=== PATIENT | male | born 1945 | race Caucasian/White ===

== ENCOUNTER 2017-07-14 14:07 | Inpatient (IN) | payer OTHER ==
[2017-07-14 15:04] LABS: Absolute Lymphocytes (CBC) 0.4 K/uL (0.7-4.9); Absolute Monocytes 0.6 K/uL (0.1-1.3); Absolute Neutrophil 9.4 K/uL (1.8-8.0); Basophils % 0.4 % (0-1.3); Eosinophils % 0.5 % (0-4.4); Hematocrit 33.2 % (39.6-49.0); Lymphocytes % 3.8 % (15.3-44.8); MCH 29.2 pg (27.0-35.0); MCV 88.5 fL (80-100); MPV 10.4 fL (7.6-11.3); Monocytes % 5.6 % (3.3-12.3); RBC Red Blood Cell Count 3.75 M/uL (4.33-5.43)
[2017-07-14 15:04] LABS: Urine Blood TRACE (NEG); Urine Glucose NEGATIVE (NEG); Urine Protein 3+ (NEG); Urine Specific Gravity 1.015 (1.005-1.030); Urine pH 8.5 (5.0-7.0)
[2017-07-14 15:09] LABS: Protime INR 1.13
[2017-07-14] MEDS ORDERED: NA CHLORIDE 0.9% 1,000 ML ONE ×2 (15:15→16:25)
[2017-07-14 15:25] LABS: Albumin 3.5 g/dL (3.2-5.5); Bilirubin Direct 0.1 mg/dL (0-0.2); Bilirubin Total 0.7 mg/dL (0.3-1.2); Magnesium 1.7 mg/dL (1.8-2.5); Protein, Total 6.8 g/dL (6.0-8.3)
[2017-07-14 15:28] LABS: CKMB Creatine Kinase MB 5.1 ng/ml (0.3-4.0); Potassium 2.9 mEq/L (3.6-5.0)
--- NOTE | 2017-07-14 15:37 | RAD REPORT ---
EXAM DESCRIPTION: RAD - Chest Single View - 07/14/2017 2:44 pm CLINICAL HISTORY: Cough and congestion COMPARISON: None. TECHNIQUE: AP portable chest image was obtained 1441 hours . FINDINGS: No acute infiltrate or suspicious mass. Calcification overlies the lateral left lung base. This is not regarded as significant. Trachea is midline. No failure or volume overload. Heart and va sculature are normal. No measurable pleural effusion and no pneumothorax. No gross bony abnormality s een. No acute aortic findings suspected. IMPRESSION: No acute cardiopulmonary process.
--- NOTE | 2017-07-14 16:01 | ER ---
Nurse's Notes [facility] Name: Travis Cardona Age: 72 yrs Sex: Male : 1945 Arrival Date: 07/14/2017 Time: 14:19 Bed 7 Private MD: Diagnosis: Weakness;Volume depletion;Hypokalemia;Hypomagnesemia;Anemia, unspecified;Chronic obstructive pulmonary disease, unspecified;Type 2 diabetes mellitus Presentation: 07/14 14:20 Presenting complaint: EMS states: Lethargy and malaise x 3 days. Pt verbalized he was hb having a seizure and flailed his arms and legs loosely during transport. Denies SOB/N/V/pain. Transition of care: patient was not received from another setting of care. Onset of symptoms is unknown. Care prior to arrival: IV initiated. 18 GA, in the left antecubital area. 14:20 Method Of Arrival: EMS: [facility] hb 14:20 Acuity: HIMA 3 hb Historical: - Allergies: 14:23 No Known Allergies; hb - PMHx: 14:23 Hypertension; hb - Immunization history:: Adult Immunizations up to date. - Social history:: Smoking status: Patient uses tobacco products, smokes one pack cigarettes per day. Screenin:02 Abuse screen: Denies threats or abuse. Denies injuries from another. Nutritional hb screening: No deficits noted. Tuberculosis screening: No symptoms or risk factors identified. Fall Risk Total Patten Fall Scale indicates Low Risk Score (25-44 pts). Fall prevention measures have been instituted. Side Rails Up X 2 Frequent Obs/Assesments occuring As available Patient and Family Educated on Fall Prevention Program and strategies. Assessment: 14:22 General: Appears in no apparent distress. Behavior is calm, cooperative. Pain: Denies hb pain. Neuro: Level of Consciousness is awake, alert, obeys commands, Oriented to person, place, time, situation. Cardiovascular: Capillary refill < 3 seconds Patient's skin is warm and dry. Respiratory: Airway is patent Trachea midline Respiratory effort is even, unlabored, Respiratory pattern is regular, symmetrical, Breath sounds are clear bilaterally. Breath sounds are diminished bilaterally. GI: No signs and/or symptoms were reported involving the gastrointestinal system. : No signs and/or symptoms were reported regarding the genitourinary system. EENT: No signs and/or symptoms were reported regarding the EENT system. Derm: No signs and/or symptoms reported regarding the dermatologic system. Skin is intact, is healthy with good turgor. Musculoskeletal: No signs and/or symptoms reported regarding the musculoskeletal system. 15:05 Reassessment: Baljinder Cardona [phone]. hb 15:20 Reassessment: Patient appears in no apparent distress at this time. No changes from hb previously documented assessment. Patient and/or family updated on plan of care and expected duration. Pain level reassessed. Patient is alert, oriented x 3, equal unlabored respirations, skin warm/dry/pink. 16:00 Reassessment: Patient appears in no apparent distress at this time. No changes from hb previously documented assessment. Patient and/or family updated on plan of care and expected duration. Pain level reassessed. Patient is alert, oriented x 3, equal unlabored respirations, skin warm/dry/pink. 17:00 Reassessment: Patient appears in no apparent distress at this time. Patient and/or hb family updated on plan of care and expected duration. Pain level reassessed. Patient is alert, oriented x 3, equal unlabored respirations, skin warm/dry/pink. Admission ordered, awaiting room assignment at this time. 17:36 Reassessment: Ready to move upstairs, US at bedside at this time. hb Vital Signs: 14:19 BP 142 / 96; Pulse 88; Resp 16; Temp 98.7; Pulse Ox 96% on R/A; Pain 0/10; hb 15:15 BP 151 / 80; Pulse 58; Resp 16; Pulse Ox 100% on R/A; Pain 0/10; hb 16:00 BP 146 / 78; Pulse 57; Resp 17; Pulse Ox 100% on 2 lpm NC; hb ED Course: 14:19 Patient arrived in ED. hb 14:22 Triage completed. hb 14:23 Arm band placed on right wrist. hb 14:24 Rolan Calvo MD is Attending Physician. [facility] 14:27 Jyotsna Forbes, ISAURA is Primary Nurse. hb 14:43 X-ray completed. Portable x-ray completed in exam room. Patient tolerated procedure jb2 well. 14:44 XRAY Chest (1 view) In Process Unspecified. EDMS 15:02 Patient has correct armband on for positive identification. Placed in gown. Bed in low hb position. Call light in reach. Side rails up X2. 15:02 Maintain EMS IV. Dressing intact. Good blood return noted. Site clean \T\ dry. Gauge \T\ hb site: 18g LEFT AC. 15:59 Nikita Brown MD is Hospitalizing Provider. yury 16:23 Patient moved to [place] via stretcher. nj 16:26 CT completed. Patient tolerated procedure well. Patient moved back from LA. nj 16:30 Admitting physician to see patient. hb 17:46 Ultrasound completed. Patient tolerated well. aa4 18:03 No provider procedures requiring assistance completed. Patient admitted, IV remains in hb place. Administered Medications: 15:01 Drug: NS 0.9% 1000 ml Route: IV; Rate: 125 ml/hr; Site: left antecubital; hb 18:00 Follow up: Response: No adverse reaction; IV Status: Infusion continued upon admission hb 16:14 Drug: Magnesium Sulfate 1 grams Route: IVPB; Infused Over: 1 hrs; Site: right hb antecubital; 17:45 Follow up: Response: No adverse reaction; IV Status: Completed infusion hb 16:14 Drug: NS 0.9% 1000 ml Route: IV; Rate: 1 bolus; Site: right antecubital; hb 17:15 Follow up: Response: No adverse reaction; IV Status: Completed infusion hb 16:15 Drug: Potassium Chloride 40 mEq Route: PO; hb 16:52 Follow up: Response: No adverse reaction hb 16:37 Drug: Rocephin - (cefTRIAXone) 1 grams Route: IVPB; Infused Over: 30 mins; Site: left hb antecubital; 17:40 Follow up: Response: No adverse reaction; IV Status: Completed infusion hb 16:37 Drug: SOLU-Medrol 125 mg Route: IVP; Site: left antecubital; hb 17:15 Follow up: Response: No adverse reaction hb 16:37 Drug: Pepcid 20 mg Route: IVP; Site: left antecubital; hb 18:00 Follow up: Response: No adverse reaction hb 16:40 Drug: Albuterol - atroVENT (3:1) (2.5 mg - 0.5 mg) 3 ml Route: Nebulizer; hb 18:00 Follow up: Response: No adverse reaction hb 17:36 Drug: Aspirin 81 mg Route: PO; hb 18:00 Follow up: Response: No adverse reaction hb 17:36 Drug: Zithromax 500 mg Route: IVPB; Infused Over: 1 hrs; Site: left antecubital; hb 18:02 Follow up: Response: No adverse reaction; IV Status: Infusion continued upon admission hb Outcome: 16:01 Decision to Hospitalize by Provider. yury 18:03 Admitted to Tele accompanied by tech, room 205, with chart, Report called to Lady. RN chanel 18:03 Condition: stable 18:03 Instructed on the need for admit, Demonstrated understanding of instructions. 18:08 Patient left the ED. hb Signatures: Dispatcher [employer] EDMS Rolan Calvo MD MD cha Buechter, Jesse jb2 Mayra Barlow Heather, RN RN hb Jordan, Nathan nj Corrections: (The following items were deleted from the chart) 14:32 14:20 Presenting complaint: EMS states: Lethargic and malaise x 3 days. Pt verbalized hb he was having a seizure and flailed his arms and legs loosely during transport. Denies SOB/N/V/pain hb
--- NOTE | 2017-07-14 16:01 | EDPHYS ---
Physician Documentation [facility] Name: Travis Cardona Age: 72 yrs Sex: Male : 1945 Arrival Date: 07/14/2017 Time: 14:19 Bed 7 Private MD: ED Physician Rolan Calvo HPI: 07/14 15:48 This 72 yrs old Male presents to ER via EMS with complaints of Lethargy. yury 15:48 weak, not eating. Onset: The symptoms/episode began/occurred 3 day(s) ago. Severity of yury symptoms: At their worst the symptoms were mild moderate in the emergency department the symptoms are unchanged. The patient has not experienced similar symptoms in the past. Historical: - Allergies: 14:23 No Known Allergies; hb - PMHx: 14:23 Hypertension; hb - Immunization history:: Adult Immunizations up to date. - Social history:: Smoking status: Patient uses tobacco products, smokes one pack cigarettes per day. ROS: 15:50 Constitutional: Negative for fever, chills, and weight loss, Eyes: Negative for injury, yury pain, redness, and discharge, ENT: Negative for injury, pain, and discharge, Neck: Negative for injury, pain, and swelling, Cardiovascular: Negative for chest pain, palpitations, and edema, Back: Negative for injury and pain, : Negative for injury, bleeding, discharge, and swelling, MS/Extremity: Negative for injury and deformity, Skin: Negative for injury, rash, and discoloration, Psych: Negative for depression, anxiety, suicide ideation, homicidal ideation, and hallucinations, Allergy/Immunology: Negative for hives, rash, and allergies, Endocrine: Negative for neck swelling, polydipsia, polyuria, polyphagia, and marked weight changes, Hematologic/Lymphatic: Negative for swollen nodes, abnormal bleeding, and unusual bruising. 15:50 Respiratory: Positive for cough. 15:50 Abdomen/GI: Positive for anorexia. 15:50 Neuro: Positive for dizziness, seizure activity, weakness. Exam: 15:51 Constitutional: This is a well developed, well nourished patient who is awake, alert, yury and in no acute distress. Head/Face: Normocephalic, atraumatic. Eyes: Pupils equal round and reactive to light, extra-ocular motions intact. Lids and lashes normal. Conjunctiva and sclera are non-icteric and not injected. Cornea within normal limits. Periorbital areas with no swelling, redness, or edema. ENT: Nares patent. No nasal discharge, no septal abnormalities noted. Tympanic membranes are normal and external auditory canals are clear. Oropharynx with no redness, swelling, or masses, exudates, or evidence of obstruction, uvula midline. Mucous membranes moist. Neck: Trachea midline, no thyromegaly or masses palpated, and no cervical lymphadenopathy. Supple, full range of motion without nuchal rigidity, or vertebral point tenderness. No Meningismus. Chest/axilla: Normal chest wall appearance and motion. Nontender with no deformity. No lesions are appreciated. Cardiovascular: Regular rate and rhythm with a normal S1 and S2. No gallops, murmurs, or rubs. Normal PMI, no JVD. No pulse deficits. Respiratory: Lungs have equal breath sounds bilaterally, clear to auscultation and percussion. No rales, rhonchi or wheezes noted. No increased work of breathing, no retractions or nasal flaring. Abdomen/GI: Soft, non-tender, with normal bowel sounds. No distension or tympany. No guarding or rebound. No evidence of tenderness throughout. Back: No spinal tenderness. No costovertebral tenderness. Full range of motion. MS/ Extremity: Pulses equal, no cyanosis. Neurovascular intact. Full, normal range of motion. Neuro: Awake and alert, GCS 15, oriented to person, place, time, and situation. Cranial nerves II-XII grossly intact. Motor strength 5/5 in all extremities. Sensory grossly intact. Cerebellar exam normal. Normal gait. Psych: Awake, alert, with orientation to person, place and time. Behavior, mood, and affect are within normal limits. 15:51 Skin: Turgor: is poor. Vital Signs: 14:19 BP 142 / 96; Pulse 88; Resp 16; Temp 98.7; Pulse Ox 96% on R/A; Pain 0/10; hb 15:15 BP 151 / 80; Pulse 58; Resp 16; Pulse Ox 100% on R/A; Pain 0/10; hb 16:00 BP 146 / 78; Pulse 57; Resp 17; Pulse Ox 100% on 2 lpm NC; hb MDM: 14:[address] [facility] 15:53 Data reviewed: vital signs, nurses notes, lab test result(s), EKG, radiologic studies, [facility] CT scan, plain films. 07/14 14:30 Order name: Basic Metabolic Panel; Complete Time: 15:41 [facility] 07/14 14:30 Order name: BNP; Complete Time: 15:41 [facility] 07/14 14:30 Order name: CBC with Diff; Complete Time: 15:41 [facility] 07/14 14:30 Order name: Ckmb; Complete Time: 15:41 [facility] 07/14 14:30 Order name: CPK; Complete Time: 15:41 [facility] 07/14 14:30 Order name: LFT's; Complete Time: 15:41 [facility] 07/14 14:30 Order name: Magnesium; Complete Time: 15:41 [facility] 07/14 14:30 Order name: PT-INR; Complete Time: 15:41 [facility] 07/14 14:30 Order name: Ptt, Activated; Complete Time: 15:41 [facility] 07/14 14:30 Order name: Troponin (emerg Dept Use Only); Complete Time: 15:41 [facility] 07/14 14:30 Order name: Lipase; Complete Time: 15:41 [facility] 07/14 14:30 Order name: Blood Culture Adult (2) [facility] 07/14 14:30 Order name: Procalcitonin; Complete Time: 15:41 [facility] 07/14 14:30 Order name: Lactate; Complete Time: 15:41 [facility] 07/14 14:30 Order name: XRAY Chest (1 view); Complete Time: 15:41 [facility] 07/14 14:31 Order name: Urine Culture [facility] 07/14 14:56 Order name: Urine Dipstick--Ancillary (enter results); Complete Time: 15:41 07/14 15:46 Order name: Phosphorus; Complete Time: 17:22 [facility] 07/14 15:47 Order name: ABG; Complete Time: 17:22 [facility] 07/14 15:49 Order name: Chest Abdomen Pelvis Wo Con CT 07/14 16:41 Order name: CT; Complete Time: 17:22 EDMS 07/14 17:23 Order name: US Abdomen Limited [facility] 07/14 14:30 Order name: EKG; Complete Time: 14:31 [facility] 07/14 14:30 Order name: Cardiac monitoring; Complete Time: 15:01 [facility] 07/14 14:30 Order name: EKG - Nurse/Tech; Complete Time: 15:01 [facility] 07/14 14:30 Order name: IV Saline Lock; Complete Time: 15: [facility] 07/14 14:30 Order name: Labs collected and sent; Complete Time: 15: [facility] 07/14 14:30 Order name: O2 Per Protocol; Complete Time: 15: [facility] 07/14 14:30 Order name: O2 Sat Monitoring; Complete Time: 15: [facility] 07/14 14:30 Order name: Urine Dipstick-Ancillary (obtain specimen); Complete Time: 15: [facility] 07/14 16:08 Order name: CONS Physician Consult [facility] 07/14 16:16 Order name: Diet Regular; Complete Time: 16:17 hb Administered Medications: 15:01 Drug: NS 0.9% 1000 ml Route: IV; Rate: 125 ml/hr; Site: left antecubital; hb 18:00 Follow up: Response: No adverse reaction; IV Status: Infusion continued upon admission hb 16:14 Drug: Magnesium Sulfate 1 grams Route: IVPB; Infused Over: 1 hrs; Site: right hb antecubital; 17:45 Follow up: Response: No adverse reaction; IV Status: Completed infusion hb 16:14 Drug: NS 0.9% 1000 ml Route: IV; Rate: 1 bolus; Site: right antecubital; hb 17:15 Follow up: Response: No adverse reaction; IV Status: Completed infusion hb 16:15 Drug: Potassium Chloride 40 mEq Route: PO; hb 16:52 Follow up: Response: No adverse reaction hb 16:37 Drug: Rocephin - (cefTRIAXone) 1 grams Route: IVPB; Infused Over: 30 mins; Site: left hb antecubital; 17:40 Follow up: Response: No adverse reaction; IV Status: Completed infusion hb 16:37 Drug: SOLU-Medrol 125 mg Route: IVP; Site: left antecubital; hb 17:15 Follow up: Response: No adverse reaction hb 16:37 Drug: Pepcid 20 mg Route: IVP; Site: left antecubital; hb 18:00 Follow up: Response: No adverse reaction hb 16:40 Drug: Albuterol - atroVENT (3:1) (2.5 mg - 0.5 mg) 3 ml Route: Nebulizer; hb 18:00 Follow up: Response: No adverse reaction hb 17:36 Drug: Aspirin 81 mg Route: PO; hb 18:00 Follow up: Response: No adverse reaction hb 17:36 Drug: Zithromax 500 mg Route: IVPB; Infused Over: 1 hrs; Site: left antecubital; hb 18:02 Follow up: Response: No adverse reaction; IV Status: Infusion continued upon admission hb Disposition: 07/14/17 16:01 Hospitalization ordered by Nikita Brown for Inpatient Admission. Preliminary diagnosis are Weakness, Volume depletion, Hypokalemia, Hypomagnesemia, Anemia, unspecified, Chronic obstructive pulmonary disease, unspecified, Type 2 diabetes mellitus. - Bed requested for Telemetry/MedSurg (Inpatient). - Status is Inpatient Admission. hb - Condition is Fair. - Problem is new. - Symptoms have improved. UTI on Admission? No Signatures: Dispatcher [employer] Nadya Torres, RN RN Rolan Chakraborty MD MD cha Baxter, Heather, ISAURA RN hb
[2017-07-14 16:18] LABS: Blood Gas Oxyhemoglobin 80.1 % (94-97)
[2017-07-14 16:22] LABS: Blood O2 Saturation 90.7 % (92-98.5)
[2017-07-14] MEDS ORDERED: POTASSIUM CL SA 10 MEQ TAB PO ONE (16:25)
[2017-07-14] MEDS ORDERED: MAGNESIUM SULFATE 1 gm IVPB 1 GM/100 ML BAG IV ONE (16:26)
--- NOTE | 2017-07-14 16:40 | RAD REPORT ---
EXAM DESCRIPTION: CT - Chest Abd Pelvis Wo Con - 07/14/2017 4:25 pm CLINICAL HISTORY: Cough and abdominal pain COMPARISON: July 14, 2017 chest x-ray TECHNIQUE: Computed axial tomography of the chest, abdomen and pelvis was obtained. Oral contrast wa s given. IV contrast was not requested. All CT scans are performed using dose optimization technique as appropriate and may include automated exposure control or mA/KV adjustment according to patient size. FINDINGS: The evaluation of mediastinum, mae, vessels and solid organs is limited secondary to the lack of IV contrast administration No mediastinal or hilar lymphadenopathy is seen. A pleural effusion is not present. A pericardial effusion is not seen. A lung consolidation is not present. Mild tree-in-bud opacities are present within the lungs bilatera lly. Calcified granulomas are present within the lungs. The liver, spleen, pancreas, adrenals and kidneys appear grossly normal There is no evidence of diverticulitis. The gallbladder is distended. Atherosclerotic changes involve the arteries. The prostate gland is mildly enlarged. IMPRESSION: Mild tree-in-bud opacities within the lungs bilaterally may indicate an atypical infect ion Gallbladder distention. This could be a normal finding if the patient has fasted. If the patient has clinical symptoms to suggest gallbladder pathology then ultrasound would be recommended
[2017-07-14] MEDS ORDERED: ALBUTEROL 2.5 MG/3 ML NEB SOL NEB PRN (16:45)
[2017-07-14] MEDS ORDERED: ACETAMINOPHEN 500 MG TAB PO PRN (16:45)
[2017-07-14] MEDS ORDERED: ONDANSETRON 4 MG/2 ML VIAL IV PRN (16:45)
[2017-07-14] MEDS ORDERED: IPRATROPIUM BROM 0.5MG/2.5ML NEB PRN (16:45)
[2017-07-14] MEDS ORDERED: ALBUTEROL 2.5 MG/3 ML NEB SOL ONE (16:51)
[2017-07-14] MEDS ORDERED: METHYLPREDNISOLONE 125 MG INJ ONE (16:51)
[2017-07-14] MEDS ORDERED: IPRATROPIUM BROM 0.5MG/2.5ML ONE (16:51)
[2017-07-14] MEDS ORDERED: FAMOTIDINE 20 MG/2 ML VIAL IV ONE (16:52)
[2017-07-14] MEDS ORDERED: CEFTRIAXONE/SWI 1gm 1 GM/10 ML SYR ONE (16:52)
[2017-07-14] MEDS ORDERED: ENOXAPARIN 30 MG/0.3 ML SQ SCH (17:00)
[2017-07-14] MEDS ORDERED: SODIUM CHLORIDE 0.9% 10ML INJ IV PRN (17:01)
[2017-07-14] MEDS ORDERED: D50W 25 GM/50 ML SYRINGE IV PRN (17:11)
[2017-07-14] MEDS ORDERED: GLUCAGON 1 MG/VIAL IM PRN (17:11)
[2017-07-14] MEDS ORDERED: ASPIRIN 81 MG CHEWABLE TABLET ONE (17:49)
[2017-07-14] MEDS ORDERED: AZITHROMYCIN 500 MG/250 ML BAG ONE (17:50)
[2017-07-14] MEDS: AZITHROMYCIN IV 500 MG in NA CHLORIDE 0.9% 250 ML IVPB SCH (18:00)
[2017-07-14] MEDS: NA CHLORIDE 0.9% 1,000 ML IV SCH ×2 (18:34→21:14)
--- NOTE | 2017-07-14 18:40 | RAD REPORT ---
EXAM DESCRIPTION: US - Abdomen Exam Limited - 07/14/2017 5:49 pm CLINICAL HISTORY: Abdominal pain, right upper quadrant pain COMPARISON: None. FINDINGS: No gallstones, sludge or other abnormalities within the gallbladder lumen. There is no wal l thickening or pericholecystic fluid. Gallbladder is distended but not dilated. No common duct stone or biliary tree dilatation identified. IMPRESSION: Distended but nondilated gallbladder. No stones, sludge or other acute finding. No duct stone or biliary tree abnormality.
[2017-07-14] MEDS: CEFTRIAXONE/SWI 1gm 1 GM/10 ML SYR IV SCH (21:15)
[2017-07-14] MEDS: INSULIN -REGULAR HUMAN 50 UNIT/0.5 ML ML SQ SCH (21:15)
[2017-07-14 21:50] LABS: Urine Appearance CLEAR; Urine Bilirubin NEGATIVE (NEG); Urine Blood NEGATIVE (NEG); Urine Color YELLOW; Urine Glucose 2+ (NEG); Urine Protein 2+ (NEG); Urine Specific Gravity 1.015 (1.005-1.030); Urine pH 7.5 (5.0-7.0)
[2017-07-14 21:58] LABS: Urine Microscopic Reflex ORDER UMIC
[2017-07-14 22:08] LABS: Urine Bacteria <20 /HPF (NONE SEEN); Urine Culture Reflex Order NOT NEEDED; Urine Mucus 0 /HPF (NONE SEEN); Urine RBC <5 /HPF (NONE SEEN)
[2017-07-14] MEDS ORDERED: POTASSIUM 25 MEQ EFFERV TAB PO ONE (22:15)
--- NOTE | 2017-07-15 02:56 | HP ---
Date of Admission: 07/14/2017 Code Status: Full. Chief Complaint: Generalized weakness. History Of Present Illness: The patient is a 72-year-old male with past medical history of diabetes mellitus type 2, hypertension, history of OK status post stent, hyperlipidemia, chronic kidney disease, COPD, who was in his usual state of health until the day prior to admission, when the patient had sudden onset of generalized weakness. He also reports some difficulty with his speech. No nausea, vomiting, fever, chills, diarrhea, constipation, chest pain , or shortness of breath. The patient does report baseline shortness of breath due to his undiagnosed COPD. The [place] goes to the [place] and does see a kidney specialist at [facility]. The patient otherwise denies any ill contacts, cough , or sputum production. The patient's symptoms are constant, moderate, progressively worsening. No alleviating factors. The patient came into the ER for further evaluation. Upon arrival, his vital signs were stable, he was afebrile. His lab workup revealed multiple electrolyte abnormalities. Creatinine was 2.51 with unknown baseline. White count was normal. ABG showed pH 7.51, pCO2 49, pO2 55, bicarb 39. His chest x-ray did not reveal any acute abnormalities. CT scan of the abdomen and pelvis was done, which showed mild tree-in-bud opacities within the lungs bilaterally, may indicate atypical infection, and gallbladder distention. The patient was referred for admission. When seen in the ER, the patient was awake, alert, oriented x3, in some mild distress. Past Medical History: 1. Coronary artery disease. 2. History of OK x3, status post stent. 3. Hypertension. 4. Diabetes mellitus type 2, insulin requiring. 5. Hyperlipidemia. 6. Chronic kidney disease. 7. Likely COPD. Past Surgical History: The patient has had stent and appendectomy. Allergies: NO KNOWN DRUG ALLERGIES. Medications: Reviewed. Social History: The patient denies any alcohol use or illicit drugs. He does report some tobacco use since age of 14 years, will not tell me how much he smokes, but it is more than 1 pack per day. Lives with his son, uses a walker for ambulation, and at times uses a wheelchair. Family History: The patient denies any history of premature coronary artery disease since his son has diabetes. Review of Systems: An 11-point system reviewed, negative except as per HPI. Physical Examination: Vital Signs: Temperature 98.7, heart rate 88, blood pressure 142/96, respirations 16, O2 96% on room air. General: Awake, alert, oriented x3. Elderly male, ill appearing. HEENT: Normocephalic, atraumatic. PERRLA. EOMI. Dry mucous membranes. Oropharynx is clear. Poor dentition. Conjunctivae are anicteric. Neck: Supple. No JVD. Trachea midline. CV: S1, S2. Regular rate and rhythm. No murmurs. Peripheral pulses are present bilaterally. RESPIRATORY: Some diminished breath sounds. No wheezing. No stridor. No use of accessory muscles. Gastrointestinal: Abdomen is soft, nontender, and nondistended. Positive bowel sounds. No guarding or rigidity. No calf tenderness. Skin: No rashes. Normal skin turgor. Neuro: Cranial nerves 2 through 12 intact grossly. No focal neurological deficits. Strength is 5/5 in bilateral upper lower extremities. Sensation is intact to light touch. Speech is somewhat dysarthric, however, no word-finding difficulty, facial asymmetry. Laboratory Data: Sodium 139, potassium 2.9, chloride 88, CO2 of 37, BUN 47, creatinine 2.51, glucose 151, lactic acid 12.1, calcium 8.6, phosphorus 3.5, magnesium 1.7. CK 283, troponin 0.05. AST 44, ALT 45, total bilirubin 0.7. BNP 687. Alkaline phosphatase 147. Total protein 6.8, albumin 3.5, lipase 13, procalcitonin 0.05. WBC 10.5, H and H 10.9 and 33.2, platelets 179, neutrophils 89%. INR 1.13. ABG; pH 7.51, pCO2 of 49.4, pO2 of 55.5, bicarb 39.1. UA negative. CT abdomen, pelvis, and chest shows mild tree-in-bud opacities within the lungs bilaterally, may indicate an atypical infection, gallbladder distention. Chest x-ray, personally reviewed, shows no acute cardiopulmonary process. Assessment And Plan: A 72-year-old male with; 1. Generalized weakness, likely secondary to electrolyte abnormalities. We will obtain PT evaluation. 2. Acute versus acute on chronic kidney injury. We will start on IV fluids. Monitor creatinine and obtain Nephrology consultation. 3. Hypomagnesemia. We will replace and monitor. 4. Hypokalemia. Replace and monitor. 5. Diabetes mellitus type 2, insulin requiring. We will start on sliding scale insulin. Check hemoglobin A1c. 6. Metabolic alkalosis. 7. Essential hypertension. Resume home medications as appropriate. 8. History of coronary artery disease, pilot station artery and pilot station heart, without angina, status post stent. 9. Hyperlipidemia. 10. Resume home medications as appropriate. 11. Likely chronic obstructive pulmonary disease. The patient has a significant history of smoking. We will start on nebulizer treatment, prophylactic antibiotic. CT scan does show some tree-in-bud opacities, possible infiltrate. We will obtain blood cultures. 12. Gastrointestinal and deep venous thrombosis prophylaxes with PPI and Lovenox. Plan: Admit the patient to Med-Surg, place as inpatient with remote cardiac telemetry. No living will or medical power of contract attorney /BHAVESH Voice ID: [id number] TAPAN
[2017-07-15 05:33] LABS: Absolute Lymphocytes (CBC) 0.2 K/uL (0.7-4.9); Absolute Monocytes 0.3 K/uL (0.1-1.3); Absolute Neutrophil 6.1 K/uL (1.8-8.0); Hematocrit 26.8 % (39.6-49.0); Lymphocytes % 3.1 % (15.3-44.8); MCH 29.9 pg (27.0-35.0); MCV 88.2 fL (80-100); MPV 10.6 fL (7.6-11.3); Monocytes % 4.1 % (3.3-12.3); RBC Red Blood Cell Count 3.04 M/uL (4.33-5.43)
[2017-07-15 05:46] LABS: Albumin 2.6 g/dL (3.2-5.5); Bilirubin Total 0.6 mg/dL (0.3-1.2); Phosphorus 2.2 mg/dL (2.5-4.3); Potassium 4.1 mEq/L (3.6-5.0); Protein, Total 5.2 g/dL (6.0-8.3)
[2017-07-15] MEDS: INSULIN -REGULAR HUMAN 50 UNIT/0.5 ML ML SQ SCH ×2 (07:30→11:30)
--- NOTE | 2017-07-15 07:37 | EKG ---
Test Date: 2017-07-14 Test Time: 14:43:03 Dairy Nutrition Consultant: BHARGAV MEASUREMENT RESULTS: Intervals: Rate: 55 TX: 156 QRSD: 104 QT: 518 QTc: 495 [place]: P: 55 TX: 156 QRS: 29 T: 15 INTERPRETIVE STATEMENTS: Sinus bradycardia Minimal voltage criteria for LVH, may be normal variant Inferior infarct, age undetermined Abnormal ECG Compared to ECG 05/19/1994 08:11:00 Left ventricular hypertrophy now present Myocardial infarct finding now present Sinus rhythm no longer present Electronically Signed On 07-15-17 07:35:01 CDT by Jaziel Washington
[2017-07-15 07:53] LABS: A1c Component 0.34 mg/dL; Hemoglobin A1c 5.6 % (4-6.0)
[2017-07-15 08:45] LABS: CKMB Creatine Kinase MB 3.1 ng/ml (0.3-4.0); Uric Acid 7.8 mg/dL (4.8-8.7)
[2017-07-15] MEDS ORDERED: PANTOPRAZOLE 40 MG INJ IVP SCH (09:00)
[2017-07-15 09:26] LABS: Platelet Estimate ADEQ; Urine White Blood Cell Casts OK
[2017-07-15 09:27] LABS: Blood Morphology Comment NOT SEEN (NOT SEEN)
[2017-07-15] MEDS: CEFTRIAXONE/SWI 1gm 1 GM/10 ML SYR IV SCH (09:52)
[2017-07-15] MEDS: AZITHROMYCIN IV 500 MG in NA CHLORIDE 0.9% 250 ML IVPB SCH (09:52)
--- NOTE | 2017-07-15 11:49 | RAD REPORT ---
EXAM DESCRIPTION: US - Renal Ultrasound-Complete - 07/15/2017 9:44 am CLINICAL HISTORY: Renal failure. COMPARISON: 07/14/2017 FINDINGS: Both kidneys are normal in size, shape and echotexture. The right kidney measures 12.3 x 5.7 x 5.5 cm. No hydronephrosis, focal mass or perinephric fluid. The left kidney measures 12.9 x 5.6 x 5.4 cm. No hydronephrosis, focal mass or perinephric fluid. IMPRESSION: Unremarkable renal sonogram.
--- NOTE | 2017-07-15 23:46 | DS ---
Date of Discharge: 07/15/2017 Consultants: Dr. Peña. Admitting Diagnoses: 1.Generalized weakness. 2.Acute versus acute on chronic kidney injury. 3.Hypomagnesemia. 4.Hypokalemia. 5.Diabetes mellitus type 2 with hyperglycemia with long-term use of insulin. 6.Metabolic alkalosis. 7.Essential hypertension. 8.History of coronary artery disease, [place] artery and [place] heart without angina, status post gregor nt. 9.Hyperlipidemia. 10.Chronic obstructive pulmonary disease, undiagnosed. 11.Probable pneumonia. Discharge Diagnoses: 1.Generalized weakness. 2.Acute versus acute on chronic kidney injury. 3.Hypomagnesemia, replaced. 4.Hypokalemia, replaced. 5.Diabetes mellitus type 2 with hyperglycemia with long-term use of insulin. 6.Metabolic alkalosis. 7.Essential hypertension. 8.History of coronary artery disease, [place] artery and [place] heart without angina, status post gregor nt. 9.Hyperlipidemia. 10.Chronic obstructive pulmonary disease. 11.Pneumonia. Hospital Course: The patient is a 72-year-old male, who came in with generalized weakness, not feeli ng like himself. The patient was found to have multiple electrolyte abnormalities, including hypokal emia and hypomagnesemia. His kidney function was elevated at 2.51. However, the patient does have h istory of chronic kidney disease and sees specialist in [facility]. The patient was admitted to the hospit al. He was started on IV fluids and his electrolytes were replaced. Potassium and magnesium were co rrected. Nephrology was also consulted. The patient felt significantly better. His white count rem ained stable. His ABG did show some metabolic alkalosis. The patient has a significant history of t obacco use. Has never been diagnosed with COPD. The patient will need PFT as an outpatient. Anna r, his CT chest, abdomen, and pelvis did show some tree-in-bud opacities with possible pneumonia. Th e patient was started on IV antibiotics prophylactically. The patient was feeling better. He was ab le to ambulate. His weakness had improved. Electrolytes have been corrected. The patient was then discharged to home in a fair condition. Activity: Fall precautions. Diet: Diabetic. Medications: As per medication reconciliation list. Followup: Follow up with primary care physician in 2 to 3 days. Follow up with primary human performance consultant at [facility] in 1 week. Return to ER for worsening condition. Total time spent discharging the patient was 33 minutes. Physical Examination: General: Awake, alert, oriented, no acute distress. CV: S1, S2. No murmurs. Respiratory: Moving air well bilaterally. No wheezing. Abdomen: Soft, nontender, nondistended. Positive bowel sounds. Extremities: No clubbing, cyanosis, or edema. Neurologic: Nonfocal. SA/MODL Voice ID: [id number] Report ID: [id number]
--- NOTE | 2017-07-16 02:35 | CON ---
Date of Consultation: 07/15/2017 Additional Consulting Physician: Dr. Nikita Brown. Reason For Consultation: Elevated BUN and creatinine. History Of Present Illness: This is a pleasant 72-year-old gentleman with significant past medical history of hypertension, coronary artery disease, diabetes complicated with neuropathy and nephropathy, chronic kidney disease, unknown stage, follow up with sanitation officer in [facility], COPD. The patient was in his regular state of health, came to the hospital complaining from generalized weakness and slurred speech. For that reason, he came to the hospital, found to have elevated BUN and creatinine. For that reason, we have been consulted. The patient denied IV contrast, no recent antibiotic. The patient apparently taking ibuprofen every other day one tablet. According to the patient, the patient seen his sanitation officer almost 2 months ago and everything being stable, no change in medication. No antibiotic. Again, the patient has been taking ibuprofen. The patient has a followup with his sanitation officer in next week. Past Medical History: Include; 1. Coronary artery disease status post MO, status post cardiac cath. 2. Hypertension. 3. Diabetes. 4. Complicated with neuropathy and nephropathy. 5. Hyperlipidemia. 6. Chronic kidney disease. 7. COPD. Past Surgical History: Include appendectomy. Allergies: NO KNOWN DRUG ALLERGY. Family History: Positive for hypertension. Social History: Active smoker. Occasional alcohol. Denies drug abuse. Review of Systems: Head and Neck: No red eye. No ear pain. Gastrointestinal: Has no nausea or no vomiting. Genitourinary: No polyuria. No dysuria. No hematuria. Gynecology: Not applicable. Respiratory: Has shortness of breath. Cardiovascular: No chest pain. Neurologic: No weakness. Musculoskeletal: No joint pain. Endocrine: No polydipsia. Skin: No rash. Medications: Home medications include: 1. Prednisone. 2. Cefuroxime. 3. Azithromycin. 4. Albuterol. Current medications in the hospital include: 1. IV fluid. 2. Albuterol. 3. Pantoprazole. 4. Insulin. Physical Examination: General: When I saw the patient, the patient was sitting in the bed, anxious. Vital Signs: Blood pressure 149/90, pulse of 93, afebrile. Chest: Clear to auscultation. Heart: S1, S2. Regular. Abdomen: Soft and nontender. Extremities: No edema. Neurologic: Alert and oriented x3. No focal. Laboratory Data: WBC 6.6, H and H 9.1/26.8, and platelet 166. Sodium 140, potassium 4.1, bicarb 35, BUN 48, creatinine 2.3 trending down from 2.5, GFR 27 trending up from 25, calcium 8, phosphorus 2.2. Renal ultrasound showing 12.3 x 12.9. Urinalysis is a +3 protein. Assessment And Plan: 1. 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 Normal size kidney mostly secondary to diabetes with acute kidney injury secondary to prerenal recovery phase. We will continue IV hydration. We reinforce for the patient, the patient need to stay in the hospital for farther care, but the patient insists that he want a discharge. The patient understand risks, benefits, and alternatives. The patient had a close followup with his sanitation officer on the 9th of this month. 2. Hypertension. Controlled optimal. Continue current medication. 3. Arthritis. I advised the patient to avoid any ibuprofen. 4. Hypokalemia, status post supplement. 5. In the presence of acute kidney injury and anemia, light-chain disease needs to be ruled out. Case discussed with Dr. Brown. Discussed with the patient, verbalized understanding. The patient still insist to be discharged. ALINA Voice ID: [id number] Report ID: [id number] TAPAN
== END 2017-07-15 14:20 | disposition home or self-care (01) | DRG 640 ==
LOC: ER 14:07 → ERHOLD 16:03 → 2ND 17:58
PROVIDERS: ADMIT Family Medicine; ATTEND Family Medicine
DX: E87.6 Hypokalemia (principal); J18.9 Pneumonia, unspecified organism; E83.42 Hypomagnesemia; E87.3 Alkalosis; J44.9 Chronic obstructive pulmonary disease, unspecified; E11.22 Type 2 diabetes mellitus with diabetic chronic kidney disease; I12.9 Hypertensive chronic kidney disease with stage 1 through stage 4 chronic kidney disease, or unspecified chronic kidney disease; N18.9 Chronic kidney disease, unspecified; E78.5 Hyperlipidemia, unspecified; I25.10 Atherosclerotic heart disease of native coronary artery without angina pectoris; N18.3 Chronic kidney disease, stage 3 (moderate); M19.90 Unspecified osteoarthritis, unspecified site; I25.2 Old myocardial infarction
CPT/HCPCS: 36415; 71045; 71250; 74176; 76705; 76770; 80048; 80053; 80076; 81003; 81015; 82550; 82553; 82805; 82962; 83036; 83605; 83690; 83735; 83880; 84100; 84132; 84145; 84484; 84550; 85025; 85610; 85730; 87040; 87086; 87088; 93005; 94640; 94760; 97163; 99285; C9113; J0456; J0696; J1650; J2930; J3475; J7030

== ENCOUNTER 2018-03-28 20:15 | Emergency (ER) | payer OTHER ==
[2018-03-28 21:00] LABS: Absolute Lymphocytes (CBC) 0.5 K/uL (0.7-4.9); Absolute Monocytes 0.6 K/uL (0.1-1.3); Absolute Neutrophil 6.2 K/uL (1.8-8.0); Basophils % 0.6 % (0-1.3); Eosinophils % 0.9 % (0-4.4); Lymphocytes % 6.7 % (15.3-44.8); MPV 9.9 fL (7.6-11.3); Monocytes % 7.7 % (3.3-12.3); RBC Red Blood Cell Count 4.26 M/uL (4.33-5.43)
[2018-03-28 21:05] LABS: Protime INR 1.16
[2018-03-28 21:19] LABS: Albumin 3.7 g/dL (3.4-5.0); Bilirubin Direct 0.2 mg/dL (0-0.2); Bilirubin Total 0.5 mg/dL (0.2-1.0); Potassium 4.3 mmol/L (3.5-5.1); Protein, Total 7.2 g/dL (6.4-8.2); Troponin (Emerg Dept Use Only) 0.03 ng/mL (0.0-0.045)
[2018-03-28] MEDS ORDERED: NA CHLORIDE 0.9% 1,000 ML ONE (23:16)
--- NOTE | 2018-03-28 23:49 | ER ---
Nurse's Notes [facility] Name: Travis Cardona Age: 73 yrs Sex: Male : 1945 Arrival Date: 03/28/2018 Time: 20:17 Bed 30 Private MD: Diagnosis: Weakness Presentation: 03/28 20:52 Presenting complaint: Patient states: patient states: I FELL SICK FOR A WEEK NOW. rv EVERYTHING IS WRONG WITH ME. COMPLAINING ALSO OF NAUSEA ANG VOMITING. PATIENT DENIES ANY PAIN. Transition of care: patient was not received from another setting of care. No acute neurological deficit is noted. Pre-hospital glucose is not applicable to this patient. Onset of symptoms was March 21, 2018 at 08:00. Risk Assessment: Do you want to hurt yourself or someone else? Patient reports no desire to harm self or others. Care prior to arrival: None. 20:52 Method Of Arrival: Ambulatory rv 20:52 Acuity: HIMA 3 rv 21:48 Initial Sepsis Screen: Does the patient meet any 2 criteria? No. Patient's initial rv sepsis screen is negative. Does the patient have a suspected source of infection? No. Patient's initial sepsis screen is negative. Historical: - Allergies: 20:55 No Known Allergies; rv - Home Meds: 20:55 Unable to obtain [Active]; rv - PMHx: 20:55 Hypertension; rv - PSHx: 20:55 Unable to obtain; rv - Immunization history:: Adult Immunizations unknown. - Social history:: Smoking status: Patient uses tobacco products, smokes one pack cigarettes per day. - Ebola Screening: : Patient negative for fever greater than or equal to 101.5 degrees Fahrenheit, and additional compatible Ebola Virus Disease symptoms Patient denies exposure to infectious person Patient denies travel to an Ebola-affected area in the 21 days before illness onset. Screenin:58 Abuse screen: Denies threats or abuse. Denies injuries from another. Nutritional rv screening: No deficits noted. Tuberculosis screening: No symptoms or risk factors identified. Fall Risk None identified. Assessment: 20:56 General: Appears in no apparent distress. uncomfortable, Behavior is cooperative, rv agitated. Pain: Denies pain. Neuro: Level of Consciousness is awake, alert, obeys commands, Oriented to person, place, time, situation. Cardiovascular: Capillary refill < 3 seconds. Respiratory: Airway is patent. GI: No signs and/or symptoms were reported involving the gastrointestinal system. : No signs and/or symptoms were reported regarding the genitourinary system. EENT: No signs and/or symptoms were reported regarding the EENT system. Derm: Skin is intact. Musculoskeletal: No signs and/or symptoms reported regarding the musculoskeletal system. 22:25 Reassessment: patient is asleep. rv 23:38 Reassessment: Patient appears in no apparent distress at this time. Patient and/or rv family updated on plan of care and expected duration. Pain level reassessed. Vital Signs: 20:15 BP 171 / 89 LA Sitting (auto/); Pulse 67; Resp 18; Temp 98.1(O); Pulse Ox 100% on R/A; jp3 Pain 10; 21:47 BP 180 / 93; Pulse 76 MON; Resp 16 S; Pulse Ox 97% on R/A; rv 22:25 BP 144 / 87; Pulse 64 MON; Resp 18 S; Pulse Ox 96% on R/A; rv 23:00 BP 181 / 106; Pulse 81 MON; Resp 18 S; Pulse Ox 98% on R/A; rv 23:49 BP 184 / 89; Pulse 72 MON; Pulse Ox 97% on R/A; rv 03/29 00:48 BP 174 / 78; Pulse 87 MON; Resp 16 S; Pulse Ox 98% on R/A; rv ED Course: 03/28 20:17 Patient arrived in ED. al2 20:27 Bed in low position. Call light in reach. Side rails up X 1. Noise minimized. Lights jp3 dimmed. Warm blanket given. Pillow given. Pulse ox on. NIBP on. 20:34 Bhavesh Jesus MD is Attending Physician. tw4 20:40 Inserted saline lock: 18 gauge in right antecubital area, using aseptic technique. rv Blood collected. 20:40 Initial lab(s) drawn, by me, sent to lab. rv 20:54 Triage completed. rv 20:59 Arm band placed on right wrist. rv 21:03 Troponin (emerg Dept Use Only) Sent. rv 21:03 PT-INR Sent. rv 21:03 NT PRO-BNP Sent. rv 21:04 Magnesium Sent. rv 21:04 LFT's Sent. rv 21:04 CBC with Diff Sent. rv 21:04 Basic Metabolic Panel Sent. rv 22:21 XRAY Chest (1 view) In Process Unspecified. EDMS 03/29 01:06 No provider procedures requiring assistance completed. IV discontinued, bleeding rv controlled, No redness/swelling at site. Pressure dressing applied. Administered Medications: 03/28 23:09 Drug: NS 0.9% 1000 ml Route: IV; Rate: 1 bolus; Site: right forearm; rv 03/29 01:05 Follow up: IV Status: Completed infusion rv 00:21 Drug: hydrALAZINE 20 mg Route: IV; Rate: bolus; Site: right antecubital; rv 01:06 Follow up: Response: Blood pressure is lowered rv 01:06 Follow up: IV Status: Completed infusion rv Point of Care Testing: Blood Glucose: 03/28 20:58 Blood Glucose: 145 mg/dL; rv Ranges: Outcome: 23:49 Discharge ordered by . chiara 03/29 01:07 Discharged to home via wheelchair, with friend. rv Condition: good Discharge instructions given to patient, friend, Instructed on discharge instructions, follow up and referral plans. Demonstrated understanding of instructions, follow-up care. 01:07 Patient left the ED. rv Signatures: Dispatcher [employer] EDMS Elmira Valdez2 Bhavesh Jesus MD MD tw4 Stanley Cavanaugh RN RN rv Samm Plunkett jp3
--- NOTE | 2018-03-28 23:49 | EDPHYS ---
Physician Documentation [facility] Name: Travis Cardona Age: 73 yrs Sex: Male : 1945 Arrival Date: 03/28/2018 Time: 20:17 Bed 30 Private MD: ED Physician Bhavesh Jesus HPI: 03/29 21:22 This 73 yrs old Male presents to ER via Ambulatory with complaints of tw4 Weakness. 21:22 The patient presents to the emergency department with weakness of the. The patient tw4 presents to the emergency department with weakness of the entire body, generalized weakness. Onset: The symptoms/episode began/occurred today. Context: occurred at home. Associated signs and symptoms: The patient has no apparent associated signs or symptoms. Severity of symptoms: At their worst the symptoms were moderate in the emergency department the symptoms are unchanged. The patient has not experienced similar symptoms in the past. Historical: - Allergies: 03/28 20:55 No Known Allergies; rv - Home Meds: 20:55 Unable to obtain [Active]; rv - PMHx: 20:55 Hypertension; rv - PSHx: 20:55 Unable to obtain; rv - Immunization history:: Adult Immunizations unknown. - Social history:: Smoking status: Patient uses tobacco products, smokes one pack cigarettes per day. - Ebola Screening: : Patient negative for fever greater than or equal to 101.5 degrees Fahrenheit, and additional compatible Ebola Virus Disease symptoms Patient denies exposure to infectious person Patient denies travel to an Ebola-affected area in the 21 days before illness onset. ROS: 03/29 21:22 Constitutional: Negative for fever, chills, and weight loss, Eyes: Negative for injury, tw4 pain, redness, and discharge, Cardiovascular: Negative for chest pain, palpitations, and edema, Respiratory: Negative for shortness of breath, cough, wheezing, and pleuritic chest pain, Abdomen/GI: Negative for abdominal pain, nausea, vomiting, diarrhea, and constipation, Back: Negative for injury and pain, MS/Extremity: Negative for injury and deformity, Skin: Negative for injury, rash, and discoloration. Neuro: Positive for weakness. Exam: 21:22 Constitutional: This is a well developed, well nourished patient who is awake, alert, tw4 and in no acute distress. Head/Face: Normocephalic, atraumatic. Chest/axilla: Normal chest wall appearance and motion. Nontender with no deformity. No lesions are appreciated. Cardiovascular: Regular rate and rhythm with a normal S1 and S2. No gallops, murmurs, or rubs. Normal PMI, no JVD. No pulse deficits. Respiratory: Lungs have equal breath sounds bilaterally, clear to auscultation and percussion. No rales, rhonchi or wheezes noted. No increased work of breathing, no retractions or nasal flaring. Abdomen/GI: Soft, non-tender, with normal bowel sounds. No distension or tympany. No guarding or rebound. No evidence of tenderness throughout. Back: No spinal tenderness. No costovertebral tenderness. Full range of motion. MS/ Extremity: Pulses equal, no cyanosis. Neurovascular intact. Full, normal range of motion. Neuro: Awake and alert, GCS 15, oriented to person, place, time, and situation. Cranial nerves II-XII grossly intact. Motor strength 5/5 in all extremities. Sensory grossly intact. Cerebellar exam normal. Normal gait. Vital Signs: 03/28 20:15 BP 171 / 89 LA Sitting (auto/); Pulse 67; Resp 18; Temp 98.1(O); Pulse Ox 100% on R/A; jp3 Pain 10/10; 21:47 BP 180 / 93; Pulse 76 MON; Resp 16 S; Pulse Ox 97% on R/A; rv 22:25 BP 144 / 87; Pulse 64 MON; Resp 18 S; Pulse Ox 96% on R/A; rv 23:00 BP 181 / 106; Pulse 81 MON; Resp 18 S; Pulse Ox 98% on R/A; rv 23:49 BP 184 / 89; Pulse 72 MON; Pulse Ox 97% on R/A; rv 03/29 00:48 BP 174 / 78; Pulse 87 MON; Resp 16 S; Pulse Ox 98% on R/A; rv MDM: 03/28 20:34 Patient medically screened. tw4 03/29 21:22 Data reviewed: vital signs, nurses notes. Data interpreted: Pulse oximetry: tw4 Interpretation: normal. Counseling: I had a detailed discussion with the patient and/or guardian regarding: the historical points, exam findings, and any diagnostic results supporting the discharge/admit diagnosis. 03/28 20:35 Order name: Basic Metabolic Panel tw4 03/28 20:35 Order name: CBC with Diff tw4 03/28 20:35 Order name: LFT's tw 03/28 20:35 Order name: Magnesium tw 03/28 20:35 Order name: NT PRO-BNP tw4 03/28 20:35 Order name: PT-INR tw 03/28 20:35 Order name: Troponin (emerg Dept Use Only) tw 03/28 21:02 Order name: CBC with Automated Diff; Complete Time: 22:46 EDMS 03/28 21:19 Order name: Basic Metabolic Panel; Complete Time: 22:46 EDMS 03/28 21:19 Order name: Liver (Hepatic) Function; Complete Time: 22:46 EDMS 03/28 21:19 Order name: Troponin (Emerg Dept Use Only); Complete Time: 22:46 EDMS 03/28 21:19 Order name: NT PRO-BNP; Complete Time: 22:46 EDMS 03/28 21:19 Order name: Magnesium; Complete Time: 22:46 EDMS 03/28 21:27 Order name: Protime (+INR); Complete Time: 22:46 EDMS 03/28 20:35 Order name: XRAY Chest (1 view) 03/28 20:35 Order name: EKG; Complete Time: 20:36 03/28 20:35 Order name: Cardiac monitoring; Complete Time: 21:03 4 03/28 20:35 Order name: EKG - Nurse/Tech; Complete Time: 21:03 03/28 20:35 Order name: IV Saline Lock; Complete Time: 21:03 03/28 20:35 Order name: Labs collected and sent; Complete Time: 21:03 4 03/28 20:35 Order name: O2 Per Protocol; Complete Time: 20:37 4 03/28 20:35 Order name: O2 Sat Monitoring; Complete Time: 20:37 03/28 22:40 Order name: Flu rv Administered Medications: 03/28 23:09 Drug: NS 0.9% 1000 ml Route: IV; Rate: 1 bolus; Site: right forearm; rv 03/29 01:05 Follow up: IV Status: Completed infusion rv 00:21 Drug: hydrALAZINE 20 mg Route: IV; Rate: bolus; Site: right antecubital; rv 01:06 Follow up: Response: Blood pressure is lowered rv 01:06 Follow up: IV Status: Completed infusion rv Point of Care Testing: Blood Glucose: 03/28 20:58 Blood Glucose: 145 mg/dL; rv Ranges: Critical Glucose Levels:Adult <50 mg/dl or >400 mg/dl <40 mg/dl or >180 mg/dl Disposition: 03/28/18 23:49 Discharged to Home. Impression: Weakness. - Condition is Stable. - Medication Reconciliation Form, Thank You Letter, Antibiotic Education, Prescription Opioid Use form. - Follow up: Private Physician; When: Upon discharge from the Emergency Department; Reason: If symptoms return, Recheck today's complaints, Continuance of care. - Problem is new. - Symptoms have improved. Signatures: Dispatcher [employer] Bhavesh Simmons MD MD tw4 Stanley Cavanaugh RN RN rv Corrections: (The following items were deleted from the chart) 03/29 01:07 03/28 23:49 03/28/2018 23:49 Discharged to Home. Impression: Weakness. Condition is rv Stable. Forms are Medication Reconciliation Form, Thank You Letter, Antibiotic Education, Prescription Opioid Use. Follow up: Private Physician; When: Upon discharge from the Emergency Department; Reason: If symptoms return, Recheck today's complaints, Continuance of care. Problem is new. Symptoms have improved. tw4
[2018-03-29] MEDS ORDERED: HYDRALAZINE HCL 20 MG/ML VIAL ONE (00:25)
--- NOTE | 2018-03-29 07:04 | EKG ---
Test Date: 2018-03-28 Test Time: 20:34:00 [employer] Developer: MEASUREMENT RESULTS: Intervals: Rate: 65 ND: 166 QRSD: 96 QT: 442 QTc: 459 [place]: P: 45 ND: 166 QRS: 88 T: 56 INTERPRETIVE STATEMENTS: Sinus rhythm with occasional premature ventricular complexes Left ventricular hypertrophy with repolarization abnormality Abnormal ECG Compared to ECG 07/14/2017 14:43:03 Ventricular premature complex(es) now present Sinus bradycardia no longer present Myocardial infarct finding no longer present Electronically Signed On 03-29-18 07:03:40 DRY BOX OPERATOR by Cristian Li
--- NOTE | 2018-03-29 07:44 | RAD REPORT ---
EXAM DESCRIPTION: Elt Single View03/28/2018 10:16 pm CLINICAL HISTORY: Chest pain COMPARISON: July 2017 FINDINGS: The lungs appear clear of acute infiltrate. The heart is mildly to moderately enlarged Calcified granulomas present within the left lung IMPRESSION: No acute abnormalities displayed
== END 2018-03-29 01:07 | disposition home or self-care (01) ==
LOC: ER 20:15
DX: R53.1 Weakness (principal); I10 Essential (primary) hypertension; F17.210 Nicotine dependence, cigarettes, uncomplicated
CPT/HCPCS: 36415; 71045; 80048; 80076; 82962; 83735; 83880; 84484; 85025; 85610; 87804; 93005; 96361; 96365; 99284; J0360; J7030

== ENCOUNTER 2018-05-20 20:11 | Inpatient (IN) | payer OTHER ==
[2018-05-20 20:40] LABS: Blood Gas Oxyhemoglobin 97.3 % (94-97); Blood O2 Saturation 99.4 % (92-98.5)
[2018-05-20] MEDS ORDERED: DEXAMETHASONE 4 MG/ML VIAL ONE (20:42)
[2018-05-20] MEDS ORDERED: MAGNESIUM SULFATE 1 gm IVPB 0 GM/0 ML BAG IV ONE (20:43)
[2018-05-20] MEDS ORDERED: NA CHLORIDE 0.9% 1,000 ML ONE (20:43)
[2018-05-20 20:47] LABS: Absolute Lymphocytes (CBC) 0.3 K/uL (0.7-4.9); Absolute Monocytes 0.6 K/uL (0.1-1.3); Absolute Neutrophil 13.5 K/uL (1.8-8.0); Basophils % 0.2 % (0-1.3); Hematocrit 36.5 % (39.6-49.0); Lymphocytes % 1.8 % (15.3-44.8); MPV 9.9 fL (7.6-11.3); Monocytes % 4.4 % (3.3-12.3); RBC Red Blood Cell Count 4.21 M/uL (4.33-5.43)
[2018-05-20] MEDS ORDERED: IPRATROPIUM BROM 0.5MG/2.5ML ONE (20:49)
[2018-05-20] MEDS ORDERED: Magnesium Sulfate 2gm IVPB 2 G/50 ML BAG IV ONE (20:50)
[2018-05-20] MEDS ORDERED: LEVALBUTEROL 1.25 MG/3 ML NEB ONE (20:50)
[2018-05-20 21:02] LABS: Protime INR 1.26
--- NOTE | 2018-05-20 21:09 | RAD REPORT ---
EXAM DESCRIPTION: RAD - Chest Single View - 05/20/2018 9:04 pm CLINICAL HISTORY: DYSPNEA Chest pain. COMPARISON: Chest Single View dated 03/28/2018; Chest Single View dated 07/14/2017Chest Single View da alan 03/28/2018; Chest Single View dated 07/14/2017 FINDINGS: Portable technique limits examination quality. Mild interstitial pulmonary edema suspected. The heart is moderately enlarged in size. No displaced f ractures.Atherosclerosis of aorta is seen. IMPRESSION: Mild CHF suspected.
--- NOTE | 2018-05-20 21:38 | ER ---
Nurse's Notes [facility] Name: Travis Cardona Age: 73 yrs Sex: Male : 1945 Arrival Date: 05/20/2018 Time: 20:12 Bed 6 Private MD: Diagnosis: Dyspnea;Essential (primary) hypertension;Unspecified combined systolic (congestive) and diastolic (congestive) heart failure;Chronic obstructive pulmonary disease with (acute) exacerbation;Unspecified kidney failure;Hypomagnesemia;Non-ST elevation (NSTEMI) myocardial infarction;Type 2 diabetes mellitus Presentation: 05/20 20:21 Presenting complaint: EMS states: they were toned out for report of pt having bb difficulty breathing pt tripoding with labored breathing on their arrival, they initiated an IV and gave breathing treatment. Transition of care: patient was not received from another setting of care. Onset of symptoms is unknown. Risk Assessment: Do you want to hurt yourself or someone else? Patient reports no desire to harm self or others. Initial Sepsis Screen: Does the patient meet any 2 criteria? Yes Does the patient have a suspected source of infection? Yes: Productive cough/pneumonia. Care prior to arrival: Medication(s) given: Albuterol Neb x 1, Atrovent Neb x 1, IV initiated. 20 GA, in the right antecubital area, Glucose check: 189. 20:21 Method Of Arrival: EMS: [facility] bb 20:21 Acuity: HIMA 2 bb Triage Assessment: 22:30 Respiratory: the patient has moderate shortness of breath. jd3 22:30 Respiratory: Onset: The symptoms/episode began/occurred today. jd3 Historical: - Allergies: 20:32 No Known Allergies; bb - Home Meds: 20:32 calcium vitamin D 250 mg/125 mg daily [Active]; Furosemide Oral [Active]; isosorbide bb dinitrate 30 mg Oral tab 1 tab 3 times per day [Active]; losartan 50 mg oral tab 1 tab once daily [Active]; cyanocobalamin (vitamin B-12) 1,000 mcg oral tab daily [Active]; metoprolol tartrate 100 mg Oral tab 2 tabs 2 times per day [Active]; tramadol 50 mg Oral tab 1 tab three times a day [Active]; isosorbide mononitrate 30 mg Oral Tb24 1 tab once daily [Active]; tamsulosin 0.4 mg oral cp24 1 cap once daily [Active]; glipizide 5 mg Oral tab 1 tab 2 times per day [Active]; hydralazine 25 mg Oral tab 1 tab three times a day [Active]; atorvastatin 40 mg oral tab 1 tab once daily [Active]; ProAir HFA inhalation inhalation [Active]; - PMHx: 20:32 Hypertension; Diabetes - NIDDM; BPH; bb - Immunization history:: Adult Immunizations unknown. - Social history:: Smoking status: unknown. - Ebola Screening: : No symptoms or risks identified at this time. - Family history:: not pertinent. Screenin:30 Abuse screen: Denies threats or abuse. Denies injuries from another. Nutritional aj1 screening: No deficits noted. Tuberculosis screening: No symptoms or risk factors identified. 22:00 Fall Risk IV access (20 points). Ambulatory Aid- None/Bed Rest/Nurse Assist (0 pts). jd3 Gait- Weak (10 pts.). Mental Status- Oriented to own ability (0 pts). Total Patten Fall Scale indicates Low Risk Score (25-44 pts). Fall prevention measures have been instituted. Side Rails Up X 2 Placed close to Nursing Station Frequent Obs/Assesments occuring. Assessment: 20:30 General: Appears distressed, uncomfortable, Behavior is agitated, anxious, restless. aj1 Pain: Unable to use pain scale. Patient will not answer when asked if he is having any pain. Neuro: Level of Consciousness is awake, alert, obeys commands. Cardiovascular: Heart tones S1 S2 present Rhythm is sinus tachycardia. Respiratory: Reports shortness of breath Airway is patent Respiratory effort is even, labored, with retractions, using tripod position, Respiratory pattern is regular, symmetrical, tachypnea Breath sounds are diminished bilaterally. GI: No signs and/or symptoms were reported involving the gastrointestinal system. : No signs and/or symptoms were reported regarding the genitourinary system. EENT: No signs and/or symptoms were reported regarding the EENT system. Derm: No signs and/or symptoms reported regarding the dermatologic system. Skin is pale. Musculoskeletal: Circulation, motion, and sensation intact. 20:35 Reassessment: Patient is agitated, yelling at staff, pulling off Bi-PAP. Patient states aj1 repeatedly that he cannot breathe while taking off Bi-PAP. Explained to patient that the Bi-PAP is helping him breathe, patient remains agitated states "No its not". 20:45 Reassessment: Patient continues pulling off Bi-PAP. Explained to patient that the aj1 Bi-PAP is to help breathing, that his heart rate and his respiratory rate come down when he leaves the Bi-PAP on. Patient refutes this, continues pulling off Bi-PAP. Explained to patient that if he does not keep the Bi-PAP on his condition could get worse and he may need to be intubated. Patient states that he we are not helping him. 21:30 Reassessment: Upon entering room patient appears calmer. Notified patient that his aj1 heart rate and respiratory rate have begun to improve. Patient states that he just wants to have his son at the bedside. Notified patient that I will attempt to call his son. 21:30 Reassessment: Patient and/or family updated on plan of care and expected duration. Pain aj1 level reassessed. General: Appears uncomfortable, Behavior is cooperative, anxious, restless. Neuro: Level of Consciousness is awake, alert. Cardiovascular: Heart tones S1 S2 present Rhythm is sinus tachycardia. Respiratory: Reports shortness of breath Airway is patent Respiratory effort is even, labored, Respiratory pattern is regular, symmetrical, tachypnea Breath sounds are diminished bilaterally. Derm: Skin is pale. Musculoskeletal: Circulation, motion, and sensation intact. 21:35 Reassessment: Attempted to call patient's son on both the number provided by the aj1 patient and the number in patient's file, no answer on either, the call went straight to voice mail. Notified patient that I was unable to get ahold of his son at this time. Patient became agitated again, yelling that we are not helping him. 22:25 Reassessment: Patient is agitated, screaming "Y' all aren't helping me! I need my son! aj1 I want my son!" Explained to patient that we have tried calling the number that we have for his son and it goes straight to voice mail. Patient remains agitated, screaming at staff. Patient is pulling off his Bi-PAP, patient was advised to wear his Bi-PAP to help with his breathing. Patient responds by screaming "Y 'all are full of it, you aren't helping me". 23:09 Reassessment: Patient and/or family updated on plan of care and expected duration. Pain jd3 level reassessed. son at bedside, pt switched to nasal canula, pt refusing to keep bi-pap mask on. 05/21 00:45 Reassessment: Patient and/or family updated on plan of care and expected duration. Pain ea level reassessed. Pt reports he is breathing better. 01:57 Reassessment: Patient and/or family updated on plan of care and expected duration. Pain ea level reassessed. Pt complaining of pain, provider notified, order for medication obtained, medication administered, pt tolerated well. 02:45 Reassessment: Patient and/or family updated on plan of care and expected duration. Pain jd3 level reassessed. pt with labored respirations, reporting being anxious. provider notified. 03:15 Reassessment: No changes from previously documented assessment. Patient and/or family jd3 updated on plan of care and expected duration. Pain level reassessed. 11:30 Reassessment: attempt to call report, awaiting bed to be cleaned at this time, will try sg report again, pt informed of bed assignment to ICU 6, pt stated understanding, given estimate of wait time, pt stated understanding. Reassessment: pt is an ER HOLD please see [facility] documentation for appropriate documentation in the EHR. Vital Signs: 05/20 20:32 BP 154 / 105; Pulse 130; Resp 24 S; Pulse Ox 97% on R/A; bb 21:00 BP 163 / 102; Pulse 122; Resp 28; Pulse Ox 100% on BiPAP; aj1 21:30 BP 163 / 99; Pulse 118; Resp 15; Pulse Ox 100% on BiPAP; aj1 22:00 BP 148 / 105; Pulse 109; Resp 20; Pulse Ox 100% on BiPAP; aj1 22:25 BP 145 / 98; Pulse 126; Resp 33; Pulse Ox 98% on BiPAP; aj1 22:26 Weight 79.38 kg (R); jd3 23:10 BP 120 / 97; Pulse 116; Resp 24 S; Pulse Ox 97% on 2 lpm NC; jd3 05/21 00:15 BP 126 / 71; Pulse 93; Resp 18; Pulse Ox 97% ; ea 01:00 BP 133 / 93; Pulse 87; Resp 18; Pulse Ox 98% ; ea 02:45 BP 137 / 90; Pulse 92; Resp 20; Pulse Ox 100% ; ea 03:16 BP 131 / 85; Pulse 89; Resp 20 S; Pulse Ox 98% on R/A; jd3 04:03 BP 134 / 95; Pulse 87; Resp 24; Pulse Ox 99% ; ea 05:00 BP 136 / 87; Pulse 100; Resp 24; Pulse Ox 100% on 2 lpm NC; ea 05/20 22:26 pt rufusing to answer any questions jd3 ED Course: 20:12 Patient arrived in ED. ds1 20:24 Triage completed. bb 20:30 Patient has correct armband on for positive identification. Bed in low position. Call aj1 light in reach. Side rails up X 1. psychiatric therapist on. Pulse ox on. NIBP on. 20:30 No provider procedures requiring assistance completed. Inserted saline lock: 20 gauge aj1 in left forearm, using aseptic technique. Blood collected. Maintain EMS IV. Dressing intact. Good blood return noted. Site clean \\T\\ dry. Gauge \\T\\ site: 20g left AC. 20:32 Arm band placed on Patient placed in an exam room, on a stretcher, RT called for Bipap. bb 20:34 Rolan Calvo MD is Attending Physician. yury 20:36 Radiology exam delayed due to Pt was vomiting up phlegm and was unable to do x ray at az the moment. 21:00 Kari Padilla, ISAURA is Primary Nurse. aj1 21:03 XRAY Chest (1 view) In Process Unspecified. EDMS 21:35 Marcus Prince MD is Hospitalizing Provider. yury 22:25 Report given to Adal Gastelum RN. aj1 05/21 03:45 Patient admitted, IV remains in place. ea 07:26 ABG Sent. sv 07:26 BIPAP Sent. sv 07:26 BIPAP Sent. sv Administered Medications: Discontinued: NS 0.9% 1000 ml IV at 125 ml/hr continuous 05/20 20:35 Drug: NS 0.9% 1000 ml Route: IV; Rate: 125 ml/hr; Site: left forearm; aj1 22:54 Follow up: IV Status: Order to discontinue infusion; IV Intake: 100ml ; NS dc'd at 2130 aj1 20:35 Drug: Magnesium Sulfate 1 grams Route: IVPB; Infused Over: 1 hrs; Site: left forearm; aj1 :35 Follow up: IV Status: Completed infusion; IV Intake: 100ml 20:35 Drug: Decadron - Dexamethasone 10 mg Route: IVP; Site: left forearm; aj1 :35 Follow up: Response: No adverse reaction 20:35 Drug: Albuterol - atroVENT (3:1) (2.5 mg - 0.5 mg) 3 ml Route: Nebulizer; aj1 :35 Follow up: Response: No adverse reaction :30 Drug: Magnesium Sulfate 1 grams Route: IVPB; Infused Over: 1 hrs; Site: left forearm; aj1 22:56 Follow up: IV Status: Completed infusion; IV Intake: 100ml 22:50 Drug: Nitro-Bid Ointment 2 % 1 inches Route: Transdermal; Site: anterior chest wall; jd3 23:06 Drug: Lopressor (metoprolol TARTRATE) 50 mg Route: PO; jd3 05/21 00:00 Follow up: Response: No adverse reaction; Blood pressure is lowered 05/20 23:06 Drug: PlaVIX 300 mg Route: PO; jd3 05/21 00:00 Follow up: Response: No adverse reaction 05/20 23:07 Drug: Lasix 60 mg Route: IVP; Site: right antecubital; jd3 05/21 03:05 Follow up: Response: No adverse reaction 05/20 23:07 Drug: Lovenox 1 mg/kg Route: Sub-Q; Site: abdomen; jd3 05/21 00:00 Follow up: Response: No adverse reaction 05/20 23:07 Drug: Aspirin 162 mg Route: PO; jd3 05/21 00:00 Follow up: Response: No adverse reaction 05/20 23:08 Drug: Pepcid 20 mg Route: IVP; Site: right antecubital; jd3 23:09 Drug: levofloxacin 500 mg Volume: 100 ml; Route: IVPB; Infused Over: 60 mins; Site: jd3 left antecubital; 05/21 01:57 Drug: traMADol 50 mg Route: PO; ea 02:30 Follow up: Response: No adverse reaction; Pain is decreased ea Intake: 05/20 21:35 IV: 100ml; Total: 100ml. aj 22:54 IV: 100ml; Total: 200ml. aj1 22:56 IV: 100ml; Total: 300ml. aj1 Outcome: 21:38 Decision to Hospitalize by Provider. yury 22:00 Admitted to ER Hold. Please see [facility] for further documentation. ea 22:00 Condition: stable 22:00 Instructed on the need for admit. 05/21 12:27 Patient left the ED. sg Signatures: Dispatcher [employer] EDKari Andrade RN ISAURA ajSerenity Waterman RN RN sv Gay, Steven, RN RN sg Anderson, Corey, MD MD cha Sanford, Demi ds1 Deepika Chandler RN RN bb Antunez, Elena, RN RN ea Davies, Jonathon, RN RN jd3 Zavala, Araceli az Corrections: (The following items were deleted from the chart) 03:11 03:11 Respiratory: jd3 jd3 03:12 03:11 Respiratory: the patient has moderate shortness of breath jmarcel jmarcel 05:21 04:03 BP 134 / 95; Pulse 87bpm; Resp 18bpm; Pulse Ox 99%; ea angelica 05:21 05:00 BP 136 / 87; Pulse 100bpm; Resp 20bpm; Pulse Ox 100% 2 lpm Nasal Cannula; angelica dominguez
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
[2018-05-20 21:43] LABS: Albumin 3.2 g/dL (3.4-5.0); Bilirubin Direct 0.2 mg/dL (0-0.2); Bilirubin Total 0.5 mg/dL (0.2-1.0); Magnesium 1.5 mg/dL (1.8-2.4); Potassium 4.4 mmol/L (3.5-5.1); Protein, Total 7.1 g/dL (6.4-8.2)
[2018-05-20 21:45] LABS: Troponin (Emerg Dept Use Only) 2.31 ng/mL (0.0-0.045)
[2018-05-20] MEDS ORDERED: FUROSEMIDE 100 MG/10 ML VIAL IV ONE (22:00)
[2018-05-20] MEDS ORDERED: Levofloxacin500mg IV 500 MG/100 ML BAG IV ONE (22:00)
[2018-05-20] MEDS ORDERED: NITROGLYCERIN 1 GM PKT TD ONE (22:00)
[2018-05-20] MEDS ORDERED: FAMOTIDINE 20 MG/2 ML VIAL IV ONE (22:01)
[2018-05-20] MEDS ORDERED: CLOPIDOGREL 75 MG TABLET ONE (22:42)
[2018-05-20] MEDS ORDERED: ENOXAPARIN 80 MG/0.8 ML SQ ONE (22:42)
[2018-05-20] MEDS ORDERED: MORPHINE 2 MG/ML SYR IV ONE (22:42)
[2018-05-20] MEDS ORDERED: METOPROLOL TAR 50 MG TAB ONE (22:42)
[2018-05-20] MEDS ORDERED: ASPIRIN 81 MG CHEWABLE TABLET ONE (22:42)
[2018-05-20] MEDS ORDERED: MORPHINE 2 MG/ML SYR ONE (22:54)
[2018-05-21 00:21] LABS: Blood Morphology Comment NOT SEEN (NOT SEEN); Platelet Estimate ADEQ; Urine White Blood Cell Casts OK
[2018-05-21] MEDS ORDERED: TRAMADOL HCL 50 MG TAB ONE (02:05)
[2018-05-21] MEDS ORDERED: ONDANSETRON 4 MG/2 ML VIAL IV PRN (03:39)
[2018-05-21] MEDS ORDERED: ACETAMINOPHEN 500 MG TAB PO PRN (03:39)
[2018-05-21 04:50] LABS: Arterial Blood Carboxyhemoglob 1.1 % (0-1.5); Blood Gas Oxyhemoglobin 95.4 % (94-97); Blood O2 Saturation 97.4 % (92-98.5)
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
[2018-05-21 05:19] LABS: Absolute Lymphocytes (CBC) 0.2 K/uL (0.7-4.9); Absolute Monocytes 0.1 K/uL (0.1-1.3); Absolute Neutrophil 8.8 K/uL (1.8-8.0); Basophils % 0.1 % (0-1.3); Hematocrit 33.6 % (39.6-49.0); Lymphocytes % 2.2 % (15.3-44.8); MPV 9.9 fL (7.6-11.3); Monocytes % 1.4 % (3.3-12.3)
[2018-05-21] MEDS ORDERED: NITROGLYCERIN 1 GM PKT TD ONE (05:31)
[2018-05-21 05:33] LABS: Potassium 4.6 mmol/L (3.5-5.1)
--- NOTE | 2018-05-21 06:22 | EKG ---
Test Date: 2018-05-20 Test Time: 20:18:09 Spray Dyer: CARLOINA MEASUREMENT RESULTS: Intervals: Rate: 121 NH: 150 QRSD: 90 QT: 370 QTc: 525 [place]: P: 63 NH: 150 QRS: 49 T: 113 INTERPRETIVE STATEMENTS: Sinus tachycardia with frequent premature ventricular complexes Left atrial enlargement Intraventricular conduction delay Non specific T abnormality Abnormal ECG Compared to ECG 03/28/2018 20:34:00 Myocardial infarct finding now present Sinus rhythm no longer present Electronically Signed On 05-21-18 06:16:12 [employer] by Cristian Li
[2018-05-21] MEDS: INSULIN -REGULAR HUMAN 50 UNIT/0.5 ML ML SQ SCH ×4 (08:20→21:00)
[2018-05-21] MEDS ORDERED: METOPROLOL TAR 50 MG TAB ONE ×2 (08:40→10:34)
[2018-05-21] MEDS ORDERED: ENOXAPARIN 80 MG/0.8 ML SQ ONE (08:41)
[2018-05-21] MEDS ORDERED: ATORVASTATIN 20 MG TAB ONE (08:41)
[2018-05-21] MEDS ORDERED: INSULIN -REGULAR HUMAN 50 UNIT/0.5 ML ML ONE (08:41)
[2018-05-21] MEDS ORDERED: ENOXAPARIN 40 MG/0.4 ML SQ SCH (09:00)
[2018-05-21] MEDS: FUROSEMIDE 40 MG/4 ML VIAL IV SCH ×2 (09:00→17:26)
[2018-05-21] MEDS: ASPIRIN 81 MG CHEWABLE TABLET PO SCH (09:00)
[2018-05-21] MEDS: METOPROLOL TAR 50 MG TAB PO SCH ×2 (09:00→21:12)
[2018-05-21] MEDS ORDERED: FUROSEMIDE 40 MG/4 ML VIAL ONE (10:34)
[2018-05-21] MEDS ORDERED: ASPIRIN 81 MG CHEWABLE TABLET ONE (10:34)
--- NOTE | 2018-05-21 11:32 | CON ---
CARDIOLOGY CONSULT History Of Present Illness: Mr. Cardona is 73, came to the hospital because of shortness of breath . He has severe obstructive lung disease. He has a remote history of coronary heart disease with st ents about 15 years ago. He also has congestive heart failure, chronic renal insufficiency, creatini patricia are above 3 this admission, that seems to be similar to what he describes. He has elevated tropo nins, they are 2.65 at 5 o'clock this morning, 2.31 at 8:30 last night, so not much interval change. Medications: Mr. Cardona's medications have been vitamin D, Lasix, isosorbide dinitrate, vitamin B 12, metoprolol 100 b.i.d., tramadol, isosorbide mononitrate, Flomax, hydralazine, atorvastatin and gl ipizide 5 mg. Past Medical History: He has also a history of diabetes, benign prostatic hypertrophy, hypertension, and CAD. Social History: He is vague about a smoking history. I believe, he is still an active smoker. Allergies: NO ALLERGIES ARE REPORTED. Review of Systems: Mr. Cardona feels better since he has had breathing treatments. He denies having chest pain. Physical Examination: General: He is alert and oriented. He is on a BiPAP machine and seems to be excessively emotional. He started crying when he said he wanted to tell me something and then he just could not tell it. I am not sure why he could not, but I promised I would return and he can try again. Plan: He is receiving Lasix, Lovenox, atorvastatin, and aspirin. He should continue on his beta blo cker, we would not want to stop that. A sudden interruption of the beta blockers would not be a good thing for him at all. We will continue medical therapy for his apparent CAD and this really does no t seem to be an acute coronary syndrome. I think, we should do an echo and try to treat him medicall y. His creatinine is so high means if we were to do a cardiac cath, it would be very, very likely th at he would end up on dialysis afterward, so I want to make sure there is a strong indication before doing a cardiac cath. At this point, the elevated troponins may be one of the features of his blood all the time, it may not be showing a rise and fall consistent with an acute coronary syndrome. SH/MODL Voice ID: [id number] Report ID: [id number]
[2018-05-21] MEDS ORDERED: D50W 25 GM/50 ML SYRINGE IV PRN (14:21)
[2018-05-21] MEDS ORDERED: GLUCAGON 1 MG/VIAL IM PRN (14:21)
--- NOTE | 2018-05-21 15:53 | ECHO ---
HEIGHT: 5 ft 8 in WEIGHT: 175 lb 0.047 oz DATE OF STUDY: 05/21/[address]: Marcus Chavez MD 2-DIMENSIONAL: YES M.MODE: YES DOPPLER: YES COLOR FLOW: YES TDS: YES PORTABLE: NO DEFINITY: NO BUBBLE STUDY: NO DIAGNOSIS: NSTEMI CARDIAC HISTORY: CATHERIZATION: YES SURGERY: NO PROSTHETIC VALVE: NO PACEMAKER: NO MEASUREMENTS (cm) DIASTOLIC (NORMALS) SYSTOLIC (NORMALS) IVSd 1.6 (0.6-1.2) LA Diam 4.4 (1.9-4.0) LVEF 24% LVIDd 5.2 (3.5-5.7) LVIDs 4.6 (2.0-3.5) %FS 11% LVPWd 1.6 (0.6-1.2) Ao Diam 2.9 (2.0-3.7) 2 DIMENSIONAL ASSESSMENT: RIGHT ATRIUM: NORMAL LEFT ATRIUM: DILATED RIGHT VENTRICLE: NORMAL LEFT VENTRICLE: LEFT VENTRICULAR HYPERTROPHY TRICUSPID VALVE: NORMAL MITRAL VALVE: NORMAL PULMONIC VALVE: NORMAL AORTIC VALVE: SCLEROSIS PERICARDIAL EFFUSION: NONE AORTIC ROOT: NORMAL LEFT VENTRICULAR WALL MOTION: SEVERE GLOBAL HYPOKINESIS. DOPPLER/COLOR FLOW: MILD MITRAL, TRICUSPID AND AORTIC REGURGITATION. NO AORTIC STENOSIS. NORMAL RIGHT VENTRICULAR SYSTOLIC PRESSURE. COMMENTS: SEVERELY DEPRESSED LEFT VENTRICULAR EJECTION FRACTION. LEFT VENTRICULAR HYPERTROPHY. DILATED LEFT ATRIUM. AORTIC SCLEROSIS WITH NO AORTIC STENOSIS. MILD AORTIC, MITRAL AND TRICUSPID REGURGITATION. TECHNOLOGIST: MARCELLA GOLD
[2018-05-21] MEDS ORDERED: TRAMADOL HCL 50 MG TAB PO PRN (15:55)
[2018-05-21] MEDS: glipiZIDE 5 MG TAB PO SCH (16:30)
[2018-05-21] MEDS: IPRATROPIUM BROM 0.5MG/2.5ML NEB PRN (17:07)
[2018-05-21] MEDS: ALBUTEROL 2.5 MG/3 ML NEB SOL NEB PRN (17:07)
[2018-05-21] MEDS: HYDRALAZINE HCL 25 MG TABLET PO SCH ×2 (17:27→21:11)
--- NOTE | 2018-05-21 18:08 | PN ---
Date of Progress Note: 05/21/2018 Subjective: The patient is seen and examined. Chart reviewed and case discussed with RN. The patient still having some difficulty breathing, otherwise not complaining of any active chest pain. Medications: List reviewed. Code Status: Full. Physical Examination: Vital Signs: Temperature 97.7, heart rate 98, blood pressure 157/94, respirations 28, and O2 of 100% on room air. General: Awake, alert, oriented x3, elderly male, in some mild distress. CV: S1, S2. Regular rate and rhythm. Peripheral pulses present. No murmurs. Respiratory: Moving air well bilaterally. No wheezing or stridor. No use of accessory muscles. Gastrointestinal: Abdomen is soft, nontender, nondistended. Positive bowel sounds. Extremities: No clubbing, cyanosis. The patient does have 2+ edema in bilateral lower extremities. Neuro: Cranial nerves 2 through 12 intact grossly. No focal neurological deficit. Speech is normal. Laboratory Data: Sodium 139, potassium 4.6, chloride 106, CO2 20, BUN 50, creatinine 3, glucose 248. Lactate down to 2.1 from 2.7, calcium 8.4, troponin 2.65. BNP >140,000. WBC 9.1, H and H 10.9 and 33.6, platelets 233, neutrophils 96%. Blood cultures pending. Influenza screen negative. Chest x- ray shows CHF. Assessment And Plan: A 73-year-old male with: 1. Non-ST segment elevation myocardial infarction. We will continue a chest pain guidelines and Lovenox 1 mg/kg q.24 hours, renally dosed. Appreciate Dr. Li' input. We will follow up on echocardiogram report. 2. Acute respiratory distress with hypoxia due to congestive heart failure. The patient was requiring BiPAP, now on room air, improving. 3. Congestive heart failure, unknown ejection fraction. We will follow up on echocardiogram report. We will continue with fluid restriction, diuretics, and congestive heart failure guidelines. BNP severely elevated. Chest x-ray shows edema. We will repeat chest x-ray if not improving clinically. 4. Essential hypertension. We will resume home medications as appropriate. 5. Coronary artery disease, [place] heart and [place] artery with angina. 6. Mixed hyperlipidemia. We will continue statin. 7. Chronic obstructive pulmonary disease, chronic bronchitis. 8. Diabetes mellitus type 2, non insulin requiring. we will continue with sliding scale insulin. Plan: Monitor closely in ICU setting. /BHAVESH Voice ID: [id number] Report ID: [id number] MTDD
[2018-05-21] MEDS ORDERED: HOME MED 1 EA UNK (Glipizide [Glucotrol] 10 MG) PO SCH (21:00)
[2018-05-21] MEDS: ENOXAPARIN 80 MG/0.8 ML SQ SCH (21:10)
[2018-05-21] MEDS: TAMSULOSIN 0.4 MG SR CAP PO SCH (21:11)
[2018-05-21] MEDS: ATORVASTATIN 40 MG TAB PO SCH (21:12)
[2018-05-21] MEDS: predniSONE 10 MG TAB PO SCH (21:12)
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
[2018-05-22] MEDS: ALBUTEROL 2.5 MG/3 ML NEB SOL NEB PRN ×2 (03:38→14:28)
[2018-05-22] MEDS: IPRATROPIUM BROM 0.5MG/2.5ML NEB PRN ×2 (03:38→14:28)
[2018-05-22 06:55] LABS: Magnesium 2.3 mg/dL (1.8-2.4)
[2018-05-22 06:56] LABS: Potassium 5.5 mmol/L (3.5-5.1)
[2018-05-22] MEDS: INSULIN -REGULAR HUMAN 50 UNIT/0.5 ML ML SQ SCH ×4 (07:30→21:00)
[2018-05-22 08:25] LABS: Ferritin 1460.1 ng/mL (26-388); Transferrin 157 mg/dL (200-360)
[2018-05-22 08:58] LABS: Urine Appearance CLEAR; Urine Bilirubin NEGATIVE (NEG); Urine Blood TRACE (NEG); Urine Color YELLOW; Urine Glucose TRACE (NEG); Urine Protein 3+ (NEG); Urine Specific Gravity 1.015 (1.005-1.030); Urine Urobilinogen 0.2 mg/dL (0.2-1.0); Urine pH 5.5 (5.0-7.0)
[2018-05-22] MEDS ORDERED: LOSARTAN POTASSIUM 50 MG TABLET PO SCH (09:00)
[2018-05-22 09:05] LABS: Urine Microscopic Reflex ORDER UMIC
[2018-05-22 09:12] LABS: Urine Bacteria <20 /HPF (NONE SEEN); Urine Coarse Granular Casts 0-5 /LPF (NONE SEEN); Urine Culture Reflex Order NOT NEEDED; Urine Mucus 2+ /HPF (NONE SEEN)
[2018-05-22] MEDS: FUROSEMIDE 40 MG/4 ML VIAL IV SCH ×2 (09:14→17:00)
[2018-05-22] MEDS: HYDRALAZINE HCL 25 MG TABLET PO SCH ×3 (09:14→21:15)
[2018-05-22] MEDS: glipiZIDE 5 MG TAB PO SCH (09:14)
[2018-05-22] MEDS: METOPROLOL TAR 50 MG TAB PO SCH ×2 (09:14→21:15)
[2018-05-22] MEDS: predniSONE 10 MG TAB PO SCH ×2 (09:14→21:16)
[2018-05-22] MEDS: ASPIRIN 81 MG CHEWABLE TABLET PO SCH (09:14)
[2018-05-22] MEDS: ISOSORBIDE MONO SR 30 MG TAB PO SCH (09:14)
[2018-05-22 09:53] LABS: Urine Protein/Creatinine Ratio 3.85 ratio (<0.15)
[2018-05-22] MEDS ORDERED: SOD POLYSTYREN SUL 15 GM/60 ML UCUP PO ONE ×2 (09:59→11:12)
--- NOTE | 2018-05-22 13:21 | PN ---
Mr. Cardona feels much better, no longer dyspneic. His troponins are all elevated. Creatinine oscar y elevated. He does not seem to be in acute coronary syndrome. I will recommend we do a pharmacolog ic nuclear stress test. If that shows a large amount of ischemia, we will discuss doing a cardiac ca th, even though it would almost certainly result in him needing hemodialysis. At the present time, I think it is a nonspecific troponin elevation, not really indicative of an acute coronary syndrome. SYLVESTER/BHAVESH Voice ID: [id number] Report ID: [id number]
--- NOTE | 2018-05-22 15:47 | PN ---
Date of Progress Note: 05/22/2018 Subjective: The patient seen and examined. Chart reviewed and case discussed with RN. The patient denies any chest pain. States he feels better. Medications: List reviewed. Physical Examination: Vital Signs: Temperature 97.9, heart rate 72, blood pressure 129/82, respirations 18, O2 100% on 2 L via nasal cannula. General: Awake, alert, oriented x3. Elderly male, somewhat ill appearing. CV: S1 and S2. Regular rate and rhythm. Peripheral pulses present. Respiratory: Moving air well bilaterally. No wheezing or stridor. Gastrointestinal: Abdomen is soft, nontender, nondistended. Positive bowel sounds. Extremities: No clubbing or cyanosis. The patient does have some lower extremity edema. Neuro: Cranial nerves II through XII intact grossly. No focal neurological deficits. Speech is nor mal. Laboratory Data: Sodium 139, potassium 5.5, chloride 106, CO2 24, BUN 76, creatinine 3.69, glucose 1 52, calcium 8.1. Iron 35, TIBC 220, transferrin 157, ferritin 1460, ferritin saturation 15.9. Vitam in B12 greater than 2000, PTH 722. Blood cultures no growth to date. Echocardiogram shows EF of 24% . Severe global hypokinesis. Severely depressed left ventricular ejection fraction. Left ventricul ar hypertrophy. Dilated left atrium. Aortic sclerosis with mitral and tricuspid regurgitation. Assessment And Plan: A 73-year-old male with: 1.Non-ST elevation myocardial infarction. We will continue with chest pain guidelines. The patient is on Lovenox renally dosed 1 mg/kg. Cardiology on board. Echocardiogram shows severe global hypok inesis and low ejection fraction. No active chest pain. 2.Acute respiratory distress with hypoxia due to congestive heart failure. The patient now on room air, improved significantly. 3.Acute systolic heart failure, ejection fraction 24%. Continue diuretics. We will need to adjust dose due to elevated creatinine, worsening creatinine. Edema has improved. The patient's respirator y status also improved. 4.Essential hypertension, stable. 5.Coronary artery disease, [place] artery, [place] heart with angina status post stent. 6.Mixed hyperlipidemia. Continue statin. 7.Chronic obstructive pulmonary disease, chronic bronchitis, supplemental oxygen as needed, albutero l p.r.n. 8.Diabetes mellitus type 2, non-insulin requiring. Continue sliding scale with insulin. 9.Normocytic normochromic anemia, likely anemia of chronic disease. 10.Acute versus gdhxw-ok-oujttqi kidney injury. Creatinine has worsened. Nephrology on board. Con tinue with IV fluid hydration. We will follow up with immune workup. 11.Nicotine dependence with cigarette smoking, counseled. 12.Likely discharge in next 48-72 hours depending on clinical response. SA/MODL Voice ID: [id number] Report ID: [id number]
--- NOTE | 2018-05-22 16:06 | PN ---
Date of Progress Note: 05/22/2018 Chief Complaint: Acute kidney injury on chronic kidney disease with CHF excerebration, cardiorenal syndrome with underlying chronic kidney disease stage 4, history of diabetes mellitus complicated by nephropathy. History Of Present Illness: The patient has underlying chronic kidney disease stage 4 due to diabetes mellitus. He presented to the hospital because of progressively worse shortness of breath. He was evaluated by real time operator at [facility] and was scheduled to have stress test. He denies chest pain, hematuria and denies palpitation. He denies history of kidney stone, although prior to this admission he was taking nonsteroidal anti-inflammatory medication. He was found to have acute coronary syndrome. Troponin level was 2.3, BNP 140. The patient had renal function 10 done in the emergency room and creatinine was 2.8. Previous baseline from 2018 was 2.4. Renal function has declined since yesterday and creatinine was 3.0 on May 21 and May 22 it was 3.69. The patient has acute on chronic cardiorenal syndrome with acute kidney injury associated with hyperkalemia. He has moderately severe acute on chronic kidney injury. There is history of chronic kidney disease stage 4 with baseline creatinine of 2.4. Today creatinine is up to 3.69, BUN 76 , sodium 139, potassium 5.5, chloride 106, CO2 24, calcium 8.1, magnesium is 2.3. Review of Systems: The patient denies PND or orthopnea. Physical Examination: Lungs: Diminished breath sounds at bases. Heart: S1-S2. Abdomen: Soft and benign. Extremities: Minimal edema. Diagnostic Workup: Echocardiogram showed severely depressed left ventricular ejection fraction, left ventricular hypertrophy, dilated left atrium, aortic sclerosis with no aortic stenosis, mild aortic, mitral and tricuspid regurgitation. Ejection fraction is 24%. Blood Work: Urinalysis, specific gravity 1.015, blood trace RBCs from 5-10 and WBCs less than 5. Urine protein creatinine ratio 3.85. Urine protein total 366. Urine protein immunoelectrophoresis is pending. Impression And Plan: 1. Acute on chronic kidney injury with cardiorenal syndrome associated with hyperkalemia. The patient will have Kayexalate for treatment of hyperkalemia. The patient presented with acute myocardial infarction. He has severe congestive heart failure with systolic dysfunction. The patient will continue Lasix. Renal ultrasound is pending to rule out obstructive uropathy. Urinalysis showed hematuria and severe proteinuria. The patient will need to have serology test to rule out vasculitis. 2. Shortness of breath. The patient is on inhalers for COPD exacerbation and he will continue Lasix for congestive heart failure. 3. Hypertension, controlled. Angiotensin receptor jacob was on hold because of acute kidney injury and hyperkalemia. The patient will take Kayexalate and evaluate the potassium level and adjust treatment with angiotensin receptor jacob. I spent total 36 min including 25 min to coordinate care plan. ARTEM/BHAVESH Voice ID: [id number] Report ID: [id number] MTDD
[2018-05-22] MEDS: ENOXAPARIN 80 MG/0.8 ML SQ SCH (21:14)
[2018-05-22] MEDS: TAMSULOSIN 0.4 MG SR CAP PO SCH (21:16)
[2018-05-22] MEDS: ATORVASTATIN 40 MG TAB PO SCH (21:16)
[2018-05-23 06:15] LABS: Absolute Lymphocytes (CBC) 0.5 K/uL (0.7-4.9); Absolute Monocytes 0.7 K/uL (0.1-1.3); Absolute Neutrophil 7.9 K/uL (1.8-8.0); Basophils % 0.1 % (0-1.3); Lymphocytes % 5.6 % (15.3-44.8); MPV 10.4 fL (7.6-11.3); Monocytes % 7.4 % (3.3-12.3); RBC Red Blood Cell Count 3.74 M/uL (4.33-5.43)
[2018-05-23 07:25] LABS: Blood Morphology Comment NOT SEEN (NOT SEEN); Platelet Estimate ADEQ; Urine White Blood Cell Casts OK
[2018-05-23] MEDS: INSULIN -REGULAR HUMAN 50 UNIT/0.5 ML ML SQ SCH ×4 (07:30→20:48)
[2018-05-23] MEDS: IPRATROPIUM BROM 0.5MG/2.5ML NEB PRN ×3 (07:32→15:50)
[2018-05-23] MEDS: ALBUTEROL 2.5 MG/3 ML NEB SOL NEB PRN ×3 (07:32→15:50)
--- NOTE | 2018-05-23 07:55 | RAD REPORT ---
EXAM DESCRIPTION: US - Renal Ultrasound-Complete - 05/22/2018 10:51 pm CLINICAL HISTORY: Acute kidney injury COMPARISON: July 15, 2017 FINDINGS: The right kidney measures 12.1 x 6.1 x 5.1 cm. The left kidney measures 11.8 x 5.4 x 5.0 cm. Allowing for basin operator and technical differences, kidneys have not changed size since July 2017. Renal cortical thickness is normal range and stable from comparison. Echogenicity is not significantl y different. Patchy mild underlying medical renal disease is possible. No hydronephrosis or suspiciou s renal mass. Bladder was contracted limiting assessment. No gross abnormality. IMPRESSION: No hydronephrosis or suspicious renal mass. Renal size, cortical thickness and parenchymal echogenicity are stable from July 2017. Echogenicity may indicate a mild underlying medical renal disease.
[2018-05-23] MEDS: ASPIRIN 81 MG CHEWABLE TABLET PO SCH (08:34)
[2018-05-23] MEDS: FUROSEMIDE 40 MG/4 ML VIAL IV SCH ×2 (08:34→14:52)
[2018-05-23] MEDS: HYDRALAZINE HCL 25 MG TABLET PO SCH ×3 (08:34→20:51)
[2018-05-23] MEDS: METOPROLOL TAR 50 MG TAB PO SCH ×2 (08:34→20:50)
[2018-05-23] MEDS: predniSONE 10 MG TAB PO SCH ×2 (08:34→20:53)
[2018-05-23] MEDS: ISOSORBIDE MONO SR 30 MG TAB PO SCH (08:34)
[2018-05-23 09:26] LABS: Albumin 2.9 g/dL (3.4-5.0); Potassium 4.4 mmol/L (3.5-5.1); Protein, Total 5.6 g/dL (6.4-8.2)
[2018-05-23 09:27] LABS: Bilirubin Total 0.6 mg/dL (0.2-1.0)
[2018-05-23 16:25] LABS: Arterial Blood Carboxyhemoglob 0.9 % (0-1.5); Blood Gas Oxyhemoglobin 93.9 % (94-97); Blood O2 Saturation 95.7 % (92-98.5)
--- NOTE | 2018-05-23 16:25 | PN ---
Date of Progress Note: 05/23/2018 Subjective: Patient is seen and examined. Chart reviewed and case discussed with RN and Dr. Monten[place]. Patient is not having any significant chest pain. Shortness of breath has improved. Patient is sche duled for a stress test in a.m. Medications: Reviewed. Physical Examination: Vital Signs: Temperature 97.3, heart rate 69, blood pressure 151/89, respirations 20, O2 of 100% on 2 L via nasal cannula. General: Awake, alert, oriented x3, elderly male, somewhat ill-appearing. CV: S1, S2. Peripheral pulses present. Regular rate and rhythm. Respiratory: Moving air well bilaterally. No crackles. No stridor. Gastrointestinal: Abdomen is soft, nontender, nondistended. Positive bowel sounds. Extremities: No clubbing, cyanosis. Pedal edema is present. Neurologic: Nonfocal. Laboratory Data: Sodium 140, potassium 4.4, chloride 104, CO2 of 22, BUN 97, creatinine 4.08, glucos e 143, calcium 8. AST 776, ALT 1203, alkaline phosphatase 204. Serum protein 5.6, albumin 2.9. WBC 9.1, H and H 10.4 and 32, platelets 158; neutrophils 86%. Hepatitis panel is pending. Immunoelectr ophoresis also pending. Blood cultures, no growth to date. Assessment And Plan: A 73-year-old male with: 1.Non-ST elevation myocardial infarction. We will continue with chest pain guidelines and Lovenox r enally dosed. Appreciate Dr. Li' input. Scheduled for cardiac stress test in a.m. The patient does have severe global hypokinesis and EF around 24%. 2.Acute respiratory distress with hypoxia due to congestive heart failure, resolved, now on room air . 3.Acute systolic heart failure, ejection fraction 24%. On diuretics. Creatinine, however, is worse evelin. We will adjust Lasix. 4.Elevated LFTs were normal on admission, may be secondary to hepatorenal syndrome. Patient may end up requiring dialysis to improve renal function. May also be related to hepatic congestion. We kin l check hepatitis panel and abdominal ultrasounds. 5.Essential hypertension, stable. 6.Coronary artery disease, [place] artery, and [place] heart with angina, status post stent. 7.Mixed hyperlipidemia. We will continue statin. 8.Chronic obstructive pulmonary disease, chronic bronchitis. We will use bronchodilators as needed. Supplemental oxygen. 9.Diabetes mellitus type 2, rfb-ynnmwfd-hmsafhpdz with hyperglycemia. Continue sliding scale insuli n. 10.Normocytic normochromic anemia due to anemia of chronic disease. We will monitor H and H, transf use as needed. 11.Acute on chronic kidney disease, stage 4. Creatinine is worsening. We will discuss further with Nephrology. The patient may need dialysis. 12.Nicotine dependence with cigarette smoking, counseled. Plan: Stress test in a.m. We will continue to monitor renal and hepatic status. SA/MODL Voice ID: [id number] Report ID: [id number]
--- NOTE | 2018-05-23 17:47 | RAD REPORT ---
EXAM DESCRIPTION: RAD - Chest Single View - 05/23/2018 5:36 pm CLINICAL HISTORY: Dyspnea COMPARISON: May 20 TECHNIQUE: AP portable chest image was obtained 1734 hours . FINDINGS: Normal lung volumes noted. Interstitial markings are prominent and now increased at the ri ght lung base. Heart size is normal. Vasculature within normal limits. No measurable pleural effusion and no pneumothorax. No acute bony abnormality seen. No acute aortic findings suspected. IMPRESSION: New interstitial edema or infiltrate right lung base.
--- NOTE | 2018-05-23 19:44 | RAD REPORT ---
EXAM DESCRIPTION: US - Liver Only - 05/23/2018 7:06 pm CLINICAL HISTORY: Abnormal LFTs COMPARISON: Renal ultrasound May 22 TECHNIQUE: Sonographic evaluation of the right upper quadrant was performed as a dedicated liver ult rasound study. FINDINGS: Liver is 19 cm in maximum dimension. No focal liver parenchymal lesion and no capsular nod ularity. Doppler evaluation shows normal flow direction and velocity of the portal vein. No portal ve in thrombus. No ascites in the right upper quadrant. Gallbladder size is normal. Wall does appear slightly thickened or edematous. Correlation is needed w ith any gallbladder symptoms. Biliary tree is normal in size. IMPRESSION: Liver is prominent in size at 19 cm but no focal parenchymal lesion or liver capsule nod ularity. Gallbladder wall thickening without other findings of acute gallbladder disease. Correlation is neede d with clinical presentation.
[2018-05-23] MEDS: ENOXAPARIN 80 MG/0.8 ML SQ SCH (20:53)
[2018-05-23] MEDS: TAMSULOSIN 0.4 MG SR CAP PO SCH (20:54)
[2018-05-23] MEDS: ATORVASTATIN 40 MG TAB PO SCH (20:55)
[2018-05-24] MEDS: FUROSEMIDE 40 MG/4 ML VIAL IV SCH ×3 (00:20→16:33)
--- NOTE | 2018-05-24 01:17 | PN ---
Date of Progress Note: 05/23/2018 Chief Complaint: Acute kidney injury. History Of Present Illness: Acute kidney injury, severe, nonoliguric, associated with cardiorenal syndrome and acute tubular necrosis. The patient has underlying chronic kidney disease stage 4, due to diabetes mellitus. The patient presented to the hospital because of progressively worse shortness of breath. He was evaluated by plastics bench mechanic and was scheduled to have stress test. He denies hematuria, kidney stones, and lower urinary tract symptoms. He was found to have elevated troponin, up to 2.3. Renal function has declined over the last 48 hours. Today, he is complaining of shortness of breath with mild activities and denies chest pain. Review of Systems: Denies fever or chills. Denies syncope. Physical Examination: Lungs: Coarse breath sounds at bases. Heart: S1, S2. Abdomen: Soft, benign. Extremities: Edema present. Diagnostic Workup: Electrocardiogram showed severely depressed left ventricular ejection fraction, left ventricular hypertrophy, dilated left atrium , aortic sclerosis, and aortic stenosis, ejection fraction of 24%. Sodium 140, potassium 4.4, chloride 104, CO2 of 22, BUN 97, creatinine is 4.08. Impression And Plan: 1. Acute on chronic kidney injury, severe, azotemia. The patient will need to start dialysis. I discussed with the patient need for dialysis. The patient has congestive heart failure with systolic dysfunction and severe cardiomyopathy. The patient will continue low-sodium diet. Plan is to increase diuretic and to order a dialysis catheter to start dialysis. 2. Hypertension, controlled. Angiotensin receptor jacob was on hold because of acute kidney injury and hyperkalemia. The patient received Kayexalate to treat hyperkalemia. Potassium level improved. Continue to address angiotensin receptor jacob when renal function is at baseline. I spent total 36 min including 25 min to coordinate care plan. ARTEM/BHAVESH Voice ID: [id number] Report ID: [id number] TAPAN
[2018-05-24 06:08] LABS: Absolute Lymphocytes (CBC) 0.5 K/uL (0.7-4.9); Absolute Monocytes 0.8 K/uL (0.1-1.3); Absolute Neutrophil 10.1 K/uL (1.8-8.0); Basophils % 0.1 % (0-1.3); Eosinophils % 0.1 % (0-4.4); Hematocrit 33.9 % (39.6-49.0); Lymphocytes % 3.9 % (15.3-44.8); MPV 10.9 fL (7.6-11.3); Monocytes % 7.3 % (3.3-12.3); RBC Red Blood Cell Count 3.99 M/uL (4.33-5.43)
[2018-05-24 06:32] LABS: Albumin 3.2 g/dL (3.4-5.0); Bilirubin Total 0.6 mg/dL (0.2-1.0); Magnesium 2.4 mg/dL (1.8-2.4); Potassium 4.6 mmol/L (3.5-5.1); Protein, Total 6.1 g/dL (6.4-8.2)
[2018-05-24 06:39] LABS: Blood Morphology Comment NOT SEEN (NOT SEEN); Platelet Estimate ADEQ; Urine White Blood Cell Casts OK
[2018-05-24] MEDS: INSULIN -REGULAR HUMAN 50 UNIT/0.5 ML ML SQ SCH ×4 (07:30→21:00)
[2018-05-24] MEDS: HYDRALAZINE HCL 25 MG TABLET PO SCH ×3 (09:00→22:45)
[2018-05-24] MEDS: ISOSORBIDE MONO SR 30 MG TAB PO SCH (09:00)
[2018-05-24] MEDS: ASPIRIN 81 MG CHEWABLE TABLET PO SCH (09:00)
[2018-05-24] MEDS ORDERED: FUROSEMIDE 40 MG/4 ML VIAL IV SCH (09:00)
[2018-05-24] MEDS: METOPROLOL TAR 50 MG TAB PO SCH ×2 (09:00→22:45)
[2018-05-24] MEDS: predniSONE 10 MG TAB PO SCH ×2 (09:00→22:45)
[2018-05-24] MEDS ORDERED: REGADENOSON 0.4 MG/5 ML SYR IV ONE (09:05)
--- NOTE | 2018-05-24 15:09 | RAD REPORT ---
EXAM DESCRIPTION: NM - Rest Stress Cardiac Imaging - 05/24/2018 3:02 pm CLINICAL HISTORY: Chest pain COMPARISON: None. TECHNIQUE: The patient was administered approximately 10 mCi of Tc 99m Sestamibi prior to resting SP ECT imaging of the heart. The patient was then administered approximately 30 mCi of Tc 99m Sestamibi following exercise or pharmacologic stress. Multiplanar SPECT images were reviewed. FINDINGS: The end diastolic volume is 203 ml, the end systolic volume is 155 ml, and the ejection fr action is 24 %. No stress-induced ischemic changes are present. There is a large area of diminished activity along th e inferior wall base to apex. Anteroseptal fixed defect is also present. IMPRESSION: No stress-induced ischemia. Large inferior wall fixed defect from attenuation artifact, scarring or a combination. Small anterose ptal fixed defect midportion of the left ventricle. Significant end-diastolic volume dilatation to 203 milliliters with poor 24% ejection fraction.
--- NOTE | 2018-05-24 16:29 | PN ---
Date of Progress Note: 05/24/2018 Subjective: The patient is seen and examined. Chart reviewed and case discussed with RN and Dr. Sis rivera. The patient was counseled extensively yesterday regarding possibility of starting dialysis. The patient is vehemently against dialysis. He states he is not willing to start dialysis unless it is a bsolutely necessary. The patient's urine output has been decreasing. Electrolytes are still stable. The patient is going for a stress test today. Medications: List reviewed. Physical Examination: Vital Signs: Temperature 97.4, heart rate 64, blood pressure 153/91, respirations 20, and O2 of 97% on 2 L via nasal cannula. General: Awake, alert, and oriented x3. Some mild distress, elderly male, ill appearing. CV: S1 and S2. Regular rate and rhythm. Peripheral pulses present. Respiratory: Moving air well bilaterally. No wheezing or stridor. Gastrointestinal: Abdomen is soft, nontender, and nondistended. Positive bowel sounds. No guarding or rigidity. Extremities: No clubbing or cyanosis. Trace pedal edema. Neurologic: Nonfocal. Laboratory Data: Sodium 139, potassium 4.6, chloride 106, CO2 of 21, BUN 106, creatinine 4.16, gluco se 154, calcium is 7.6, and magnesium 2.4. AST 624, ALT 1464, and alkaline phosphatase 253. WBC 11. 4, H and H of 11 and 32.9, platelets 178, neutrophils 88%. Blood cultures, no growth to date. Assessment And Plan: A 73-year-old male with, 1.Non-ST elevation myocardial infarction. The patient is going for a cardiac stress test today. Ca rdiology on board. Does have severe global hypokinesis. Ejection fraction of 24%. 2.Acute respiratory distress with hypoxia due to congestive heart failure, resolved. The patient no w stable on room air. 3.Acute systolic heart failure, ejection fraction is 24%. We will continue diuretics. Monitor I's and O's. Strict fluid restriction. 4.Elevated liver function tests, unclear etiology, likely secondary to hepatorenal syndrome or hepat ic congestion from congestive heart failure. Hepatitis panel is pending. We will obtain a liver ult rasound. 5.Essential hypertension, stable. 6.Coronary artery disease, [place] artery and [place] heart with angina, status post stent. 7.Mixed hyperlipidemia. Continue statin. 8.Chronic obstructive pulmonary disease, chronic bronchitis. Continue albuterol as needed. 9.Diabetes mellitus type 2, nkc-obtshix-oxjvamtkj with hyperglycemia. Continue sliding scale insuli n. 10.Normocytic normochromic anemia due to anemia of chronic disease. Monitor H and H and transfuse a s needed. 11.Kdqxx-et-ypxoryp kidney disease, stage 4. The patient is heading towards dialysis, however, at t his point is not interested, we will discuss with Nephrology. If he stops making urine and depending on his electrolyte abnormalities, he may need to be started. 12.Nicotine dependence with cigarette smoking, counseled. PLAN: Follow up with stress test results. Discuss with Nephrology regarding initiation of dialysis. /BHAVESH Voice ID: [id number] Report ID: [id number]
[2018-05-24] MEDS: ENOXAPARIN 80 MG/0.8 ML SQ SCH (22:44)
[2018-05-24] MEDS: ATORVASTATIN 40 MG TAB PO SCH (22:44)
[2018-05-24] MEDS: TAMSULOSIN 0.4 MG SR CAP PO SCH (22:45)
[2018-05-25] MEDS: FUROSEMIDE 40 MG/4 ML VIAL IV SCH ×3 (01:00→17:07)
--- NOTE | 2018-05-25 03:45 | PN ---
Date of Progress Note: 05/24/2018 Chief Complaint: Acute kidney injury. History Of Present Illness: Acute kidney injury, severe, nonoliguric, associated with cardiorenal syndrome and acute tubular necrosis. The patient has underlying chronic kidney disease stage 4 due to diabetes mellitus. The patient presented to the hospital because of progressively worse shortness of breath. He was evaluated by control integration engineer and was scheduled to have stress test. He denies hematuria, kidney stones, and lower urinary tract symptoms. The patient was found to have elevated troponin level. He has severe systolic dysfunction with congestive heart failure. He became symptomatic and had dyspnea on exertion and PND. Review of Systems: Today, the patient is feeling better. Physical Examination: Lungs: Coarse breath sounds bilaterally at bases. Heart: S1 and S2. Abdomen: Soft, benign. Extremities: Edema present. Diagnostic Studies: Echocardiogram showed severely depressed left ventricular ejection fraction, left ventricular hypertrophy, dilated left atrium, aortic sclerosis and aortic stenosis, ejection fraction 24%. Laboratory Data: Lab work showed sodium 139, potassium 4.6, chloride 106, CO2 of 21, BUN 106, creatinine 4.16, and calcium 7.6. Impression And Plan: 1. Acute kidney injury, cardiorenal syndrome, complicated by nonoliguric acute tubular necrosis. The patient refused dialysis. Continue IV diuretics to control congestive heart failure. The patient has systolic dysfunction, severe. Congestive heart failure. Continue low-sodium diet. Monitor fluid balance. 2. Hypertension. Controlled. Angiotensin receptor jacob was on hold because of acute kidney injury with hyperkalemia. The patient received Kayexalate to treat hyperkalemia. Potassium level improved. I spent total 36 min including 26 min to coordinate care plan. ARTEM/BHAVESH Voice ID: [id number] Report ID: [id number] TAPAN
[2018-05-25 06:20] LABS: Absolute Lymphocytes (CBC) 0.4 K/uL (0.7-4.9); Absolute Monocytes 0.4 K/uL (0.1-1.3); Absolute Neutrophil 9.2 K/uL (1.8-8.0); Basophils % 0.1 % (0-1.3); Eosinophils % 0.1 % (0-4.4); Hematocrit 34.8 % (39.6-49.0); MPV 10.8 fL (7.6-11.3); Monocytes % 4.4 % (3.3-12.3); RBC Red Blood Cell Count 4.09 M/uL (4.33-5.43)
[2018-05-25 06:46] LABS: Albumin 3.2 g/dL (3.4-5.0); Bilirubin Total 0.7 mg/dL (0.2-1.0); Potassium 4.2 mmol/L (3.5-5.1); Protein, Total 6.1 g/dL (6.4-8.2)
--- NOTE | 2018-05-25 07:17 | EKG ---
Test Date: 2018-05-24 Test Time: 22:57:21 Electronics Lead: RT [place] MEASUREMENT RESULTS: Intervals: Rate: 113 IN: QRSD: 108 QT: 324 QTc: 444 [place]: P: IN: QRS: 75 T: -74 INTERPRETIVE STATEMENTS: Sinus tachycardia with frequent premature atrial and ventricular complexes cannot rule out Inferior infarct, age undetermined Intraventricular conduction delay Abnormal ECG Compared to ECG 05/20/2018 20:18:09 no significant change from previous ECG Electronically Signed On 05-25-18 07:16:41 FARMWORKER by Cristian Li
--- NOTE | 2018-05-25 07:18 | EKG ---
Test Date: 2018-05-24 Test Time: 22:58:02 Insurance Account Executive: RT [place] MEASUREMENT RESULTS: Intervals: Rate: 98 IA: 154 QRSD: 112 QT: 368 QTc: 469 [place]: P: IA: 154 QRS: 75 T: -72 INTERPRETIVE STATEMENTS: Sinus rhythm with premature ventricular and atrial complexes Cannot rule out Inferior infarct, age undetermined Abnormal ECG Compared to ECG 05/24/2018 22:57:21 Myocardial infarct finding still present Electronically Signed On 05-25-18 07:17:35 SANDWICH COUNTER ATTENDANT by Cristian Li
[2018-05-25] MEDS: INSULIN -REGULAR HUMAN 50 UNIT/0.5 ML ML SQ SCH ×4 (07:30→21:00)
--- NOTE | 2018-05-25 08:18 | TREADPHA ---
DX: CHEST PAIN Date of Study: 05/24/18 Ht: 5 8 Wt: 180 lb 8 oz Consulting Physician: MATHEW MEDICATIONS: TYLENOL, PROVENTIL, ASPIRIN, LIPITOR, DEXTROSE, LOVENOX, LASIX, GLUCAGEN, APRESOLINE, NOVOLIN, ATROVENT NEB, IMDUR, LOPRESSOR, ZOFRAN, DELTASONE, PLOWMAX, ULTRAM. HISTORY: 73 YEAR OLD MALE HERE FOR CHEST PAIN. HISTORY OF HYPERTENSION, DIABETES, BPH PHYSICIAL EXAMINATION: RESTING B.P.: 159/99 RESTING H.R.: 70 RESTING EKG: SINUS, OCCASIONAL PREMATURE VENTRICULAR COMPLEXES ANTERIOR INFERIOR PROTOCOL: LEXISCAN EXERCISE TIME: 3:30 B.P. AT PEAK STRESS: 149/88 IMPRESSION: LEXISCAN STRESS TEST PERFORMED. CARDIOLITE INJECTED PER PROTOCOL. PREMATURE ATRIAL COMPLEXES NOTED THROUGHOUT TEST. DENIES ANY PAIN. NUCLEAR MEDICINE REPORT. NON DIAGNOSTIC EKG WITH LEXISCAN STRESS.
[2018-05-25] MEDS: HYDRALAZINE HCL 25 MG TABLET PO SCH ×4 (09:14→22:21)
[2018-05-25] MEDS: ASPIRIN 81 MG CHEWABLE TABLET PO SCH (09:14)
[2018-05-25] MEDS: ISOSORBIDE MONO SR 30 MG TAB PO SCH (09:14)
[2018-05-25] MEDS: predniSONE 10 MG TAB PO SCH ×2 (09:14→22:21)
[2018-05-25] MEDS: METOPROLOL TAR 50 MG TAB PO SCH ×2 (09:15→22:20)
--- NOTE | 2018-05-25 11:21 | RAD REPORT ---
EXAM DESCRIPTION: RAD - Chest Single View - 05/25/2018 10:56 am CLINICAL HISTORY: COPD COMPARISON: May 23 TECHNIQUE: AP portable chest image was obtained 1059 hours . FINDINGS: Chronic interstitial lung disease is present. Calcified granuloma left base unchanged. Inc reased interstitial opacification right base seen on the prior study has resolved back to baseline. N o new or progressive finding. Heart and vasculature are normal. No measurable pleural effusion and no pneumothorax. No acute bony abnormality seen. No acute aortic findings suspected. IMPRESSION: Right base interstitial opacification seen May 23 has resolved. Patient has chronic interstitial opacification similar to prior imaging.
[2018-05-25] MEDS ORDERED: CALCITROL 0.25 MCG CAP PO SCH (15:00)
--- NOTE | 2018-05-25 16:42 | P.DS ---
Admission Date: 05/20/18 Discharge Date: 05/25/18 Reason for Admission: NSTEMI, CHF exacerbation Consultations: Cardiology Procedures: None - Problems (1) Congestive heart failure Current Visit: Yes Status: Acute Qualifiers: Heart failure type: combined systolic and diastolic Heart failure chronicity: acute on chronic Qualified Code(s): I50.43 - Acute on chronic combined systolic (congestive) and diastolic (congestive) heart failure (2) NSTEMI (non-ST elevated myocardial infarction) Onset Date: 05/21/18 Current Visit: Yes Status: Acute (3) Acute kidney injury Onset Date: 07/16/17 Current Visit: No Status: Acute (4) CAD (coronary artery disease) Onset Date: 05/21/18 Current Visit: No Status: Chronic Qualifiers: Coronary Disease-Associated Artery/Lesion type: [place] artery [place] vs. transplanted heart: robinson heart Associated angina: angina presence unspecified Qualified Code(s): I25.10 - Atherosclerotic heart disease of robinson coronary artery without angina pectoris (5) Essential (primary) hypertension Onset Date: 05/21/18 Current Visit: No Status: Chronic (6) Hyperlipidemia Onset Date: 07/16/17 Current Visit: No Status: Chronic Qualifiers: Hyperlipidemia type: mixed hyperlipidemia Qualified Code(s): E78.2 - Mixed hyperlipidemia (7) Diabetes Current Visit: Yes Status: Chronic Qualifiers: Diabetes mellitus type: type 2 Diabetes mellitus terminal manager insulin use: with terminal manager use Diabetes mellitus complication status: with kidney complications Chronic kidney disease stage: stage 5, not on chronic dialysis Brief History of Present Illness: Mr Cardona is a 73 years old male with history of CKD, Diabetes Mellitus II, COPD, smoker, who is a very poor historian. He called EMS due to SOB. When EMS arrived home, found the patient in tripod position, on respiratory distress. They gave him respiratory treatment on the way to ED. At arrival, the patient was very anxious, agitated, unable to provide much of the history, he only wanted to communicate with his son. No apparent history of fever or cough. O2 sat was 97% on RA, BP 154/105, tachypneic 24, HR 130. CXR enlarged cardiac silhouette, mild CHF. Lab work shows leukocytosis 14.5K, elevated creatinine 2.85 (possible about baseline), elevated lactate, elevated trop I 2.31, extremely elevated proBNP [id number], EKG shows SR at 120's with frequent PVC's without ST abnormalities, and non-specific T wave abnormalities. Later, when the patient calmed down, was able to say that when he initially came to ED was having chest pain, which already resolved. Hospital Course: Discharge diagnosis Non ST elevation [place] Acute respiratory distress with hypoxia due to congestive heart failure Acute systolic heart failure with ejection fraction 24% Transaminitis Coronary artery disease Hypertension essential Hyperlipidemia COPD with chronic bronchitis Diabetes type 2 noninsulin dependent with hyperglycemia Anemia of chronic disease secondary to kidney disease Nicotine dependent Hospital Course Overall during the hospital course patient remained stable Patient was initially admitted to the hospital for non ST elevated [place] along with acute respiratory failure most likely secondary to CHF exacerbation. Cardiology was consulted on the case. Patient was started on IV Lasix here in the hospital. Cardiology recommended the patient get a cardiac stress test done which was negative for any acute abnormality. Patient's echocardiogram however was consistent with global hypokinesis with ejection fraction 24%. Patient did well overall on IV Lasix while here in the hospital. Cardiology at that time recommended that patient most likely needs to get a defibrillator placed due to end-stage cardiac disease. Patient was accepted at the [facility] by EP liner machine operator helper for defibrillator placement and was transferred there for further care. 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 Liver enzymes did improve after patient was started on the IV Lasix here in the hospital. Patient was also found to have acute kidney injury on chronic kidney disease stage 5. Patient was requiring dialysis however patient refused to get dialysis at this point and states that he wanted to start dialysis only if he stops making urine are has electrolyte abnormality. Patient was counseled extensively on the need to start dialysis if the kidney function does not improve given the nephrology recommendations. 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 Patient and was transferred to the [facility] for the fibrillator placement for his end- stage cardiac disease. Vital Signs/Physical Exam: Temp Pulse Resp BP Pulse Ox 97.7 F 55 18 120/64 95 05/25/18 12:00 05/25/18 12:00 05/25/18 12:00 05/25/18 12:00 05/25/18 12:00 General: Alert, In no apparent distress HEENT: Atraumatic, PERRLA, EOMI Neck: Supple, JVD not distended Respiratory: Clear to auscultation bilaterally, Normal air movement Cardiovascular: Regular rate/rhythm, Normal S1 S2 Gastrointestinal: Normal bowel sounds, No tenderness Musculoskeletal: No tenderness Integumentary: No rashes Neurological: Normal speech, Normal tone, Normal affect Lymphatics: No axilla or inguinal lymphadenopathy Laboratory Data at Discharge: WBC 10.0 K/uL (4.3-10.9) 05/25/18 05:46 Hgb 11.4 g/dL (13.6-17.9) L 05/25/18 05:46 Hct 34.8 % (39.6-49.0) L 05/25/18 05:46 Plt Count 199 K/uL (152-406) 05/25/18 05:46 PT 15.0 SECONDS (9.2-12.8) H 05/20/18 20:25 INR 1.26 05/20/18 20:25 Sodium 139 mmol/L (136-145) 05/25/18 05:46 Potassium 4.2 mmol/L (3.5-5.1) 05/25/18 05:46 BUN 108 mg/dL (7-18) H 05/25/18 05:46 Creatinine 3.88 mg/dL (0.55-1.3) H 05/25/18 05:46 Glucose 193 mg/dL (74-106) H 05/25/18 05:46 Magnesium 2.4 mg/dL (1.8-2.4) 05/24/18 05:33 Total Bilirubin 0.7 mg/dL (0.2-1.0) 05/25/18 05:46 AST 320 U/L (15-37) H* D 05/25/18 05:46 ALT 1228 U/L (12-78) H* D 05/25/18 05:46 Alkaline Phosphatase 231 U/L (45-117) H 05/25/18 05:46 Troponin I 2.37 ng/mL (0.0-0.045) H* 05/21/18 19:40 Home Medications: Albuterol Sulfate [Proair Hfa] 8.5 gm IH Q4HR #1 hfa.aer.ad 07/15/17 predniSONE [Deltasone*] 10 mg PO BID #20 tab 07/15/17 Atorvastatin Calcium [Lipitor] 20 mg PO BEDTIME 05/21/18 Calcium Carbonate/Vitamin D3 [Calcium 250-D Tablet] 1 tab PO DAILY 05/21/18 Cyanocobalamin [Vitamin B-12*] 1 tab PO DAILY 05/21/18 Furosemide [Lasix*] 3 tab PO BID 05/21/18 Glipizide [Glucotrol] 10 mg PO BID 05/21/18 Hydralazine HCl 25 mg PO TID 05/21/18 Isosorbide Mononitrate [Isosorbide Mononitrate ER] 30 mg PO DAILY 05/21/18 Losartan Potassium [Cozaar*] 1 tab PO DAILY 05/21/18 Metoprolol Tartrate 2 tab PO Q12H 05/21/18 Tamsulosin HCl [Flomax] 0.4 mg PO BEDTIME 05/21/18 traMADol HCL [Ultram*] 1 tab PO TID PRN 05/21/18
--- NOTE | 2018-05-25 20:27 | PN ---
NEPHROLOGY FOLLOWUP Subjective: The patient was admitted with congestive heart failure, had acute kidney injury on advan karly chronic kidney disease. The patient has congestive heart failure exacerbation. Kidney function continues to decline. The patient is currently off oxygen. Physical Examination: General: When I saw the patient, the patient was lying in bed. Vital Signs: Blood pressure 120/64, pulse of 55, afebrile. The patient had good urine output of 125 0. Since admission, weight has been stable. Chest: Clear to auscultation. Heart: S1 and S2, regular. Abdomen: Soft, nontender. Extremities: Trace edema. Laboratory Data: WBC 10, H and H of 11.4 and 34.8, platelets 199. Sodium 139, potassium 4.2, bicarb 20, BUN 108, creatinine 3.8, GFR 15, and calcium 7.9. LFTs elevated. SPEP still pending. PTH 722, calcium 7.8, corrected calcium is 8.6. Chest x-ray showing cardiomegaly with mild congestion, mike red to the chest x-ray upon admission looks slightly better. Current Medications: Aspirin, albuterol, Flomax, atorvastatin, hydralazine 75 t.i.d., isosorbide, me toprolol 100 b.i.d., Tylenol, Lasix every 8 hours, and tramadol. Assessment And Plan: 1.Acute kidney injury secondary to cardiorenal, looked to me started being euvolemic, still nephroti c-range proteinuria. I am going to decrease Lasix to b.i.d. and decrease the hydralazine to 50 mg an d we will follow up the patient. I had long discussion with the patient that if kidney function cont inues to decline, the patient may need renal replacement therapy. The patient refused to have any di alysis currently and explained risks, benefits, and alternatives, included possible the risk of a court den cardiac arrest or or encephalopathy and coma. The patient is still refusing dialysis, the witness, the charge nurse, Mr. Charles, we will respect the patient's wishes. 2.Hypertension, currently controlled, on the lower side. As I mentioned, decrease Lasix to twice a day, decrease hydralazine to 50 three times a day and we will follow up. 3.Nephrotic-range proteinuria. We will send for the workup, follow up SPEP. 4.Anemia of chronic kidney disease with iron-deficiency anemia. Continue IV iron. We will follow u p with primary. 5.Coronary artery disease and congestive heart failure. Plan for ICD. We will follow up with Ariella andersen. JAG/BHAVESH Voice ID: [id number] Report ID: [id number]
[2018-05-25] MEDS: TAMSULOSIN 0.4 MG SR CAP PO SCH (21:00)
[2018-05-25] MEDS: ATORVASTATIN 40 MG TAB PO SCH (22:21)
[2018-05-26 06:40] LABS: RBC Red Blood Cell Count 4.23 M/uL (4.33-5.43)
[2018-05-26 08:05] LABS: Albumin 3.3 g/dL (3.4-5.0); BUN Blood Urea Nitrogen 105 mg/dL (7-18); Bicarbonate 25 mmol/L (21-32); Ferritin 338.1 ng/mL (26-388); Folic Acid, (Folate) > 20.0 ng/mL (3.1-17.5); Glucose Level 290 mg/dL (74-106); Potassium 4.2 mmol/L (3.5-5.1); Sodium Level 138 mmol/L (136-145); Transferrin 197 mg/dL (200-360)
[2018-05-26 08:22] LABS: Rheumatoid Factor NEG (NEG)
[2018-05-26] MEDS: INSULIN -REGULAR HUMAN 50 UNIT/0.5 ML ML SQ SCH (08:38)
[2018-05-26] MEDS: HYDRALAZINE HCL 25 MG TABLET PO SCH (08:39)
[2018-05-26] MEDS: METOPROLOL TAR 50 MG TAB PO SCH (08:39)
[2018-05-26] MEDS: ASPIRIN 81 MG CHEWABLE TABLET PO SCH (08:39)
[2018-05-26] MEDS: ISOSORBIDE MONO SR 30 MG TAB PO SCH (08:39)
[2018-05-26] MEDS: predniSONE 10 MG TAB PO SCH (08:40)
[2018-05-26] MEDS: FUROSEMIDE 40 MG/4 ML VIAL IV SCH (08:40)
[2018-05-26] MEDS ORDERED: SOD FERRIC GLUC COMPLX/SUCROSE 250 MG in NA CHLORIDE 0.9% 250 ML IV SCH (11:00)
[2018-05-26] MEDS ORDERED: EPOETIN ALFA 10,000 UNIT/ML SQ SCH (11:00)
--- NOTE | 2018-05-26 16:13 | PN ---
Date of Progress Note: 05/26/2018 NEPHROLOGY FOLLOWUP Subjective: The patient is doing well. No shortness of breath. The patient yesterday we decreased the Lasix to b.i.d. Physical Examination: Vital Signs: When I saw the patient, blood pressure /74, pulse of 51. Chest: Clear to auscultation. The patient is off oxygen. Heart: S1 and S2 systolic murmur. Abdomen: Soft, nontender. Extremities: No edema. Laboratory Data: WBC 10, H and H of 11.4 and 34.8, platelets 199. Sodium 138, potassium 4.2, bicarb 25, BUN 105, creatinine 3.7, stable, GFR of 16, calcium 7.7, phosphorus of 5. TSAT of 14, ferritin of 338, B12 more than 2000, folate within normal limit, PTH 877. Serology is still pending. Current Medications: The patient on it includes, 1.Breathing treatment. 2.Flomax. 3.Atorvastatin. 4.Hydralazine 50 t.i.d. 5.Isosorbide. 6.Metoprolol 100 b.i.d. 7.Tylenol. 8.Lasix 40 mg IV b.i.d. 9.Zofran. 10.Tramadol. 11.Calcitriol every 48 hours. Assessment And Plan: 1.Acute kidney injury on advanced chronic kidney disease. Normal volume. I am going to go ahead an d change Lasix to p.o. 40 mg twice a day. We will continue to monitor the patient. Again, the patie nt is still insisting no dialysis for the time being. We will respect the patient's wishes. We will follow up the patient closely. The patient is cleared from the renal standpoint for discharge plann ing to follow up in the office in 2 to 3 weeks. 2.Hypertension, controlled, optimal. Continue current medication. We will keep avoiding FRANKLIN inhibi tor and ARB. 3.Anemia of iron deficiency plus chronic kidney disease. We will continue the patient on Epogen. W e will continue the patient also on IV iron. 4.Secondary hyperparathyroidism, started on calcitriol. We will follow up. 5.Nephrotic-range proteinuria secondary to diabetes. Waiting for serology. We will keep avoiding A CE inhibitor and ARB given the advanced kidney disease. 6.Coronary artery disease and congestive heart failure as by Cardiology. Case discussed with the patient, verbalized understanding, discussed with the staff, agreed on the pl an. FULLER Voice ID: [id number] Report ID: [id number]
[2018-05-26] MEDS ORDERED: FUROSEMIDE 40 MG TABLET PO SCH (17:00)
--- NOTE | 2018-05-26 18:18 | P.PN ---
Subjective Date of Service: 05/26/18 Chief Complaint: NSTEMI, CHF exacerbation Subjective: Tolerating diet, Ambulating, Improving, Working w/ PT, Doing well Review of Systems 10-point ROS is otherwise unremarkable Physical Examination - Vital Signs Temperature: 97.3 F Blood Pressure: 147/74 Pulse: 51 Respirations: 20 Pulse Ox (%): 96 - Physical Exam General: Alert, In no apparent distress HEENT: Atraumatic, PERRLA, EOMI Neck: Supple, JVD not distended Respiratory: Clear to auscultation bilaterally, Normal air movement Cardiovascular: Regular rate/rhythm, Normal S1 S2 Gastrointestinal: Normal bowel sounds, No tenderness Musculoskeletal: No tenderness Integumentary: No rashes Neurological: Normal speech, Normal tone, Normal affect Lymphatics: No axilla or inguinal lymphadenopathy - Studies Microbiology Data (last 24 hrs): 05/20/18 20:50 Blood - Blood Aerobic Blood Culture - Final No growth in 5 days. 05/20/18 20:50 Blood - Blood Anaerobic Blood Culture - Final No growth in 5 days. 05/20/18 20:25 Blood - Blood Aerobic Blood Culture - Final No growth in 5 days. 05/20/18 20:25 Blood - Blood Anaerobic Blood Culture - Final No growth in 5 days. Medications List Reviewed: Yes Assessment And Plan - Current Problems (Diagnosis) (1) Congestive heart failure Status: Acute Qualifiers: Heart failure type: combined systolic and diastolic Heart failure chronicity: acute on chronic Qualified Code(s): I50.43 - Acute on chronic combined systolic (congestive) and diastolic (congestive) heart failure (2) NSTEMI (non-ST elevated myocardial infarction) Onset Date: 05/21/18 Status: Acute (3) Acute kidney injury Onset Date: 07/16/17 Status: Acute (4) CAD (coronary artery disease) Onset Date: 05/21/18 Status: Chronic Qualifiers: Coronary Disease-Associated Artery/Lesion type: [place] artery [place] vs. transplanted heart: [place] heart Associated angina: angina presence unspecified Qualified Code(s): I25.10 - Atherosclerotic heart disease of [place] coronary artery without angina pectoris (5) Essential (primary) hypertension Onset Date: 05/21/18 Status: Chronic (6) Hyperlipidemia Onset Date: 07/16/17 Status: Chronic Qualifiers: Hyperlipidemia type: mixed hyperlipidemia Qualified Code(s): E78.2 - Mixed hyperlipidemia (7) Diabetes Status: Chronic Qualifiers: Diabetes mellitus type: type 2 Diabetes mellitus residential insulin use: with residential use Diabetes mellitus complication status: with kidney complications Chronic kidney disease stage: stage 5, not on chronic dialysis - Plan Patient was awaiting bed at [facility] for defibrillator placement. However patient refused to go to [facility] and left the hospital against medical advice. Risk was explained to the patient of having possibility of cardiac arrest along with respiratory arrest and eventually get. Patient stated that he understands the risk and still would like to leave the hospital against medical advice. Patient thus was given papers and signed AMA papers to leave the hospital. Discharge Plan: Other
[2018-05-26 19:58] LABS: Albumin, (SPE) 3.1 g/dL (3.8-4.8); Alpha-1-Globulins 0.4 g/dL (0.2-0.3); Alpha-2-Globulins 0.8 g/dL (0.5-0.9); Gamma Globulins 0.5 g/dL (0.8-1.7); INTERPRETATION REPORT
[2018-05-27 04:03] LABS: HBsAG Nonreactive (Nonreactive); Hepatitis A IgM Antibody Nonreactive
[2018-05-29 10:39] LABS: Vitamin D 1,25-Dihydroxy Total 19 pg/mL (18-72); Vitamin D,1,25-OH2, D2 <8 pg/mL
[2018-05-31 18:41] LABS: P-ANCA Anti-Myeloperoxidase Ab <1.0 AI (<1.0)
[2018-06-01 11:35] LABS: HIV AG/AB 4TH GEN Non-reactive (Non-reactive)
== END 2018-05-26 11:55 | disposition left against medical advice (07) | DRG 280 ==
LOC: ER 20:11 → ERHOLD 23:07 → 3RD-ICU 05-21 11:49 → 2ND 05-21 18:20
PROVIDERS: ADMIT Internal Medicine; ATTEND Family Medicine
DX: I21.4 Non-ST elevation (NSTEMI) myocardial infarction (principal); I50.43 Acute on chronic combined systolic (congestive) and diastolic (congestive) heart failure; N17.0 Acute kidney failure with tubular necrosis; N17.9 Acute kidney failure, unspecified; I13.2 Hypertensive heart and chronic kidney disease with heart failure and with stage 5 chronic kidney disease, or end stage renal disease; N18.5 Chronic kidney disease, stage 5; N25.81 Secondary hyperparathyroidism of renal origin; I25.10 Atherosclerotic heart disease of native coronary artery without angina pectoris; E11.22 Type 2 diabetes mellitus with diabetic chronic kidney disease; J44.9 Chronic obstructive pulmonary disease, unspecified; F17.210 Nicotine dependence, cigarettes, uncomplicated; R06.03 Acute respiratory distress; R74.0 Nonspecific elevation of levels of transaminase and lactic acid dehydrogenase [LDH]; E11.65 Type 2 diabetes mellitus with hyperglycemia; D63.1 Anemia in chronic kidney disease; Z95.5 Presence of coronary angioplasty implant and graft; N40.0 Benign prostatic hyperplasia without lower urinary tract symptoms; E78.2 Mixed hyperlipidemia; E11.40 Type 2 diabetes mellitus with diabetic neuropathy, unspecified; E11.21 Type 2 diabetes mellitus with diabetic nephropathy; Z79.84 Long term (current) use of oral hypoglycemic drugs; E87.5 Hyperkalemia; R80.9 Proteinuria, unspecified; D50.9 Iron deficiency anemia, unspecified
CPT/HCPCS: 36415; 71045; 76705; 76770; 78452; 80048; 80053; 80069; 80074; 80076; 81003; 81015; 82570; 82607; 82652; 82728; 82746; 82805; 82962; 83520; 83540; 83605; 83735; 83880; 83970; 84132; 84145; 84156; 84165; 84466; 84484; 85025; 85044; 85610; 86021; 86038; 86160; 86225; 86334; 86430; 87040; 87389; 87804; 93005; 93017; 93306; 94640; 94660; 94760; 96365; 96368; 96372; 96375; 99285; A9500; J0885; J1650; J1940; J2270; J2785; J2916; J3475; J7030; J7512

== ENCOUNTER 2018-05-29 23:59 | Observation (INO) | payer OTHER ==
[2018-05-30 00:42] LABS: Protime INR 1.15
[2018-05-30 00:47] LABS: Absolute Lymphocytes (CBC) 0.4 K/uL (0.7-4.9); Absolute Neutrophil 11.4 K/uL (1.8-8.0); Basophils % 0.2 % (0-1.3); Eosinophils % 1.5 % (0-4.4); Hematocrit 36.3 % (39.6-49.0); Lymphocytes % 3.2 % (15.3-44.8); MPV 9.8 fL (7.6-11.3); Monocytes % 7.5 % (3.3-12.3); RBC Red Blood Cell Count 4.21 M/uL (4.33-5.43)
[2018-05-30 00:54] LABS: Potassium 3.9 mmol/L (3.5-5.1)
[2018-05-30 00:56] LABS: Albumin 2.9 g/dL (3.4-5.0)
[2018-05-30 00:59] LABS: Bilirubin Direct 0.2 mg/dL (0-0.2)
[2018-05-30 01:01] LABS: Bilirubin Total 0.6 mg/dL (0.2-1.0); Protein, Total 5.7 g/dL (6.4-8.2)
[2018-05-30 01:24] LABS: Troponin (Emerg Dept Use Only) 0.2 ng/mL (0.0-0.045)
[2018-05-30 01:38] LABS: Blood Morphology Comment NOT SEEN (NOT SEEN); Platelet Estimate ADEQ
--- NOTE | 2018-05-30 01:56 | ER ---
Nurse's Notes [facility] Name: Travis Cardona Age: 73 yrs Sex: Male : 1945 Arrival Date: 05/30/2018 Time: 00:00 Bed 7 Private MD: Diagnosis: Chest pain, unspecified;Acute coronary syndrome Presentation: 05/30 00:01 Presenting complaint: EMS states: Pt c/o mid sternal chest pain, does not radiate. Pt tl2 was discharged from here yesterday after having an CT. EMS gave 324 aspirin. Pt denies pain at this time. Transition of care: patient was not received from another setting of care. Onset of symptoms was May 29, 2018 at 23:00. Risk Assessment: Do you want to hurt yourself or someone else? Patient reports no desire to harm self or others. Initial Sepsis Screen: Does the patient meet any 2 criteria? No. Patient's initial sepsis screen is negative. Does the patient have a suspected source of infection? No. Patient's initial sepsis screen is negative. Care prior to arrival: Medication(s) given: ASA, 81 mg, x 4, IV initiated. 20 GA, in the right antecubital area, Glucose check: 224. 00:01 Method Of Arrival: EMS: [facility] tl2 00:01 Acuity: HIMA 3 tl2 Triage Assessment: 00:10 General: Appears in no apparent distress. uncomfortable, Behavior is calm, cooperative, tl2 appropriate for age. Pain: Denies pain. Neuro: Level of Consciousness is awake, alert, obeys commands, Oriented to person, place, time, situation. Cardiovascular: Chest pain is described as vague, is located in anterior chest wall began 2 hours prior to arrival. Respiratory: Airway is patent Respiratory effort is even, unlabored, Respiratory pattern is regular, symmetrical. GI: No signs and/or symptoms were reported involving the gastrointestinal system. : No signs and/or symptoms were reported regarding the genitourinary system. Derm: Skin is pink, warm \T\ dry. Historical: - Allergies: 00:15 No Known Allergies; tl2 - Home Meds: 00:10 atorvastatin 40 mg Oral tab 1 tab once daily [Active]; calcium vitamin D 250 mg/125 mg tl2 daily [Active]; cyanocobalamin (vitamin B-12) 1,000 mcg Oral tab daily [Active]; Furosemide Oral [Active]; glipizide 5 mg Oral tab 1 tab 2 times per day [Active]; hydralazine 25 mg Oral tab 1 tab three times a day [Active]; isosorbide dinitrate 30 mg Oral tab 1 tab 3 times per day [Active]; isosorbide mononitrate 30 mg Oral Tb24 1 tab once daily [Active]; losartan 50 mg Oral tab 1 tab once daily [Active]; metoprolol tartrate 100 mg Oral tab 2 tabs 2 times per day [Active]; ProAir HFA inhalation [Active]; tamsulosin 0.4 mg Oral cp24 1 cap once daily [Active]; tramadol 50 mg Oral tab 1 tab three times a day [Active]; - PMHx: 00:10 BPH; Diabetes - NIDDM; Hypertension; Myocardial infarction; tl2 - Immunization history:: Adult Immunizations up to date. - Social history:: Smoking status: Patient/guardian denies using tobacco. - Ebola Screening: : No symptoms or risks identified at this time. Screenin:13 Abuse screen: Denies threats or abuse. Nutritional screening: No deficits noted. tl2 Tuberculosis screening: No symptoms or risk factors identified. Fall Risk IV access (20 points). Assessment: 00:10 General: see triage assessment. tl2 07:00 Reassessment: Patient appears in no apparent distress at this time. Patient and/or ph family updated on plan of care and expected duration. Pain level reassessed. Patient is alert, oriented x 3, equal unlabored respirations, skin warm/dry/pink. Pt resting quietly, awaiting 0730 to call report to floor Patient denies pain at this time. Patient states feeling better. 08:08 Reassessment: Patient appears in no apparent distress at this time. Patient and/or ph family updated on plan of care and expected duration. Pain level reassessed. Patient is alert, oriented x 3, equal unlabored respirations, skin warm/dry/pink. Report called to second floor. Vital Signs: 00:10 BP 135 / 81; Pulse 67; Resp 18; Temp 98.6(O); Pulse Ox 100% on R/A; Weight 86.18 kg; tl2 Height 5 ft. 11 in. (180.34 cm); Pain 1/10; 00:47 BP 117 / 80; Pulse 63; Resp 23; Pulse Ox 100% on R/A; tl2 02:00 BP 129 / 71; Pulse 62; Resp 18; Pulse Ox 100% ; tl2 08:00 BP 118 / 78; Pulse 61; Resp 18; Temp 97.8; Pulse Ox 99% on R/A; ph 00:10 Body Mass Index 26.50 (86.18 kg, 180.34 cm) tl2 ED Course: 00:00 Patient arrived in ED. ds1 00:01 Dhruv Dowell MD is Attending Physician. kdr 00:06 Triage completed. tl2 00:10 Arm band placed on right wrist. tl2 00:13 Patient has correct armband on for positive identification. Bed in low position. Call tl2 light in reach. Side rails up X2. 00:13 Maintain EMS IV. Dressing intact. Good blood return noted. Site clean \T\ dry. Gauge \T\ tl 2 site: 20 g R AC. 00:22 X-ray completed. Portable x-ray completed in exam room. Patient tolerated procedure tm4 well. 00:23 XRAY Chest (1 view) In Process Unspecified. EDMS 00:29 Initial lab(s) drawn, by me, sent to lab. lt1 00:47 Sally Mireles, ISAURA is Primary Nurse. tl2 01:54 Shiv Rowe MD is Hospitalizing Provider. kdr 04:37 No provider procedures requiring assistance completed. Patient admitted, IV remains in tl2 place. Administered Medications: No medications were administered Outcome: 01:55 Decision to Hospitalize by Provider. kdr 03:00 Admitted to ER Hold. Please see [facility] for further documentation. tl2 03:00 Condition: stable 03:00 Discharge instructions given to patient, Instructed on the need for admit. 08:27 Patient left the ED. hj Signatures: Dispatcher [employer] EDMS Dhruv Dowell MD MD kdr Marroquin, Tracy tm4 Delmy Jerome ds1 Manisha Blackman, ISAURA RN Kj Willard RN RN Sally Mireles RN RN tl2 Janey Pastor lt1
--- NOTE | 2018-05-30 01:56 | EDPHYS ---
Physician Documentation [facility] Name: Travis Cardona Age: 73 yrs Sex: Male : 1945 Arrival Date: 05/30/2018 Time: 00:00 Bed 7 Private MD: ED Physician Dhruv Dowell HPI: 05/30 01:55 This 73 yrs old Male presents to ER via EMS with complaints of Chest Pain. kdr 01:55 The patient or guardian reports chest pain that is located primarily in the anterior kdr chest wall, bilaterally, chest diffusely. Onset: gradually, Since he was discharged on 2/13 AMA. The pain does not radiate. Associated signs and symptoms: Pertinent positives: lightheadedness, Confusion. The chest pain is described as aching, dull, a pressure. Duration: The patient or guardian reports multiple episodes, that are intermittent, that wax and wane, with no pattern. Modifying factors: The symptoms are alleviated by nothing. the symptoms are aggravated by nothing. Severity of pain: At its worst the pain was mild moderate just prior to arrival, in the emergency department the pain is unchanged. The patient has experienced similar episodes in the past, multiple times. The patient has been recently seen by a physician: The patient has been recently been admitted at [facility], was discharged earlier this week. Historical: - Allergies: 00:15 No Known Allergies; tl2 - Home Meds: 00:10 atorvastatin 40 mg Oral tab 1 tab once daily [Active]; calcium vitamin D 250 mg/125 mg tl2 daily [Active]; cyanocobalamin (vitamin B-12) 1,000 mcg Oral tab daily [Active]; Furosemide Oral [Active]; glipizide 5 mg Oral tab 1 tab 2 times per day [Active]; hydralazine 25 mg Oral tab 1 tab three times a day [Active]; isosorbide dinitrate 30 mg Oral tab 1 tab 3 times per day [Active]; isosorbide mononitrate 30 mg Oral Tb24 1 tab once daily [Active]; losartan 50 mg Oral tab 1 tab once daily [Active]; metoprolol tartrate 100 mg Oral tab 2 tabs 2 times per day [Active]; ProAir HFA inhalation [Active]; tamsulosin 0.4 mg Oral cp24 1 cap once daily [Active]; tramadol 50 mg Oral tab 1 tab three times a day [Active]; - PMHx: 00:10 BPH; Diabetes - NIDDM; Hypertension; Myocardial infarction; tl2 - Immunization history:: Adult Immunizations up to date. - Social history:: Smoking status: Patient/guardian denies using tobacco. - Ebola Screening: : No symptoms or risks identified at this time. ROS: 01:55 Constitutional: Negative for fever, chills, and weight loss, Eyes: Negative for injury, kdr pain, redness, and discharge, ENT: Negative for injury, pain, and discharge, Neck: Negative for injury, pain, and swelling, Respiratory: Negative for shortness of breath, cough, wheezing, and pleuritic chest pain, Abdomen/GI: Negative for abdominal pain, nausea, vomiting, diarrhea, and constipation, Back: Negative for injury and pain, : Negative for injury, bleeding, discharge, and swelling, MS/Extremity: Negative for injury and deformity, Skin: Negative for injury, rash, and discoloration, Neuro: Negative for headache, weakness, numbness, tingling, and seizure activity. Psych: Negative for depression, anxiety, suicide ideation, homicidal ideation, and hallucinations, Allergy/Immunology: Negative for hives, rash, and allergies, Endocrine: Negative for neck swelling, polydipsia, polyuria, polyphagia, and marked weight changes, Hematologic/Lymphatic: Negative for swollen nodes, abnormal bleeding, and unusual bruising. 01:55 Cardiovascular: Positive for chest pain, with cough, Negative for edema, orthopnea, palpitations, paroxysmal nocturnal dyspnea. Exam: 01:55 Constitutional: This is a well developed, well nourished patient who is awake, alert, kdr and in no acute distress. Head/Face: Normocephalic, atraumatic. Eyes: Pupils equal round and reactive to light, extra-ocular motions intact. Lids and lashes normal. Conjunctiva and sclera are non-icteric and not injected. Cornea within normal limits. Periorbital areas with no swelling, redness, or edema. Neck: Trachea midline, no thyromegaly or masses palpated, and no cervical lymphadenopathy. Supple, full range of motion without nuchal rigidity, or vertebral point tenderness. No Meningismus. Chest/axilla: Normal chest wall appearance and motion. Nontender with no deformity. No lesions are appreciated. Cardiovascular: Regular rate and rhythm with a normal S1 and S2. No gallops, murmurs, or rubs. Normal PMI, no JVD. No pulse deficits. Respiratory: Lungs have equal breath sounds bilaterally, clear to auscultation and percussion. No rales, rhonchi or wheezes noted. No increased work of breathing, no retractions or nasal flaring. Abdomen/GI: Soft, non-tender, with normal bowel sounds. No distension or tympany. No guarding or rebound. No evidence of tenderness throughout. Back: No spinal tenderness. No costovertebral tenderness. Full range of motion. Skin: Warm, dry with normal turgor. Normal color with no rashes, no lesions, and no evidence of cellulitis. MS/ Extremity: Pulses equal, no cyanosis. Neurovascular intact. Full, normal range of motion. Neuro: Awake and alert, GCS 15, oriented to person, place, time, and situation. Cranial nerves II-XII grossly intact. Motor strength 5/5 in all extremities. Sensory grossly intact. Cerebellar exam normal. Normal gait. Psych: Awake, alert, with orientation to person, place and time. Behavior, mood, and affect are within normal limits. Vital Signs: 00:10 BP 135 / 81; Pulse 67; Resp 18; Temp 98.6(O); Pulse Ox 100% on R/A; Weight 86.18 kg; tl2 Height 5 ft. 11 in. (180.34 cm); Pain /10; 00:47 BP 117 / 80; Pulse 63; Resp 23; Pulse Ox 100% on R/A; tl2 02:00 BP 129 / 71; Pulse 62; Resp 18; Pulse Ox 100% ; tl2 08:00 BP 118 / 78; Pulse 61; Resp 18; Temp 97.8; Pulse Ox 99% on R/A; ph 00:10 Body Mass Index 26.50 (86.18 kg, 180.34 cm) tl2 MDM: 01:55 Patient medically screened. kdr 01:55 Data reviewed: vital signs, nurses notes, lab test result(s), radiologic studies. kdr Counseling: I had a detailed discussion with the patient and/or guardian regarding: the historical points, exam findings, and any diagnostic results supporting the discharge/admit diagnosis, lab results, radiology results, the need for further work-up and treatment in the hospital. 05/30 00:10 Order name: Basic Metabolic Panel; Complete Time: :47 [facility] 05/30 00:10 Order name: CBC with Diff; Complete Time: [facility] 05/30 00:10 Order name: LFT's; Complete Time: 47 [facility] 05/30 00:10 Order name: Magnesium; Complete Time: :47 [facility] 05/30 00:10 Order name: NT PRO-BNP; Complete Time: [facility] 05/30 00:10 Order name: PT-INR; Complete Time: [facility] 05/30 00:10 Order name: Troponin (emerg Dept Use Only); Complete Time: : [facility] 05/30 00:49 Order name: Manual Differential; Complete Time: :47 [facility] 05/30 02:14 Order name: Basic Metabolic Panel [facility] 05/30 02:14 Order name: Basic Metabolic Panel [facility] 05/30 02:14 Order name: CBC with Automated Diff [facility] 05/30 02:14 Order name: CBC with Automated Diff [facility] 05/30 02:14 Order name: Troponin I [facility] 05/30 02:14 Order name: Troponin I [facility] 05/30 00:10 Order name: XRAY Chest (1 view) [facility] 05/30 00:10 Order name: EKG; Complete Time: 00:12 [facility] 05/30 00:10 Order name: Cardiac monitoring; Complete Time: 00:16 [facility] 05/30 00:10 Order name: EKG - Nurse/Tech; Complete Time: 00:16 [facility] 05/30 00:10 Order name: IV Saline Lock; Complete Time: 00:16 [facility] 05/30 00:10 Order name: Labs collected and sent; Complete Time: 00:16 [facility] 05/30 00:10 Order name: O2 Per Protocol; Complete Time: 00:16 [facility] 05/30 00:10 Order name: O2 Sat Monitoring; Complete Time: 00:16 [facility] 05/30 02:14 Order name: CONS Physician Consult [facility] 05/30 02:14 Order name: Heart Healthy [facility] 05/30 02:14 Order name: Troponin I [facility] Administered Medications: No medications were administered Disposition: 05/30/18 01:55 Hospitalization ordered by Shiv Rowe for Observation. Preliminary diagnosis are Chest pain, unspecified, Acute coronary syndrome. - Bed requested for Telemetry/MedSurg (observation). - Status is Observation. hj - Condition is Fair. - Problem is an acute exacerbation. - Symptoms have improved. UTI on Admission? No Signatures: Dispatcher [employer] EDMS Sharita Sanchez RN RN Radha East RN RN aa1 Dhruv Dowell MD MD kdr Joaquin, Henry, RN RN hj Sally Mireles RN RN tl2 Corrections: (The following items were deleted from the chart) 02:18 01:55 Hospitalization Ordered by Shiv Rowe MD for Observation. Preliminary aa1 diagnosis is Chest pain, unspecified; Acute coronary syndrome. Bed requested for Telemetry/MedSurg (observation). Status is Observation. Condition is Fair. Problem is an acute exacerbation. Symptoms have improved. UTI on Admission? No. kdr 05:22 02:18 05/30/2018 01:55 Hospitalization Ordered by Shiv Rowe MD for Observation. mw Preliminary diagnosis is Chest pain, unspecified; Acute coronary syndrome. Bed requested for [facility] ER HOLD. Status is Observation. Condition is Fair. Problem is an acute exacerbation. Symptoms have improved. UTI on Admission? No. aa1 08:27 05:22 05/30/2018 01:55 Hospitalization Ordered by Shiv Rowe MD for Observation. hj Preliminary diagnosis is Chest pain, unspecified; Acute coronary syndrome. Bed requested for Telemetry/MedSurg (observation). Status is Observation. Condition is Fair. Problem is an acute exacerbation. Symptoms have improved. UTI on Admission? No. enoch
[2018-05-30] MEDS ORDERED: ACETAMINOPHEN 500 MG TAB PO PRN (02:10)
[2018-05-30] MEDS ORDERED: MORPHINE 4 MG/ML SYR IV PRN (02:10)
[2018-05-30] MEDS ORDERED: ALPRAZOLAM 0.25 MG TABLET PO PRN (02:10)
[2018-05-30] MEDS ORDERED: METOPROLOL TARTRATE PO SCH (02:15)
--- NOTE | 2018-05-30 07:40 | EKG ---
Test Date: 2018-05-30 Test Time: 00:09:10 Mica Spreader: NILESH MEASUREMENT RESULTS: Intervals: Rate: 62 WI: 152 QRSD: 92 QT: 512 QTc: 519 Holland: P: 31 WI: 152 QRS: 77 T: 146 INTERPRETIVE STATEMENTS: Sinus rhythm with occasional premature ventricular complexes Voltage criteria for left ventricular hypertrophy Marked T wave abnormality, consider anterolateral ischemia Prolonged QT Abnormal ECG Compared to ECG 05/24/2018 22:58:02 Left ventricular hypertrophy now present T-wave abnormality now present Possible ischemia now present Prolonged QT interval now present Myocardial infarct finding no longer present Electronically Signed On 05-30-18 07:39:06 WEB ART DIRECTOR by Jaziel Washington
[2018-05-30] MEDS ORDERED: PNEUMOCOCCAL VACCINE 0.5 ML IMVAC ONE (08:00)
[2018-05-30] MEDS ORDERED: INFLUENZA VACCINE (for 3y+) 0.5 ML DOSE IMVAC ONE (08:00)
[2018-05-30] MEDS ORDERED: ENOXAPARIN 30 MG/0.3 ML SQ SCH (09:00)
[2018-05-30] MEDS ORDERED: ENOXAPARIN 40 MG/0.4 ML SQ SCH (09:00)
[2018-05-30] MEDS ORDERED: CALCIUM 250 MG/VITAMIN D 125 IU TAB PO SCH (09:00)
[2018-05-30] MEDS ORDERED: ASPIRIN EC 81 MG TAB PO SCH (09:00)
[2018-05-30] MEDS ORDERED: METOPROLOL TAR 50 MG TAB PO SCH (09:00)
[2018-05-30] MEDS ORDERED: HOME MED 1 EA UNK (Glipizide [Glucotrol] 10 MG) PO SCH (09:00)
[2018-05-30] MEDS ORDERED: LOSARTAN POTASSIUM 50 MG TABLET PO SCH (09:00)
[2018-05-30] MEDS ORDERED: FUROSEMIDE 20 MG TABLET PO SCH ×2 (09:00→14:00)
[2018-05-30] MEDS ORDERED: glipiZIDE 5 MG TAB PO SCH (09:00)
[2018-05-30] MEDS ORDERED: ISOSORBIDE MONO SR 30 MG TAB PO SCH (09:00)
--- NOTE | 2018-05-30 09:44 | RAD REPORT ---
EXAM DESCRIPTION: Rosie Single View05/30/2018 12:25 am CLINICAL HISTORY: Chest pain COMPARISON: May 25, 2018 FINDINGS: The lungs appear clear of acute infiltrate. The heart is normal size Calcified left lung granulomas IMPRESSION: No acute abnormalities displayed
[2018-05-30] MEDS: predniSONE 10 MG TAB PO SCH ×2 (10:02→21:02)
[2018-05-30] MEDS: HYDRALAZINE HCL 10 MG TABLET PO SCH ×3 (10:03→21:03)
[2018-05-30] MEDS: METOPROLOL TAR 50 MG TAB PO SCH ×2 (10:03→21:02)
--- NOTE | 2018-05-30 12:05 | CON ---
Date of Consultation: 05/30/2018 Reason For Consultation: Chest pain. History Of Present Illness: Mr. Cardona is a 73-year-old white male, who normally gets his care at the [facility]. He has an extensive past medical history. For the last 2-3 days, he has been havi ng some substernal chest pain, that did not radiate. Denied any nausea, vomiting, diaphoresis. Husam ed any PND, orthopnea, pedal edema. He denied any palpitation or syncope. His symptoms are nonexert ional. They are not related to food, time of the day, or body position. He has had a history of cor onary artery disease, status post multiple stents by Dr. Ferrera in the past. Past Medical History: Includes tobacco use that is persistent, benign prostatic hypertrophy, neuropa thy, coronary artery disease status post stents, hypertension, dyslipidemia, diabetes, chronic renal insufficiency, COPD, and congestive heart failure. Allergies: NONE. Review of Systems: Negative. Social History: Positive for tobacco. Family History: Positive for diabetes and heart disease. Medications: At home include albuterol, Lasix, Glucotrol, Lipitor, hydralazine, Imdur, losartan, met oprolol, and Flomax. Physical Examination: Vital Signs: Stable. He was afebrile. He was in a sinus rhythm. HEENT: Negative. Neck: Supple without any bruit, lymphadenopathy, JVD, or thyromegaly. Chest: Clear to auscultation and percussion. Cardiac: Regular rhythm and rate with an S3, gallops. No murmurs or rubs. Abdomen: Benign. Extremities: No clubbing, cyanosis, or edema. Skin: Dry and intact. Neurologic: He was nonfocal. Pulses were present distally in the dorsalis pedis and posterior tibia l. Diagnostic Data: His creatinine was 3.04. White count was 13,000. Glucose was 248. ALT was 274, A LP was 131. Troponin was 0.20. BNP was 111,481. Impression And Plan: 1.Non-ST elevation myocardial infarction. 2.Chronic systolic congestive heart failure with ejection fraction of 24% in May of 2018 with a negative Lexiscan in 2019 in May. 3.Chronic renal insufficiency stage IV. 4.Elevated white count. 5.Diabetes, poorly controlled. 6.Elevated liver function enzymes with negative ultrasound of the gallbladder, kidney, and liver in May of 2018. 7.His other problems include benign prostatic hypertrophy, coronary artery disease status post multi ple stents, hypertension, and dyslipidemia as well as neuropathy and continuing tobacco abuse. I wou ld definitely add Ranexa to Mr. Cardona's regimen. We will treat him medically for now. It may be reasonable to hold his losartan because of his kidney function. I think he is a candidate for an [facility] internal cardiac defibrillator. We can certainly deal with that as an outpatient. I will pr efer not to do a catheterization at this point. We will see what his creatinine does off losartan. I will continue Lovenox. If he stays pain-free, we can certainly discharge him in the morning. I wi ll see him in the office in the next 2 weeks. I will keep an eye on his kidneys and decide further t herapy regarding catheterization and defibrillator in the in the near future. TYREE/BHAVESH Voice ID: [id number] Report ID: [id number]
[2018-05-30 12:29] LABS: Absolute Lymphocytes (CBC) 0.4 K/uL (0.7-4.9); Absolute Monocytes 0.7 K/uL (0.1-1.3); Basophils % 0.2 % (0-1.3); Eosinophils % 2.1 % (0-4.4); Hematocrit 34.7 % (39.6-49.0); Lymphocytes % 3.5 % (15.3-44.8); MPV 9.6 fL (7.6-11.3); Monocytes % 5.3 % (3.3-12.3); RBC Red Blood Cell Count 4.04 M/uL (4.33-5.43)
--- NOTE | 2018-05-30 14:25 | P.PN ---
Subjective Date of Service: 05/30/18 Patient seen and Patient denied any chest pain or shortness of breath or palpitation at the time of my examination Patient had black tarry bowel movement stat repeat CBC was 11.4 no significant change from previous one, hold Lovenox, We will continue to monitor if patient continues to have bloody bowel movements we will hold aspirin Patient was seen by Cardiology today who recommended medical management for chest pain Review of Systems 10-point ROS is otherwise unremarkable Physical Examination - Vital Signs Temperature: 97.5 F Blood Pressure: 131/78 Pulse: 71 Respirations: 16 Pulse Ox (%): 99 - Physical Exam General: Alert, Oriented x3 HEENT: Atraumatic, Normocephalic Respiratory: Clear to auscultation bilaterally, Normal air movement Cardiovascular: No edema, Regular rate/rhythm, Normal S1 S2 Gastrointestinal: Normal bowel sounds, Soft and benign, Non-distended Integumentary: No rashes, No tenderness/swelling Neurological: Normal speech, Normal strength at 5/5 x4 extr, Normal tone - Studies Laboratory Data (last 24 hrs) 05/30/18 00:20: PT 13.5 H, INR 1.15 05/30/18 00:20: WBC 13.0 H D, Hgb 11.8 L, Hct 36.3 L, Plt Count 275 D 05/30/18 00:20: Sodium 139, Potassium 3.9, BUN 75 H D, Creatinine 3.04 H, Glucose 248 H, Magnesium 2.0, Total Bilirubin 0.6, AST 22 D, ALT 274 H D, Alkaline Phosphatase 131 H Assessment And Plan - Current Problems (Diagnosis) (1) Congestive heart failure Current Visit: No Status: Chronic Qualifiers: (2) Controlled diabetes mellitus with long-term current use of insulin Onset Date: 07/16/17 Current Visit: No Status: Chronic (3) NSTEMI (non-ST elevated myocardial infarction) Onset Date: 05/21/18 Current Visit: Yes Status: Acute (4) CAD (coronary artery disease) Onset Date: 05/21/18 Current Visit: No Status: Chronic Qualifiers: (5) Diabetes Current Visit: No Status: Chronic (6) Essential (primary) hypertension Onset Date: 05/21/18 Current Visit: No Status: Chronic (7) Hyperlipidemia Onset Date: 07/16/17 Current Visit: No Status: Chronic Qualifiers: - Plan Chest pain rule out ACS systolic CHF with ejection fraction 25% Coronary artery disease Diabetes Hypertension CKD stage 4 bloody BM plan: Patient was seen by Cardiology who recommended medical management ranexa ASA hold losartan hold lovenox continue other home meds DVT ppx scd
[2018-05-30 15:29] LABS: Urine Appearance CLEAR; Urine Bilirubin NEGATIVE (NEG); Urine Blood NEGATIVE (NEG); Urine Color YELLOW; Urine Glucose TRACE (NEG); Urine Protein 3+ (NEG); Urine Urobilinogen 0.2 mg/dL (0.2-1.0); Urine pH 5.5 (5.0-7.0)
[2018-05-30 15:50] LABS: Urine Bacteria <20 /HPF (NONE SEEN); Urine Coarse Granular Casts 0-5 /LPF (NONE SEEN); Urine Culture Reflex Order NOT NEEDED; Urine RBC <5 /HPF (NONE SEEN)
[2018-05-30] MEDS ORDERED: FUROSEMIDE 20 MG/ 2ML VIAL IV ONE (16:18)
--- NOTE | 2018-05-30 16:35 | P.PN ---
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
[2018-05-30] MEDS ORDERED: PANTOPRAZOLE INJ 80 MG in NA CHLORIDE 0.9% 250 ML IV SCH (17:00)
[2018-05-30] MEDS ORDERED: NA CHLORIDE 0.9% 250 ML IV SCH (17:00)
[2018-05-30 17:31] LABS: Absolute Lymphocytes (CBC) 0.4 K/uL (0.7-4.9); Absolute Monocytes 0.3 K/uL (0.1-1.3); Absolute Neutrophil 10.5 K/uL (1.8-8.0); Basophils % 0.1 % (0-1.3); Eosinophils % 0.3 % (0-4.4); Hematocrit 34.7 % (39.6-49.0); Lymphocytes % 3.6 % (15.3-44.8); MPV 9.4 fL (7.6-11.3); Monocytes % 2.8 % (3.3-12.3); RBC Red Blood Cell Count 4.01 M/uL (4.33-5.43)
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
--- NOTE | 2018-05-30 17:58 | RAD REPORT ---
EXAM DESCRIPTION: CT - Abdomen Pelvis Wo Contrast - 05/30/2018 5:14 pm CLINICAL HISTORY: Abdominal pain hematochezia COMPARISON: None TECHNIQUE: Computed axial tomography of the abdomen and pelvis was obtained. IV and oral contrast we re not requested. All CT scans are performed using dose optimization technique as appropriate and may include automated exposure control or mA/KV adjustment according to patient size. FINDINGS: The evaluation of solid organs, vessels and bowel is limited secondary to the lack of con trast administration. The liver, spleen, pancreas, adrenals and kidneys appear grossly normal. There is no evidence of diverticulitis/ colitis Prostate gland is mildly to moderately enlarged. Stranding is present within the fat adjacent to the proximal aspect of the third portion of the duode num. Mild dilatation of proximal duodenum seen IMPRESSION: Stranding within the fat adjacent to the duodenum with mild dilatation of the duodenum m ay indicate inflammation.
--- NOTE | 2018-05-30 18:38 | P.DS ---
Admission Date: 05/30/18 Discharge Date: 05/30/18 Disposition: TRANSFER TO [facility] Condition: CRITICAL Reason for Admission: Chest pain rule out acute coronary syndrome - Problems (1) Congestive heart failure Current Visit: No Status: Chronic Qualifiers: (2) Controlled diabetes mellitus with long-term current use of insulin Onset Date: 07/16/17 Current Visit: No Status: Chronic (3) NSTEMI (non-ST elevated myocardial infarction) Onset Date: 05/21/18 Current Visit: Yes Status: Acute (4) CAD (coronary artery disease) Onset Date: 05/21/18 Current Visit: No Status: Chronic Qualifiers: (5) Diabetes Current Visit: No Status: Chronic (6) Essential (primary) hypertension Onset Date: 05/21/18 Current Visit: No Status: Chronic (7) Hyperlipidemia Onset Date: 07/16/17 Current Visit: No Status: Chronic Qualifiers: (8) GI (gastrointestinal bleed) Current Visit: Yes Status: Acute Brief History of Present Illness: see Hc Hospital Course: 73 years old man with past medical history of systolic CHF, hypertension, diabetes, coronary artery disease who presented to the hospital with chest pain last night patient was recently admitted and was supposed to a transfer to another hospital to get defibrillator placed patient mentioned that his son was sick and he did not go to the other the hospital, patient was seen by cardiology today and who recommended that the patient can follow up as outpatient to get the defibrillator, later pt noted to have frequest bloody BM , ASA and lovenox stopped ,stat CBC showed HGb was stable 11.4 and started on protonix drip started initiated transfer to [facility] since we dont have GI service computational biologist at this time pt was managed for : GI bleed Chest pain rule out ACS systolic CHF with ejection fraction 25% Coronary artery disease Diabetes Hypertension CKD stage 4 bloody BM plan: Patient was seen by Cardiology who recommended medical management keep NPO stat CBC showed HGb was stable 11.4 f/up reepat CBC q4hr stat protonix drip started stat CT abd ordered stat blood ordered,transfue if Hgb drpes <8 initiated transfer to [facility] since we dont have GI service computational biologist at this time Vital Signs/Physical Exam: Temp Pulse Resp BP Pulse Ox 97.6 F 79 16 131/67 97 05/30/18 17:59 02/17/19 17:59 05/30/18 17:59 05/30/18 17:59 05/30/18 17:59 General: Alert, Oriented x3 HEENT: Atraumatic, Normocephalic, PERRLA Neck: Supple, JVD not distended Respiratory: Clear to auscultation bilaterally, Normal air movement Cardiovascular: No edema, Normal pulses, Regular rate/rhythm, Normal S1 S2 Gastrointestinal: Normal bowel sounds, Soft and benign, Non-distended, Tenderness Integumentary: No rashes Neurological: Normal speech, Normal strength at 5/5 x4 extr, Normal tone Laboratory Data at Discharge: WBC 11.3 K/uL (4.3-10.9) H 05/30/18 17:20 Hgb 11.2 g/dL (13.6-17.9) L 05/30/18 17:20 Hct 34.7 % (39.6-49.0) L 05/30/18 17:20 Plt Count 235 K/uL (152-406) 05/30/18 17:20 PT 13.5 SECONDS (9.5-12.5) H 05/30/18 00:20 INR 1.15 05/30/18 00:20 Sodium 139 mmol/L (136-145) 05/30/18 00:20 Potassium 3.9 mmol/L (3.5-5.1) 05/30/18 00:20 BUN 75 mg/dL (7-18) H D 05/30/18 00:20 Creatinine 3.04 mg/dL (0.55-1.3) H 05/30/18 00:20 Glucose 248 mg/dL (74-106) H 05/30/18 00:20 Magnesium 2.0 mg/dL (1.8-2.4) 05/30/18 00:20 Total Bilirubin 0.6 mg/dL (0.2-1.0) 05/30/18 00:20 AST 22 U/L (15-37) D 05/30/18 00:20 ALT 274 U/L (12-78) H D 05/30/18 00:20 Alkaline Phosphatase 131 U/L (45-117) H 05/30/18 00:20 Troponin I 0.17 ng/mL (0.0-0.045) H 05/30/18 13:55 Home Medications: Albuterol Sulfate [Proair Hfa] 8.5 gm IH Q4HR #1 hfa.aer.ad 07/15/17 RX: predniSONE [Deltasone*] 10 mg PO BID #20 tab 07/15/17 Atorvastatin Calcium [Lipitor] 20 mg PO BEDTIME 05/21/18 Calcium Carbonate/Vitamin D3 [Calcium 250-D Tablet] 1 tab PO DAILY 05/21/18 Glipizide [Glucotrol] 10 mg PO BID 05/21/18 Isosorbide Mononitrate [Isosorbide Mononitrate ER] 30 mg PO DAILY 05/21/18 RX: Cyanocobalamin [Vitamin B-12*] 1 tab PO DAILY 05/21/18 RX: Furosemide [Lasix*] 3 tab PO BID 05/21/18 RX: Hydralazine HCl 25 mg PO TID 05/21/18 RX: Losartan Potassium [Cozaar*] 1 tab PO DAILY 05/21/18 RX: Metoprolol Tartrate 2 tab PO Q12H 05/21/18 RX: traMADol HCL [Ultram*] 1 tab PO TID PRN 05/21/18 Tamsulosin HCl [Flomax] 0.4 mg PO BEDTIME 05/21/18 Diet: npo Activity: Ad katherin
[2018-05-30 20:23] LABS: Absolute Lymphocytes (CBC) 0.4 K/uL (0.7-4.9); Absolute Monocytes 0.6 K/uL (0.1-1.3); Absolute Neutrophil 10.6 K/uL (1.8-8.0); Basophils % 0.3 % (0-1.3); Eosinophils % 0.2 % (0-4.4); Hematocrit 32.1 % (39.6-49.0); Lymphocytes % 3.7 % (15.3-44.8); MPV 9.6 fL (7.6-11.3); Monocytes % 4.8 % (3.3-12.3); RBC Red Blood Cell Count 3.68 M/uL (4.33-5.43)
[2018-05-30] MEDS ORDERED: ATORVASTATIN 20 MG TAB PO SCH (21:00)
[2018-05-30] MEDS ORDERED: TAMSULOSIN 0.4 MG SR CAP PO SCH (21:00)
[2018-05-31 00:28] LABS: Absolute Lymphocytes (CBC) 0.3 K/uL (0.7-4.9); Absolute Monocytes 0.4 K/uL (0.1-1.3); Absolute Neutrophil 11.2 K/uL (1.8-8.0); Basophils % 0.2 % (0-1.3); Eosinophils % 0.2 % (0-4.4); Hematocrit 29.9 % (39.6-49.0); Lymphocytes % 2.1 % (15.3-44.8); MPV 9.5 fL (7.6-11.3); Monocytes % 3.1 % (3.3-12.3); RBC Red Blood Cell Count 3.48 M/uL (4.33-5.43)
== END 2018-05-31 01:10 | disposition short-term general hospital (02) ==
LOC: ER 23:59 → ERHOLD 05-30 02:26 → 2ND 05-30 08:08
PROVIDERS: ADMIT Hospitalist; ATTEND Hospitalist
DX: K92.1 Melena (principal); R07.9 Chest pain, unspecified; I13.0 Hypertensive heart and chronic kidney disease with heart failure and stage 1 through stage 4 chronic kidney disease, or unspecified chronic kidney disease; E11.22 Type 2 diabetes mellitus with diabetic chronic kidney disease; N18.4 Chronic kidney disease, stage 4 (severe); I50.22 Chronic systolic (congestive) heart failure; I25.10 Atherosclerotic heart disease of native coronary artery without angina pectoris; Z79.4 Long term (current) use of insulin; E78.5 Hyperlipidemia, unspecified; I25.2 Old myocardial infarction
CPT/HCPCS: 36415 ×2; 71045; 74176; 80048; 80076; 81001; 82274; 83735; 83880; 84484 ×3; 85025 ×5; 85610; 86850; 86900; 86901; 93005; 99285; C9113; G0378 ×2; J1650; J1940; 90670; J7512; Q2035

== ENCOUNTER 2018-06-12 10:13 | Emergency (ER) | payer OTHER ==
--- OUTSIDE RECORDS SUMMARY | 2018-06-12 10:17 | XMS REPORT | Clinical Summary ---
:1945 Author Organization [facility] Address [address] [place] [address] Care Team Providers Name Role Phone Unavailable Primary Care Provider Unavailable Allergies No Known Allergies Medications Medication Sig Dispensed Refills Start Date End Date Status isosorbide Take 30 mg by mouth 0 Active mononitrate (IMDUR) daily. 30 MG 24 hr tablet hydrALAZINE Take 25 mg by mouth 0 Active (APRESOLINE) 25 MG 3 (three) times tablet daily. glipiZIDE (GLUCOTROL Take 10 mg by mouth 0 Active XL) 10 MG 24 hr 2 (two) times daily. tablet calcium Take 1 tablet by 0 Active carbonate-vitamin D3 mouth daily. (OSCAL) 250-125 mg-unit Tab per tablet atorvastatin Take 20 mg by mouth 0 Active (LIPITOR) 20 MG nightly. tablet predniSONE Take 10 mg by mouth 0 Active (DELTASONE) 10 MG 2 (two) times daily. tablet tamsulosin (FLOMAX) Take 0.4 mg by mouth 0 Active 0.4 mg Cap 24 hr nightly. capsule aspirin 81 MG EC Take 81 mg by mouth 0 Active tablet daily. metoprolol Take 50 mg by mouth 0 Active (LOPRESSOR) 50 MG 2 (two) times daily. tablet furosemide (LASIX) Take 60 mg by mouth 0 Active 20 MG tablet 2 (two) times daily. losartan (COZAAR) 50 Take 50 mg by mouth 0 Active MG tablet daily. ferrous gluconate Take 324 mg by mouth 0 Active (FERGON) 324 MG 3 (three) times tablet daily with meals. ascorbic acid, Take 500 mg by mouth 0 Active vitamin C, (ASCORBIC daily. ACID WITH NAMAN HIPS) 500 MG tablet loratadine Take 10 mg by mouth. 0 Active (CLARITIN) 10 mg tablet b complex vitamins Take 1 capsule by 0 Active capsule mouth daily. vitamin A 8000 UNIT Take 24,000 Units by 0 Active capsule mouth daily. vitamin E 400 UNIT Take 400 Units by 0 Active capsule mouth daily. insulin aspart U-100 Inject 0 Active (NOVOLOG) 100 subcutaneously. unit/mL injectionIndications : No set amount insulin detemir Inject 10 Units 0 Active U-100 (LEVEMIR) 100 subcutaneously unit/mL (3 mL) InPn nightly. injection calcium-vitamin D Take 1 tablet by 0 Active (OSCAL) tablet 250 mouth daily. mg-125 units cyanocobalamin 1000 Take 1,000 mcg by 0 Active MCG tablet mouth daily. Active Problems Problem Noted Date Duodenal ulcer hemorrhagic 06/03/2018 Chest pain 05/31/2018 Acute lower GI bleeding 05/31/2018 Acute systolic congestive heart failure 05/31/2018 Diabetes mellitus due to underlying condition with neurologic 05/31/2018 complication, with long-term current use of insulin Encounters Date Type Specialty Care Team Description 06/02/2018 Anesthesia Event Gastroenterology Marlyn Dias MD 06/02/2018 Surgery Gastroenterology Valdo Andres UPPER Jeremy ENDOSCOPY,SCLEROTHERAPY 05/31/2018 - Hospital Encounter Intensive Care Lula Dillon, Acute lower GI bleeding; 06/04/2018 Chest pain, unspecified type; Marialuisa Crouch, Abnormal CT of the abdomen; Thickening of wall of gallbladder; Acute blood loss anemia; Acute systolic congestive heart failure (HCC); Diabetes mellitus due to underlying condition with diabetic polyneuropathy, with long-term current use of insulin (HCC); Gastrointestinal hemorrhage, unspecified gastrointestinal hemorrhage type; Elevated liver enzymes; Duodenal ulcer with hemorrhage; Adjustment disorder, unspecified type; CKD (chronic kidney disease), stage IV (HCC); LV dysfunction 05/31/2018 Travel after 06/11/2017 Social History Tobacco Use Types Packs/Day Years Used Date Never Assessed Sex Assigned at Date Recorded Not on file Job Start Date Occupation Industry Not on file Not on file Not on file Travel History Travel Start Travel End No recent travel history available. Last Filed Vital Signs Vital Sign Reading Time Taken Blood Pressure 125/75 06/04/2018 2:35 PM OUTPATIENT CODING SPECIALIST Pulse 79 06/04/2018 2:50 PM OUTPATIENT CODING SPECIALIST Temperature 36.4 C (97.6 F) 06/04/2018 2:00 PM OUTPATIENT CODING SPECIALIST Respiratory Rate 16 06/04/2018 2:50 PM OUTPATIENT CODING SPECIALIST Oxygen Saturation 100% 06/04/2018 2:50 PM OUTPATIENT CODING SPECIALIST Inhaled Oxygen Concentration - - Weight 74.8 kg (164 lb 14.5 oz) 06/04/2018 7:00 AM OUTPATIENT CODING SPECIALIST Height 185.4 cm (6' 1") 06/02/2018 1:15 AM OUTPATIENT CODING SPECIALIST Body Mass Index 21.76 06/04/2018 7:00 AM OUTPATIENT CODING SPECIALIST Plan of Treatment Not on file Procedures Procedure Name Priority Date/Time Associated Comments Diagnosis RHYTHM STRIP - SCAN 06/09/2018 10:50 AM OUTPATIENT CODING SPECIALIST TRANSFUSION SERVICE 06/06/2018 6:01 REPORT - SCAN PM OUTPATIENT CODING SPECIALIST TRANSFUSION SERVICE 06/05/2018 6:02 REPORT - SCAN PM OUTPATIENT CODING SPECIALIST PREPARE LEUKO-REDUCED STAT 06/04/2018 11:54 Results for this RBC PM OUTPATIENT CODING SPECIALIST procedure are in the results section. TRANSFUSION SERVICE 06/04/2018 6:02 REPORT - SCAN PM OUTPATIENT CODING SPECIALIST PREPARE LEUKO-REDUCED STAT 06/04/2018 4:02 Results for this RBC PM OUTPATIENT CODING SPECIALIST procedure are in the results section. CBC (HEMOGRAM ONLY) Routine 06/04/2018 2:36 Results for this PM OUTPATIENT CODING SPECIALIST procedure are in the results section. POCT-GLUCOSE METER Routine 06/04/2018 2:27 Results for this PM OUTPATIENT CODING SPECIALIST procedure are in the results section. POCT-GLUCOSE METER Routine 06/04/2018 12:02 Results for this PM OUTPATIENT CODING SPECIALIST procedure are in the results section. GASTRIN Routine 06/04/2018 8:22 Results for this AM OUTPATIENT CODING SPECIALIST procedure are in the results section. HEMOGLOBIN AND Routine 06/04/2018 8:22 Results for this HEMATOCRIT AM OUTPATIENT CODING SPECIALIST procedure are in the results section. HEPATIC FUNCTION PANEL Routine 06/04/2018 8:20 Results for this AM OUTPATIENT CODING SPECIALIST procedure are in the results section. BASIC METABOLIC PANEL Routine 06/04/2018 8:20 Results for this (7) AM OUTPATIENT CODING SPECIALIST procedure are in the results section. POCT-GLUCOSE METER Routine 06/04/2018 6:31 Results for this AM OUTPATIENT CODING SPECIALIST procedure are in the results section. TRANSFUSE STAT 06/04/2018 1:05 LEUKO-REDUCED RED AM OUTPATIENT CODING SPECIALIST BLOOD CELLS PREPARE LEUKO-REDUCED Routine 06/03/2018 11:54 Results for this RBC PM OUTPATIENT CODING SPECIALIST procedure are in the results section. PREPARE LEUKO-REDUCED Routine 06/03/2018 11:54 Results for this RBC PM OUTPATIENT CODING SPECIALIST procedure are in the results section. POCT-GLUCOSE METER Routine 06/03/2018 11:43 Results for this PM OUTPATIENT CODING SPECIALIST procedure are in the results section. TYPE AND SCREEN, STAT 06/03/2018 10:38 Results for this AUTOMATED PM OUTPATIENT CODING SPECIALIST procedure are in the results section. PT/APTT Routine 06/03/2018 10:38 Results for this PM OUTPATIENT CODING SPECIALIST procedure are in the results section. PROTHROMBIN TIME/INR Routine 06/03/2018 10:38 Results for this PM OUTPATIENT CODING SPECIALIST procedure are in the results section. HEMOGLOBIN AND STAT 06/03/2018 10:38 Results for this HEMATOCRIT PM OUTPATIENT CODING SPECIALIST procedure are in the results section. POCT-GLUCOSE METER Routine 06/03/2018 8:35 Results for this PM OUTPATIENT CODING SPECIALIST procedure are in the results section. HEMOGLOBIN AND Routine 06/03/2018 8:30 Results for this HEMATOCRIT PM OUTPATIENT CODING SPECIALIST procedure are in the results section. POCT-GLUCOSE METER Routine 06/03/2018 6:29 Results for this PM OUTPATIENT CODING SPECIALIST procedure are in the results section. TRANSFUSION SERVICE 06/03/2018 6:02 REPORT - SCAN PM OUTPATIENT CODING SPECIALIST NM MYOCARDIAL Routine 06/03/2018 2:14 Results for this VIABILITY EVALUATION PM OUTPATIENT CODING SPECIALIST procedure are in PET the results section. HEMOGLOBIN AND Routine 06/03/2018 2:03 Results for this HEMATOCRIT PM OUTPATIENT CODING SPECIALIST procedure are in the results section. POCT-GLUCOSE METER Routine 06/03/2018 1:46 Results for this PM OUTPATIENT CODING SPECIALIST procedure are in the results section. POCT-GLUCOSE METER Routine 06/03/2018 12:03 Results for this PM OUTPATIENT CODING SPECIALIST procedure are in the results section. POCT-GLUCOSE METER Routine 06/03/2018 10:35 Results for this AM OUTPATIENT CODING SPECIALIST procedure are in the results section. US RENAL COMPLETE Routine 06/03/2018 8:10 Results for this AM OUTPATIENT CODING SPECIALIST procedure are in the results section. POCT-GLUCOSE METER Routine 06/03/2018 6:22 Results for this AM OUTPATIENT CODING SPECIALIST procedure are in the results section. CALCIUM, IONIZED Routine 06/03/2018 4:12 Results for this AM OUTPATIENT CODING SPECIALIST procedure are in the results section. CBC W/PLT COUNT & AUTO Routine 06/03/2018 4:00 Results for this DIFFERENTIAL AM OUTPATIENT CODING SPECIALIST procedure are in the results section. MAGNESIUM STAT 06/03/2018 4:00 Results for this AM OUTPATIENT CODING SPECIALIST procedure are in the results section. BASIC METABOLIC PANEL Routine 06/03/2018 4:00 Results for this (7) AM OUTPATIENT CODING SPECIALIST procedure are in the results section. CBC W/PLT COUNT & AUTO Routine 06/03/2018 4:00 Results for this DIFFERENTIAL AM OUTPATIENT CODING SPECIALIST procedure are in the results section. POCT-GLUCOSE METER Routine 06/02/2018 11:53 Results for this PM OUTPATIENT CODING SPECIALIST procedure are in the results section. HEMOGLOBIN AND Routine 06/02/2018 11:51 Results for this HEMATOCRIT PM OUTPATIENT CODING SPECIALIST procedure are in the results section. TRANSFUSE Routine 06/02/2018 11:11 LEUKO-REDUCED RED PM OUTPATIENT CODING SPECIALIST BLOOD CELLS POCT-GLUCOSE METER Routine 06/02/2018 6:18 Results for this PM OUTPATIENT CODING SPECIALIST procedure are in the results section. TRANSFUSION SERVICE 06/02/2018 6:02 REPORT - SCAN PM OUTPATIENT CODING SPECIALIST URINALYSIS W/ REFLEX Routine 06/02/2018 4:01 Results for this URINE CULTURE PM OUTPATIENT CODING SPECIALIST procedure are in the results section. UREA NITROGEN, RANDOM Routine 06/02/2018 4:01 Results for this URINE PM OUTPATIENT CODING SPECIALIST procedure are in the results section. CREATININE, RANDOM Routine 06/02/2018 4:01 Results for this URINE PM OUTPATIENT CODING SPECIALIST procedure are in the results section. SODIUM, RANDOM URINE Routine 06/02/2018 4:01 Results for this PM OUTPATIENT CODING SPECIALIST procedure are in the results section. HEMOGLOBIN AND Routine 06/02/2018 4:01 Results for this HEMATOCRIT PM OUTPATIENT CODING SPECIALIST procedure are in the results section. REPORT OF PROCEDURE - 06/02/2018 2:05 ENDOSCOPY URL PM OUTPATIENT CODING SPECIALIST POCT-GLUCOSE METER Routine 06/02/2018 12:30 Results for this PM OUTPATIENT CODING SPECIALIST procedure are in the results section. MAGNESIUM STAT 06/02/2018 10:58 Results for this AM OUTPATIENT CODING SPECIALIST procedure are in the results section. COMPREHENSIVE STAT 06/02/2018 10:58 Results for this METABOLIC PANEL AM OUTPATIENT CODING SPECIALIST procedure are in the results section. HEMOGLOBIN AND Routine 06/02/2018 9:51 Results for this HEMATOCRIT AM OUTPATIENT CODING SPECIALIST procedure are in the results section. REPORT OF PROCEDURE - 06/02/2018 9:22 ENDOSCOPY URL AM OUTPATIENT CODING SPECIALIST TRANSFUSE Routine 06/02/2018 8:32 LEUKO-REDUCED RED AM OUTPATIENT CODING SPECIALIST BLOOD CELLS POCT-GLUCOSE METER Routine 06/02/2018 7:15 Results for this AM OUTPATIENT CODING SPECIALIST procedure are in the results section. UPPER 06/02/2018 7:00 Lower GI bleeding ENDOSCOPY,SCLEROTHERAP AM OUTPATIENT CODING SPECIALIST Y COLONOSCOPY 06/02/2018 7:00 Lower GI bleeding AM OUTPATIENT CODING SPECIALIST TRANSFUSE Routine 06/02/2018 6:27 LEUKO-REDUCED RED AM OUTPATIENT CODING SPECIALIST BLOOD CELLS US ABDOMEN LIMITED Routine 06/02/2018 5:30 Results for this AM OUTPATIENT CODING SPECIALIST procedure are in the results section. HEMOGLOBIN AND Routine 06/02/2018 12:10 Results for this HEMATOCRIT AM OUTPATIENT CODING SPECIALIST procedure are in the results section. PREPARE LEUKO-REDUCED Routine 06/01/2018 11:54 Results for this RBC PM OUTPATIENT CODING SPECIALIST procedure are in the results section. POCT-GLUCOSE METER Routine 06/01/2018 11:45 Results for this PM OUTPATIENT CODING SPECIALIST procedure are in the results section. CT BRAIN WITHOUT IV Routine 06/01/2018 9:06 Results for this CONTRAST PM OUTPATIENT CODING SPECIALIST procedure are in the results section. HEMOGLOBIN AND STAT 06/01/2018 8:05 Results for this HEMATOCRIT PM OUTPATIENT CODING SPECIALIST procedure are in the results section. TRANSFUSION SERVICE 06/01/2018 6:13 REPORT - SCAN PM OUTPATIENT CODING SPECIALIST POCT-GLUCOSE METER Routine 06/01/2018 6:11 Results for this PM OUTPATIENT CODING SPECIALIST procedure are in the results section. HEMOGLOBIN AND STAT 06/01/2018 3:03 Results for this HEMATOCRIT PM OUTPATIENT CODING SPECIALIST procedure are in the results section. POCT-GLUCOSE METER Routine 06/01/2018 1:27 Results for this PM OUTPATIENT CODING SPECIALIST procedure are in the results section. LIPID PANEL Routine 06/01/2018 1:23 Results for this PM OUTPATIENT CODING SPECIALIST procedure are in the results section. HEMOGLOBIN A1C Routine 06/01/2018 1:23 Results for this PM OUTPATIENT CODING SPECIALIST procedure are in the results section. HEMOGLOBIN AND Routine 06/01/2018 1:23 Results for this HEMATOCRIT PM OUTPATIENT CODING SPECIALIST procedure are in the results section. XR ABDOMEN 1 VIEW Routine 06/01/2018 11:00 Results for this AM OUTPATIENT CODING SPECIALIST procedure are in the results section. POCT-GLUCOSE METER Routine 06/01/2018 10:05 Results for this AM OUTPATIENT CODING SPECIALIST procedure are in the results section. CBC W/PLT COUNT & AUTO Routine 06/01/2018 4:29 Results for this DIFFERENTIAL AM OUTPATIENT CODING SPECIALIST procedure are in the results section. MAGNESIUM Routine 06/01/2018 4:29 Results for this AM OUTPATIENT CODING SPECIALIST procedure are in the results section. RETICULOCYTE COUNT Routine 06/01/2018 4:29 Results for this AM OUTPATIENT CODING SPECIALIST procedure are in the results section. LACTATE DEHYDROGENASE Routine 06/01/2018 4:29 Results for this (LDH) AM OUTPATIENT CODING SPECIALIST procedure are in the results section. HAPTOGLOBIN Routine 06/01/2018 4:29 Results for this AM OUTPATIENT CODING SPECIALIST procedure are in the results section. FERRITIN Routine 06/01/2018 4:29 Results for this AM OUTPATIENT CODING SPECIALIST procedure are in the results section. IRON, TIBC, % SAT. Routine 06/01/2018 4:29 Results for this (WITHOUT FERRITIN) AM OUTPATIENT CODING SPECIALIST procedure are in the results section. CBC W/PLT COUNT & AUTO Routine 06/01/2018 4:29 Results for this DIFFERENTIAL AM OUTPATIENT CODING SPECIALIST procedure are in the results section. HEPATIC FUNCTION PANEL Routine 06/01/2018 4:29 Results for this AM OUTPATIENT CODING SPECIALIST procedure are in the results section. BASIC METABOLIC PANEL Routine 06/01/2018 4:29 Results for this (7) AM OUTPATIENT CODING SPECIALIST procedure are in the results section. HEMOGLOBIN AND Routine 06/01/2018 4:29 Results for this HEMATOCRIT AM OUTPATIENT CODING SPECIALIST procedure are in the results section. TRANSFUSE Routine 06/01/2018 1:41 LEUKO-REDUCED RED AM OUTPATIENT CODING SPECIALIST BLOOD CELLS 2D ECHO W/ DOPPLER STAT 06/01/2018 1:15 Results for this (CW/PW/COLOR) AM OUTPATIENT CODING SPECIALIST procedure are in the results section. POCT-GLUCOSE METER Routine 05/31/2018 11:07 Results for this PM OUTPATIENT CODING SPECIALIST procedure are in the results section. POCT-GLUCOSE METER Routine 05/31/2018 5:32 Results for this PM OUTPATIENT CODING SPECIALIST procedure are in the results section. HEMOGLOBIN AND Routine 05/31/2018 4:49 Results for this HEMATOCRIT PM OUTPATIENT CODING SPECIALIST procedure are in the results section. TROPONIN I Routine 05/31/2018 1:21 Results for this PM OUTPATIENT CODING SPECIALIST procedure are in the results section. POCT-GLUCOSE METER Routine 05/31/2018 12:22 Results for this PM OUTPATIENT CODING SPECIALIST procedure are in the results section. ECG 12-LEAD Routine 05/31/2018 7:23 Results for this AM OUTPATIENT CODING SPECIALIST procedure are in the results section. POCT-GLUCOSE METER Routine 05/31/2018 6:16 Results for this AM OUTPATIENT CODING SPECIALIST procedure are in the results section. CBC W/PLT COUNT & AUTO Routine 05/31/2018 4:53 Results for this DIFFERENTIAL AM OUTPATIENT CODING SPECIALIST procedure are in the results section. TYPE AND SCREEN, Routine 05/31/2018 4:53 Results for this AUTOMATED AM OUTPATIENT CODING SPECIALIST procedure are in the results section. B-TYPE NATRIURETIC Routine 05/31/2018 4:53 Results for this FACTOR (BNP) AM OUTPATIENT CODING SPECIALIST procedure are in the results section. HEPATIC FUNCTION PANEL Routine 05/31/2018 4:53 Results for this AM OUTPATIENT CODING SPECIALIST procedure are in the results section. TROPONIN I Routine 05/31/2018 4:53 Results for this AM OUTPATIENT CODING SPECIALIST procedure are in the results section. PROTHROMBIN TIME/INR Routine 05/31/2018 4:53 Results for this AM OUTPATIENT CODING SPECIALIST procedure are in the results section. CBC W/PLT COUNT & AUTO Routine 05/31/2018 4:53 Results for this DIFFERENTIAL AM OUTPATIENT CODING SPECIALIST procedure are in the results section. BASIC METABOLIC PANEL Routine 05/31/2018 4:53 Results for this (7) AM OUTPATIENT CODING SPECIALIST procedure are in the results section. after 06/11/2017 Results RHYTHM STRIP - SCAN (06/09/2018 10:50 AM OUTPATIENT CODING SPECIALIST) Narrative Performed At TRANSFUSION SERVICE REPORT - SCAN (06/06/2018 6:01 PM OUTPATIENT CODING SPECIALIST)Only the most recent of6 resultswithin the time period is included. Narrative Performed At Prepare Leuko-Red RBC (06/04/2018 11:54 PM OUTPATIENT CODING SPECIALIST)Only the most recent of5 resultswithin the time period is included. CROSSMATCH COMPATIBLE SAFETRACE TX Unit ABO A Neg SAFETRACE TX UNIT NUMBER [id number] [facility]AFET[facility]ACE TX Status WORK IN PROGRESS SAFETRACE TX Blood Bank Product RED BLOOD CELLS SAFETRACE TX PRODUCT CODE [id number] SAFETRACE TX CROSSMATCH COMPATIBLE SAFETRACE TX Unit ABO A Neg SAFETRACE TX UNIT NUMBER [id number] SAFETRACE TX Status TX_TIMEINCHART SAFETRACE TX Blood Bank Product RED BLOOD CELLS SAFETRACE TX PRODUCT CODE [id number] SAFETRACE TX Specimen Other Performing Organization Address City/State/Zipcode Phone Number SAFETRACE [place] CBC (Hemogram only) (06/04/2018 2:36 PM OUTPATIENT CODING SPECIALIST) WBC 11.5 (H) 3.5 - 10.5 K/L [facility] RBC 2.81 (L) 4.63 - 6.08 M/L [facility] Hemoglobin 8.1 (L) 13.7 - 17.5 GM/DL [facility] Hematocrit 25.3 (L) 40.1 - 51.0 % [facility] MCV 90.0 79.0 - 92.2 fL [facility] MCH 28.8 25.7 - 32.2 pg [facility] MCHC 32.0 (L) 32.3 - 36.5 GM/DL [facility] RDW 16.2 (H) 11.6 - 14.4 % [facility] Platelets 202 150 - 450 K/CU MM [facility] MPV 11.1 9.4 - 12.4 fL [facility] nRBC 0 0 - 0 /100 WBC [facility] Specimen Blood - Arm, Right Performing Organization Address [facility] Phone Number [address] [address] CENTER POC-Glucose meter (06/04/2018 2:27 PM OUTPATIENT CODING SPECIALIST)Only the most recent of22 resultswithin the time period is included. POC-Glucose Meter 236 (H)Comment: TESTED AT 70 - 110 mg/dL [place] [id number] Specimen Blood Performing Organization Address [facility] Phone Number [address] [address] C[place] Hemoglobin and hematocrit (06/04/2018 8:22 AM OUTPATIENT CODING SPECIALIST)Only the most recent of13 resultswithin the time period is included. Hemoglobin 9.2 (L) 13.7 - 17.5 GM/DL [facility] Hematocrit 28.6 (L) 40.1 - 51.0 % [facility] Specimen Blood Performing Organization Address [facility] Phone Number [address] [address] C[place] Gastrin (06/04/2018 8:22 AM OUTPATIENT CODING SPECIALIST) Gastrin, Serum 175 (H) < YG=274 pg/mL [facility] Comment: NOTE: Reference range applies to fasting specimen only. Specimen Blood Narrative Performed At Performing Lab [facility] [address] [place] [address] Blair Hunter MD, PhD, IRA Performing Organization Address City/State/[facility] Phone Number [facility] [place] [address] [facility] [id number] [facility] Hepatic function panel (06/04/2018 8:20 AM OUTPATIENT CODING SPECIALIST)Only the most recent of3 resultswithin the time period is included. Protein, Total 4.7 (L) 6.0 - 8.3 gm/dL [facility] Albumin 3.0 (L) 3.5 - 5.0 g/dL [facility] Total Bilirubin 1.0 0.2 - 1.2 mg/dL [facility] Bilirubin, Direct 0.5 0.1 - 0.5 mg/dL [facility] Alkaline Phosphatase 87 40 - 150 U/L [facility] AST 26 5 - 34 U/L [facility] ALT 61 (H) 6 - 55 U/L [facility] Specimen Blood - Arm, Right Performing Organization Address City/State/Zipcode Phone Number [facility] [address] [place] [address] CENTER Basic Metabolic Panel (06/04/2018 8:20 AM OUTPATIENT CODING SPECIALIST)Only the most recent of4 resultswithin the time period is included. Sodium 141 136 - 145 meq/L [facility] Potassium 3.9 3.5 - 5.1 meq/L [facility] Chloride 114 (H) 98 - 107 meq/L [facility] CO2 20 (L) 22 - 29 meq/L [facility] BUN 69 (H) 7 - 21 mg/dL [facility] Creatinine 2.73 (H) 0.57 - 1.25 mg/dL [facility] Glucose 137 (H) 70 - 105 mg/dL [facility] Calcium 8.4 8.4 - 10.2 mg/dL [facility] EGFR 23Comment: ESTIMATED GFR IS mL/min/1.73 sq m [facility] NOT ACCURATE CREATININE [facility] CENTER CLEARANCE IN PREDICTING GLOMERULAR FILTRATION RATE. ESTIMATED GFR IS NOT APPLICABLE FOR DIALYSIS PATIENTS. Specimen Blood - Arm, Right Performing Organization Address [facility] Facility[facility] Phone Number [address] [address] CENTER Transfuse Leuko-Red RBC (06/04/2018 1:05 AM OUTPATIENT CODING SPECIALIST)Only the most recent of9 resultswithin the time period is included.Type and screen, automated (2018 10:38 PM OUTPATIENT CODING SPECIALIST)Only the most recent of2 resultswithin the time period is included. ABO/RH AUTOMATED (BEAKER) A NEGATIVE [facility] Ab Scrn NEGATIVE [facility] Specimen Blood Performing Organization Address [facility] Facility[facility] Phone Number [address] [address] [phone] PT/aPTT (06/03/2018 10:38 PM OUTPATIENT CODING SPECIALIST) Protime 15.2 (H) 11.7 - 14.7 seconds [facility] INR 1.2 <=5.9 [facility] PTT 28.6 22.5 - 36.0 seconds [facility] Specimen Blood Narrative Performed At RECOMMENDED COUMADIN/WARFARIN INR THERAPY [facility] RANGES STANDARD DOSE: 2.0 - 3.0 Includes: PROPHYLAXIS for venous thrombosis, systemic embolization; TREATMENT for venous thrombosis and/or pulmonary embolus. HIGH RISK: Target INR is 2.5-3.5 for patients with mechanical heart valves. Performing Organization Address [facility] Facility[facility] Phone Number [address] [address] CENTER Prothrombin time/INR (06/03/2018 10:38 PM OUTPATIENT CODING SPECIALIST)Only the most recent of2 resultswithin the time period is included. Protime 15.2 (H) 11.7 - 14.7 seconds [facility] INR 1.2 <=5.9 [facility] Specimen Blood Narrative Performed At RECOMMENDED COUMADIN/WARFARIN INR THERAPY [facility] RANGES STANDARD DOSE: 2.0 - 3.0 Includes: PROPHYLAXIS for venous thrombosis, systemic embolization; TREATMENT for venous thrombosis and/or pulmonary embolus. HIGH RISK: Target INR is 2.5-3.5 for patients with mechanical heart valves. Performing Organization Address City/State/Zipcode Phone Number [facility] [address], [place] [phone] CENTER NM PET Cardiac Viability (06/03/2018 2:14 PM OUTPATIENT CODING SPECIALIST) Narrative Performed At FINAL REPORT [email or web address] PROCEDURE: MYOCARDIAL METABOLISM PET IMAGING with Rest MYOCARDIAL PERFUSION PET IMAGING\\XA9\\ CPT CODE:51084, 54877 INDICATION: Heart failure. Assess myocardial viability. HISTORY:Cardiac risk factors: Diabetes, hypertension, hyperlipidemia. Other cardiovascular history: Known coronary artery disease with history of PCI, heart failure. Recent cardiac symptoms: Chest pain. PROTOCOL:Limited low-dose CT imaging was performed for attenuation correction. 40.1 mCi of Rb-82 chloride was injected iv at rest, and gated PET (positron emission tomography) images were obtained. After appropriate dextrose/insulin administration, 10.4 mCi of F-18 FDG was injected iv at rest; limited low-dose CT imaging was repeated; and PET images were obtained. PERFUSION IMAGING FINDINGS:Study quality is good. Images obtained after Rb-82 injection show mildly decreased radiotracer uptake in the lateral apical LV and moderate to marked decrease in the basal to mid inferior and inferior septal segments. LV volume appears normal. RV volume appears normal. Gated images obtained at rest show marked inferior and inferoseptal hypokinesis and otherwise diffuse mild LV hypokinesis. LVEF at rest is 39%. METABOLIC IMAGING FINDINGS:Study quality is poor due to markedly decreased tracer uptake in the LV myocardium. There is persistent blood pool activity of the tracer. IMPRESSION: 1. Abnormal study.2. Resting imaging was performed for cardiac perfusion and metabolism.3. Abnormal myocardial perfusion. There is a mild, small, perfusion defect in the lateral apical LV and moderate severity, medium size, perfusion defect in the basal to mid inferior and inferoseptal segments of the LV.4. Moderately decreased resting LV function with regional and global dysfunction. 5. Abnormal cardiac metabolism. FDG uptake is inadequate to accurately assess myocardial viability. 7. No previous [facility] study for comparison. Signed: Zulema Duarte MD Report Verified Date/Time:06/03/2018 15:47:05 Reading Location: [place] [id number] Reading Room Procedure Note Interface, External Ris In - 06/03/2018 3:49 PM OUTPATIENT CODING SPECIALIST FINAL REPORT PROCEDURE: MYOCARDIAL METABOLISM PET IMAGING with Rest MYOCARDIAL PERFUSION PET IMAGING\\XA9\\ CPT CODE: 09248, 47007 INDICATION: Heart failure. Assess myocardial viability. HISTORY: Cardiac risk factors: Diabetes, hypertension, hyperlipidemia. Other cardiovascular history: Known coronary artery disease with history of PCI, heart failure. Recent cardiac symptoms: Chest pain. PROTOCOL: Limited low-dose CT imaging was performed for attenuation correction. 40.1 mCi of Rb-82 chloride was injected iv at rest, and gated PET (positron emission tomography) images were obtained. After appropriate dextrose/insulin administration, 10.4 mCi of F-18 FDG was injected iv at rest; limited low-dose CT imaging was repeated; and PET images were obtained. PERFUSION IMAGING FINDINGS: Study quality is good. Images obtained after Rb-82 injection show mildly decreased radiotracer uptake in the lateral apical LV and moderate to marked decrease in the basal to mid inferior and inferior septal segments. LV volume appears normal. RV volume appears normal. Gated images obtained at rest show marked inferior and inferoseptal hypokinesis and otherwise diffuse mild LV hypokinesis. LVEF at rest is 39%. METABOLIC IMAGING FINDINGS: Study quality is poor due to markedly decreased tracer uptake in the LV myocardium. There is persistent blood pool activity of the tracer. IMPRESSION: 1. Abnormal study. 2. Resting imaging was performed for cardiac perfusion and metabolism. 3. Abnormal myocardial perfusion. There is a mild, small, perfusion defect in the lateral apical LV and moderate severity, medium size, perfusion defect in the basal to mid inferior and inferoseptal segments of the LV. 4. Moderately decreased resting LV function with regional and global dysfunction. 5. Abnormal cardiac metabolism. FDG uptake is inadequate to accurately assess myocardial viability. 7. No previous [facility] study for comparison. Signed: Zulema Duarte MD Report Verified Date/Time: 06/03/2018 15:47:05 Reading Location: [facility] 3rd Flr [id number] [facility] [place] Room Performing Organization Address City/State/Zipcode Phone Number [email or web address] US renal complete (06/03/2018 8:10 AM OUTPATIENT CODING SPECIALIST) Narrative Performed At FINAL REPORT [email or web address] Renal ultrasound Comparison: No comparison Clinical History:Acute kidney injury Technique: Sonographic evaluation of the kidneys was performed.70 images were submitted for interpretation, using a five MHz transducer. Right kidney: The kidney measures 10.4 cm in length.The cortical echogenicity is increased.The cortex measures 1.4 cm.There is no evidence of a focal mass.There is no evidence of hydronephrosis.There is no evidence of a shadowing stone.There is no evidence of a cyst. There is no evidence of a perinephric fluid collection.Flow was visualized to the right kidney. Left kidney: The left kidney was not adequately visualized. Overlying shadowing bowel gas or calcification in the left upper quadrant limited evaluation. There is no evidence of an atrophic kidney. The maximum length did exceed 10 cm. There is no evidence of gross hydronephrosis. The prostate measured 4.1 x 4.3 x 4.7 cm. Survey images of the bladder demonstrate no abnormality. Post void volume measured 30 cc. Impression: Both kidneys are normal in length without evidence of hydronephrosis. The right kidney echogenicity is increased and similar to the liver echogenicity. Evaluation of the renal parenchyma on the left is limited by shadowing bowel gas or calcifications in the left upper quadrant. The left kidney was not well demonstrated. Signed: Carolyn Fay MD Report Verified Date/Time:06/03/2018 14:50:49 Reading Location: [facility] B1 [id number] Ultrasound Reading Room Procedure Note Interface, External Ris In - 06/03/2018 2:53 PM OUTPATIENT CODING SPECIALIST FINAL REPORT Renal ultrasound Comparison: No comparison Clinical History: Acute kidney injury Technique: Sonographic evaluation of the kidneys was performed. 70 images were submitted for interpretation, using a five MHz transducer. Right kidney: The kidney measures 10.4 cm in length. The cortical echogenicity is increased. The cortex measures 1.4 cm. There is no evidence of a focal mass. There is no evidence of hydronephrosis. There is no evidence of a shadowing stone. There is no evidence of a cyst. There is no evidence of a perinephric fluid collection. Flow was visualized to the right kidney. Left kidney: The left kidney was not adequately visualized. Overlying shadowing bowel gas or calcification in the left upper quadrant limited evaluation. There is no evidence of an atrophic kidney. The maximum length did exceed 10 cm. There is no evidence of gross hydronephrosis. The prostate measured 4.1 x 4.3 x 4.7 cm. Survey images of the bladder demonstrate no abnormality. Post void volume measured 30 cc. Impression: Both kidneys are normal in length without evidence of hydronephrosis. The right kidney echogenicity is increased and similar to the liver echogenicity. Evaluation of the renal parenchyma on the left is limited by shadowing bowel gas or calcifications in the left upper quadrant. The left kidney was not well demonstrated. Signed: Carolyn Fay MD Report Verified Date/Time: 06/03/2018 14:50:49 Reading Location: [facility] [id number] Ultrasound Reading Room Performing Organization Address City/[facility]/Zipcode Phone Number GE RIS Calcium, Ionized (06/03/2018 4:12 AM OUTPATIENT CODING SPECIALIST) Calcium, Ion 1.13 1.12 - 1.27 mmol/L [facility] pH, Blood 7.35 [facility] Specimen Blood Performing Organization Address City/[facility]/Zipcode Phone Number [address] [address] CENTER CBC with platelet count + automated diff (06/03/2018 4:00 AM OUTPATIENT CODING SPECIALIST)Only the most recent of3 resultswithin the time period is included. WBC 11.8 (H) 3.5 - 10.5 K/L [facility] RBC 2.91 (L) 4.63 - 6.08 M/L [facility] Hemoglobin 8.3 (L) 13.7 - 17.5 GM/DL [facility] Hematocrit 25.1 (L) 40.1 - 51.0 % [facility] MCV 86.3 79.0 - 92.2 fL [facility] MCH 28.5 25.7 - 32.2 pg [facility] MCHC 33.1 32.3 - 36.5 GM/DL [facility] RDW 16.2 (H) 11.6 - 14.4 % [facility] Platelets 180 150 - 450 K/CU MM [facility] MPV 11.4 9.4 - 12.4 fL [facility] nRBC 0 0 - 0 /100 WBC [facility] % Neutros 82 % [facility] % Lymphs 9 % [facility] % Monos 6 % [facility] % Eos 2 % [facility] % Baso 0 % [facility] # Neutros 9.64 (H) 1.78 - 5.38 K/L [facility] # Lymphs 1.01 (L) 1.32 - 3.57 K/L [facility] # Monos 0.75 0.30 - 0.82 K/L [facility] # Eos 0.26 0.04 - 0.54 K/L [facility] # Baso 0.03 0.01 - 0.08 K/L [facility] Immature Granulocytes-Relative 1 0 - 1 % [facility] Specimen Blood - Arm, Right Performing Organization Address City/State/Zipcode Phone Number [facility] [address] [place] [address] CENTER Magnesium (06/03/2018 4:00 AM OUTPATIENT CODING SPECIALIST)Only the most recent of3 resultswithin the time period is included. Magnesium 2.1 1.6 - 2.6 mg/dL [facility] Specimen Blood - Arm, Right Performing Organization Address [facility] Phone Number [address] [address] [facility] Urinalysis w/Microscopic + Reflex to Culture (06/02/2018 4:01 PM OUTPATIENT CODING SPECIALIST) Color, UA Light Yellow [facility] Clarity, UA Clear [facility] Specific Fletcher, UA 1.008 1.001 - 1.035 [facility] pH, UA 5.5 5.0 - 8.0 [facility] Protein, UA 70 mg/dL (A) Negative [facility] Glucose, UA 30 mg/dL (A) Negative [facility] Ketones, UA Negative Negative [facility] Bilirubin, UA Negative Negative [facility] Blood, UA Negative Negative [facility] Nitrite, UA Negative Negative [facility] Leukocytes, UA Negative Negative [facility] Urobilinogen, UA 0.2 0.2 - 1.0 mg/dL [facility] RBC, UA <1 /HPF [facility] WBC, UA 3 /HPF [facility] Mucus Rare [facility] Specimen Source [facility] Specimen Urine Performing Organization Address City/[facility]/Zipcode Phone Number [facility] [address] [place] [address] [facility] Urea Nitrogen, random urine (06/02/2018 4:01 PM OUTPATIENT CODING SPECIALIST) Urea Nitrogen, Ur 584 mg/dL [facility] Specimen Urine Narrative Performed At Reference Range: No Normals [facility] Performing Organization Address City/[facility]/Zipcode Phone Number [address] [address] [facility] Sodium, random urine (06/02/2018 4:01 PM OUTPATIENT CODING SPECIALIST) Sodium Urine 54 meq/L [facility] Specimen Urine Narrative Performed At Reference Range: No Normals [facility] Performing Organization Address City/[facility]/Zipcode Phone Number [address] [address] [facility] Creatinine, random urine (06/02/2018 4:01 PM OUTPATIENT CODING SPECIALIST) Creatinine, Ur 38.9 mg/dL [facility] Specimen Urine Narrative Performed At Reference Range: No Normals [facility] Performing Organization Address City/[facility] Phone Number [address] [address] [phone] [facility] REPORT OF PROCEDURE - ENDOSCOPY URL (06/02/2018 2:05 PM OUTPATIENT CODING SPECIALIST) Narrative Performed At Comprehensive metabolic panel (06/02/2018 10:58 AM OUTPATIENT CODING SPECIALIST) Protein, Total 3.9 (L) 6.0 - 8.3 gm/dL [facility] Albumin 2.5 (L) 3.5 - 5.0 g/dL [facility] Alkaline Phosphatase 69 40 - 150 U/L [facility] Total Bilirubin 0.8 0.2 - 1.2 mg/dL [facility] Sodium 136 136 - 145 meq/L [facility] Potassium 4.1 3.5 - 5.1 meq/L [facility] Chloride 110 (H) 98 - 107 meq/L [facility] CO2 17 (L) 22 - 29 meq/L [facility] BUN 99 (H) 7 - 21 mg/dL [facility] Creatinine 2.84 (H) 0.57 - 1.25 mg/dL [facility] Glucose 248 (H) 70 - 105 mg/dL [facility] Calcium 7.4 (L) 8.4 - 10.2 mg/dL [facility] AST 19 5 - 34 U/L [facility] ALT 65 (H) 6 - 55 U/L [facility] EGFR 22Comment: ESTIMATED GFR mL/min/1.73 sq m [facility] IS NOT ACCURATE [facility] CLEARANCE IN PREDICTING GLOMERULAR FILTRATION RATE. ESTIMATED GFR IS NOT APPLICABLE FOR DIALYSIS PATIENTS. Specimen Blood Performing Organization Address City/State/Zipcode Phone Number [facility] [address] [place] [address] CENTER REPORT OF PROCEDURE - ENDOSCOPY URL (06/02/2018 9:22 AM OUTPATIENT CODING SPECIALIST) Narrative Performed At US abdomen limited (06/02/2018 5:30 AM OUTPATIENT CODING SPECIALIST) Narrative Performed At FINAL REPORT [email or web address] Right Upper Quadrant Ultrasound Clinical Diagnosis: Elevated liver function test Comparison: No comparison Technique: Multiple transaxial and longitudinal images were obtained through the right upper quadrant with real time ultrasonography. Five mHz transducer was utilized.63 images were submitted for interpretation. Report: Liver: The liver measures 15.9 cm in the right midaxillary line. There are no focal masses.The echogenicity is within normal limits. The left lobe was inadequately visualized secondary to overlying bowel gas Gallbladder: The transverse diameter is 1.7 cm.The wall measures three mm.There are no shadowing stones visualized.This study was limited since the gallbladder is not distended. Biliary tree: There is no evidence of intra or extra hepatic biliary ductal dilatation.The common bile duct measures three mm. Portal vein: The portal vein measures eight mm. Ascites: Negative Pleural Effusion: Negative Right kidney: The right kidney measures 9.3 cm in length without evidence of hydronephrosis. Aorta and IVC: Midline abdominal structures and not well visualized. Maximum transverse dimension of aorta is 2.4 cm proximally Impression: Inadequate visualization of the left lobe the liver secondary to overlying bowel gas. Small right kidney. Signed: Carolyn Fay MD Report Verified Date/Time:06/02/2018 08:57:16 Reading Location: [address] Ultrasound Reading Room Procedure Note Interface, External Ris In - 06/02/2018 8:59 AM OUTPATIENT CODING SPECIALIST FINAL REPORT Right Upper Quadrant Ultrasound Clinical Diagnosis: Elevated liver function test Comparison: No comparison Technique: Multiple transaxial and longitudinal images were obtained through the right upper quadrant with real time ultrasonography. Five mHz transducer was utilized. 63 images were submitted for interpretation. Report: Liver: The liver measures 15.9 cm in the right midaxillary line. There are no focal masses. The echogenicity is within normal limits. The left lobe was inadequately visualized secondary to overlying bowel gas Gallbladder: The transverse diameter is 1.7 cm. The wall measures three mm. There are no shadowing stones visualized. This study was limited since the gallbladder is not distended. Biliary tree: There is no evidence of intra or extra hepatic biliary ductal dilatation. The common bile duct measures three mm. Portal vein: The portal vein measures eight mm. Ascites: Negative Pleural Effusion: Negative Right kidney: The right kidney measures 9.3 cm in length without evidence of hydronephrosis. Aorta and IVC: Midline abdominal structures and not well visualized. Maximum transverse dimension of aorta is 2.4 cm proximally Impression: Inadequate visualization of the left lobe the liver secondary to overlying bowel gas. Small right kidney. Signed: Carolyn Fay MD Report Verified Date/Time: 06/02/2018 08:57:16 Reading Location: [address] Ultrasound Reading Room Performing Organization Address City/State/Zipcode Phone Number goBramble CT brain without IV contrast (06/01/2018 9:06 PM OUTPATIENT CODING SPECIALIST) Narrative Performed At FINAL REPORT goBramble CT, BRAIN, WITHOUT CONTRAST CLINICAL INDICATION:Headache, post trauma COMPARISON: None TECHNIQUE:Noncontrast axial CT imaging of the brain and skull. DOSE REDUCTION: Dose modulation, iterative reconstruction, and/or weight-based adjustment of the mA/kV was utilized to reduce the radiation dose to as low as reasonably achievable. FINDINGS: Encephalomalacia within the right frontal lobe may represent remote ischemic insult versus remote ventricular catheter tract. No intracranial hemorrhage, midline shift or mass effect. Midline structures are normally developed. Mild chronic microvascular ischemic changes of the periventricular and subcortical white matter are present. No hydrocephalus. Orbits are within normal limits. No obstructive paranasal sinus disease. 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 Trace mucosal thickening within the right sphenoid sinus. Right nasogastric tube is present. IMPRESSION: No acute intracranial findings If there is persistent clinical concern for intracranial pathology, MR examination is recommended for further characterization. Signed: Gabe Hutchins MD Report Verified Date/Time:06/01/2018 21:10:30 Reading Location: [address] Neuro Reading Room Procedure Note Interface, External Ris In - 06/01/2018 9:12 PM OUTPATIENT CODING SPECIALIST FINAL REPORT CT, BRAIN, WITHOUT CONTRAST CLINICAL INDICATION: Headache, post trauma COMPARISON: None TECHNIQUE: Noncontrast axial CT imaging of the brain and skull. DOSE REDUCTION: Dose modulation, iterative reconstruction, and/or weight-based adjustment of the mA/kV was utilized to reduce the radiation dose to as low as reasonably achievable. FINDINGS: Encephalomalacia within the right frontal lobe may represent remote ischemic insult versus remote ventricular catheter tract. No intracranial hemorrhage, midline shift or mass effect. Midline structures are normally developed. Mild chronic microvascular ischemic changes of the periventricular and subcortical white matter are present. No hydrocephalus. Orbits are within normal limits. No obstructive paranasal sinus disease. 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 Trace mucosal thickening within the right sphenoid sinus. Right nasogastric tube is present. IMPRESSION: No acute intracranial findings If there is persistent clinical concern for intracranial pathology, MR examination is recommended for further characterization. Signed: Gabe Hutchins MD Report Verified Date/Time: 06/01/2018 21:10:30 Reading Location: [address] Neuro Reading Room Performing Organization Address City/State/Zipcode Phone Number [facility] Hemoglobin A1c (06/01/2018 1:23 PM OUTPATIENT CODING SPECIALIST) Hemoglobin A1C 8.1 (H) 4.3 - 6.1 % [facility] Specimen Blood Performing Organization Address [facility]/Zipcode Phone Number [facility] [address] [place] [phone] [facility] Lipid panel (06/01/2018 1:23 PM OUTPATIENT CODING SPECIALIST) Triglycerides 188 mg/dL [facility] Cholesterol 87 mg/dL [facility] HDL 21 mg/dL [facility] LDL Calculated 28 mg/dL [facility] Specimen Blood Narrative Performed At Triglyceride Reference Range: [facility] Low Risk <150 [id number] High Risk 200-499 Very High Risk>=500 Cholesterol Reference Range: Low Risk <200 [id number] High Risk>240 HDL Cholesterol Reference Range: Low Risk >=60 High Risk <40 LDL Cholesterol Reference Range: Optimal<100 Near [id number] Very High >=190 Performing Organization Address City/State/Zipcode Phone Number [address] [address] [facility] XR abdomen / KUB 1 view (06/01/2018 11:00 AM OUTPATIENT CODING SPECIALIST) Narrative Performed At FINAL REPORT [facility] Nasogastric tube x-ray localization Clinical Diagnosis: Evaluate nasogastric tube Comparison: No comparison Views: Two Report: Abdomen: There is a nonspecific bowel gas pattern.There is no evidence of GI tract obstruction.Anasogastric tube is seen with it' s distal tip in the stomach. Calcified granulomas are present. Signed: Carolyn Fay MD Report Verified Date/Time:06/01/2018 12:42:13 Reading Location: [facility] B1 [id number] Consult Reading Room Procedure Note Interface, External Ris In - 06/01/2018 12:44 PM OUTPATIENT CODING SPECIALIST FINAL REPORT Nasogastric tube x-ray localization Clinical Diagnosis: Evaluate nasogastric tube Comparison: No comparison Views: Two Report: Abdomen: There is a nonspecific bowel gas pattern. There is no evidence of GI tract obstruction. A nasogastric tube is seen with it' s distal tip in the stomach. Calcified granulomas are present. Signed: Carolyn Fay MD Report Verified Date/Time: 06/01/2018 12:42:13 Reading Location: [address] Consult Reading Room Performing Organization Address [facility] Phone Number [facility] Iron, TIBC, % sat. (without ferritin) (06/01/2018 4:29 AM OUTPATIENT CODING SPECIALIST) Iron 182.0 (H) 40.0 - 160.0 ug/dL [facility] TIBC 180 (L) 250 - 450 ug/dL [facility] Iron % Saturation 101 (H) 20 - 55 % [facility] Specimen Blood - Arm, Right Performing Organization Address [facility] Phone Number [address] [address] CENTER Reticulocyte count (06/01/2018 4:29 AM OUTPATIENT CODING SPECIALIST) % Retic 2.1 (H) 0.5 - 1.8 % [facility] Specimen Blood - Arm, Right Performing Organization Address [facility] [place] Phone [place] [address] [address] [phone] CENTER Lactate dehydrogenase (LDH) (06/01/2018 4:29 AM OUTPATIENT CODING SPECIALIST) LDH 125 125 - 220 U/L [facility] Specimen Blood - Arm, Right Performing Organization Address [facility] [place] Phone [place] [address] [address] CENTER Haptoglobin (06/01/2018 4:29 AM OUTPATIENT CODING SPECIALIST) Haptoglobin 170 14 - 258 mg/dL [facility] Specimen Blood - Arm, Right Performing Organization Address City/State/Zipcode Phone Number [facility] [address] [place], [place] [phone] [facility] Ferritin (06/01/2018 4:29 AM OUTPATIENT CODING SPECIALIST) Ferritin 381 (H) 5 - 275 ng/mL [facility] Specimen Blood - Arm, Right Performing Organization Address [facility]/Zipcode Phone Number [place] [phone] [place], [place] [phone] [facility] 2D Echo W/Doppler(CW/PW/Color) (06/01/2018 1:15 AM OUTPATIENT CODING SPECIALIST) Ejection Fraction [facility] ECHO [facility] Narrative Performed At Transthoracic Echocardiography Report (TTE) [facility] Demographics Patient NameSINGLETON,Date of Study06/01/2018 MICHOACANO [place] Male Visit [id number] Unknown Room [id number] Number Date of 1945Referring Teena Cifuentes, CHIDI 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 Clinical History CP, CHF, DM, NSTEMI HGB 7.5 HCT 23.8 % Height: 73 inches Weight: 77.56 kg (171 lbs) BSA: 2.01 m^2 BMI: 22.56 kg/m^2 HR: 81 bpm BP: 132/66 mmHg Summary 1. The left ventricle is chamber size (by vol index) is at the upper limit of normal. Borderline concentric LVH noted. Akinetic basal and mid inferior, basal and mid inferolateral, basal and mid inferoseptal segments noted. Severe hypokinesis of the distal inferior, distal inferoseptal, distal inferolateral segments noted. Mild hypokinesis of the anterior and anterolateral sloan noted. Global LV systolic function moderately reduced . LVEF by Esqueda's method of disk assessment is moderately reduced (35-39%) . LV diastolic function is indeterminate. 2. RV is mildly enlarged. RV systolic function is low normal. S' 12 cm/sec. 3. LA size is severely enlarged . RA is mildly dilated. 4. A trace of tricuspid regurgitation. Peak systolic pressure may be underestimated; partial TR signal. Estimated peak systolic pressure is at least 25-30 mmHg assuming RAP of 0-5 mm Hg. 5. Aortic root size (SInus of Valsalva diameter) is at the upper limit of normal, indexed to BSA. Ascending aorta is mildly dilated at 3.7 cm. Previous Study No prior studies available for comparison. Signature Findings Rhythm/BPRegular sinus rhythm during the exam. Left Ventricle The left ventricle is chamber size (by vol index) is at the upper limit of normal. Borderline co ncentric LVH noted. Akinetic basal and mid in ferior, basal and mid inferolateral, basal and mi d inferoseptal segments noted. Severe hypokinesis of the distal inferior, distal inferoseptal, distal in ferolateral segments noted. Mild hypokinesis of th e anterior and anterolateral sloan noted. Gl obal LV systolic function moderately reduced . LV EF by Esqueda's method of disk assessment is mo derately reduced (35-39%) . LV diastolic function is indeterminate. Left AtriumLA size is severely enlarged . Right VentricleRV is mildly enlarged. RV systolic function is low no rmal. S' 12 cm/sec. Right Atrium RA is mildly dilated. Aortic Valve Normal tri-leaflet Aortic Valve. Mi ld AoV cusp thickening. Mi ld AoV cusp calcification. No evidence of aortic stenosis. A trace of aortic regurgitation. Mitral Valve Mild mitral annular calcification. Trace MR. Tricuspid ValveTV structure is normal. A trace of tricuspid re gurgitation. Pe ak systolic pressure may be underestimated; pa rtial TR signal. Estimated peak systolic pressure is at least 25-30 mmHg assuming RAP of 0-5 mm Hg. Pulmonic Valve Normal PV structure and function by limited views an d Doppler. AortaAortic root size (SInus of Valsalva diameter) is at th e upper limit of normal, indexed to BSA. As cending aorta is mildly dilated at 3.7 cm. PericardiumNo significant pericardial effusion is visualized. IVC/SVC/PA/PV/PleuralThe estimated RA pressure by IVC dynamics 0-5 mm Hg . Chambers/Structures Left Atrium LA Dimension: 4.2 cm LA Area: 22.85 cm^2 LA Volume: 106 ml LA Vol. Index: 53 ml/m^2 Left Ventricle LVIDd: 5.79 cm LVEDV:159.17 ml LV Septum Diastolic: 1.15 cm LV PW Diastolic: 1.12 cm LVEDV Esqueda's:139.7 ml LV Length: 9.7 cm LVESV Esqueda's:94.7 ml LVEF Esqueda's: 37.2 % LVEDVI: 70 ml/m^2 LVESVI: 47 ml/m^2 LVOT Diameter: 2.26 cm Right Atrium RA Area: 21 cm^2 RA Vol. (Sngl Plane): 58 ml Right Ventricle RV Diast Dim.: 4.4 cm RV Systolic Pressure: 30 mmHg RVOT Diameter: 2.65 cm TAPSE: 1.6 cm Aorta Ao Root S of Heather.: 4 cm Ascending Aorta: 3.7 cm Doppler/Quantitative Measurements Mitral Valve MV Peak E-Wave: 0.76 m/sMV Peak A-Wave: 0.95 m/s E/A Ratio: 0.8 Peak Gradient: 2.32 mmHg Deceleration Time: 237.7 msec MV Iglesia. Peak: Tissue Doppler E' Septal Velocity: 0.05 m/sE/E': 10 E' Lateral Velocity: 0.08 m/s Aortic Valve Peak Velocity: 1.74 m/sMean Velocity: 1.16 m/s Peak Gradient: 12.12 mmHgMean Gradient: 6.19 mmHg AV Area (continuity): 2.36 cm^2 AV VTI: 34.25 cm AV DVI: 0.59 LVOT Peak Velocity: 0.99 m/s Peak Gradient: 3.95 mmHg Mean Velocity: 0.71 m/s Mean Gradient: 2.29 mmHg LVOT Diameter: 2.26 cmLVOT VTI: 20.13 cm LVOT Area: 4.01 cm^2LVOT SV:80.71 ml LVOT CO: 6.54 l/min LVOT CI: 3.25 l/min/m^2 Tricuspid Valve Estimated RAP: 5 mmHg TR Velocity: 2.5 m/s TR Gradient: 25 mmHg Pulmonic Valve Estimated PASP: 30 mmHg Procedure Note Interface, External Ris In - 06/01/2018 7:31 AM OUTPATIENT CODING SPECIALIST Transthoracic Echocardiography Report (TTE) Demographics Patient Name HOANG, Date of Study 06/01/2018 MICHOACANO [place] Gender Male Visit Number [id number] Race Unknown Room Number 755 Number Date of 1945 Referring Teena Harrington NP Age 73 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 Clinical History CP, CHF, DM, NSTEMI HGB 7.5 HCT 23.8 % Height: 73 inches Weight: 77.56 kg (171 lbs) BSA: 2.01 m^2 BMI: 22.56 kg/m^2 HR: 81 bpm BP: 132/66 mmHg Summary 1. The left ventricle is chamber size (by vol index) is at the upper limit of normal. Borderline concentric LVH noted. Akinetic basal and mid inferior, basal and mid inferolateral, basal and mid inferoseptal segments noted. Severe hypokinesis of the distal inferior, distal inferoseptal, distal inferolateral segments noted. Mild hypokinesis of the anterior and anterolateral sloan noted. Global LV systolic function moderately reduced . LVEF by Esqueda's method of disk assessment is moderately reduced (35-39%) . LV diastolic function is indeterminate. 2. RV is mildly enlarged. RV systolic function is low normal. S' 12 cm/sec. 3. LA size is severely enlarged . RA is mildly dilated. 4. A trace of tricuspid regurgitation. Peak systolic pressure may be underestimated; partial TR signal. Estimated peak systolic pressure is at least 25-30 mmHg assuming RAP of 0-5 mm Hg. 5. Aortic root size (SInus of Valsalva diameter) is at the upper limit of normal, indexed to BSA. Ascending aorta is mildly dilated at 3.7 cm. Previous Study No prior studies available for comparison. Signature Findings Rhythm/BP Regular sinus rhythm during the exam. Left Ventricle The left ventricle is chamber size (by vol index) is at the upper limit of normal. Borderline concentric LVH noted. Akinetic basal and mid inferior, basal and mid inferolateral, basal and mid inferoseptal segments noted. Severe hypokinesis of the distal inferior, distal inferoseptal, distal inferolateral segments noted. Mild hypokinesis of the anterior and anterolateral sloan noted. Global LV systolic function moderately reduced . LVEF by Esqueda's method of disk assessment is moderately reduced (35-39%) . LV diastolic function is indeterminate. Left Atrium LA size is severely enlarged . Right Ventricle RV is mildly enlarged. RV systolic function is low normal. S' 12 cm/sec. Right Atrium RA is mildly dilated. Aortic Valve Normal tri-leaflet Aortic Valve. Mild AoV cusp thickening. Mild AoV cusp calcification. No evidence of aortic stenosis. A trace of aortic regurgitation. Mitral Valve Mild mitral annular calcification. Trace MR. Tricuspid Valve TV structure is normal. A trace of tricuspid regurgitation. Peak systolic pressure may be underestimated; partial TR signal. Estimated peak systolic pressure is at least 25-30 mmHg assuming RAP of 0-5 mm Hg. Pulmonic Valve Normal PV structure and function by limited views and Doppler. Aorta Aortic root size (SInus of Valsalva diameter) is at the upper limit of normal, indexed to BSA. Ascending aorta is mildly dilated at 3.7 cm. Pericardium No significant pericardial effusion is visualized. IVC/SVC/PA/PV/Pleural The estimated RA pressure by IVC dynamics 0-5 mm Hg. Chambers/Structures Left Atrium LA Dimension: 4.2 cm LA Area: 22.85 cm^2 LA Volume: 106 ml LA Vol. Index: 53 ml/m^2 Left Ventricle LVIDd: 5.79 cm LVEDV:159.17 ml LV Septum Diastolic: 1.15 cm LV PW Diastolic: 1.12 cm LVEDV Esqueda's:139.7 ml LV Length: 9.7 cm LVESV Esqueda's:94.7 ml LVEF Esqueda's: 37.2 % LVEDVI: 70 ml/m^2 LVESVI: 47 ml/m^2 LVOT Diameter: 2.26 cm Right Atrium RA Area: 21 cm^2 RA Vol. (Sngl Plane): 58 ml Right Ventricle RV Diast Dim.: 4.4 cm RV Systolic Pressure: 30 mmHg RVOT Diameter: 2.65 cm TAPSE: 1.6 cm Aorta Ao Root S of Heather.: 4 cm Ascending Aorta: 3.7 cm Doppler/Quantitative Measurements Mitral Valve MV Peak E-Wave: 0.76 m/s MV Peak A-Wave: 0.95 m/s E/A Ratio: 0.8 Peak Gradient: 2.32 mmHg Deceleration Time: 237.7 msec MV Iglesia. Peak: Tissue Doppler E' Septal Velocity: 0.05 m/s E/E': 10 E' Lateral Velocity: 0.08 m/s Aortic Valve Peak Velocity: 1.74 m/s Mean Velocity: 1.16 m/s Peak Gradient: 12.12 mmHg Mean Gradient: 6.19 mmHg AV Area (continuity): 2.36 cm^2 AV VTI: 34.25 cm AV DVI: 0.59 LVOT Peak Velocity: 0.99 m/s Peak Gradient: 3.95 mmHg Mean Velocity: 0.71 m/s Mean Gradient: 2.29 mmHg LVOT Diameter: 2.26 cm LVOT VTI: 20.13 cm LVOT Area: 4.01 cm^2 LVOT SV:80.71 ml LVOT CO: 6.54 l/min LVOT CI: 3.25 l/min/m^2 Tricuspid Valve Estimated RAP: 5 mmHg TR Velocity: 2.5 m/s TR Gradient: 25 mmHg Pulmonic Valve Estimated PASP: 30 mmHg Performing Organization Address City/State/Zipcode Phone Number [facility] ECHO HEART[facility] MKCKESSRAMANA CPACS Troponin I (05/31/2018 1:21 PM OUTPATIENT CODING SPECIALIST)Only the most recent of2 resultswithin the time period is included. Troponin I 0.22 (HH) 0.00 - 0.03 ng/mL [facility] Specimen Blood Narrative Performed At Troponin I (TnI) levels must be interpreted [facility] in the context of the presenting symptoms and the clinical findings. Elevated TnI levels indicate myocardial damage, but are not specific for ischemic heart disease. Elevated TnI levels are seen in patients with other cardiac conditions (including myocarditis and congestive heart failure), and slight TnI elevations occur in patients with other conditions, including sepsis, renal failure, acidosis, acute neurological disease, and persistent tachyarrhythmia. Performing Organization Address City/[facility] Phone Number [facility] [address] [place] [address] CENTER ECG 12 lead (05/31/2018 7:23 AM OUTPATIENT CODING SPECIALIST) Narrative Performed At Ventricular Rate 78 BPM GE MUSE Atrial Rate 78 BPM P-R Interval 138 ms QRS Duration 94 ms Q-T Interval 504 ms QTC Calculation(Bazett) 574 ms P Bradford 26 degrees R Bradford 62 degrees T Bradford 169 degrees Sinus rhythm with occasional Premature ventricular complexes and Premature atrial complexes Left ventricular hypertrophy with repolarization abnormality Inferior infarct , age undetermined Prolonged QT Abnormal ECG When compared with ECG of 23-DEC-1994 10:51, Significant changes have occurred Confirmed by MD Ray, Gosia ([id number]) on 05/31/2018 5:12:12 PM Procedure Note Interface, External Ris In - 05/31/2018 5:12 PM OUTPATIENT CODING SPECIALIST Ventricular Rate 78 BPM Atrial Rate 78 BPM P-R Interval 138 ms QRS Duration 94 ms Q-T Interval 504 ms QTC Calculation(Bazett) 574 ms P Bradford 26 degrees R Bradford 62 degrees T Bradford 169 degrees Sinus rhythm with occasional Premature ventricular complexes and Premature atrial complexes Left ventricular hypertrophy with repolarization abnormality Inferior infarct , age undetermined Prolonged QT Abnormal ECG When compared with ECG of 23-DEC-1994 10:51, Significant changes have occurred Confirmed by MD Ray, Gosia ([id number]) on 05/31/2018 5:12:12 PM Performing Organization Address City/State/Zipcode Phone Number OMAIRA ARREGUIN B-type Natriuretic Factor (BNP) (05/31/2018 4:53 AM OUTPATIENT CODING SPECIALIST) BNP 3,179 (H) 0 - 100 pg/mL [facility] Specimen Blood Performing Organization Address City/State/Zipcode Phone Number [facility] [address] [place], [place] [phone] CENTER after 06/11/2017 Insurance Payer Benefit Plan / Group Subscriber ID Type Phone Address MEDICARE MEDICARE PART A xxxxxxxxxx Medicare Advance Directives For more information, please contact:[facility] [place] [address] [phone] Code Status Date Activated Date Inactivated Comments Full Code 05/31/2018 3:59 AM 06/04/2018 6:02 PM This code status was determined by: Patient
--- OUTSIDE RECORDS SUMMARY | 2018-06-12 10:18 | XMS REPORT ---
:1945 Author Organization [facility] Address [address] [place] [address] Care Team Providers Name Role Phone SAVAGE MOREIRA Unavailable Unavailable Problems This patient has no known problems. Allergies, Adverse Reactions, Alerts This patient has no known allergies or adverse reactions. Medications This patient has no known medications. Results Test Description Test Time Test Comments Text Results Atomic Results Result Comments CBC (HEMOGRAM ONLY) 2018-06-04 14:44:00 Test Item Value Reference Range Comments WHITE BLOOD CELL COUNT (BEAKER) (test htlx=415) 11.5 K/ L 3.5-10.5 RED BLOOD CELL COUNT (BEAKER) (test etdv=703) 2.81 M/ L 4.63-6.08 HEMOGLOBIN (BEAKER) (test crql=941) 8.1 GM/DL 13.7-17.5 HEMATOCRIT (BEAKER) (test twwp=263) 25.3 % 40.1-51.0 MEAN CORPUSCULAR VOLUME (BEAKER) (test aqhr=953) 90.0 fL 79.0-92.2 MEAN CORPUSCULAR HEMOGLOBIN (BEAKER) (test umow=700) 28.8 pg 25.7-32.2 MEAN CORPUSCULAR HEMOGLOBIN CONC (BEAKER) (test llma=799) 32.0 GM/DL 32.3- 36.5 RED CELL DISTRIBUTION WIDTH (BEAKER) (test tsmc=016) 16.2 % 11.6-14.4 PLATELET COUNT (BEAKER) (test sduo=775) 202 K/CU MM 150-450 MEAN PLATELET VOLUME (BEAKER) (test orfm=701) 11.1 fL 9.4-12.4 NUCLEATED RED BLOOD CELLS (BEAKER) (test esxl=224) 0 /100 WBC 0-0 POCT-GLUCOSE [id number] 14:28:00 Test Item Value Reference Range Comments POC-GLUCOSE METER (BEAKER) 236 mg/dL 70-110 TESTED AT [facility] [address] (test solk=5661) [facility] [address] POCT-GLUCOSE [id number] 13:19:00 Test Item Value Reference Range Comments POC-GLUCOSE METER (BEAKER) 379 mg/dL 70-110 Notified ISAURA JONES/TESTED AT [facility] (test iydt=0122) [address] [facility] [address] BASIC METABOLIC [id number] 09:05:00 Test Item Value Reference Range Comments SODIUM (BEAKER) (test 141 meq/L 136-145 hzdo=015) POTASSIUM (BEAKER) (test 3.9 meq/L 3.5-5.1 rqnn=701) CHLORIDE (BEAKER) (test 114 meq/L 98-107 mywi=355) CO2 (BEAKER) (test 20 meq/L 22-29 strq=030) BLOOD UREA NITROGEN 69 mg/dL 7-21 (BEAKER) (test amhj=270) CREATININE (BEAKER) (test 2.73 mg/dL 0.57-1.25 lgyf=000) GLUCOSE RANDOM (BEAKER) 137 mg/dL 70-105 (test caxi=241) CALCIUM (BEAKER) (test 8.4 mg/dL 8.4-10.2 hihh=241) EGFR (BEAKER) (test 23 mL/min/1.73 sq m ESTIMATED GFR IS NOT oqtp=8185) ACCURATE CREATININE CLEARANCE IN PREDICTING GLOMERULAR FILTRATION RATE. ESTIMATED GFR IS NOT APPLICABLE FOR DIALYSIS PATIENTS. HEPATIC FUNCTION [id number] 09:01:00 Test Item Value Reference Range Comments TOTAL PROTEIN (BEAKER) (test onrd=595) 4.7 gm/dL 6.0-8.3 ALBUMIN (BEAKER) (test gopv=8929) 3.0 g/dL 3.5-5.0 BILIRUBIN TOTAL (BEAKER) (test fyoa=859) 1.0 mg/dL 0.2-1.2 BILIRUBIN DIRECT (BEAKER) (test cyod=029) 0.5 mg/dL 0.1-0.5 ALKALINE PHOSPHATASE (BEAKER) (test khro=108) 87 U/L 40-150 AST (SGOT) (BEAKER) (test uztp=928) 26 U/L 5-34 ALT (SGPT) (BEAKER) (test irzr=424) 61 U/L 6-55 HEMOGLOBIN AND [id number] 08:41:00 Test Item Value Reference Range Comments HEMOGLOBIN (BEAKER) (test xsfp=697) 9.2 GM/DL 13.7-17.5 HEMATOCRIT (BEAKER) (test xoqy=637) 28.6 % 40.1-51.0 POCT-GLUCOSE [id number] 06:37:00 Test Item Value Reference Range Comments POC-GLUCOSE METER (BEAKER) 177 mg/dL 70-110 TESTED AT [address] (test aaux=9499) [facility] [address] POCT-GLUCOSE [id number] 23:57:00 Test Item Value Reference Range Comments POC-GLUCOSE METER (BEAKER) 200 mg/dL 70-110 TESTED AT [address] (test hcwi=5369) [facility] [address] PROTHROMBIN [id number] 23:11:00 Test Item Value Reference Range Comments PROTIME (BEAKER) (test hjnl=369) 15.2 seconds 11.7-14.7 INR (BEAKER) (test riub=569) 1.2 <=5.9 RECOMMENDED COUMADIN/WARFARIN INR THERAPY RANGESSTANDARD DOSE: 2.0 - 3.0 Includes: PROPHYLAXIS forvenous thrombosis, systemic embolization; TREATMENT for venous thrombosis and/or pulmonary embolus.HIGH RISK: Target INR is 2.5-3.5 for patients with mechanical heart valves.[id number] 23:11:00 Test Item Value Reference Range Comments PROTIME (BEAKER) (test pkem=399) 15.2 seconds 11.7-14.7 INR (BEAKER) (test dspf=494) 1.2 <=5.9 PARTIAL THROMBOPLASTIN TIME (BEAKER) (test 28.6 seconds 22.5-36.0 xqoq=410) RECOMMENDED COUMADIN/WARFARIN INR THERAPY RANGESSTANDARD DOSE: 2.0 - 3.0 Includes: PROPHYLAXIS forvenous thrombosis, systemic embolization; TREATMENT for venous thrombosis and/or pulmonary embolus.HIGH RISK: Target INR is 2.5-3.5 for patients with mechanical heart valves.HEMOGLOBIN AND [id number] 22 :54:00 Test Item Value Reference Range Comments HEMOGLOBIN (BEAKER) (test aitm=273) 7.6 GM/DL 13.7-17.5 HEMATOCRIT (BEAKER) (test xbfu=581) 23.3 % 40.1-51.0 One hour after transfusion.HEMOGLOBIN AND [id number] 21:05:00 Test Item Value Reference Range Comments HEMOGLOBIN (BEAKER) (test yzru=360) 7.1 GM/DL 13.7-17.5 HEMATOCRIT (BEAKER) (test zemd=346) 22.2 % 40.1-51.0 POCT-GLUCOSE [id number] 20:50:00 Test Item Value Reference Range Comments POC-GLUCOSE METER (BEAKER) 314 mg/dL 70-110 TESTED AT [facility] [address] [facility] (test kqmg=3223) [facility] [address] POCT-GLUCOSE [id number] 19:05:00 Test Item Value Reference Range Comments POC-GLUCOSE METER (BEAKER) 395 mg/dL 70-110 Notified ISAURA JONES/TESTED AT [facility] (test heln=2689) [address] [facility] [place] [address] PET, CARDIAC PET, [id number] 15:47:00Reason for exam:->HFDr. AlamFINAL REPORT PROCEDURE: MYOCARDIAL METABOLISM PET IMAGING with Rest MYOCARDIAL PERFUSION PET IMAGING\XA9\ CPT CODE: 78722, 22292 INDICATION: Heart failure. Assess myocardial viability. HISTORY: Cardiac risk factors: Diabetes, hypertension, hyperlipidemia. Other cardiovascular history: Known coronary artery disease with history of PCI , heart failure.Recent cardiac symptoms: Chest pain. PROTOCOL: Limited low -dose CT imaging was performed for attenuation correction. [...] lateral apical LV and moderate to marked decreasein the basal to mid inferior and inferior [...] accurately assess myocardial viability. 7. No previous [facility] study for comparison. Signed: Zulema Duarte MDReport Verified Date/Time: 06/03/2018 15: 47:05 Reading Location: [address] Reading Room U/S, RENAL, [id number] 14:50:00Reason for exam:->akiFINAL REPORT Renal ultrasound Comparison: No comparison Clinical History: Acute kidney injury Technique:Sonographic evaluation of the kidneys was performed. 70 images were submitted for interpretation, using a five MHz transducer. Right kidney:The kidney measures 10.4 cm in length. The cortical echogenicity is increased. The cortex measures 1.4 cm. There is no evidence ofa focal mass. There is no evidence of hydronephrosis. There is no evidence of a shadowing stone. There is no evidence of a cyst. There is no evidence of a perinephric fluid collection. Flow was visualized to the right kidney. Left kidney:The left kidney was not adequately visualized. Overlying shadowing bowel gas or calcification in the left upper quadrant limited evaluation. There is no evidence of an atrophic kidney. The maximum length did exceed 10 cm. There is no evidence of gross hydronephrosis. The prostate measured 4.1 x 4.3 x 4.7 cm.Survey images of the bladder demonstrate no abnormality. Post void volume measured 30 cc. Impression:Both kidneys are normal in length without evidence ofhydronephrosis. The right kidney echogenicity is increased and similar to the liver echogenicity. Evaluation of the renal parenchyma on the left is limited by shadowing bowel gas or calcifications in the left upper quadrant. The left kidney was not well demonstrated. Signed: Kristin Fayeport Verified Date/ Time: 06/03/2018 14:50:49 Reading Location: [facility] [id number] Ultrasound Reading Room HEMOGLOBIN AND [id number] 14:22:00 Test Item Value Reference Range Comments HEMOGLOBIN (BEAKER) (test miqy=312) 8.5 GM/DL 13.7-17.5 HEMATOCRIT (BEAKER) (test pbfx=788) 26.1 % 40.1-51.0 POCT-GLUCOSE [id number] 13:48:00 Test Item Value Reference Range Comments POC-GLUCOSE METER (BEAKER) 161 mg/dL 70-110 TESTED AT [address] (test mlyt=5988) [facility] [address] POCT-GLUCOSE [id number] 12:06:00 Test Item Value Reference Range Comments POC-GLUCOSE METER (BEAKER) 242 mg/dL 70-110 TESTED AT [address] (test nzgf=9971) [facility] [address] POCT-GLUCOSE [id number] 11:48:00 Test Item Value Reference Range Comments POC-GLUCOSE METER (BEAKER) 134 mg/dL 70-110 TESTED AT [address] (test csyf=5646) [facility] [address] [id number] 10:44:00 Test Item Value Reference Range Comments MAGNESIUM (BEAKER) (test mdga=224) 2.1 mg/dL 1.6-2.6 POCT-GLUCOSE [id number] 06:24:00 Test Item Value Reference Range Comments POC-GLUCOSE METER (BEAKER) 139 mg/dL 70-110 TESTED AT [address] (test blvs=4630) [facility] [address] CALCIUM, [id number] 04:57:00 Test Item Value Reference Range Comments CALCIUM IONIZED (BEAKER) (test aigi=468) 1.13 mmol/L 1.12-1.27 PH, BLOOD (BEAKER) (test bbjt=8714) 7.35 BASIC METABOLIC [id number] 04:46:00 Test Item Value Reference Range Comments SODIUM (BEAKER) (test 140 meq/L 136-145 yfcb=184) POTASSIUM (BEAKER) (test 4.3 meq/L 3.5-5.1 vrza=191) CHLORIDE (BEAKER) (test 112 meq/L 98-107 xolj=627) CO2 (BEAKER) (test 18 meq/L 22-29 cecs=984) BLOOD UREA NITROGEN 91 mg/dL 7-21 (BEAKER) (test edpf=280) CREATININE (BEAKER) (test 2.84 mg/dL 0.57-1.25 jzdd=357) GLUCOSE RANDOM (BEAKER) 117 mg/dL 70-105 (test zpux=095) CALCIUM (BEAKER) (test 8.0 mg/dL 8.4-10.2 hbxq=404) EGFR (BEAKER) (test 22 mL/min/1.73 sq m ESTIMATED GFR IS NOT ftnz=2849) ACCURATE CREATININE CLEARANCE IN PREDICTING GLOMERULAR FILTRATION RATE. ESTIMATED GFR IS NOT APPLICABLE FOR DIALYSIS PATIENTS. CBC W/PLT COUNT & AUTO [id number] 04:14:00 Test Item Value Reference Range Comments WHITE BLOOD CELL COUNT (BEAKER) (test vwfv=386) 11.8 K/ L 3.5-10.5 RED BLOOD CELL COUNT (BEAKER) (test uhvx=990) 2.91 M/ L 4.63-6.08 HEMOGLOBIN (BEAKER) (test aakh=378) 8.3 GM/DL 13.7-17.5 HEMATOCRIT (BEAKER) (test zppj=565) 25.1 % 40.1-51.0 MEAN CORPUSCULAR VOLUME (BEAKER) (test bfjj=267) 86.3 fL 79.0-92.2 MEAN CORPUSCULAR HEMOGLOBIN (BEAKER) (test 28.5 pg 25.7-32.2 gyeu=969) MEAN CORPUSCULAR HEMOGLOBIN CONC (BEAKER) (test 33.1 GM/DL 32.3-36.5 jvtk=021) RED CELL DISTRIBUTION WIDTH (BEAKER) (test 16.2 % 11.6-14.4 ynqj=280) PLATELET COUNT (BEAKER) (test ofvo=926) 180 K/CU MM 150-450 MEAN PLATELET VOLUME (BEAKER) (test imyu=995) 11.4 fL 9.4-12.4 NUCLEATED RED BLOOD CELLS (BEAKER) (test 0 /100 WBC 0-0 rcyo=091) NEUTROPHILS RELATIVE PERCENT (BEAKER) (test 82 % ndnc=646) LYMPHOCYTES RELATIVE PERCENT (BEAKER) (test 9 % afqz=767) MONOCYTES RELATIVE PERCENT (BEAKER) (test 6 % qbjl=358) EOSINOPHILS RELATIVE PERCENT (BEAKER) (test 2 % qybh=141) BASOPHILS RELATIVE PERCENT (BEAKER) (test 0 % hdsn=959) NEUTROPHILS ABSOLUTE COUNT (BEAKER) (test 9.64 K/ L 1.78-5.38 erud=607) LYMPHOCYTES ABSOLUTE COUNT (BEAKER) (test 1.01 K/ L 1.32-3.57 llmp=825) MONOCYTES ABSOLUTE COUNT (BEAKER) (test 0.75 K/ L 0.30-0.82 phcz=144) EOSINOPHILS ABSOLUTE COUNT (BEAKER) (test 0.26 K/ L 0.04-0.54 hfri=016) BASOPHILS ABSOLUTE COUNT (BEAKER) (test 0.03 K/ L 0.01-0.08 dqyq=275) IMMATURE GRANULOCYTES-RELATIVE PERCENT (BEAKER) 1 % 0-1 (test vuwl=2566) HEMOGLOBIN AND [id number] 00:01:00 Test Item Value Reference Range Comments HEMOGLOBIN (BEAKER) (test ltbt=924) 7.6 GM/DL 13.7-17.5 HEMATOCRIT (BEAKER) (test uxma=155) 22.5 % 40.1-51.0 POCT-GLUCOSE [id number] 23:57:00 Test Item Value Reference Range Comments POC-GLUCOSE METER (BEAKER) 137 mg/dL 70-110 TESTED AT [address] (test uzwo=0984) [facility] [address] POCT-GLUCOSE [id number] 18:19:00 Test Item Value Reference Range Comments POC-GLUCOSE METER (BEAKER) 200 mg/dL 70-110 TESTED AT [address] (test pyrq=9992) [facility] [address] CREATININE, RANDOM [id number] 16:41:00 Test Item Value Reference Range Comments CREATININE URINE (BEAKER) (test udtk=192) 38.9 mg/dL Reference Range: No NormalsSODIUM, RANDOM [id number] 16:41:00 Test Item Value Reference Range Comments SODIUM URINE (BEAKER) (test vkax=431) 54 meq/L Reference Range: No NormalsUREA NITROGEN, RANDOM [id number] 16:41:00 Test Item Value Reference Range Comments UREA NITROGEN URINE (BEAKER) (test xvnv=935) 584 mg/dL Reference Range: No NormalsHEMOGLOBIN AND [id number] 16:32:00 Test Item Value Reference Range Comments HEMOGLOBIN (BEAKER) (test ksaa=764) 6.6 GM/DL 13.7-17.5 HEMATOCRIT (BEAKER) (test hmtv=942) 19.5 % 40.1-51.0 URINALYSIS W/ REFLEX URINE [id number] 16:21:00 Test Item Value Reference Range Comments COLOR (BEAKER) (test qseu=460) Light Yellow CLARITY (BEAKER) (test izca=863) Clear SPECIFIC GRAVITY UA (BEAKER) (test dhqj=418) 1.008 1.001-1.035 PH UA (BEAKER) (test infj=856) 5.5 5.0-8.0 PROTEIN UA (BEAKER) (test todm=916) 70 mg/dL Negative GLUCOSE UA (BEAKER) (test dgts=225) 30 mg/dL Negative KETONES UA (BEAKER) (test lbdo=069) Negative Negative BILIRUBIN UA (BEAKER) (test kcnc=511) Negative Negative BLOOD UA (BEAKER) (test xtfg=299) Negative Negative NITRITE UA (BEAKER) (test jlpk=798) Negative Negative LEUKOCYTE ESTERASE UA (BEAKER) (test cokx=592) Negative Negative UROBILINOGEN UA (BEAKER) (test bxjm=079) 0.2 mg/dL 0.2-1.0 RBC UA (BEAKER) (test suoh=404) < /HPF WBC UA (BEAKER) (test ktez=647) 3 /HPF MUCUS (BEAKER) (test rpbj=3803) Rare SOURCE(BEAKER) (test lipd=6010) POCT-GLUCOSE [id number] 12:35:00 Test Item Value Reference Range Comments POC-GLUCOSE METER (BEAKER) 283 mg/dL 70-110 TESTED AT [facility] [address] [facility] (test zusb=1117) [facility] [address] COMPREHENSIVE METABOLIC [id number] 11:30:00 Test Item Value Reference Range Comments TOTAL PROTEIN (BEAKER) 3.9 gm/dL 6.0-8.3 (test msou=686) ALBUMIN (BEAKER) (test 2.5 g/dL 3.5-5.0 fxog=1144) ALKALINE PHOSPHATASE 69 U/L 40-150 (BEAKER) (test regl=643) BILIRUBIN TOTAL (BEAKER) 0.8 mg/dL 0.2-1.2 (test zmwa=598) SODIUM (BEAKER) (test 136 meq/L 136-145 znfs=218) POTASSIUM (BEAKER) (test 4.1 meq/L 3.5-5.1 wyra=340) CHLORIDE (BEAKER) (test 110 meq/L 98-107 zthu=933) CO2 (BEAKER) (test 17 meq/L 22-29 dfni=299) BLOOD UREA NITROGEN 99 mg/dL 7-21 (BEAKER) (test gexd=964) CREATININE (BEAKER) (test 2.84 mg/dL 0.57-1.25 abek=563) GLUCOSE RANDOM (BEAKER) 248 mg/dL 70-105 (test raih=438) CALCIUM (BEAKER) (test 7.4 mg/dL 8.4-10.2 nluv=325) AST (SGOT) (BEAKER) (test 19 U/L 5-34 cqjg=466) ALT (SGPT) (BEAKER) (test 65 U/L 6-55 vsul=084) EGFR (BEAKER) (test 22 mL/min/1.73 sq m ESTIMATED GFR IS NOT oxpy=8880) ACCURATE CREATININE CLEARANCE IN PREDICTING GLOMERULAR FILTRATION RATE. ESTIMATED GFR IS NOT APPLICABLE FOR DIALYSIS PATIENTS. [id number] 11:28:00 Test Item Value Reference Range Comments MAGNESIUM (BEAKER) (test bvbp=941) 1.6 mg/dL 1.6-2.6 HEMOGLOBIN AND [id number] 10:13:00 Test Item Value Reference Range Comments HEMOGLOBIN (BEAKER) (test twav=128) 7.9 GM/DL 13.7-17.5 HEMATOCRIT (BEAKER) (test gqqu=067) 24.1 % 40.1-51.0 U/S, ABDOMINAL, [id number] 08:57:00Abdomen limited area? Add comment if clarification is needed.->Gall BladderReason for exam:->elevated LFTsFINAL REPORT Right Upper Quadrant Ultrasound Clinical Diagnosis: Elevated liver function test Comparison: No comparison Technique: Multiple transaxial and longitudinal images were obtained through the right upper quadrant with real time ultrasonography. Five mHz transducer wasutilized. 63 images were submitted for interpretation. Report:Liver: The liver measures 15.9 cm in the right midaxillary line. There are no focal masses. The echogenicity is within normal limits. The left lobe was inadequately visualized secondary to overlying bowel gasGallbladder: The transverse diameter is 1.7 cm. The wall measures three mm. There are no shadowing stones visualized. This study was limited since the gallbladder is not distended. Biliary tree: There is no evidence of intra orextra hepatic biliary ductal dilatation. The common bile duct measures three mm.Portal vein: The portal vein measures eight mm. Ascites: NegativePleural Effusion: NegativeRight kidney: The right kidney measures 9.3 cm in length without evidence of hydronephrosis.Aorta and IVC: Midline abdominal structures and not well visualized. Maximum transverse dimension of aorta is 2.4 cm proximally Impression:Inadequate visualization of the left lobe the liver secondary to overlying bowel gas.Small rightkidney. Signed: Kristin Fay Verified Date/Time: 06/02/2018 08:57:16 Reading Location: [address] Ultrasound Reading Room 08: 57 AMPOCT-GLUCOSE [id number] 07:17:00 Test Item Value Reference Range Comments POC-GLUCOSE METER (BEAKER) 295 mg/dL 70-110 TESTED AT [place] [address] [address] (test wwsa=4589) [place] [address] HEMOGLOBIN AND [id number] 00:41:00 Test Item Value Reference Range Comments HEMOGLOBIN (BEAKER) (test eegn=546) 5.8 GM/DL 13.7-17.5 HEMATOCRIT (BEAKER) (test mviy=255) 18.5 % 40.1-51.0 POCT-GLUCOSE [id number] 23:52:00 Test Item Value Reference Range Comments POC-GLUCOSE METER (BEAKER) 396 mg/dL 70-110 Notified ISAURA JONES/TESTED AT [facility] (test bier=7066) [address] [facility] [address] CT, BRAIN, WITHOUT [id number] 21:10:00FINAL REPORT CT, BRAIN, WITHOUT CONTRAST CLINICAL INDICATION: Headache, posttrauma COMPARISON: None TECHNIQUE: Noncontrast axial CT imaging of the brain and skull. DOSE REDUCTION: Dose modulation, iterative reconstruction, and/or weight -based adjustment of the mA/kV was utilized to [...] examination is recommended for further characterization. Signed: Lyndsey Ramirez MDReport Verified Date/Time: 06/01/2018 21:10:30 Reading Location: [address] Neuro Reading Room Electronically signed by: LYNDSEY RAMIREZ MD on 2018 09:10 PMHEMOGLOBIN AND [id number] 20:28:00 Test Item Value Reference Range Comments HEMOGLOBIN (BEAKER) (test yate=335) 7.2 GM/DL 13.7-17.5 HEMATOCRIT (BEAKER) (test mtms=435) 22.2 % 40.1-51.0 Call HOSPICE BEREAVEMENT COORDINATOR if less than 8 . Might need to transfer to ICU for close monitoring if H/H drop .POCT-GLUCOSE [id number] 18:14:00 Test Item Value Reference Range Comments POC-GLUCOSE METER (BEAKER) 255 mg/dL 70-110 TESTED AT [facility] [address] [facility] (test pzxy=1610) [facility] [address] HEMOGLOBIN [id number] 16:24:00 Test Item Value Reference Range Comments HEMOGLOBIN A1C (BEAKER) (test takz=515) 8.1 % 4.3-6.1 HEMOGLOBIN AND [id number] 15:17:00 Test Item Value Reference Range Comments HEMOGLOBIN (BEAKER) (test nvhv=920) 8.3 GM/DL 13.7-17.5 HEMATOCRIT (BEAKER) (test iprx=614) 25.9 % 40.1-51.0 LIPID [id number] 14:03:00 Test Item Value Reference Range Comments TRIGLYCERIDES (BEAKER) (test nyip=212) 188 mg/dL CHOLESTEROL (BEAKER) (test xbnp=040) 87 mg/dL HDL CHOLESTEROL (BEAKER) (test gjaj=265) 21 mg/dL LDL CHOLESTEROL CALCULATED (BEAKER) (test 28 mg/dL zxwx=702) Triglyceride Reference Range: Low Risk <150 Borderline 150- 199 High Risk 200-499 Very High Risk >=500Cholesterol Reference Range: Low Risk <200 Borderline 200-239 High Risk > 240HDL Cholesterol Reference Range: Low Risk >=60 High Risk <40LDL Cholesterol Reference Range: Optimal <100 Near Optimal 100-129 Borderline 130-159 High 160-189 Very High >=190HEMOGLOBIN AND [id number] 13:42:00 Test Item Value Reference Range Comments HEMOGLOBIN (BEAKER) (test vrdf=213) 8.3 GM/DL 13.7-17.5 HEMATOCRIT (BEAKER) (test gcpl=389) 25.5 % 40.1-51.0 POCT-GLUCOSE [id number] 13:39:00 Test Item Value Reference Range Comments POC-GLUCOSE METER (BEAKER) 199 mg/dL 70-110 TESTED AT [address] (test pxcw=4563) [facility] [address] RAD, ABDOMEN/KUB, 1 VIEW [id number] 12:42:00Reason for exam:->evaluate placement NGTFINAL REPORT Nasogastric tube x-ray localization Clinical Diagnosis: Evaluatenasogastric tubeComparison: No comparisonViews: Two Report:Abdomen:There is a nonspecific bowel gas pattern. There is no evidence of GI tract obstruction. A nasogastric tube is seen with it' s distal tip in the stomach. Calcified granulomas are present. Signed : Kristin Fay Verified Date/Time: 06/01/2018 12:42:13 Reading Location : [address] Consult Reading Room POCT-GLUCOSE [id number] 10:13:00 Test Item Value Reference Range Comments POC-GLUCOSE METER (BEAKER) 210 mg/dL 70-110 TESTED AT [facility] [address] (test ttqs=3159) [place] [address] [id number] 05:39:00 Test Item Value Reference Range Comments HAPTOGLOBIN (BEAKER) (test zrjn=544) 170 mg/dL 14-258 [id number] 05:21:00 Test Item Value Reference Range Comments FERRITIN (BEAKER) (test rbnz=270) 381 ng/mL 5-275 BASIC METABOLIC [id number] 05:04:00 Test Item Value Reference Range Comments SODIUM (BEAKER) (test 135 meq/L 136-145 qajj=298) POTASSIUM (BEAKER) (test 4.2 meq/L 3.5-5.1 hsxs=772) CHLORIDE (BEAKER) (test 107 meq/L 98-107 zjfc=223) CO2 (BEAKER) (test 19 meq/L 22-29 iihd=812) BLOOD UREA NITROGEN 96 mg/dL 7-21 (BEAKER) (test twsb=396) CREATININE (BEAKER) (test 2.82 mg/dL 0.57-1.25 euns=469) GLUCOSE RANDOM (BEAKER) 207 mg/dL 70-105 (test juwq=383) CALCIUM (BEAKER) (test 7.7 mg/dL 8.4-10.2 meax=707) EGFR (BEAKER) (test 22 mL/min/1.73 sq m ESTIMATED GFR IS NOT bugj=4317) ACCURATE CREATININE CLEARANCE IN PREDICTING GLOMERULAR FILTRATION RATE. ESTIMATED GFR IS NOT APPLICABLE FOR DIALYSIS PATIENTS. [id number] 05:03:00 Test Item Value Reference Range Comments MAGNESIUM (BEAKER) (test yzud=937) 1.6 mg/dL 1.6-2.6 HEPATIC FUNCTION [id number] 05:03:00 Test Item Value Reference Range Comments TOTAL PROTEIN (BEAKER) (test nndc=288) 4.5 gm/dL 6.0-8.3 ALBUMIN (BEAKER) (test cjph=8271) 2.8 g/dL 3.5-5.0 BILIRUBIN TOTAL (BEAKER) (test zzhm=458) 1.8 mg/dL 0.2-1.2 BILIRUBIN DIRECT (BEAKER) (test ewnd=162) 0.7 mg/dL 0.1-0.5 ALKALINE PHOSPHATASE (BEAKER) (test ofyk=520) 83 U/L 40-150 AST (SGOT) (BEAKER) (test nllb=349) 15 U/L 5-34 ALT (SGPT) (BEAKER) (test gftz=992) 97 U/L 6-55 LACTATE DEHYDROGENASE (LDH)2018-06-01 05:03:00 Test Item Value Reference Range Comments LACTATE DEHYDROGENASE (BEAKER) (test rjon=774) 125 U/L 125-220 IRON, TIBC, % SAT. (WITHOUT FERRITIN)2018-06-01 05:01:00 Test Item Value Reference Range Comments IRON (BEAKER) (test lhzo=847) 182.0 ug/dL 40.0-160.0 TOTAL IRON BINDING CAPACITY (BEAKER) (test 180 ug/dL 250-450 hpkn=663) IRON % SATURATION (2) (BEAKER) (test rvzl=6869) 101 % 20-55 CBC W/PLT COUNT & AUTO [id number] 04:46:00 Test Item Value Reference Range Comments WHITE BLOOD CELL COUNT (BEAKER) (test enfm=450) 11.9 K/ L 3.5-10.5 RED BLOOD CELL COUNT (BEAKER) (test wxcm=200) 2.86 M/ L 4.63-6.08 HEMOGLOBIN (BEAKER) (test qrmi=717) 8.4 GM/DL 13.7-17.5 HEMATOCRIT (BEAKER) (test gagh=848) 25.4 % 40.1-51.0 MEAN CORPUSCULAR VOLUME (BEAKER) (test jslx=763) 88.8 fL 79.0-92.2 MEAN CORPUSCULAR HEMOGLOBIN (BEAKER) (test 29.4 pg 25.7-32.2 zrdd=304) MEAN CORPUSCULAR HEMOGLOBIN CONC (BEAKER) (test 33.1 GM/DL 32.3-36.5 tetz=482) RED CELL DISTRIBUTION WIDTH (BEAKER) (test 15.0 % 11.6-14.4 fzrk=494) PLATELET COUNT (BEAKER) (test pquu=823) 216 K/CU MM 150-450 MEAN PLATELET VOLUME (BEAKER) (test ekxr=187) 11.5 fL 9.4-12.4 NUCLEATED RED BLOOD CELLS (BEAKER) (test 0 /100 WBC 0-0 nagp=368) NEUTROPHILS RELATIVE PERCENT (BEAKER) (test 83 % twta=862) LYMPHOCYTES RELATIVE PERCENT (BEAKER) (test 8 % cdpa=982) MONOCYTES RELATIVE PERCENT (BEAKER) (test 6 % zrzg=818) EOSINOPHILS RELATIVE PERCENT (BEAKER) (test 3 % lsve=023) BASOPHILS RELATIVE PERCENT (BEAKER) (test 0 % zqcg=120) NEUTROPHILS ABSOLUTE COUNT (BEAKER) (test 9.84 K/ L 1.78-5.38 aezg=295) LYMPHOCYTES ABSOLUTE COUNT (BEAKER) (test 0.89 K/ L 1.32-3.57 hale=797) MONOCYTES ABSOLUTE COUNT (BEAKER) (test 0.75 K/ L 0.30-0.82 fdrl=929) EOSINOPHILS ABSOLUTE COUNT (BEAKER) (test 0.35 K/ L 0.04-0.54 kvts=885) BASOPHILS ABSOLUTE COUNT (BEAKER) (test 0.02 K/ L 0.01-0.08 itct=890) IMMATURE GRANULOCYTES-RELATIVE PERCENT (BEAKER) 0 % 0-1 (test bdob=1897) RETICULOCYTE [id number] 04:43:00 Test Item Value Reference Range Comments RETICULOCYTE COUNT PCT (BEAKER) (test bxps=226) 2.1 % 0.5-1.8 HEMOGLOBIN AND [id number] 04:43:00 Test Item Value Reference Range Comments HEMOGLOBIN (BEAKER) (test vsdl=254) 8.4 GM/DL 13.7-17.5 HEMATOCRIT (BEAKER) (test boie=151) 25.4 % 40.1-51.0 POCT-GLUCOSE [id number] 23:12:00 Test Item Value Reference Range Comments POC-GLUCOSE METER (BEAKER) 226 mg/dL 70-110 TESTED AT [address] (test wwkt=3635) [facility] [id number] POCT-GLUCOSE [id number] 17:36:00 Test Item Value Reference Range Comments POC-GLUCOSE METER (BEAKER) 314 mg/dL 70-110 Patient on insulin Drip/TESTED (test lpic=8067) AT [facility] [address] [facility] [address] HEMOGLOBIN AND [id number] 17:04:00 Test Item Value Reference Range Comments HEMOGLOBIN (BEAKER) (test ciox=211) 7.5 GM/DL 13.7-17.5 HEMATOCRIT (BEAKER) (test mtpn=881) 23.8 % 40.1-51.0 TROPONIN [id number] 14:24:00 Test Item Value Reference Range Comments TROPONIN I (BEAKER) (test dazt=891) 0.22 ng/mL 0.00-0.03 Troponin I (TnI) levels must be interpreted in the context of the presenting symptoms and the clinical findings. Elevated TnI levels indicate myocardial damage, but are not specific for ischemic heart disease. Elevated TnI levels are seen in patients with other cardiac conditions (including myocarditis and congestive heart failure), and slight TnI elevations occur in patients with other conditions, including sepsis, renal failure, acidosis, acute neurological disease, and persistent tachyarrhythmia.POCT-GLUCOSE [id number] 12:25:00 Test Item Value Reference Range Comments POC-GLUCOSE METER (BEAKER) 262 mg/dL 70-110 TESTED AT [address] (test xfao=6101) [facility] [address] POCT-GLUCOSE [id number] 06:18:00 Test Item Value Reference Range Comments POC-GLUCOSE METER (BEAKER) 310 mg/dL 70-110 Notified ISAURA JONES/TESTED AT [facility] (test ugze=7139) [address] [place] [id number] TROPONIN [id number] 05:42:00 Test Item Value Reference Range Comments TROPONIN I (BEAKER) (test zvuf=468) 0.19 ng/mL 0.00-0.03 Troponin I (TnI) levels must be interpreted in the context of the presenting symptoms and the clinical findings. Elevated TnI levels indicate myocardial damage, but are not specific for ischemic heart disease. Elevated TnI levels are seen in patients with other cardiac conditions (including myocarditis and congestive heart failure), and slight TnI elevations occur in patients with other conditions, including sepsis, renal failure, acidosis, acute neurological disease, and persistent tachyarrhythmia.BASIC METABOLIC [id number] 05:41:00 Test Item Value Reference Range Comments SODIUM (BEAKER) (test 136 meq/L 136-145 dxmv=021) POTASSIUM (BEAKER) (test 4.4 meq/L 3.5-5.1 bhmy=289) CHLORIDE (BEAKER) (test 107 meq/L 98-107 eyie=103) CO2 (BEAKER) (test 20 meq/L 22-29 ngvk=679) BLOOD UREA NITROGEN 91 mg/dL 7-21 (BEAKER) (test txdm=224) CREATININE (BEAKER) (test 2.84 mg/dL 0.57-1.25 kcjv=725) GLUCOSE RANDOM (BEAKER) 274 mg/dL 70-105 (test yrqc=604) CALCIUM (BEAKER) (test 7.8 mg/dL 8.4-10.2 xvkb=553) EGFR (BEAKER) (test 22 mL/min/1.73 sq m ESTIMATED GFR IS NOT utzg=2773) ACCURATE CREATININE CLEARANCE IN PREDICTING GLOMERULAR FILTRATION RATE. ESTIMATED GFR IS NOT APPLICABLE FOR DIALYSIS PATIENTS. B-TYPE NATRIURETIC FACTOR (BNP)2018-05-31 05:38:00 Test Item Value Reference Range Comments B-TYPE NATRIURETIC PEPTIDE (BEAKER) (test 3179 pg/mL 0-100 laqd=449) HEPATIC FUNCTION [id number] 05:36:00 Test Item Value Reference Range Comments TOTAL PROTEIN (BEAKER) (test hzvi=864) 4.8 gm/dL 6.0-8.3 ALBUMIN (BEAKER) (test supx=4405) 3.0 g/dL 3.5-5.0 BILIRUBIN TOTAL (BEAKER) (test dywf=970) 0.6 mg/dL 0.2-1.2 BILIRUBIN DIRECT (BEAKER) (test nybe=978) 0.3 mg/dL 0.1-0.5 ALKALINE PHOSPHATASE (BEAKER) (test rgwg=247) 93 U/L 40-150 AST (SGOT) (BEAKER) (test ohtp=417) 15 U/L 5-34 ALT (SGPT) (BEAKER) (test jkwg=950) 139 U/L 6-55 CBC W/PLT COUNT & AUTO [id number] 05:34:00 Test Item Value Reference Range Comments WHITE BLOOD CELL COUNT (BEAKER) (test nwan=534) 10.3 K/ L 3.5-10.5 RED BLOOD CELL COUNT (BEAKER) (test mzit=161) 3.30 M/ L 4.63-6.08 HEMOGLOBIN (BEAKER) (test chom=808) 9.1 GM/DL 13.7-17.5 HEMATOCRIT (BEAKER) (test vknj=015) 29.8 % 40.1-51.0 MEAN CORPUSCULAR VOLUME (BEAKER) (test ugdv=550) 90.3 fL 79.0-92.2 MEAN CORPUSCULAR HEMOGLOBIN (BEAKER) (test 27.6 pg 25.7-32.2 oinu=260) MEAN CORPUSCULAR HEMOGLOBIN CONC (BEAKER) (test 30.5 GM/DL 32.3-36.5 gubf=122) RED CELL DISTRIBUTION WIDTH (BEAKER) (test 15.5 % 11.6-14.4 wfii=256) PLATELET COUNT (BEAKER) (test uiry=853) 212 K/CU MM 150-450 MEAN PLATELET VOLUME (BEAKER) (test czxz=005) 11.6 fL 9.4-12.4 NUCLEATED RED BLOOD CELLS (BEAKER) (test 0 /100 WBC 0-0 efxl=199) NEUTROPHILS RELATIVE PERCENT (BEAKER) (test 93 % gkun=113) LYMPHOCYTES RELATIVE PERCENT (BEAKER) (test 4 % bilj=971) MONOCYTES RELATIVE PERCENT (BEAKER) (test 3 % cjqi=314) EOSINOPHILS RELATIVE PERCENT (BEAKER) (test 0 % vzfc=518) BASOPHILS RELATIVE PERCENT (BEAKER) (test 0 % nwna=072) NEUTROPHILS ABSOLUTE COUNT (BEAKER) (test 9.50 K/ L 1.78-5.38 hcmb=339) LYMPHOCYTES ABSOLUTE COUNT (BEAKER) (test 0.38 K/ L 1.32-3.57 xfxr=574) MONOCYTES ABSOLUTE COUNT (BEAKER) (test 0.31 K/ L 0.30-0.82 gmon=623) EOSINOPHILS ABSOLUTE COUNT (BEAKER) (test 0.01 K/ L 0.04-0.54 neyr=489) BASOPHILS ABSOLUTE COUNT (BEAKER) (test 0.01 K/ L 0.01-0.08 fshx=879) IMMATURE GRANULOCYTES-RELATIVE PERCENT (BEAKER) 0 % 0-1 (test xrxk=8034) PROTHROMBIN TIME/[id number] 05:25:00 Test Item Value Reference Range Comments PROTIME (BEAKER) (test qmsu=543) 15.1 seconds 11.7-14.7 INR (BEAKER) (test fnlb=742) 1.2 <=5.9 RECOMMENDED COUMADIN/WARFARIN INR THERAPY RANGESSTANDARD DOSE: 2.0 - 3.0 Includes: PROPHYLAXIS forvenous thrombosis, systemic embolization; TREATMENT for venous thrombosis and/or pulmonary embolus.HIGH RISK: Target INR is 2.5-3.5 for patients with mechanical heart valves.
--- NOTE | 2018-06-12 10:53 | RAD REPORT ---
EXAM DESCRIPTION: Rosie Single View06/12/2018 10:43 am CLINICAL HISTORY: Chest pain COMPARISON: May 2018 FINDINGS: The lungs appear clear of acute infiltrate. The heart is mildly enlarged. Calcified left lung granulomas present IMPRESSION: No acute abnormalities displayed
[2018-06-12 11:11] LABS: Absolute Lymphocytes (CBC) 0.5 K/uL (0.7-4.9); Absolute Monocytes 0.4 K/uL (0.1-1.3); Absolute Neutrophil 4.7 K/uL (1.8-8.0); Basophils % 0.9 % (0-1.3); Eosinophils % 3.4 % (0-4.4); Hematocrit 28.6 % (39.6-49.0); Lymphocytes % 9.1 % (15.3-44.8); MPV 8.6 fL (7.6-11.3); Monocytes % 7.1 % (3.3-12.3); RBC Red Blood Cell Count 3.32 M/uL (4.33-5.43)
[2018-06-12 11:16] LABS: Protime INR 1.11
[2018-06-12 11:42] LABS: Albumin 2.5 g/dL (3.4-5.0); Bilirubin Direct 0.2 mg/dL (0-0.2); Bilirubin Total 0.5 mg/dL (0.2-1.0); Potassium 3.8 mmol/L (3.5-5.1); Protein, Total 5.6 g/dL (6.4-8.2); Thyroid Stimulating Hormone 1.12 uIU/mL (0.360-3.740); Troponin (Emerg Dept Use Only) 0.1 ng/mL (0.0-0.045)
[2018-06-12 11:44] LABS: Magnesium 1.4 mg/dL (1.8-2.4)
[2018-06-12] MEDS ORDERED: MAGNESIUM SULFATE 1 gm IVPB 1 GM/100 ML BAG IV ONE (12:37)
--- NOTE | 2018-06-12 14:54 | RAD REPORT ---
EXAM DESCRIPTION: CT - Abdomen Pelvis Wo Contrast - 06/12/2018 2:27 pm CLINICAL HISTORY: Abdominal pain COMPARISON: May 30, 2018 TECHNIQUE: Computed axial tomography of the abdomen and pelvis was obtained. IV was not requested. O ral contrast was given. Coronal reconstructions performed. All CT scans are performed using dose optimization technique as appropriate and may include automated exposure control or mA/KV adjustment according to patient size. FINDINGS: The evaluation of solid organs and vessels is limited secondary to the lack of contrast a dministration. The liver, spleen, pancreas, adrenals and kidneys appear grossly normal. Two metallic structures are present within the junction of the second and third portions of the duode num. There is no evidence of diverticulitis. The prostate gland mildly enlarged Atherosclerotic calcifications present IMPRESSION: Two metallic structures within the duodenum presumably are vascular clips. If the patien t has not had instrumentation since the prior exam then these would represent ingested foreign bodies . This should be correlated clinically.
[2018-06-12 16:46] LABS: Hematocrit 26.7 % (39.6-49.0)
--- NOTE | 2018-06-12 17:28 | EDPHYS ---
Physician Documentation [facility] Name: Travis Cardona Age: 73 yrs Sex: Male : 1945 Arrival Date: 06/12/2018 Time: 10:13 Bed 16 Private MD: ED Physician Shiv Wesley HPI: 06/12 10:51 This 73 yrs old Male presents to ER via EMS with complaints of Pain All Over. snw 10:51 Onset: The symptoms/episode began/occurred at an unknown time. Associated signs and snw symptoms: Pertinent positives: abdominal pain, weakness. The patient has experienced similar episodes in the past, 3 times. It is unknown whether or not the patient has recently seen a physician. Historical: - Allergies: 13:49 No Known Allergies; ch - Home Meds: 10:15 hydralazine 25 mg Oral tab 1 tab three times a day [Active]; atorvastatin 40 mg Oral ch tab 1 tab once daily [Active]; 13:49 calcium vitamin D 250 mg/125 mg daily [Active]; cyanocobalamin (vitamin B-12) 1,000 mcg ch Oral tab daily [Active]; Furosemide Oral [Active]; glipizide 5 mg Oral tab 1 tab 2 times per day [Active]; isosorbide dinitrate 30 mg Oral tab 1 tab 3 times per day [Active]; isosorbide mononitrate 30 mg Oral Tb24 1 tab once daily [Active]; losartan 50 mg Oral tab 1 tab once daily [Active]; metoprolol tartrate 100 mg Oral tab 2 tabs 2 times per day [Active]; ProAir HFA inhalation [Active]; tamsulosin 0.4 mg Oral cp24 1 cap once daily [Active]; tramadol 50 mg Oral tab 1 tab three times a day [Active]; med list might not be accurate 06/12/18, pt refuses to give medications, states he doesnt know [Active]; - PMHx: 10:15 BPH; Hypertension; Myocardial infarction; Diabetes - NIDDM; CAD; COPD; Hyperlipidemia; ch - PSHx: 10:15 Appendectomy; ch - Immunization history:: Adult Immunizations up to date. - Social history:: Smoking status: Patient/guardian denies using tobacco. - Ebola Screening: : Patient negative for fever greater than or equal to 101.5 degrees Fahrenheit, and additional compatible Ebola Virus Disease symptoms Patient denies exposure to infectious person Patient denies travel to an Ebola-affected area in the 21 days before illness onset No symptoms or risks identified at this time. ROS: 10:49 Constitutional: Negative for fever, chills, and weight loss, Eyes: Negative for injury, snw pain, redness, and discharge, ENT: Negative for injury, pain, and discharge, Neck: Negative for injury, pain, and swelling, Cardiovascular: Negative for chest pain, palpitations, and edema, Respiratory: Negative for shortness of breath, cough, wheezing, and pleuritic chest pain, Abdomen/GI: Negative for abdominal pain, nausea, vomiting, diarrhea, and constipation, Back: Negative for injury and pain, : Negative for injury, bleeding, discharge, and swelling, MS/Extremity: Negative for injury and deformity, Skin: Negative for injury, rash, and discoloration, Neuro: Negative for headache, weakness, numbness, tingling, and seizure. 10:49 Neuro: Positive for weakness, pt declines answering questions until he got angry and then answers appropriately and requests I stop evaluation. Only reaction noted is tenderness to left upper quad of abdomen. Exam: 10:43 Head/Face: Normocephalic, atraumatic. Eyes: Pupils equal round and reactive to light, snw extra-ocular motions intact. Lids and lashes normal. Conjunctiva and sclera are pale and not injected. Cornea within normal limits. Periorbital areas with no swelling, redness, or edema. ENT: Nares patent. No nasal discharge, no septal abnormalities noted. Tympanic membranes are normal and external auditory canals are clear. Oropharynx with no redness, swelling, or masses, exudates, or evidence of obstruction, uvula midline. Mucous membranes moist. Neck: Trachea midline, no thyromegaly or masses palpated, and no cervical lymphadenopathy. Supple, full range of motion without nuchal rigidity, or vertebral point tenderness. No Meningismus. Chest/axilla: Normal chest wall appearance and motion. Nontender with no deformity. No lesions are appreciated. Cardiovascular: Regular rate and rhythm with a normal S1 and S2. No gallops, murmurs, or rubs. Normal PMI, no JVD. No pulse deficits. Respiratory: Lungs have equal breath sounds bilaterally, clear to auscultation and percussion. No rales, rhonchi or wheezes noted. No increased work of breathing, no retractions or nasal flaring. Back: No spinal tenderness. No costovertebral tenderness. Full range of motion. 10:43 Constitutional: The patient appears frail, listless, pale, unkempt. 10:43 Abdomen/GI: Inspection: abdomen appears normal, Bowel sounds: normal, in all quadrants, Palpation: moderate abdominal tenderness, in the left upper quadrant, Guaiac + at 1300. 10:43 Skin: Appearance: Color: dusky, pale. Vital Signs: 11:10 BP 132 / 86; Pulse 74; Resp 16; Temp 98.8; Pulse Ox 97% on R/A; Pain 7/10; ch 12:11 BP 121 / 64; Pulse 68; Resp 16; Pulse Ox 99% on R/A; Pain 7/10; ch 13:45 BP 123 / 73; Pulse 56; Resp 14; Pulse Ox 96% on R/A; Pain 0/10; ch 14:50 BP 110 / 51; Pulse 58; Resp 14; Temp 98.1; Pulse Ox 99% on R/A; Pain 0/10; ch 15:40 BP 121 / 61; Pulse 57; Resp 18; Temp 98.8; Pulse Ox 99% on R/A; Pain 4/10; ch 16:42 BP 141 / 82; Pulse 64; Resp 14; Pulse Ox 99% on R/A; Pain 0/10; ch 17:56 BP 131 / 87; Pulse 64; Resp 14; Temp 97.6; Pulse Ox 99% on R/A; Pain 0/10; ch 19:10 BP 156 / 87; Pulse 68; Resp 21; Temp 98.4; Pulse Ox 99% on R/A; Pain 0/10; ch 14:50 pt sleeping ch MDM: 10:29 Patient medically screened. snw 16:50 ED course: Discussed with pt need to transfer for abdominal pain, GIB, and CHF snw exacerbation. Pt states 'whatever, I have to get better'.. 17:00 Data reviewed: vital signs, nurses notes. Data interpreted: Pulse oximetry: on room air snw is 99 %. Interpretation: normal. Counseling: I had a detailed discussion with the patient and/or guardian regarding: the historical points, exam findings, and any diagnostic results supporting the discharge/admit diagnosis, the presence of at least one elevated blood pressure reading (>120/80) during this emergency department visit, lab results, radiology results, the need to transfer to another facility, [facility] does not immediately have the required specialist, No GI available. Will attempt transfer to [facility]. 17:28 Physician consultation: /Dr Orlando/Aries was called at 17:15, was contacted at 17:15, snw regarding regarding transfer, to [facility]. as we have no GI coverage. Dr. Orlando kindly accepts pt in transfer. Dr. Chris kindly available for consult. 06/12 10:27 Order name: Basic Metabolic Panel; Complete Time: 11:45 snw 06/12 10:27 Order name: CBC with Diff; Complete Time: 11:17 snw 06/12 10:27 Order name: LFT's; Complete Time: 11:45 snw 06/12 10:27 Order name: Magnesium; Complete Time: 11:45 snw 06/12 10:27 Order name: NT PRO-BNP; Complete Time: 11:45 snw 06/12 10:27 Order name: PT-INR; Complete Time: 11:29 snw 06/12 10:27 Order name: Troponin (emerg Dept Use Only); Complete Time: 11:45 snw 06/12 10:27 Order name: TS snw 06/12 10:27 Order name: TSH; Complete Time: 11:45 snw 06/12 10:53 Order name: Lactate; Complete Time: 12:31 snw 06/12 14:55 Order name: Hemoglobin; Complete Time: 16:49 snw 06/12 14:55 Order name: Hematocrit; Complete Time: 16:49 snw 06/12 17:16 Order name: Bb Add On w 06/12 17:36 Order name: Packed RBC Leukored -1 EDMS 06/12 10:27 Order name: XRAY Chest (1 view); Complete Time: 10:54 snw 06/12 10:27 Order name: EKG; Complete Time: 10:28 snw 06/12 10:27 Order name: Cardiac monitoring; Complete Time: 10:56 snw 06/12 10:27 Order name: EKG - Nurse/Tech; Complete Time: 10:56 snw 06/12 10:27 Order name: IV Saline Lock; Complete Time: 10:56 snw 06/12 10:27 Order name: Labs collected and sent; Complete Time: 10:56 snw 06/12 10:27 Order name: O2 Per Protocol; Complete Time: 10:56 snw 06/12 10:27 Order name: O2 Sat Monitoring; Complete Time: 10:57 snw 06/12 14:22 Order name: Abdomen ; Complete Time: 14:59 EDMS 06/12 17:30 Order name: Transfuse; Complete Time: 19:17 snw Administered Medications: 12:33 Drug: Magnesium Sulfate 1 grams Route: IVPB; Infused Over: 1 hrs; Site: left forearm; 13:46 Follow up: IV Status: Completed infusion; IV Intake: 100ml ch 17:50 Drug: Lasix 40 mg Route: IVP; Site: left forearm; 19:18 Follow up: Response: No adverse reaction; Marked relief of symptoms ch Disposition: 06/12/18 17:[address] [facility]. Diagnosis are Unspecified combined systolic (congestive) and diastolic (congestive) heart failure, Upper abdominal pain, unspecified, Gastrointestinal hemorrhage, unspecified. - Reason for transfer: Higher level of care. - Accepting physician is Dr. Orlando . - Condition is Stable. - Problem is an acute exacerbation. - Symptoms have worsened. Addendum: 06/14/2018 07:33 Co-signature as Attending Physician, Shiv eWsley MD. m a2 Signatures: Dispatcher [employer] [facility] Anai Wynne RN RN Rebecca Ramsey, SUPERVISOR [employer]C SUPERVISOR [employer]-Csnw Shiv Wesley MD MD ma2 Corrections: (The following items were deleted from the chart) 06/12 14:22 11:54 Abdomen W/ Con+CT.RAD.BRZ ordered. [facility] EDNV 17:02 10:43 Head/Face: Normocephalic, atraumatic. Eyes: Pupils equal round and reactive to snw light, extra-ocular motions intact. Lids and lashes normal. Conjunctiva and sclera are pale and not injected. Cornea within normal limits. Periorbital areas with no swelling, redness, or edema. ENT: Nares patent. No nasal discharge, no septal abnormalities noted. Tympanic membranes are normal and external auditory canals are clear. Oropharynx with no redness, swelling, or masses, exudates, or evidence of obstruction, uvula midline. Mucous membranes moist. Neck: Trachea midline, no thyromegaly or masses palpated, and no cervical lymphadenopathy. Supple, full range of motion without nuchal rigidity, or vertebral point tenderness. No Meningismus. Chest/axilla: Normal chest wall appearance and motion. Nontender with no deformity. No lesions are appreciated. Cardiovascular: Regular rate and rhythm with a normal S1 and S2. No gallops, murmurs, or rubs. Normal PMI, no JVD. No pulse deficits. Respiratory: Lungs have equal breath sounds bilaterally, clear to auscultation and percussion. No rales, rhonchi or wheezes noted. No increased work of breathing, no retractions or nasal flaring. Back: No spinal tenderness. No costovertebral tenderness. Full range of motion. snw 17:02 10:43 Abdomen/GI: Inspection: abdomen appears normal, Bowel sounds: normal, in all snw quadrants, Palpation: moderate abdominal tenderness, in the left upper quadrant, snw 19:21 17:27 06/12/2018 17:[address] [facility]. Diagnosis is ch Unspecified combined systolic (congestive) and diastolic (congestive) heart failure; Upper abdominal pain, unspecified; Gastrointestinal hemorrhage, unspecified. Reason for transfer: Higher level of care. Accepting physician is Dr. Orlando . Condition is Stable. Problem is an acute exacerbation. Symptoms have worsened. snw
--- NOTE | 2018-06-12 17:28 | ER ---
Nurse's Notes [facility] Name: Travis Cardona Age: 73 yrs Sex: Male : 1945 Arrival Date: 06/12/2018 Time: 10:13 Bed 16 Private MD: Diagnosis: Unspecified combined systolic (congestive) and diastolic (congestive) heart failure;Upper abdominal pain, unspecified;Gastrointestinal hemorrhage, unspecified Presentation: 06/12 10:16 Presenting complaint: EMS states: toned out by pt because pt states "I am dying". c/o ch pain all over. Transition of care: patient was not received from another setting of care. Onset of symptoms was June 12, 2018 at 09:00. Risk Assessment: Do you want to hurt yourself or someone else? Patient reports no desire to harm self or others. Initial Sepsis Screen: Does the patient meet any 2 criteria? No. Patient's initial sepsis screen is negative. Does the patient have a suspected source of infection? No. Patient's initial sepsis screen is negative. Care prior to arrival: None. 10:16 Method Of Arrival: EMS: [facility] 10:16 Acuity: HIMA 3 Triage Assessment: 11:10 General: Appears in no apparent distress. comfortable, Behavior is uncooperative. Pain: Complains of pain in left upper quadrant Pain currently is 7 out of 10 on a pain scale. Neuro: No deficits noted. Level of Consciousness is awake, alert, obeys commands, Oriented to person, place, time, situation, Fruit Dryer are equal bilaterally Moves all extremities. Speech is normal, Facial symmetry appears normal, Facial symmetry: tongue is midline, Pupils are PERRLA. Respiratory: Airway is patent Respiratory effort is even, unlabored, Breath sounds with wheezes bilaterally. GI: Reports upper abdominal pain. Derm: Skin is pale. 11:10 Musculoskeletal: No signs and/or symptoms reported regarding the musculoskeletal system. Historical: - Allergies: 13:49 No Known Allergies; - Home Meds: 10:15 hydralazine 25 mg Oral tab 1 tab three times a day [Active]; atorvastatin 40 mg Oral ch tab 1 tab once daily [Active]; 13:49 calcium vitamin D 250 mg/125 mg daily [Active]; cyanocobalamin (vitamin B-12) 1,000 mcg ch Oral tab daily [Active]; Furosemide Oral [Active]; glipizide 5 mg Oral tab 1 tab 2 times per day [Active]; isosorbide dinitrate 30 mg Oral tab 1 tab 3 times per day [Active]; isosorbide mononitrate 30 mg Oral Tb24 1 tab once daily [Active]; losartan 50 mg Oral tab 1 tab once daily [Active]; metoprolol tartrate 100 mg Oral tab 2 tabs 2 times per day [Active]; ProAir HFA inhalation [Active]; tamsulosin 0.4 mg Oral cp24 1 cap once daily [Active]; tramadol 50 mg Oral tab 1 tab three times a day [Active]; med list might not be accurate 06/12/18, pt refuses to give medications, states he doesnt know [Active]; - PMHx: 10:15 BPH; Hypertension; Myocardial infarction; Diabetes - NIDDM; CAD; COPD; Hyperlipidemia; ch - PSHx: 10:15 Appendectomy; ch - Immunization history:: Adult Immunizations up to date. - Social history:: Smoking status: Patient/guardian denies using tobacco. - Ebola Screening: : Patient negative for fever greater than or equal to 101.5 degrees Fahrenheit, and additional compatible Ebola Virus Disease symptoms Patient denies exposure to infectious person Patient denies travel to an Ebola-affected area in the 21 days before illness onset No symptoms or risks identified at this time. Screenin:34 Abuse screen: Denies threats or abuse. Denies injuries from another. Nutritional ch screening: No deficits noted. Tuberculosis screening: No symptoms or risk factors identified. Fall Risk None identified. Assessment: 11:30 Reassessment: Patient appears in no apparent distress at this time. pt removes cardiac ch monitoring, states "I dont need that shit." pt refuses tele monitoring. 12:12 Reassessment: Patient appears in no apparent distress at this time. No changes from ch previously documented assessment. Patient and/or family updated on plan of care and expected duration. Pain level reassessed. pt is very grumpy in room, will yell at staff members and is very un cooperative. pt is aaox4, when given the option of refusing care, and leaving, pt will acquiesce to our requests. pt states he does want help, but is verbally abusive to the staff, cursing and refusing care until told he can sign out ama. then pt states he does not want to sign out ama, and will comply with his care plan and allow us tog et samples and give medications. 12:31 Reassessment: Patient appears in no apparent distress at this time. Patient and/or ch family updated on plan of care and expected duration. Pain level reassessed. Patient is alert, oriented x 3, equal unlabored respirations, skin warm/dry/pink. pt is quiet and more complacent in room.pt finished contrast now, CT notified. pt toerlated well, given more blankets, door to room left open due to cold temp in room. Patient states feeling better. Patient states symptoms have improved. 13:45 Reassessment: Patient appears in no apparent distress at this time. Patient and/or ch family updated on plan of care and expected duration. Pain level reassessed. Patient is alert, oriented x 3, equal unlabored respirations, skin warm/dry/pink. pt uses urinal. 16:42 Reassessment: Patient appears in no apparent distress at this time. pt oob to restroom, ch ambulatory, aaox4, resps even and unlabored. pt returned to bed, and refuses cardiac monitoring states "Im not here for my damn heart". pt will allow bp and pulse ox monitoring. pt states he feels better. repeat [place] nd H drawn, pt is compliant and allows blood draw. pt given another blanket, lights dimmed, door closed. pt says thank you to me when I leave. pt denies pain at this time. 17:56 Reassessment: Patient appears in no apparent distress at this time. Patient and/or ch family updated on plan of care and expected duration. Pain level reassessed. Patient is alert, oriented x 3, equal unlabored respirations, skin warm/dry/pink. report called to [facility], awaiting blood transfusion to start prior to pt leaving. pt son contacted and given update with pt permission. pt sleepingin room. 19:18 Reassessment: Patient appears in no apparent distress at this time. Patient and/or ch family updated on plan of care and expected duration. Pain level reassessed. Patient is alert, oriented x 3, equal unlabored respirations, skin warm/dry/pink. blood transfusion started, report given to EMS, pt transferred out with unit of blood hanging. pt resps even and unlabored, see transfusion flow sheet for vitals. Patient denies pain at this time. Neuro: No deficits noted. Respiratory: Airway is patent Respiratory effort is even, unlabored, Breath sounds are clear bilaterally. Vital Signs: 11:10 BP 132 / 86; Pulse 74; Resp 16; Temp 98.8; Pulse Ox 97% on R/A; Pain 7/10; ch 12:11 BP 121 / 64; Pulse 68; Resp 16; Pulse Ox 99% on R/A; Pain 7/10; ch 13:45 BP 123 / 73; Pulse 56; Resp 14; Pulse Ox 96% on R/A; Pain 0/10; ch 14:50 BP 110 / 51; Pulse 58; Resp 14; Temp 98.1; Pulse Ox 99% on R/A; Pain 0/10; ch 15:40 BP 121 / 61; Pulse 57; Resp 18; Temp 98.8; Pulse Ox 99% on R/A; Pain 4/10; ch 16:42 BP 141 / 82; Pulse 64; Resp 14; Pulse Ox 99% on R/A; Pain 0/10; ch 17:56 BP 131 / 87; Pulse 64; Resp 14; Temp 97.6; Pulse Ox 99% on R/A; Pain 0/10; ch 19:10 BP 156 / 87; Pulse 68; Resp 21; Temp 98.4; Pulse Ox 99% on R/A; Pain 0/10; ch 14:50 pt sleeping ch ED Course: 10:13 Patient arrived in ED. ch 10:15 Arm band placed on left wrist. Patient placed in an exam room, on a stretcher, on pulse ch oximetry. 10:17 Triage completed. ch 10:25 Patient has correct armband on for positive identification. Placed in gown. Bed in low ch position. Call light in reach. Side rails up X2. Pulse ox on. NIBP on. 10:29 Rebecca Ramsey FNP-C is PHCP. snw 10:29 Shiv Wesley MD is Attending Physician. snw 10:35 Anai Wynne RN is Primary Nurse. ch 10:43 X-ray completed. Portable x-ray completed in exam room. Patient tolerated procedure kp1 well. 10:43 XRAY Chest (1 view) In Process Unspecified. EDMS 10:56 EKG done, by ED staff, reviewed by Rebecca MELENDEZ. jb1 11:00 Inserted saline lock: 18 gauge in left forearm, using aseptic technique. ch 12:11 No apparent distress. Resting quietly. ch 12:11 Inserted saline lock: 18 gauge in left antecubital area, using aseptic technique. ch 12:11 No provider procedures requiring assistance completed. ch 14:27 Abdomen In Process Unspecified. EDMS 16:46 initiated transfer with Yamileth at the [facility] transfer center. eb 17:[address] Chris and the Hospitalist Dr. Orlando clinical application manager for [facility] eb with Rebecca MURILLO for patient transfer consulation. 17:18 administrative approval given by Yamileth Herrera RN recruiter coordinator/ Dr. Orlando has eb accepted the patient in transfer/ patient going to bed 2451/ report to be called to [phone]. 19:10 Patient transferred, IV remains in place. Administered Medications: 12:33 Drug: Magnesium Sulfate 1 grams Route: IVPB; Infused Over: 1 hrs; Site: left forearm; ch 13:46 Follow up: IV Status: Completed infusion; IV Intake: 100ml ch 17:50 Drug: Lasix 40 mg Route: IVP; Site: left forearm; ch 19:18 Follow up: Response: No adverse reaction; Marked relief of symptoms ch Intake: 13:46 IV: 100ml; Total: 100ml. Outcome: 17:27 ER care complete, transfer ordered by MD. fraire 19:10 Transferred by ground EMS to [facility], Transfer form completed. X-rays sent w/ patient. 19:10 Condition: stable 19:10 Instructed on the need for transfer. 19:21 Patient left the ED. Signatures: Dispatcher [employer] Garland Nolan [email or web address] Anai Wynne, ISAURA RN Rebecca Blum FNP-C FNP-Felicity Quan kp1 Carol Yang eb
[2018-06-12] MEDS ORDERED: FUROSEMIDE 40 MG/4 ML VIAL ONE (17:43)
[2018-06-12] MEDS ORDERED: NA CHLORIDE 0.9% 250 ML ONE (17:44)
--- NOTE | 2018-06-14 09:17 | EKG ---
Test Date: 2018-06-12 Test Time: 10:49:33 Oil Dipper: [place] MEASUREMENT RESULTS: Intervals: Rate: 62 AK: 162 QRSD: 96 QT: 458 QTc: 464 Taylor: P: 28 AK: 162 QRS: 71 T: 167 INTERPRETIVE STATEMENTS: Normal sinus rhythm Left ventricular hypertrophy with repolarization abnormality Inferior infarct, age undetermined Abnormal ECG Compared to ECG 05/30/2018 00:09:10 Myocardial infarct finding now present Ventricular premature complex(es) no longer present Electronically Signed On 06-14-18 09:16:58 ROLL HAND by Cristian Li
== END 2018-06-12 19:21 | disposition short-term general hospital (02) ==
LOC: ER 10:13
PROC: 30233N1 Transfusion of Nonautologous Red Blood Cells into Peripheral Vein, Percutaneous Approach (ICD-10-PCS; principal; 2018-06-12)
DX: K92.2 Gastrointestinal hemorrhage, unspecified (principal); I50.40 Unspecified combined systolic (congestive) and diastolic (congestive) heart failure; I10 Essential (primary) hypertension; E11.9 Type 2 diabetes mellitus without complications; J44.9 Chronic obstructive pulmonary disease, unspecified; E78.5 Hyperlipidemia, unspecified; I25.2 Old myocardial infarction
CPT/HCPCS: 96365; 93005; 85025; 80048; 36415; 86900; 83735; 86850; 85610; 86901; 80076; 83605; 84443; 85018; 85014; 84484; 83880; 74176; 71045; 96375; 99285; 36430; J1940; J3475; P9016

== ENCOUNTER 2018-07-02 06:22 | Emergency (ER) | payer OTHER ==
--- OUTSIDE RECORDS SUMMARY | 2018-07-02 06:25 | XMS REPORT | Clinical Summary ---
:1945 Author Organization [facility] [employer] Address [address] [place] [address] Care Team Providers Name Role Phone Pcp, No Primary Care Provider Unavailable Allergies No Known Allergies Medications Medication Sig Dispensed Refills Start End Date Status Date hydrALAZINE Take 25 mg by 0 Active (APRESOLINE) 25 MG mouth 3 (three) tablet times daily. glipiZIDE Take 10 mg by 0 Active (GLUCOTROL XL) 10 mouth 2 (two) MG 24 hr tablet times daily. calcium Take 1 tablet by 0 Active carbonate-vitamin mouth daily. D3 (OSCAL) 250-125 mg-unit Tab per tablet atorvastatin Take 20 mg by 0 Active (LIPITOR) 20 MG mouth nightly. tablet tamsulosin (FLOMAX) Take 0.4 mg by 0 Active 0.4 mg Cap 24 hr mouth nightly. capsule furosemide (LASIX) Take 60 mg by 0 Active 20 MG tablet mouth 2 (two) times daily. losartan (COZAAR) Take 50 mg by 0 Active 50 MG tablet mouth daily. ferrous gluconate Take 324 mg by 0 Active (FERGON) 324 MG mouth 3 (three) tablet times daily with meals. ascorbic acid, Take 500 mg by 0 Active vitamin C, mouth daily. (ASCORBIC ACID WITH NAMAN HIPS) 500 MG tablet loratadine Take 10 mg by 0 Active (CLARITIN) 10 mg mouth. tablet b complex vitamins Take 1 capsule by 0 Active capsule mouth daily. vitamin A 8000 UNIT Take 24,000 Units 0 Active capsule by mouth daily. vitamin E 400 UNIT Take 400 Units by 0 Active capsule mouth daily. insulin aspart Inject 0 Active U-100 (NOVOLOG) 100 subcutaneously. unit/mL injectionIndication s: No set amount insulin detemir Inject 10 Units 0 Active U-100 (LEVEMIR) 100 subcutaneously unit/mL (3 mL) InPn nightly. injection calcium-vitamin D Take 1 tablet by 0 Active (OSCAL) tablet 250 mouth daily. mg-125 units cyanocobalamin 1000 Take 1,000 mcg by 0 Active MCG tablet mouth daily. isosorbide Take 1 tablet (60 30 tablet 2 Active mononitrate (IMDUR) mg total) by mouth 9 60 MG 24 hr tablet daily. metoprolol Take 1 tablet (50 30 tablet 2 06/15/19 Active (TOPROL-XL) 50 MG mg total) by mouth 9 20 24 hr tablet daily. isosorbide Take 30 mg by 0 06/16/19 Discontinued mononitrate (IMDUR) mouth daily. 19 30 MG 24 hr tablet predniSONE Take 10 mg by 0 06/16/19 Discontinued (DELTASONE) 10 MG mouth 2 (two) 19 tablet times daily. aspirin 81 MG EC Take 81 mg by 0 06/16/19 Discontinued tablet mouth daily. 19 metoprolol Take 50 mg by 0 06/16/19 Discontinued (LOPRESSOR) 50 MG mouth 2 (two) 19 tablet times daily. 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 05/31/2018 complication, with long-term current use of insulin Resolved Problems Problem Noted Date Resolved Date Chest pain 05/31/2018 06/15/2018 Encounters Date Type Specialty Care Team Description 06/13/2018 Orders Only General Internal Medicine 06/13/2018 Travel 06/12/2018 Hospital Cardiology Bebe [place], Chest pain, unspecified type ( Primary Dx); - Encounter MD Caba of duodenal ulcer; 06/15/2018 [place], Coronary artery disease of [place] heart with stable angina pectoris, unspecified vessel or lesion type ([facility]); MD Elliot Essential hypertension; Orlando Mcginnis Acute on chronic anemia; MD Jessica Chronic systolic heart failure (HCC); CKD (chronic kidney disease), stage IV (HCC) 06/02/2018 Anesthesia Event Gastroenterology Marlyn Dias MD 06/02/2018 Surgery Gastroenterology Valdo Andres UPPER Jeremy ENDOSCOPY,SCLEROTHERAP Y 05/31/2018 Hospital Intensive Care [place], Acute lower GI bleeding; - Encounter MD Lula Chest pain, unspecified type; 06/04/[address] of the abdomen; MD Stanley Thickening of wall of gallbladder; Acute blood loss anemia; Acute systolic congestive heart failure (HCC); Diabetes mellitus due to underlying condition with diabetic polyneuropathy, with long-term current use of insulin (HCC); Gastrointestinal hemorrhage, unspecified gastrointestinal hemorrhage type; Elevated liver enzymes; Duodenal ulcer with hemorrhage; Adjustment disorder, unspecified type; CKD (chronic kidney disease), stage IV (HCC); LV dysfunction 05/31/2018 Travel after 07/01/2017 Family History Medical History Relation Name Comments Heart disease Father Relation Name Status Comments Father Social History Tobacco Use Types Packs/Day Years Used Date Former Smoker Smokeless Tobacco: Never Used Sex Assigned at Date Recorded Not on file Job Start Date Occupation Industry Not on file Not on file Not on file Travel History Travel Start Travel End No recent travel history available. Last Filed Vital Signs Vital Sign Reading Time Taken Blood Pressure 122/63 06/15/2018 7:00 AM CHIEF DISPATCHER Pulse 98 06/15/2018 8:30 AM CHIEF DISPATCHER Temperature 36.5 C (97.7 F) 06/15/2018 7:00 AM CHIEF DISPATCHER Respiratory Rate 18 06/15/2018 8:30 AM CHIEF DISPATCHER Oxygen Saturation 98% 06/15/2018 8:30 AM CHIEF DISPATCHER Inhaled Oxygen Concentration - - Weight 69.8 kg (153 lb 14.4 oz) 06/15/2018 7:00 AM CHIEF DISPATCHER Height 185.4 cm (6' 1") 06/12/2018 11:41 PM CHIEF DISPATCHER Body Mass Index 20.3 06/15/2018 7:00 AM CHIEF DISPATCHER Plan of Treatment Not on file Procedures Procedure Name Priority Date/Time Associated Comments Diagnosis RHYTHM STRIP - SCAN 06/18/2018 9:01 AM CHIEF DISPATCHER REPORT OF PROCEDURE - 06/18/2018 9:01 ENDOSCOPY SCAN AM CHIEF DISPATCHER POCT-GLUCOSE METER Routine 06/15/2018 7:33 Results for this AM CHIEF DISPATCHER procedure are in the results section. CBC W/PLT COUNT & Routine 06/15/2018 5:07 Results for this AUTO DIFFERENTIAL AM CHIEF DISPATCHER procedure are in the results section. CBC W/PLT COUNT & Routine 06/15/2018 5:07 Results for this AUTO DIFFERENTIAL AM CHIEF DISPATCHER procedure are in the results section. BASIC METABOLIC PANEL Routine 06/15/2018 5:07 Results for this (7) AM CHIEF DISPATCHER procedure are in the results section. POCT-GLUCOSE METER Routine 06/14/2018 9:49 Results for this PM CHIEF DISPATCHER procedure are in the results section. POCT-GLUCOSE METER Routine 06/14/2018 4:53 Results for this PM CHIEF DISPATCHER procedure are in the results section. POCT-GLUCOSE METER Routine 06/14/2018 2:29 Results for this PM CHIEF DISPATCHER procedure are in the results section. POCT-GLUCOSE METER Routine 06/14/2018 8:56 Results for this AM CHIEF DISPATCHER procedure are in the results section. CBC W/PLT COUNT & Routine 06/14/2018 4:18 Results for this AUTO DIFFERENTIAL AM CHIEF DISPATCHER procedure are in the results section. FERRITIN Routine 06/14/2018 4:18 Results for this AM CHIEF DISPATCHER procedure are in the results section. IRON, TIBC, % SAT. Routine 06/14/2018 4:18 Results for this (WITHOUT FERRITIN) AM CHIEF DISPATCHER procedure are in the results section. TSH/FREE T4 IF Routine 06/14/2018 4:18 Results for this INDICATED AM CHIEF DISPATCHER procedure are in the results section. CBC W/PLT COUNT & Routine 06/14/2018 4:18 Results for this AUTO DIFFERENTIAL AM CHIEF DISPATCHER procedure are in the results section. BASIC METABOLIC PANEL Routine 06/14/2018 4:18 Results for this (7) AM CHIEF DISPATCHER procedure are in the results section. B-TYPE NATRIURETIC Routine 06/14/2018 4:18 Results for this FACTOR (BNP) AM CHIEF DISPATCHER procedure are in the results section. POCT-GLUCOSE METER Routine 06/13/2018 9:09 Results for this PM CHIEF DISPATCHER procedure are in the results section. POCT-GLUCOSE METER Routine 06/13/2018 5:30 Results for this PM CHIEF DISPATCHER procedure are in the results section. H. PYLORI ANTIGEN, Routine 06/13/2018 3:12 Results for this STOOL PM CHIEF DISPATCHER procedure are in the results section. POCT-GLUCOSE METER Routine 06/13/2018 12:09 Results for this PM CHIEF DISPATCHER procedure are in the results section. XR CHEST 1 VIEW Routine 06/13/2018 7:54 Results for this PORTABLE/BEDSIDE AM CHIEF DISPATCHER procedure are in the results section. POCT-GLUCOSE METER Routine 06/13/2018 7:28 Results for this AM CHIEF DISPATCHER procedure are in the results section. CBC W/PLT COUNT & Routine 06/13/2018 6:12 Results for this AUTO DIFFERENTIAL AM CHIEF DISPATCHER procedure are in the results section. TROPONIN I Routine 06/13/2018 6:12 Results for this AM CHIEF DISPATCHER procedure are in the results section. MAGNESIUM Routine 06/13/2018 6:12 Results for this AM CHIEF DISPATCHER procedure are in the results section. CBC W/PLT COUNT & Routine 06/13/2018 6:12 Results for this AUTO DIFFERENTIAL AM CHIEF DISPATCHER procedure are in the results section. BASIC METABOLIC PANEL Routine 06/13/2018 6:12 Results for this (7) AM CHIEF DISPATCHER procedure are in the results section. B-TYPE NATRIURETIC Routine 06/13/2018 6:12 Results for this FACTOR (BNP) AM CHIEF DISPATCHER procedure are in the results section. POCT-GLUCOSE METER Routine 06/13/2018 1:11 Results for this AM CHIEF DISPATCHER procedure are in the results section. TROPONIN I Routine 06/13/2018 12:10 Results for this AM CHIEF DISPATCHER procedure are in the results section. HEMOGLOBIN AND Routine 06/13/2018 12:10 Results for this HEMATOCRIT AM CHIEF DISPATCHER procedure are in the results section. ECG 12-LEAD Routine 06/13/2018 12:03 AM CHIEF DISPATCHER Procedure Note - Interface, External Ris In - 06/13/2018 1:55 AM CHIEF DISPATCHER Ventricular Rate 71 BPM Atrial Rate 71 BPM P-R Interval 150 ms QRS Duration 94 ms Q-T Interval 468 ms QTC Calculation(Bazett) 508 ms P [place] 9 degrees R [place] 65 degrees T [place] 209 degrees Sinus rhythm with occasional Premature ventricular complexes Moderate voltage criteria for LVH, may be normal variant Cannot rule out Inferior infarct (cited on or before 31-MAY-2018) Marked T wave abnormality, consider anterolateral ischemia Prolonged QT Abnormal ECG When compared with ECG of 31-MAY-2018 07:23, Premature atrial complexes are no longer Present T wave inversion more evident in Inferior leads T wave inversion less evident in Lateral leads QT has shortened ECG 12-LEAD Routine 06/13/2018 12:03 AM CHIEF DISPATCHER ECG 12-LEAD Routine 06/13/2018 12:02 AM CHIEF DISPATCHER Procedure Note - Interface, External Ris In - 06/13/2018 1:55 AM CHIEF DISPATCHER Ventricular Rate 73 BPM Atrial Rate 73 BPM P-R Interval 146 ms QRS Duration 94 ms Q-T Interval 466 ms QTC Calculation(Bazett) 513 ms P [place] 3 degrees R [place] 66 degrees T [place] 210 degrees Sinus rhythm with frequent Premature ventricular complexes Minimal voltage criteria for LVH, may be normal variant Cannot rule out Inferior infarct (cited on or before 31-MAY-2018) Marked T wave abnormality, consider anterolateral ischemia Prolonged QT Abnormal ECG When compared with ECG of 31-MAY-2018 07:23, Premature atrial complexes are no longer Present T wave inversion more evident in Inferior leads T wave inversion less evident in Lateral leads QT has shortened RHYTHM STRIP - SCAN 06/09/2018 10:50 AM CHIEF DISPATCHER TRANSFUSION SERVICE 06/06/2018 6:01 PM REPORT - SCAN CHIEF DISPATCHER TRANSFUSION SERVICE 06/05/2018 6:02 PM REPORT - SCAN CHIEF DISPATCHER PREPARE LEUKO-REDUCED STAT 06/04/2018 11:54 PM Results for this RBC CHIEF DISPATCHER procedure are in the results section. TRANSFUSION SERVICE 06/04/2018 6:02 PM REPORT - SCAN CHIEF DISPATCHER PREPARE LEUKO-REDUCED STAT 06/04/2018 4:02 PM Results for this RBC CHIEF DISPATCHER procedure are in the results section. CBC (HEMOGRAM ONLY) Routine 06/04/2018 2:36 PM Results for this CHIEF DISPATCHER procedure are in the results section. POCT-GLUCOSE METER Routine 06/04/2018 2:27 PM Results for this CHIEF DISPATCHER procedure are in the results section. POCT-GLUCOSE METER Routine 06/04/2018 12:02 PM Results for this CHIEF DISPATCHER procedure are in the results section. GASTRIN Routine 06/04/2018 8:22 AM Results for this CHIEF DISPATCHER procedure are in the results section. HEMOGLOBIN AND Routine 06/04/2018 8:22 AM Results for this HEMATOCRIT CHIEF DISPATCHER procedure are in the results section. HEPATIC FUNCTION PANEL Routine 06/04/2018 8:20 AM Results for this CHIEF DISPATCHER procedure are in the results section. BASIC METABOLIC PANEL Routine 06/04/2018 8:20 AM Results for this (7) CHIEF DISPATCHER procedure are in the results section. POCT-GLUCOSE METER Routine 06/04/2018 6:31 AM Results for this CHIEF DISPATCHER procedure are in the results section. TRANSFUSE LEUKO-REDUCED STAT 06/04/2018 1:05 AM RED BLOOD CELLS CHIEF DISPATCHER PREPARE LEUKO-REDUCED Routine 06/03/2018 11:54 PM Results for this RBC CHIEF DISPATCHER procedure are in the results section. PREPARE LEUKO-REDUCED Routine 06/03/2018 11:54 PM Results for this RBC CHIEF DISPATCHER procedure are in the results section. POCT-GLUCOSE METER Routine 06/03/2018 11:43 PM Results for this CHIEF DISPATCHER procedure are in the results section. TYPE AND SCREEN, STAT 06/03/2018 10:38 PM Results for this AUTOMATED CHIEF DISPATCHER procedure are in the results section. PT/APTT Routine 06/03/2018 10:38 PM Results for this CHIEF DISPATCHER procedure are in the results section. PROTHROMBIN TIME/INR Routine 06/03/2018 10:38 PM Results for this CHIEF DISPATCHER procedure are in the results section. HEMOGLOBIN AND STAT 06/03/2018 10:38 PM Results for this HEMATOCRIT CHIEF DISPATCHER procedure are in the results section. POCT-GLUCOSE METER Routine 06/03/2018 8:35 PM Results for this CHIEF DISPATCHER procedure are in the results section. HEMOGLOBIN AND Routine 06/03/2018 8:30 PM Results for this HEMATOCRIT CHIEF DISPATCHER procedure are in the results section. POCT-GLUCOSE METER Routine 06/03/2018 6:29 PM Results for this CHIEF DISPATCHER procedure are in the results section. TRANSFUSION SERVICE 06/03/2018 6:02 PM REPORT - SCAN CHIEF DISPATCHER NM MYOCARDIAL VIABILITY Routine 06/03/2018 2:14 PM Results for this EVALUATION PET CHIEF DISPATCHER procedure are in the results section. HEMOGLOBIN AND Routine 06/03/2018 2:03 PM Results for this HEMATOCRIT CHIEF DISPATCHER procedure are in the results section. POCT-GLUCOSE METER Routine 06/03/2018 1:46 PM Results for this CHIEF DISPATCHER procedure are in the results section. POCT-GLUCOSE METER Routine 06/03/2018 12:03 PM Results for this CHIEF DISPATCHER procedure are in the results section. POCT-GLUCOSE METER Routine 06/03/2018 10:35 AM Results for this CHIEF DISPATCHER procedure are in the results section. US RENAL COMPLETE Routine 06/03/2018 8:10 AM Results for this CHIEF DISPATCHER procedure are in the results section. POCT-GLUCOSE METER Routine 06/03/2018 6:22 AM Results for this CHIEF DISPATCHER procedure are in the results section. CALCIUM, IONIZED Routine 06/03/2018 4:12 AM Results for this CHIEF DISPATCHER procedure are in the results section. CBC W/PLT COUNT & AUTO Routine 06/03/2018 4:00 AM Results for this DIFFERENTIAL CHIEF DISPATCHER procedure are in the results section. MAGNESIUM STAT 06/03/2018 4:00 AM Results for this CHIEF DISPATCHER procedure are in the results section. BASIC METABOLIC PANEL Routine 06/03/2018 4:00 AM Results for this (7) CHIEF DISPATCHER procedure are in the results section. CBC W/PLT COUNT & AUTO Routine 06/03/2018 4:00 AM Results for this DIFFERENTIAL CHIEF DISPATCHER procedure are in the results section. POCT-GLUCOSE METER Routine 06/02/2018 11:53 PM Results for this CHIEF DISPATCHER procedure are in the results section. HEMOGLOBIN AND Routine 06/02/2018 11:51 PM Results for this HEMATOCRIT CHIEF DISPATCHER procedure are in the results section. TRANSFUSE LEUKO-REDUCED Routine 06/02/2018 11:11 PM RED BLOOD CELLS CHIEF DISPATCHER POCT-GLUCOSE METER Routine 06/02/2018 6:18 PM Results for this CHIEF DISPATCHER procedure are in the results section. TRANSFUSION SERVICE 06/02/2018 6:02 PM REPORT - SCAN CHIEF DISPATCHER URINALYSIS W/ REFLEX Routine 06/02/2018 4:01 PM Results for this URINE CULTURE CHIEF DISPATCHER procedure are in the results section. UREA NITROGEN, RANDOM Routine 06/02/2018 4:01 PM Results for this URINE CHIEF DISPATCHER procedure are in the results section. CREATININE, RANDOM Routine 06/02/2018 4:01 PM Results for this URINE CHIEF DISPATCHER procedure are in the results section. SODIUM, RANDOM URINE Routine 06/02/2018 4:01 PM Results for this CHIEF DISPATCHER procedure are in the results section. HEMOGLOBIN AND Routine 06/02/2018 4:01 PM Results for this HEMATOCRIT CHIEF DISPATCHER procedure are in the results section. REPORT OF PROCEDURE - 06/02/2018 2:05 PM ENDOSCOPY URL CHIEF DISPATCHER POCT-GLUCOSE METER Routine 06/02/2018 12:30 PM Results for this CHIEF DISPATCHER procedure are in the results section. MAGNESIUM STAT 06/02/2018 10:58 AM Results for this CHIEF DISPATCHER procedure are in the results section. COMPREHENSIVE METABOLIC STAT 06/02/2018 10:58 AM Results for this PANEL CHIEF DISPATCHER procedure are in the results section. HEMOGLOBIN AND Routine 06/02/2018 9:51 AM Results for this HEMATOCRIT CHIEF DISPATCHER procedure are in the results section. REPORT OF PROCEDURE - 06/02/2018 9:22 AM ENDOSCOPY URL CHIEF DISPATCHER TRANSFUSE LEUKO-REDUCED Routine 06/02/2018 8:32 AM RED BLOOD CELLS CHIEF DISPATCHER POCT-GLUCOSE METER Routine 06/02/2018 7:15 AM Results for this CHIEF DISPATCHER procedure are in the results section. UPPER 06/02/2018 7:00 AM Lower GI bleeding ENDOSCOPY,SCLEROTHERAPY CHIEF DISPATCHER COLONOSCOPY 06/02/2018 7:00 AM Lower GI bleeding CHIEF DISPATCHER TRANSFUSE LEUKO-REDUCED Routine 06/02/2018 6:27 AM RED BLOOD CELLS CHIEF DISPATCHER US ABDOMEN LIMITED Routine 06/02/2018 5:30 AM Results for this CHIEF DISPATCHER procedure are in the results section. HEMOGLOBIN AND Routine 06/02/2018 12:10 AM Results for this HEMATOCRIT CHIEF DISPATCHER procedure are in the results section. PREPARE LEUKO-REDUCED Routine 06/01/2018 11:54 PM Results for this RBC CHIEF DISPATCHER procedure are in the results section. POCT-GLUCOSE METER Routine 06/01/2018 11:45 PM Results for this CHIEF DISPATCHER procedure are in the results section. CT BRAIN WITHOUT IV Routine 06/01/2018 9:06 PM Results for this CONTRAST CHIEF DISPATCHER procedure are in the results section. HEMOGLOBIN AND STAT 06/01/2018 8:05 PM Results for this HEMATOCRIT CHIEF DISPATCHER procedure are in the results section. TRANSFUSION SERVICE 06/01/2018 6:13 PM REPORT - SCAN CHIEF DISPATCHER POCT-GLUCOSE METER Routine 06/01/2018 6:11 PM Results for this CHIEF DISPATCHER procedure are in the results section. HEMOGLOBIN AND STAT 06/01/2018 3:03 PM Results for this HEMATOCRIT CHIEF DISPATCHER procedure are in the results section. POCT-GLUCOSE METER Routine 06/01/2018 1:27 PM Results for this CHIEF DISPATCHER procedure are in the results section. LIPID PANEL Routine 06/01/2018 1:23 PM Results for this CHIEF DISPATCHER procedure are in the results section. HEMOGLOBIN A1C Routine 06/01/2018 1:23 PM Results for this CHIEF DISPATCHER procedure are in the results section. HEMOGLOBIN AND Routine 06/01/2018 1:23 PM Results for this HEMATOCRIT CHIEF DISPATCHER procedure are in the results section. XR ABDOMEN 1 VIEW Routine 06/01/2018 11:00 AM Results for this CHIEF DISPATCHER procedure are in the results section. POCT-GLUCOSE METER Routine 06/01/2018 10:05 AM Results for this CHIEF DISPATCHER procedure are in the results section. CBC W/PLT COUNT & AUTO Routine 06/01/2018 4:29 AM Results for this DIFFERENTIAL CHIEF DISPATCHER procedure are in the results section. MAGNESIUM Routine 06/01/2018 4:29 AM Results for this CHIEF DISPATCHER procedure are in the results section. RETICULOCYTE COUNT Routine 06/01/2018 4:29 AM Results for this CHIEF DISPATCHER procedure are in the results section. LACTATE DEHYDROGENASE Routine 06/01/2018 4:29 AM Results for this (LDH) CHIEF DISPATCHER procedure are in the results section. HAPTOGLOBIN Routine 06/01/2018 4:29 AM Results for this CHIEF DISPATCHER procedure are in the results section. FERRITIN Routine 06/01/2018 4:29 AM Results for this CHIEF DISPATCHER procedure are in the results section. IRON, TIBC, % SAT. Routine 06/01/2018 4:29 AM Results for this (WITHOUT FERRITIN) CHIEF DISPATCHER procedure are in the results section. CBC W/PLT COUNT & AUTO Routine 06/01/2018 4:29 AM Results for this DIFFERENTIAL CHIEF DISPATCHER procedure are in the results section. HEPATIC FUNCTION PANEL Routine 06/01/2018 4:29 AM Results for this CHIEF DISPATCHER procedure are in the results section. BASIC METABOLIC PANEL Routine 06/01/2018 4:29 AM Results for this (7) CHIEF DISPATCHER procedure are in the results section. HEMOGLOBIN AND Routine 06/01/2018 4:29 AM Results for this HEMATOCRIT CHIEF DISPATCHER procedure are in the results section. TRANSFUSE LEUKO-REDUCED Routine 06/01/2018 1:41 AM RED BLOOD CELLS CHIEF DISPATCHER 2D ECHO W/ DOPPLER STAT 06/01/2018 1:15 AM Results for this (CW/PW/COLOR) CHIEF DISPATCHER procedure are in the results section. POCT-GLUCOSE METER Routine 05/31/2018 11:07 PM Results for this CHIEF DISPATCHER procedure are in the results section. POCT-GLUCOSE METER Routine 05/31/2018 5:32 PM Results for this CHIEF DISPATCHER procedure are in the results section. HEMOGLOBIN AND Routine 05/31/2018 4:49 PM Results for this HEMATOCRIT CHIEF DISPATCHER procedure are in the results section. TROPONIN I Routine 05/31/2018 1:21 PM Results for this CHIEF DISPATCHER procedure are in the results section. POCT-GLUCOSE METER Routine 05/31/2018 12:22 PM Results for this CHIEF DISPATCHER procedure are in the results section. ECG 12-LEAD Routine 05/31/2018 7:23 AM Results for this CHIEF DISPATCHER procedure are in the results section. POCT-GLUCOSE METER Routine 05/31/2018 6:16 AM Results for this CHIEF DISPATCHER procedure are in the results section. CBC W/PLT COUNT & AUTO Routine 05/31/2018 4:53 AM Results for this DIFFERENTIAL CHIEF DISPATCHER procedure are in the results section. TYPE AND SCREEN, Routine 05/31/2018 4:53 AM Results for this AUTOMATED CHIEF DISPATCHER procedure are in the results section. B-TYPE NATRIURETIC Routine 05/31/2018 4:53 AM Results for this FACTOR (BNP) CHIEF DISPATCHER procedure are in the results section. HEPATIC FUNCTION PANEL Routine 05/31/2018 4:53 AM Results for this CHIEF DISPATCHER procedure are in the results section. TROPONIN I Routine 05/31/2018 4:53 AM Results for this CHIEF DISPATCHER procedure are in the results section. PROTHROMBIN TIME/INR Routine 05/31/2018 4:53 AM Results for this CHIEF DISPATCHER procedure are in the results section. CBC W/PLT COUNT & AUTO Routine 05/31/2018 4:53 AM Results for this DIFFERENTIAL CHIEF DISPATCHER procedure are in the results section. BASIC METABOLIC PANEL Routine 05/31/2018 4:53 AM Results for this (7) CHIEF DISPATCHER procedure are in the results section. after 07/01/2017 Results RHYTHM STRIP - SCAN (06/18/2018 9:01 AM CHIEF DISPATCHER)Only the most recent of2 resultswithin the time period is included. Narrative Performed At EKG-SCANNED (06/18/2018 9:01 AM CHIEF DISPATCHER) Narrative Performed At POC-Glucose meter (06/15/2018 7:33 AM CHIEF DISPATCHER)Only the most recent of32 resultswithin the time period is included. POC-Glucose Meter 158 (H)Comment: TESTED AT 70 - 110 mg/dL [address] [address] Specimen Blood Performing Organization Address City/State/Zipcode Phone Number [address] [address] CENTER CBC with platelet count + automated diff (06/15/2018 5:07 AM CHIEF DISPATCHER)Only the most recent of6 resultswithin the time period is included. WBC 4.9 3.5 - 10.5 K/L [facility] RBC 3.30 (L) 4.63 - 6.08 M/L [facility] Hemoglobin 9.6 (L) 13.7 - 17.5 GM/DL [facility] Hematocrit 29.6 (L) 40.1 - 51.0 % [facility] MCV 89.7 79.0 - 92.2 fL [facility] MCH 29.1 25.7 - 32.2 pg [facility] MCHC 32.4 32.3 - 36.5 GM/DL [facility] RDW 14.5 (H) 11.6 - 14.4 % [facility] Platelets 172 150 - 450 K/CU MM [facility] MPV 10.6 9.4 - 12.4 fL [facility] nRBC 0 0 - 0 /100 WBC [facility] % Neutros 72 % [facility] % Lymphs 13 % [facility] % Monos 9 % [facility] % Eos 5 % [facility] % Baso 1 % [facility] # Neutros 3.52 1.78 - 5.38 K/L [facility] # Lymphs 0.63 (L) 1.32 - 3.57 K/L [facility] # Monos 0.45 0.30 - 0.82 K/L [facility] # Eos 0.23 0.04 - 0.54 K/L [facility] # Baso 0.04 0.01 - 0.08 K/L [facility] Immature Granulocytes-Relative 0 0 - 1 % [facility] Specimen Blood - Arm, Right Performing Organization Address City/State/Zipcode Phone Number [place] [phone] [place] [address] CENTER Basic Metabolic Panel (06/15/2018 5:07 AM CHIEF DISPATCHER)Only the most recent of7 resultswithin the time period is included. Sodium 140 136 - 145 meq/L [facility] Potassium 4.0 3.5 - 5.1 meq/L [facility] Chloride 108 (H) 98 - 107 meq/L [facility] CO2 23 22 - 29 meq/L [facility] BUN 33 (H) 7 - 21 mg/dL [facility] Creatinine 2.22 (H) 0.57 - 1.25 mg/dL [facility] Glucose 136 (H) 70 - 105 mg/dL [facility] Calcium 8.2 (L) 8.4 - 10.2 mg/dL [facility] EGFR 29Comment: ESTIMATED GFR IS mL/min/1.73 sq m [facility] NOT ACCURATE [facility] CLEARANCE IN PREDICTING GLOMERULAR FILTRATION RATE. ESTIMATED GFR IS NOT APPLICABLE FOR DIALYSIS PATIENTS. Specimen Blood - Arm, Right Performing Organization Address City/[facility] Phone Number [address] [address] CENTER TSH/Free T4 If Indicated (06/14/2018 4:18 AM CHIEF DISPATCHER) TSH 0.78 0.35 - 4.94 uIU/mL [facility] Specimen Blood - Arm, Right Performing Organization Address [facility] Phone Number [address] [address] CENTER Iron, TIBC, % sat. (without ferritin) (06/14/2018 4:18 AM CHIEF DISPATCHER)Only the most recent of2 resultswithin the time period is included. Iron 27.0 (L) 40.0 - 160.0 ug/dL [facility] TIBC 199 (L) 250 - 450 ug/dL [facility] Iron % Saturation 14 (L) 20 - 55 % [facility] Specimen Blood - Arm, Right Performing Organization Address [facility] Phone Number [address] [address] CENTER B-type Natriuretic Factor (BNP) (06/14/2018 4:18 AM CHIEF DISPATCHER)Only the most recent of3 resultswithin the time period is included. BNP 844 (H) 0 - 100 pg/mL [facility] Specimen Blood - Arm, Right Performing Organization Address [facility] Phone Number [address] [place] [address] [phone] CENTER Ferritin (06/14/2018 4:18 AM CHIEF DISPATCHER)Only the most recent of2 resultswithin the time period is included. Ferritin 299 (H) 5 - 275 ng/mL [facility] Specimen Blood - Arm, Right Performing Organization Address [facility]/Zipcode Phone Number [address] [address] [place] H. pylori antigen, stool (06/13/2018 3:12 PM CHIEF DISPATCHER) H. pylori Antigen Not detected Not detected [facility] Comment: INCORPORATED Antimicrobials, proton pump inhibitors, and bismuth preparations inhibit H. pylori and ingestion up to two weeks prior to testing may cause false negative results. If clinically indicated the test should be repeated on a new specimen obtained two weeks after discontinuing treatment. Specimen Stool - Per Rectum Narrative Performed At Performing Lab [facility] *SPL [facility], [address] [place] [phone] Adal Garland MD, PhD Performing Organization Address City/[facility]/Zipcode Phone Number [facility], [place] [address] INCORPORATED [id number] [facility] XR chest 1 view portable / bedside (06/13/2018 7:54 AM CHIEF DISPATCHER) Narrative Performed At FINAL REPORT [facility] Clinical History: pulmonary edema? Comparison Study: None Findings:Several granulomas are seen in the left lung. The heart and lungs are otherwise within normal limits.The pleural spaces are clear.No significant bony or soft tissue abnormalities are seen. Impression: No active cardiopulmonary disease. Signed: Que Mitchell MD Report Verified Date/Time:06/13/2018 08:22:23 Reading Location: [facility] B1 C013Y CT Body Reading Room Procedure Note Interface, External Ris In - 06/13/2018 8:24 AM CHIEF DISPATCHER FINAL REPORT Clinical History: pulmonary edema? Comparison Study: None Findings: Several granulomas are seen in the left lung. The heart and lungs are otherwise within normal limits. The pleural spaces are clear. No significant bony or soft tissue abnormalities are seen. Impression: No active cardiopulmonary disease. Signed: Que Mitchell MD Report Verified Date/Time: 06/13/2018 08:22:23 Reading Location: [facility] C013Y CT Body Reading Room Performing Organization Address City/[facility] Phone Number GE RIS Troponin I (06/13/2018 6:12 AM CHIEF DISPATCHER)Only the most recent of4 resultswithin the time period is included. Troponin I 0.09 (H) 0.00 - 0.03 ng/mL [facility] Specimen Blood - Arm, Left Narrative Performed At Troponin I (TnI) levels must be interpreted [facility] in the context of the presenting symptoms [...] disease, and persistent tachyarrhythmia. Performing Organization Address [facility] Phone Number [address] [address] CENTER Magnesium (06/13/2018 6:12 AM CHIEF DISPATCHER)Only the most recent of4 resultswithin the time period is included. Magnesium 1.5 (L) 1.6 - 2.6 mg/dL [facility] Specimen Blood - Arm, Left Performing Organization Address [facility] Phone Number [address] [address] [phone] CENTER Hemoglobin and hematocrit (06/13/2018 12:10 AM CHIEF DISPATCHER)Only the most recent of14 resultswithin the time period is included. Hemoglobin 10.1 (L) 13.7 - 17.5 GM/DL [facility] Hematocrit 32.0 (L) 40.1 - 51.0 % [facility] Specimen Blood - Arm, Left Performing Organization Address City/State/Zipcode Phone Number [facility] [address] [place] [address] CENTER ECG 12 lead (06/13/2018 12:03 AM CHIEF DISPATCHER)Only the most recent of2 resultswithin the time period is included. Narrative Performed At Ventricular Rate 71 BPM [facility] Atrial Rate 71 BPM P-R Interval 150 ms QRS Duration 94 ms Q-T Interval 468 ms QTC Calculation(Bazett) 508 ms P [place] 9 degrees R [place]its[place] 65 degrees T [place] 209 degrees Sinus rhythm with occasional Premature ventricular complexes Moderate voltage criteria for LVH, may be normal variant Cannot rule out Inferior infarct (cited on or before 31-MAY-2018) Marked T wave abnormality, consider anterolateral ischemia Prolonged QT Abnormal ECG Confirmed by MD WONG MAJID ([id number]) on 06/13/2018 9:58:08 AM Procedure Note Interface, External Ris In - 06/13/2018 9:58 AM CHIEF DISPATCHER Ventricular Rate 71 BPM Atrial Rate 71 BPM P-R Interval 150 ms QRS Duration 94 ms Q-T Interval 468 ms QTC Calculation(Bazett) 508 ms P [place] 9 degrees R [place] 65 degrees T [place] 209 degrees Sinus rhythm with occasional Premature ventricular complexes Moderate voltage criteria for LVH, may be normal variant Cannot rule out Inferior infarct (cited on or before 31-MAY-2018) Marked T wave abnormality, consider anterolateral ischemia Prolonged QT Abnormal ECG Confirmed by MD WONG MAJID ([id number]) on 06/13/2018 9:58:08 AM Performing Organization Address City/[facility]/Zipcode Phone Number [facility] TRANSFUSION SERVICE REPORT - SCAN (06/06/2018 6:01 PM CHIEF DISPATCHER)Only the most recent of6 resultswithin the time period is included. Narrative Performed At Prepare Leuko-Red RBC (06/04/2018 11:54 PM CHIEF DISPATCHER)Only the most recent of5 resultswithin the time period is included. CROSSMATCH COMPATIBLE SAFETRACE TX Unit ABO A Neg SAFETRACE TX UNIT NUMBER [id number] SAFETRACE TX Status WORK IN PROGRESS SAFETRACE TX Blood Bank Product RED BLOOD CELLS SAFETRACE TX PRODUCT CODE [id number] SAFETRACE TX CROSSMATCH COMPATIBLE SAFETRACE TX Unit ABO A Neg SAFETRACE TX UNIT NUMBER [id number] SAFETRACE TX Status TX_TIMEINCHART SAFETRACE TX Blood Bank Product RED BLOOD CELLS SAFETRACE TX PRODUCT CODE [id number] SAFETRACE TX Specimen Other Performing Organization Address [facility] Phone Number SAFETRACE TX CBC (Hemogram only) (06/04/2018 2:36 PM CHIEF DISPATCHER) WBC 11.5 (H) 3.5 - 10.5 K/L [facility] RBC 2.81 (L) 4.63 - 6.08 M/L [facility] Hemoglobin 8.1 (L) 13.7 - 17.5 GM/DL [facility] Hematocrit 25.3 (L) 40.1 - 51.0 % [facility] MCV 90.0 79.0 - 92.2 fL [facility] MCH 28.8 25.7 - 32.2 pg [facility] MCHC 32.0 (L) 32.3 - 36.5 GM/DL [facility] RDW 16.2 (H) 11.6 - 14.4 % [facility] Platelets 202 150 - 450 K/CU MM [facility] MPV 11.1 9.4 - 12.4 fL [facility] nRBC 0 0 - 0 /100 WBC [facility] Specimen Blood - Arm, Right Performing Organization Address City/[facility]/Zipcode Phone Number [facility] [address] [place] [address] [phone] CENTER Gastrin (06/04/2018 8:22 AM CHIEF DISPATCHER) Gastrin, Serum 175 (H) < CU=992 pg/mL [facility] Comment: NOTE: Reference range applies to fasting specimen only. Specimen Blood Narrative Performed At Performing Lab [facility] EZ [facility] [address] [place] [address] Blair Hunter MD, PhD, IRA Performing Organization Address City/State/Zipcode Phone Number [facility], [place] [address] INCORPORATED [id number] [facility] Hepatic function panel (06/04/2018 8:20 AM CHIEF DISPATCHER)Only the most recent of3 resultswithin the time period is included. Protein, Total 4.7 (L) 6.0 - 8.3 gm/dL [facility] Albumin 3.0 (L) 3.5 - 5.0 g/dL [facility] Total Bilirubin 1.0 0.2 - 1.2 mg/dL [facility] Bilirubin, Direct 0.5 0.1 - 0.5 mg/dL [facility] Alkaline Phosphatase 87 40 - 150 U/L [facility] AST 26 5 - 34 U/L [facility] ALT 61 (H) 6 - 55 U/L [facility] Specimen Blood - Arm, Right Performing Organization Address [facility] Phone Number [address] [address] [phone] CENTER Transfuse Leuko-Red RBC (06/04/2018 1:05 AM CHIEF DISPATCHER)Only the most recent of9 resultswithin the time period is included.Type and screen, automated (2018 10:38 PM CHIEF DISPATCHER)Only the most recent of2 resultswithin the time period is included. ABO/RH AUTOMATED (BEAKER) A NEGATIVE [facility] Ab Scrn NEGATIVE [facility] Specimen Blood Performing Organization Address [facility] Phone Number [address] [address] [phone] PT/aPTT (06/03/2018 10:38 PM CHIEF DISPATCHER) Protime 15.2 (H) 11.7 - 14.7 seconds [facility] INR 1.2 <=5.9 [facility] PTT 28.6 22.5 - 36.0 seconds [facility] Specimen Blood Narrative Performed At RECOMMENDED COUMADIN/WARFARIN INR THERAPY [facility] RANGES STANDARD DOSE: 2.0 - 3.0 Includes: PROPHYLAXIS for venous thrombosis, systemic embolization; TREATMENT for venous thrombosis and/or pulmonary embolus. HIGH RISK: Target INR is 2.5-3.5 for patients with mechanical heart valves. Performing Organization Address City/[facility] Phone Number [address] [address] [phone] [place] Prothrombin time/INR (06/03/2018 10:38 PM CHIEF DISPATCHER)Only the most recent of2 resultswithin the time period is included. Protime 15.2 (H) 11.7 - 14.7 seconds [facility] INR 1.2 <=5.9 [facility] Specimen Blood Narrative Performed At RECOMMENDED COUMADIN/WARFARIN INR THERAPY [facility] RANGES STANDARD DOSE: 2.0 - 3.0 Includes: PROPHYLAXIS for venous thrombosis, systemic embolization; TREATMENT for venous thrombosis and/or pulmonary embolus. HIGH RISK: Target INR is 2.5-3.5 for patients with mechanical heart valves. Performing Organization Address [facility] Phone Number [place] [phone] [place] [address] [place] NM PET Cardiac Viability (06/03/2018 2:14 PM CHIEF DISPATCHER) Narrative Performed At FINAL REPORT [facility] PROCEDURE: MYOCARDIAL METABOLISM PET IMAGING with Rest MYOCARDIAL PERFUSION PET IMAGING\\XA9\\ CPT CODE:84515, 21583 INDICATION: Heart failure. Assess myocardial viability. HISTORY:Cardiac [...] myocardial viability. 7. No previous [facility] study for comparison. Signed: Zulema Duarte MD Report Verified Date/Time:06/03/2018 15:47:05 Reading Location: [address] Reading Room Procedure Note Interface, External Ris In - 06/03/2018 3:49 PM CHIEF DISPATCHER FINAL REPORT PROCEDURE: MYOCARDIAL METABOLISM PET IMAGING with Rest MYOCARDIAL PERFUSION PET IMAGING\\XA9\\ CPT CODE: 85721, 07191 INDICATION: Heart failure. Assess myocardial viability. HISTORY: [...] myocardial viability. 7. No previous [facility] study for comparison. Signed: Zulema Duarte MD Report Verified Date/Time: 06/03/2018 15:47:05 Reading Location: [address] Reading Room Performing Organization Address City/State/Zipcode Phone Number [facility] US renal complete (06/03/2018 8:10 AM CHIEF DISPATCHER) Narrative Performed At FINAL REPORT [place] Renal ultrasound Comparison: No comparison Clinical History:Acute [...] MD Report Verified Date/Time:06/03/2018 14:50:49 Reading Location: [address] Ultrasound Reading Room Procedure Note Interface, External Ris In - 06/03/2018 2:53 PM CHIEF DISPATCHER FINAL REPORT Renal ultrasound Comparison: No comparison [...] Report Verified Date/Time: 06/03/2018 14:50:49 Reading Location: [address] Ultrasound Reading Room Performing Organization Address City/State/Zipcode Phone Number [facility] Calcium, Ionized (06/03/2018 4:12 AM CHIEF DISPATCHER) Calcium, Ion 1.13 1.12 - 1.27 mmol/L [facility] pH, Blood 7.35 [facility] Specimen Blood Performing Organization Address [facility] Phone Number [address] [address] [place] Urinalysis w/Microscopic + Reflex to Culture (06/02/2018 4:01 PM CHIEF DISPATCHER) Color, UA Light Yellow [facility] Clarity, UA Clear [facility] Specific [place], UA 1.008 1.001 - 1.035 [facility] pH, UA 5.5 5.0 - 8.0 [facility] Protein, UA 70 mg/dL (A) Negative [facility] Glucose, UA 30 mg/dL (A) Negative [facility] Ketones, UA Negative Negative [facility] Bilirubin, UA Negative Negative [facility] Blood, UA Negative Negative [facility] Nitrite, UA Negative Negative [facility] Leukocytes, UA Negative Negative [facility] Urobilinogen, UA 0.2 0.2 - 1.0 mg/dL [facility] RBC, UA <1 /HPF [facility] WBC, UA 3 /HPF [facility] Mucus Rare [facility] Specimen Source [facility] Specimen Urine Performing Organization Address [facility]/Zipcode Phone Number [facility] [address] [place] [address] [phone] [place] Urea Nitrogen, random urine (06/02/2018 4:01 PM CHIEF DISPATCHER) Urea Nitrogen, Ur 584 mg/dL [facility] Specimen Urine Narrative Performed At Reference Range: No Normals [facility] Performing Organization Address City/[facility]/Zipcode Phone Number [address] [address] [place] Sodium, random urine (06/02/2018 4:01 PM CHIEF DISPATCHER) Sodium Urine 54 meq/L [facility] Specimen Urine Narrative Performed At Reference Range: No Normals [facility] Performing Organization Address City/[facility]/Zipcode Phone Number [address] [address] [phone] [place] Creatinine, random urine (06/02/2018 4:01 PM CHIEF DISPATCHER) Creatinine, Ur 38.9 mg/dL [facility] Specimen Urine Narrative Performed At Reference Range: No Normals [facility] Performing Organization Address City/[facility] Phone Number [address] [address] [place] REPORT OF PROCEDURE - ENDOSCOPY URL (06/02/2018 2:05 PM CHIEF DISPATCHER) Narrative Performed At Comprehensive metabolic panel (06/02/2018 10:58 AM CHIEF DISPATCHER) Protein, Total 3.9 (L) 6.0 - 8.3 gm/dL [facility] Albumin 2.5 (L) 3.5 - 5.0 g/dL [facility] Alkaline Phosphatase 69 40 - 150 U/L [facility] Total Bilirubin 0.8 0.2 - 1.2 mg/dL [facility] Sodium 136 136 - 145 meq/L [facility] Potassium 4.1 3.5 - 5.1 meq/L [facility] Chloride 110 (H) 98 - 107 meq/L [facility] CO2 17 (L) 22 - 29 meq/L [facility] BUN 99 (H) 7 - 21 mg/dL [facility] Creatinine 2.84 (H) 0.57 - 1.25 mg/dL [facility] Glucose 248 (H) 70 - 105 mg/dL [facility] Calcium 7.4 (L) 8.4 - 10.2 mg/dL [facility] AST 19 5 - 34 U/L [facility] ALT 65 (H) 6 - 55 U/L [facility] EGFR 22Comment: ESTIMATED GFR mL/min/1.73 sq m [facility] IS NOT ACCURATE [facility] CREATININE CLEARANCE IN PREDICTING GLOMERULAR FILTRATION RATE. ESTIMATED GFR IS NOT APPLICABLE FOR DIALYSIS PATIENTS. Specimen Blood Performing Organization Address City/State/Zipcode Phone Number [facility] [address] [place] [address] CENTER REPORT OF PROCEDURE - ENDOSCOPY URL (06/02/2018 9:22 AM CHIEF DISPATCHER) Narrative Performed At US abdomen limited (06/02/2018 5:30 AM CHIEF DISPATCHER) Narrative Performed At FINAL REPORT [facility] Right Upper Quadrant Ultrasound Clinical Diagnosis: Elevated [...] MD Report Verified Date/Time:06/02/2018 08:57:16 Reading Location: [address] Ultrasound Reading Room Procedure Note Interface, External Ris In - 06/02/2018 8:59 AM CHIEF DISPATCHER FINAL REPORT Right Upper Quadrant Ultrasound Clinical [...] Report Verified Date/Time: 06/02/2018 08:57:16 Reading Location: [address] Ultrasound Reading Room Performing Organization Address City/State/Zipcode Phone Number [facility] CT brain without IV contrast (06/01/2018 9:06 PM CHIEF DISPATCHER) Narrative Performed At FINAL REPORT [facility] CT, BRAIN, WITHOUT CONTRAST CLINICAL INDICATION:Headache, post [...] MD Report Verified Date/Time:06/01/2018 21:10:30 Reading Location: [address] Neuro Reading Room Procedure Note Interface, External Ris In - 06/01/2018 9:12 PM CHIEF DISPATCHER FINAL REPORT CT, BRAIN, WITHOUT CONTRAST CLINICAL [...] Report Verified Date/Time: 06/01/2018 21:10:30 Reading Location: [address] Neuro Reading Room Performing Organization Address City/State/Zipcode Phone Number [facility] Hemoglobin A1c (06/01/2018 1:23 PM CHIEF DISPATCHER) Hemoglobin A1C 8.1 (H) 4.3 - 6.1 % [facility] Specimen Blood Performing Organization Address City/[facility]/Zipcode Phone Number [address] [address] [place] Lipid panel (06/01/2018 1:23 PM CHIEF DISPATCHER) Triglycerides 188 mg/dL [facility] Cholesterol 87 mg/dL [facility] HDL 21 mg/dL [facility] LDL Calculated 28 mg/dL [facility] Specimen Blood Narrative Performed At Triglyceride Reference Range: [facility] Low Risk <150 [id number] High Risk 200-499 Very High Risk>=500 Cholesterol Reference Range: Low Risk <200 [id number] High Risk>240 HDL Cholesterol Reference Range: Low Risk >=60 High Risk <40 LDL Cholesterol Reference Range: Optimal<100 Near [id number] [id number] Very High >=190 Performing Organization Address [facility]/[place]come Phone Number [address] [address] [place] XR abdomen / KUB 1 view (06/01/2018 11:00 AM CHIEF DISPATCHER) Narrative Performed At FINAL REPORT [facility] Nasogastric tube x-ray localization Clinical Diagnosis: Evaluate nasogastric tube Comparison: No comparison Views: Two Report: Abdomen: There is a nonspecific bowel gas pattern.There is no evidence of GI tract obstruction.Anasogastric tube is seen with it' s distal tip in the stomach. Calcified granulomas are present. Signed: Carolyn Fay MD Report Verified Date/Time:06/01/2018 12:42:13 Reading Location: [facility] B1 C013W Consult Reading Room Procedure Note Interface, External Ris In - 06/01/2018 12:44 PM CHIEF DISPATCHER FINAL REPORT Nasogastric tube x-ray localization Clinical Diagnosis: Evaluate nasogastric tube Comparison: No comparison Views: Two Report: Abdomen: There is a nonspecific bowel gas pattern. There is no evidence of GI tract obstruction. A nasogastric tube is seen with it' s distal tip in the stomach. Calcified granulomas are present. Signed: Carolyn Fay MD Report Verified Date/Time: 06/01/2018 12:42:13 Reading Location: [facility] C013W Consult Reading Room Performing Organization Address [facility] Phone Number [facility] Reticulocyte count (06/01/2018 4:29 AM CHIEF DISPATCHER) % Retic 2.1 (H) 0.5 - 1.8 % [facility] Specimen Blood - Arm, Right Performing Organization Address [facility] Phone Number [address] [address] CENTER Lactate dehydrogenase (LDH) (06/01/2018 4:29 AM CHIEF DISPATCHER) LDH 125 125 - 220 U/L [facility] Specimen Blood - Arm, Right Performing Organization Address [facility] Phone Number [address] [address] [phone] CENTER Haptoglobin (06/01/2018 4:29 AM CHIEF DISPATCHER) Haptoglobin 170 14 - 258 mg/dL [facility] Specimen Blood - Arm, Right Performing Organization Address 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 Serenity Talia RDCS, RVT Interpreting Elo Little MD Physician [...] External Ris In - 06/01/2018 7:31 AM CHIEF DISPATCHER Transthoracic Echocardiography Report (TTE) Demographics Patient Name HOANG, Date of Study 06/01/2018 MICHOACANO [place] Gender Male Visit Number [id number] Race Unknown Room Number 755 Number Date of 1945 Referring Teena Ridley Physician Loveless, MEDICAL ATTENDANT Age 73 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 Serenity Melgar RDCS, RVT Interpreting Elo Little [...] Performing Organization Address City/State/Zipcode Phone Number [facility] after 07/01/2017 Insurance Payer Benefit Plan / Group Subscriber ID Type Phone Address MEDICARE MEDICARE PART A xxxxxxxxxxx Medicare FOR LIFE xxxxxxxxx Other Govt (, [place], [facility], etc.) ([place]) [place] [address] Advance Directives For more information, please contact:[address] [phone] Code Status Date Activated Date Inactivated Comments Full Code 06/12/2018 10:41 PM 06/15/2018 3:23 PM This code status was determined by: Patient Full Code 05/31/2018 3:59 AM 06/04/2018 6:02 PM This code status was determined by: Patient
--- OUTSIDE RECORDS SUMMARY | 2018-07-02 06:27 | XMS REPORT ---
:1945 [facility] Organization [facility] Address [address] [place] [address] Care Team Providers Name Role Phone KIMMIE, TERRYKATIE Unavailable Unavailable SAVAGE CHUNG Unavailable Unavailable Problems This patient has no known problems. Allergies, Adverse Reactions, Alerts This patient has no known allergies or adverse reactions. Medications This patient has no known medications. Results Test Description Test Time Test Comments Text Results Atomic Results Result Comments POCT-GLUCOSE METER 2018-06-15 07:42:00 Test Item Value Reference Range Comments POC-GLUCOSE METER (BEAKER) (test 158 mg/dL 70-110 TESTED AT [facility] [address] [facility] dhne=[id number]) [facility] [address] BASIC METABOLIC [id number] 06:19:00 Test Item Value Reference Range Comments SODIUM (BEAKER) (test 140 meq/L 136-145 hqce=745) POTASSIUM (BEAKER) (test 4.0 meq/L 3.5-5.1 ekle=164) CHLORIDE (BEAKER) (test 108 meq/L 98-107 oxnl=721) CO2 (BEAKER) (test 23 meq/L 22-29 xefv=810) BLOOD UREA NITROGEN 33 mg/dL 7-21 (BEAKER) (test hrnm=798) CREATININE (BEAKER) (test 2.22 mg/dL 0.57-1.25 nzhp=954) GLUCOSE RANDOM (BEAKER) 136 mg/dL 70-105 (test jytg=005) CALCIUM (BEAKER) (test 8.2 mg/dL 8.4-10.2 xdvb=328) EGFR (BEAKER) (test 29 mL/min/1.73 sq m ESTIMATED GFR IS NOT toli=3554) ACCURATE CREATININE CLEARANCE IN PREDICTING GLOMERULAR FILTRATION RATE. ESTIMATED GFR IS NOT APPLICABLE FOR DIALYSIS PATIENTS. CBC W/PLT COUNT & AUTO [id number] 05:47:00 Test Item Value Reference Range Comments WHITE BLOOD CELL COUNT (BEAKER) (test oxqu=160) 4.9 K/ L 3.5-10.5 RED BLOOD CELL COUNT (BEAKER) (test zbrx=404) 3.30 M/ L 4.63-6.08 HEMOGLOBIN (BEAKER) (test wfdr=218) 9.6 GM/DL 13.7-17.5 HEMATOCRIT (BEAKER) (test wzxi=582) 29.6 % 40.1-51.0 MEAN CORPUSCULAR VOLUME (BEAKER) (test bkmb=355) 89.7 fL 79.0-92.2 MEAN CORPUSCULAR HEMOGLOBIN (BEAKER) (test 29.1 pg 25.7-32.2 ewsj=163) MEAN CORPUSCULAR HEMOGLOBIN CONC (BEAKER) (test 32.4 GM/DL 32.3-36.5 tqms=418) RED CELL DISTRIBUTION WIDTH (BEAKER) (test 14.5 % 11.6-14.4 zkvr=379) PLATELET COUNT (BEAKER) (test cwiq=678) 172 K/CU MM 150-450 MEAN PLATELET VOLUME (BEAKER) (test ylwe=906) 10.6 fL 9.4-12.4 NUCLEATED RED BLOOD CELLS (BEAKER) (test 0 /100 WBC 0-0 lunj=593) NEUTROPHILS RELATIVE PERCENT (BEAKER) (test 72 % nucy=938) LYMPHOCYTES RELATIVE PERCENT (BEAKER) (test 13 % viso=430) MONOCYTES RELATIVE PERCENT (BEAKER) (test 9 % bsbh=285) EOSINOPHILS RELATIVE PERCENT (BEAKER) (test 5 % dbxj=997) BASOPHILS RELATIVE PERCENT (BEAKER) (test 1 % ckrd=482) NEUTROPHILS ABSOLUTE COUNT (BEAKER) (test 3.52 K/ L 1.78-5.38 ytez=770) LYMPHOCYTES ABSOLUTE COUNT (BEAKER) (test 0.63 K/ L 1.32-3.57 mzwh=955) MONOCYTES ABSOLUTE COUNT (BEAKER) (test 0.45 K/ L 0.30-0.82 ysnb=017) EOSINOPHILS ABSOLUTE COUNT (BEAKER) (test 0.23 K/ L 0.04-0.54 xyns=497) BASOPHILS ABSOLUTE COUNT (BEAKER) (test 0.04 K/ L 0.01-0.08 thgj=719) IMMATURE GRANULOCYTES-RELATIVE PERCENT (BEAKER) 0 % 0-1 (test wxje=0886) POCT-GLUCOSE [id number] 21:52:00 Test Item Value Reference Range Comments POC-GLUCOSE METER (BEAKER) 272 mg/dL 70-110 TESTED AT [address] (test npxl=9170) [facility] [address] POCT-GLUCOSE [id number] 16:55:00 Test Item Value Reference Range Comments POC-GLUCOSE METER (BEAKER) 174 mg/dL 70-110 TESTED AT [address] (test zwyc=8613) [facility] [address] POCT-GLUCOSE [id number] 14:42:00 Test Item Value Reference Range Comments POC-GLUCOSE METER (BEAKER) 321 mg/dL 70-110 TESTED AT [address] (test oqld=4943) [facility] [address] POCT-GLUCOSE [id number] 09:09:00 Test Item Value Reference Range Comments POC-GLUCOSE METER (BEAKER) 195 mg/dL 70-110 TESTED AT [address] (test kzhe=3585) [facility] [address] [id number] 05:41:00 Test Item Value Reference Range Comments FERRITIN (BEAKER) (test hayd=340) 299 ng/mL 5-275 TSH/FREE T4 IF [id number] 05:41:00 Test Item Value Reference Range Comments THYROID STIMULATING HORMONE (BEAKER) (test 0.78 uIU/mL 0.35-4.94 nuut=279) CBC W/PLT COUNT & AUTO [id number] 05:25:00 Test Item Value Reference Range Comments WHITE BLOOD CELL COUNT (BEAKER) (test vmjl=896) 5.0 K/ L 3.5-10.5 RED BLOOD CELL COUNT (BEAKER) (test yspe=376) 3.39 M/ L 4.63-6.08 HEMOGLOBIN (BEAKER) (test mwxb=094) 9.6 GM/DL 13.7-17.5 HEMATOCRIT (BEAKER) (test ocjv=720) 30.0 % 40.1-51.0 MEAN CORPUSCULAR VOLUME (BEAKER) (test nyrb=584) 88.5 fL 79.0-92.2 MEAN CORPUSCULAR HEMOGLOBIN (BEAKER) (test 28.3 pg 25.7-32.2 qczc=767) MEAN CORPUSCULAR HEMOGLOBIN CONC (BEAKER) (test 32.0 GM/DL 32.3-36.5 fwzj=464) RED CELL DISTRIBUTION WIDTH (BEAKER) (test 14.2 % 11.6-14.4 wuzz=173) PLATELET COUNT (BEAKER) (test rrdw=841) 177 K/CU MM 150-450 MEAN PLATELET VOLUME (BEAKER) (test hezx=138) 10.8 fL 9.4-12.4 NUCLEATED RED BLOOD CELLS (BEAKER) (test 0 /100 WBC 0-0 dngi=262) NEUTROPHILS RELATIVE PERCENT (BEAKER) (test 76 % lgvc=548) LYMPHOCYTES RELATIVE PERCENT (BEAKER) (test 12 % npju=794) MONOCYTES RELATIVE PERCENT (BEAKER) (test 8 % ptsh=380) EOSINOPHILS RELATIVE PERCENT (BEAKER) (test 3 % gnkk=848) BASOPHILS RELATIVE PERCENT (BEAKER) (test 1 % ftpc=292) NEUTROPHILS ABSOLUTE COUNT (BEAKER) (test 3.78 K/ L 1.78-5.38 gbxn=579) LYMPHOCYTES ABSOLUTE COUNT (BEAKER) (test 0.58 K/ L 1.32-3.57 muig=540) MONOCYTES ABSOLUTE COUNT (BEAKER) (test 0.38 K/ L 0.30-0.82 pjwv=056) EOSINOPHILS ABSOLUTE COUNT (BEAKER) (test 0.16 K/ L 0.04-0.54 zehb=872) BASOPHILS ABSOLUTE COUNT (BEAKER) (test 0.04 K/ L 0.01-0.08 ugxl=154) IMMATURE GRANULOCYTES-RELATIVE PERCENT (BEAKER) 0 % 0-1 (test qkuj=2832) IRON, TIBC, % SAT. (WITHOUT FERRITIN)2018-06-14 05:23:00 Test Item Value Reference Range Comments IRON (BEAKER) (test ywlr=369) 27.0 ug/dL 40.0-160.0 TOTAL IRON BINDING CAPACITY (BEAKER) (test 199 ug/dL 250-450 noqr=407) IRON % SATURATION (2) (BEAKER) (test kowt=4744) 14 % 20-55 B-TYPE NATRIURETIC FACTOR (BNP)2018-06-14 05:11:00 Test Item Value Reference Range Comments B-TYPE NATRIURETIC PEPTIDE (BEAKER) (test 844 pg/mL 0-100 jjxb=770) BASIC METABOLIC [id number] 05:07:00 Test Item Value Reference Range Comments SODIUM (BEAKER) (test 137 meq/L 136-145 viuc=110) POTASSIUM (BEAKER) (test 3.9 meq/L 3.5-5.1 aqec=212) CHLORIDE (BEAKER) (test 104 meq/L 98-107 xcar=207) CO2 (BEAKER) (test 24 meq/L 22-29 rxue=365) BLOOD UREA NITROGEN 33 mg/dL 7-21 (BEAKER) (test mwbl=922) CREATININE (BEAKER) (test 2.48 mg/dL 0.57-1.25 swgw=533) GLUCOSE RANDOM (BEAKER) 227 mg/dL 70-105 (test rnxa=934) CALCIUM (BEAKER) (test 7.9 mg/dL 8.4-10.2 vjgb=084) EGFR (BEAKER) (test 26 mL/min/1.73 sq m ESTIMATED GFR IS NOT krbx=7750) ACCURATE CREATININE CLEARANCE IN PREDICTING GLOMERULAR FILTRATION RATE. ESTIMATED GFR IS NOT APPLICABLE FOR DIALYSIS PATIENTS. POCT-GLUCOSE [id number] 21:12:00 Test Item Value Reference Range Comments POC-GLUCOSE METER (BEAKER) 246 mg/dL 70-110 TESTED AT [address] (test qasw=0768) [place] [id number] POCT-GLUCOSE [id number] 17:37:00 Test Item Value Reference Range Comments POC-GLUCOSE METER (BEAKER) 188 mg/dL 70-110 TESTED AT [address] (test wrwm=4159) [place] [address] POCT-GLUCOSE [id number] 12:13:00 Test Item Value Reference Range Comments POC-GLUCOSE METER (BEAKER) 222 mg/dL 70-110 TESTED AT [address] (test ojro=6261) [place] [id number] RAD, CHEST, 1 VIEW, NON [id number] 08:22:00Reason for exam:->pulmonary edema?Should this be performed at the bedside?->YesFINAL REPORT Clinical History: pulmonary edema? Comparison Study: None Findings: Several granulomas are seen in the left lung. The heart and lungs are otherwise within normal limits. The pleural spaces are clear. No significant bony or soft tissue abnormalities are seen. Impression: No active cardiopulmonary disease. Signed: Que Mitchell MDReport Verified Date/Time: 06/13/2018 08:22: 23 Reading Location: [facility] C013Y CT Body Reading Room POCT-GLUCOSE [id number] 07:49:00 Test Item Value Reference Range Comments POC-GLUCOSE METER (BEAKER) 123 mg/dL 70-110 TESTED AT [facility] [address] [facility] (test wegm=2016) [facility] [address] [id number] 07:11:00 Test Item Value Reference Range Comments MAGNESIUM (BEAKER) (test vlwi=602) 1.5 mg/dL 1.6-2.6 B-TYPE NATRIURETIC FACTOR (BNP)2018-06-13 06:58:00 Test Item Value Reference Range Comments B-TYPE NATRIURETIC PEPTIDE (BEAKER) (test 1467 pg/mL 0-100 jaqn=408) TROPONIN [id number] 06:57:00 Test Item Value Reference Range Comments TROPONIN I (BEAKER) (test fyjm=831) 0.09 ng/mL 0.00-0.03 Troponin I (TnI) levels must [...] acute neurological disease, and persistent tachyarrhythmia.BASIC METABOLIC [id number] 06:50:00 Test Item Value Reference Range Comments SODIUM (BEAKER) (test 139 meq/L 136-145 gbjo=131) POTASSIUM (BEAKER) (test 4.1 meq/L 3.5-5.1 jbxi=776) CHLORIDE (BEAKER) (test 106 meq/L 98-107 fpls=524) CO2 (BEAKER) (test 23 meq/L 22-29 pdss=910) BLOOD UREA NITROGEN 27 mg/dL 7-21 (BEAKER) (test uvcj=367) CREATININE (BEAKER) (test 2.15 mg/dL 0.57-1.25 spfp=610) GLUCOSE RANDOM (BEAKER) 113 mg/dL 70-105 (test kxnm=279) CALCIUM (BEAKER) (test 8.1 mg/dL 8.4-10.2 qqmm=539) EGFR (BEAKER) (test 30 mL/min/1.73 sq m ESTIMATED GFR IS NOT rcns=4412) ACCURATE CREATININE CLEARANCE IN PREDICTING GLOMERULAR FILTRATION RATE. ESTIMATED GFR IS NOT APPLICABLE FOR DIALYSIS PATIENTS. CBC W/PLT COUNT & AUTO [id number] 06:40:00 Test Item Value Reference Range Comments WHITE BLOOD CELL COUNT (BEAKER) (test brfw=287) 5.4 K/ L 3.5-10.5 RED BLOOD CELL COUNT (BEAKER) (test epth=382) 3.41 M/ L 4.63-6.08 HEMOGLOBIN (BEAKER) (test uvrv=778) 9.9 GM/DL 13.7-17.5 HEMATOCRIT (BEAKER) (test zfqh=385) 30.5 % 40.1-51.0 MEAN CORPUSCULAR VOLUME (BEAKER) (test lvbo=804) 89.4 fL 79.0-92.2 MEAN CORPUSCULAR HEMOGLOBIN (BEAKER) (test 29.0 pg 25.7-32.2 dwyy=146) MEAN CORPUSCULAR HEMOGLOBIN CONC (BEAKER) (test 32.5 GM/DL 32.3-36.5 lyfq=688) RED CELL DISTRIBUTION WIDTH (BEAKER) (test 14.6 % 11.6-14.4 owai=935) PLATELET COUNT (BEAKER) (test kdga=989) 174 K/CU MM 150-450 MEAN PLATELET VOLUME (BEAKER) (test kdfy=571) 10.6 fL 9.4-12.4 NUCLEATED RED BLOOD CELLS (BEAKER) (test 0 /100 WBC 0-0 lcsy=358) NEUTROPHILS RELATIVE PERCENT (BEAKER) (test 75 % ihvt=710) LYMPHOCYTES RELATIVE PERCENT (BEAKER) (test 13 % hblw=601) MONOCYTES RELATIVE PERCENT (BEAKER) (test 8 % awxh=105) EOSINOPHILS RELATIVE PERCENT (BEAKER) (test 3 % mdfk=922) BASOPHILS RELATIVE PERCENT (BEAKER) (test 1 % nfrx=547) NEUTROPHILS ABSOLUTE COUNT (BEAKER) (test 4.05 K/ L 1.78-5.38 nwmn=300) LYMPHOCYTES ABSOLUTE COUNT (BEAKER) (test 0.71 K/ L 1.32-3.57 ppai=553) MONOCYTES ABSOLUTE COUNT (BEAKER) (test 0.44 K/ L 0.30-0.82 tdxo=758) EOSINOPHILS ABSOLUTE COUNT (BEAKER) (test 0.17 K/ L 0.04-0.54 bpjn=129) BASOPHILS ABSOLUTE COUNT (BEAKER) (test 0.04 K/ L 0.01-0.08 znpk=417) IMMATURE GRANULOCYTES-RELATIVE PERCENT (BEAKER) 0 % 0-1 (test ieqt=8183) TROPONIN [id number] 02:36:00 Test Item Value Reference Range Comments TROPONIN I (BEAKER) (test xfon=473) 0.08 ng/mL 0.00-0.03 Troponin I (TnI) levels must [...] failure, acidosis, acute neurological disease, and persistent tachyarrhythmia.HEMOGLOBIN AND [id number] 02: 09:00 Test Item Value Reference Range Comments HEMOGLOBIN (BEAKER) (test viih=891) 10.1 GM/DL 13.7-17.5 HEMATOCRIT (BEAKER) (test ouyn=911) 32.0 % 40.1-51.0 POCT-GLUCOSE [id number] 02:02:00 Test Item Value Reference Range Comments POC-GLUCOSE METER (BEAKER) 148 mg/dL 70-110 TESTED AT [facility] [address] [facility] (test dgcz=7600) [facility] [address] CBC (HEMOGRAM ONLY)2018-06-04 14:44:00 Test Item Value Reference Range Comments WHITE BLOOD CELL COUNT (BEAKER) (test pgcd=914) 11.5 K/ L 3.5-10.5 RED BLOOD CELL COUNT (BEAKER) (test odtt=429) 2.81 M/ L 4.63-6.08 HEMOGLOBIN (BEAKER) (test icll=076) 8.1 GM/DL 13.7-17.5 HEMATOCRIT (BEAKER) (test jnkx=863) 25.3 % 40.1-51.0 MEAN CORPUSCULAR VOLUME (BEAKER) (test wpak=936) 90.0 fL 79.0-92.2 MEAN CORPUSCULAR HEMOGLOBIN (BEAKER) (test 28.8 pg 25.7-32.2 ulcs=283) MEAN CORPUSCULAR HEMOGLOBIN CONC (BEAKER) (test 32.0 GM/DL 32.3-36.5 ccjx=460) RED CELL DISTRIBUTION WIDTH (BEAKER) (test 16.2 % 11.6-14.4 wrlu=451) PLATELET COUNT (BEAKER) (test nkpi=496) 202 K/CU MM 150-450 MEAN PLATELET VOLUME (BEAKER) (test upux=366) 11.1 fL 9.4-12.4 NUCLEATED RED BLOOD CELLS (BEAKER) (test 0 /100 WBC 0-0 pehe=711) POCT-GLUCOSE [id number] 14:28:00 Test Item Value Reference Range Comments POC-GLUCOSE METER (BEAKER) 236 mg/dL 70-110 TESTED AT [place] [address] [address] (test rfqf=0230) [facility] [address] POCT-GLUCOSE [id number] 13:19:00 Test Item Value Reference Range Comments POC-GLUCOSE METER (BEAKER) 379 mg/dL 70-110 Notified ISAURA JONES/TESTED AT [facility] (test ucgy=2854) [facility] MATHIEU [facility] [address] BASIC METABOLIC [id number] 09:05:00 Test Item Value Reference Range Comments SODIUM (BEAKER) (test 141 meq/L 136-145 curd=407) POTASSIUM (BEAKER) (test 3.9 meq/L 3.5-5.1 lwhi=619) CHLORIDE (BEAKER) (test 114 meq/L 98-107 gxpq=835) CO2 (BEAKER) (test 20 meq/L 22-29 iysb=446) BLOOD UREA NITROGEN 69 mg/dL 7-21 (BEAKER) (test ipkw=982) CREATININE (BEAKER) (test 2.73 mg/dL 0.57-1.25 your=856) GLUCOSE RANDOM (BEAKER) 137 mg/dL 70-105 (test kzrm=578) CALCIUM (BEAKER) (test 8.4 mg/dL 8.4-10.2 idoy=009) EGFR (BEAKER) (test 23 mL/min/1.73 sq m ESTIMATED GFR IS NOT xqhz=3831) ACCURATE CREATININE CLEARANCE IN PREDICTING GLOMERULAR FILTRATION RATE. ESTIMATED GFR IS NOT APPLICABLE FOR DIALYSIS PATIENTS. HEPATIC FUNCTION [id number] 09:01:00 Test Item Value Reference Range Comments TOTAL PROTEIN (BEAKER) (test mjcy=049) 4.7 gm/dL 6.0-8.3 ALBUMIN (BEAKER) (test twxe=5552) 3.0 g/dL 3.5-5.0 BILIRUBIN TOTAL (BEAKER) (test pvcd=180) 1.0 mg/dL 0.2-1.2 BILIRUBIN DIRECT (BEAKER) (test yayf=643) 0.5 mg/dL 0.1-0.5 ALKALINE PHOSPHATASE (BEAKER) (test zfwg=688) 87 U/L 40-150 AST (SGOT) (BEAKER) (test duba=077) 26 U/L 5-34 ALT (SGPT) (BEAKER) (test zfvq=009) 61 U/L 6-55 HEMOGLOBIN AND [id number] 08:41:00 Test Item Value Reference Range Comments HEMOGLOBIN (BEAKER) (test dakq=939) 9.2 GM/DL 13.7-17.5 HEMATOCRIT (BEAKER) (test gvsi=502) 28.6 % 40.1-51.0 POCT-GLUCOSE [id number] 06:37:00 Test Item Value Reference Range Comments POC-GLUCOSE METER (BEAKER) 177 mg/dL 70-110 TESTED AT [address] (test unhk=3419) [facility] [address] POCT-GLUCOSE [id number] 23:57:00 Test Item Value Reference Range Comments POC-GLUCOSE METER (BEAKER) 200 mg/dL 70-110 TESTED AT [address] (test hdqu=9499) [facility] [address] PROTHROMBIN [id number] 23:11:00 Test Item Value Reference Range Comments PROTIME (BEAKER) (test iqte=787) 15.2 seconds 11.7-14.7 INR (BEAKER) (test otjg=962) 1.2 <=5.9 RECOMMENDED COUMADIN/WARFARIN INR THERAPY RANGESSTANDARD DOSE: 2.0 - 3.0 Includes: PROPHYLAXIS forvenous thrombosis, systemic embolization; TREATMENT for venous thrombosis and/or pulmonary embolus.HIGH RISK: Target INR is 2.5-3.5 for patients with mechanical heart valves.PT/[id number] 23:11:00 Test Item Value Reference Range Comments PROTIME (BEAKER) (test khmq=617) 15.2 seconds 11.7-14.7 INR (BEAKER) (test xcuv=675) 1.2 <=5.9 PARTIAL THROMBOPLASTIN TIME (BEAKER) (test 28.6 seconds 22.5-36.0 lqqe=692) RECOMMENDED COUMADIN/WARFARIN INR THERAPY RANGESSTANDARD DOSE: 2.0 - 3.0 Includes: PROPHYLAXIS forvenous thrombosis, systemic embolization; TREATMENT for venous thrombosis and/or pulmonary embolus.HIGH RISK: Target INR is 2.5-3.5 for patients with mechanical heart valves.HEMOGLOBIN AND [id number] 22 :54:00 Test Item Value Reference Range Comments HEMOGLOBIN (BEAKER) (test pkmf=590) 7.6 GM/DL 13.7-17.5 HEMATOCRIT (BEAKER) (test ceio=542) 23.3 % 40.1-51.0 One hour after transfusion.HEMOGLOBIN AND [id number] 21:05:00 Test Item Value Reference Range Comments HEMOGLOBIN (BEAKER) (test lanq=867) 7.1 GM/DL 13.7-17.5 HEMATOCRIT (BEAKER) (test wvfy=130) 22.2 % 40.1-51.0 POCT-GLUCOSE [id number] 20:50:00 Test Item Value Reference Range Comments POC-GLUCOSE METER (BEAKER) 314 mg/dL 70-110 TESTED AT [address] (test rhyc=9868) [facility] [address] POCT-GLUCOSE [id number] 19:05:00 Test Item Value Reference Range Comments POC-GLUCOSE METER (BEAKER) 395 mg/dL 70-110 Notified ISAURA JONES/TESTED AT [facility] (test oxhf=9065) [address] [place] [address] PET, CARDIAC PET, [id number] 15:47:00Reason for exam:->HFDr. AlamFINAL REPORT PROCEDURE: MYOCARDIAL METABOLISM PET IMAGING with Rest MYOCARDIAL PERFUSION PET IMAGING\XA9\ CPT CODE: 27001, 93740 INDICATION: Heart failure. Assess myocardial viability. HISTORY: [...] accurately assess myocardial viability. 7. No previous [facility] study for comparison. Signed: Paul Duarte MDReport Verified Date/Time: 06/03/2018 15: 47:05 Reading Location: [address] P327[facility] Reading Room U/S, RENAL, [id number] 14:50:00Reason for exam:->akiFINAL REPORT Renal ultrasound Comparison: [...] kidney was not well demonstrated. Signed: Kristin Fayort Verified Date/ Time: 06/03/2018 14:50:49 Reading Location: [address] Ultrasound Reading Room HEMOGLOBIN AND [id number] 14:22:00 Test Item Value Reference Range Comments HEMOGLOBIN (BEAKER) (test tjmo=749) 8.5 GM/DL 13.7-17.5 HEMATOCRIT (BEAKER) (test fubu=616) 26.1 % 40.1-51.0 POCT-GLUCOSE [id number] 13:48:00 Test Item Value Reference Range Comments POC-GLUCOSE METER (BEAKER) 161 mg/dL 70-110 TESTED AT [address] (test mxar=0981) [place] [id number] POCT-GLUCOSE [id number] 12:06:00 Test Item Value Reference Range Comments POC-GLUCOSE METER (BEAKER) 242 mg/dL 70-110 TESTED AT [address] (test ftbl=6630) [place] [id number] POCT-GLUCOSE [id number] 11:48:00 Test Item Value Reference Range Comments POC-GLUCOSE METER (BEAKER) 134 mg/dL 70-110 TESTED AT [address] (test zija=2405) [place] [address] [id number] 10:44:00 Test Item Value Reference Range Comments MAGNESIUM (BEAKER) (test shjn=450) 2.1 mg/dL 1.6-2.6 POCT-GLUCOSE [id number] 06:24:00 Test Item Value Reference Range Comments POC-GLUCOSE METER (BEAKER) 139 mg/dL 70-110 TESTED AT [facility] [address] [facility] (test gqdk=9066) [facility] [address] CALCIUM, [id number] 04:57:00 Test Item Value Reference Range Comments CALCIUM IONIZED (BEAKER) (test fqqs=780) 1.13 mmol/L 1.12-1.27 PH, BLOOD (BEAKER) (test kezs=3320) 7.35 BASIC METABOLIC [id number] 04:46:00 Test Item Value Reference Range Comments SODIUM (BEAKER) (test 140 meq/L 136-145 howp=007) POTASSIUM (BEAKER) (test 4.3 meq/L 3.5-5.1 qivm=588) CHLORIDE (BEAKER) (test 112 meq/L 98-107 jmwi=764) CO2 (BEAKER) (test 18 meq/L 22-29 wtwk=189) BLOOD UREA NITROGEN 91 mg/dL 7-21 (BEAKER) (test zxjo=928) CREATININE (BEAKER) (test 2.84 mg/dL 0.57-1.25 qmrm=969) GLUCOSE RANDOM (BEAKER) 117 mg/dL 70-105 (test xypo=489) CALCIUM (BEAKER) (test 8.0 mg/dL 8.4-10.2 qgeh=466) EGFR (BEAKER) (test 22 mL/min/1.73 sq m ESTIMATED GFR IS NOT vkpr=4706) ACCURATE CREATININE CLEARANCE IN PREDICTING GLOMERULAR FILTRATION RATE. ESTIMATED GFR IS NOT APPLICABLE FOR DIALYSIS PATIENTS. CBC W/PLT COUNT & AUTO [id number] 04:14:00 Test Item Value Reference Range Comments WHITE BLOOD CELL COUNT (BEAKER) (test ipuy=981) 11.8 K/ L 3.5-10.5 RED BLOOD CELL COUNT (BEAKER) (test urts=713) 2.91 M/ L 4.63-6.08 HEMOGLOBIN (BEAKER) (test xgme=901) 8.3 GM/DL 13.7-17.5 HEMATOCRIT (BEAKER) (test enjk=220) 25.1 % 40.1-51.0 MEAN CORPUSCULAR VOLUME (BEAKER) (test ldlx=058) 86.3 fL 79.0-92.2 MEAN CORPUSCULAR HEMOGLOBIN (BEAKER) (test 28.5 pg 25.7-32.2 sasg=368) MEAN CORPUSCULAR HEMOGLOBIN CONC (BEAKER) (test 33.1 GM/DL 32.3-36.5 tuqm=717) RED CELL DISTRIBUTION WIDTH (BEAKER) (test 16.2 % 11.6-14.4 gaps=199) PLATELET COUNT (BEAKER) (test zluo=928) 180 K/CU MM 150-450 MEAN PLATELET VOLUME (BEAKER) (test eulc=136) 11.4 fL 9.4-12.4 NUCLEATED RED BLOOD CELLS (BEAKER) (test 0 /100 WBC 0-0 lopb=094) NEUTROPHILS RELATIVE PERCENT (BEAKER) (test 82 % zjjz=943) LYMPHOCYTES RELATIVE PERCENT (BEAKER) (test 9 % obvk=086) MONOCYTES RELATIVE PERCENT (BEAKER) (test 6 % rlsf=074) EOSINOPHILS RELATIVE PERCENT (BEAKER) (test 2 % bedl=795) BASOPHILS RELATIVE PERCENT (BEAKER) (test 0 % qyph=483) NEUTROPHILS ABSOLUTE COUNT (BEAKER) (test 9.64 K/ L 1.78-5.38 gnid=452) LYMPHOCYTES ABSOLUTE COUNT (BEAKER) (test 1.01 K/ L 1.32-3.57 npnx=494) MONOCYTES ABSOLUTE COUNT (BEAKER) (test 0.75 K/ L 0.30-0.82 vwrd=102) EOSINOPHILS ABSOLUTE COUNT (BEAKER) (test 0.26 K/ L 0.04-0.54 urzr=672) BASOPHILS ABSOLUTE COUNT (BEAKER) (test 0.03 K/ L 0.01-0.08 saea=952) IMMATURE GRANULOCYTES-RELATIVE PERCENT (BEAKER) 1 % 0-1 (test dbtj=3054) HEMOGLOBIN AND [id number] 00:01:00 Test Item Value Reference Range Comments HEMOGLOBIN (BEAKER) (test rtea=044) 7.6 GM/DL 13.7-17.5 HEMATOCRIT (BEAKER) (test zpjn=537) 22.5 % 40.1-51.0 POCT-GLUCOSE [id number] 23:57:00 Test Item Value Reference Range Comments POC-GLUCOSE METER (BEAKER) 137 mg/dL 70-110 TESTED AT [place] [id number] [facility] (test ujom=7254) [facility] [address] POCT-GLUCOSE [id number] 18:19:00 Test Item Value Reference Range Comments POC-GLUCOSE METER (BEAKER) 200 mg/dL 70-110 TESTED AT [address] (test vmsm=9360) [facility] [address] CREATININE, RANDOM [id number] 16:41:00 Test Item Value Reference Range Comments CREATININE URINE (BEAKER) (test xwup=179) 38.9 mg/dL Reference Range: No NormalsSODIUM, RANDOM [id number] 16:41:00 Test Item Value Reference Range Comments SODIUM URINE (BEAKER) (test ickd=896) 54 meq/L Reference Range: No NormalsUREA NITROGEN, RANDOM [id number] 16:41:00 Test Item Value Reference Range Comments UREA NITROGEN URINE (BEAKER) (test jwad=283) 584 mg/dL Reference Range: No NormalsHEMOGLOBIN AND [id number] 16:32:00 Test Item Value Reference Range Comments HEMOGLOBIN (BEAKER) (test nhnh=035) 6.6 GM/DL 13.7-17.5 HEMATOCRIT (BEAKER) (test dysx=335) 19.5 % 40.1-51.0 URINALYSIS W/ REFLEX URINE [id number] 16:21:00 Test Item Value Reference Range Comments COLOR (BEAKER) (test auqb=508) Light Yellow CLARITY (BEAKER) (test jfvi=977) Clear SPECIFIC GRAVITY UA (BEAKER) (test ubok=707) 1.008 1.001-1.035 PH UA (BEAKER) (test tdgh=147) 5.5 5.0-8.0 PROTEIN UA (BEAKER) (test bowr=219) 70 mg/dL Negative GLUCOSE UA (BEAKER) (test ffmp=039) 30 mg/dL Negative KETONES UA (BEAKER) (test rqll=794) Negative Negative BILIRUBIN UA (BEAKER) (test idnn=758) Negative Negative BLOOD UA (BEAKER) (test oele=215) Negative Negative NITRITE UA (BEAKER) (test yzmk=877) Negative Negative LEUKOCYTE ESTERASE UA (BEAKER) (test wbkf=090) Negative Negative UROBILINOGEN UA (BEAKER) (test oceh=872) 0.2 mg/dL 0.2-1.0 RBC UA (BEAKER) (test qlfp=696) < /HPF WBC UA (BEAKER) (test yaak=748) 3 /HPF MUCUS (BEAKER) (test scpa=2389) Rare SOURCE(BEAKER) (test dxun=2071) POCT-GLUCOSE [id number] 12:35:00 Test Item Value Reference Range Comments POC-GLUCOSE METER (BEAKER) 283 mg/dL 70-110 TESTED AT [facility] [address] [facility] (test kcad=2075) [facility] [address] COMPREHENSIVE METABOLIC [id number] 11:30:00 Test Item Value Reference Range Comments TOTAL PROTEIN (BEAKER) 3.9 gm/dL 6.0-8.3 (test gxlq=826) ALBUMIN (BEAKER) (test 2.5 g/dL 3.5-5.0 qgfi=5025) ALKALINE PHOSPHATASE 69 U/L 40-150 (BEAKER) (test oxln=286) BILIRUBIN TOTAL (BEAKER) 0.8 mg/dL 0.2-1.2 (test poux=098) SODIUM (BEAKER) (test 136 meq/L 136-145 cqjy=046) POTASSIUM (BEAKER) (test 4.1 meq/L 3.5-5.1 tcwa=908) CHLORIDE (BEAKER) (test 110 meq/L 98-107 ckbu=109) CO2 (BEAKER) (test 17 meq/L 22-29 zdzi=492) BLOOD UREA NITROGEN 99 mg/dL 7-21 (BEAKER) (test xehk=196) CREATININE (BEAKER) (test 2.84 mg/dL 0.57-1.25 uwga=801) GLUCOSE RANDOM (BEAKER) 248 mg/dL 70-105 (test wafn=924) CALCIUM (BEAKER) (test 7.4 mg/dL 8.4-10.2 kzki=018) AST (SGOT) (BEAKER) (test 19 U/L 5-34 vzpr=668) ALT (SGPT) (BEAKER) (test 65 U/L 6-55 xqxf=978) EGFR (BEAKER) (test 22 mL/min/1.73 sq m ESTIMATED GFR IS NOT oepk=1193) ACCURATE CREATININE CLEARANCE IN PREDICTING GLOMERULAR FILTRATION RATE. ESTIMATED GFR IS NOT APPLICABLE FOR DIALYSIS PATIENTS. [id number] 11:28:00 Test Item Value Reference Range Comments MAGNESIUM (BEAKER) (test kfdv=493) 1.6 mg/dL 1.6-2.6 HEMOGLOBIN AND [id number] 10:13:00 Test Item Value Reference Range Comments HEMOGLOBIN (BEAKER) (test sgep=079) 7.9 GM/DL 13.7-17.5 HEMATOCRIT (BEAKER) (test izme=193) 24.1 % 40.1-51.0 U/S, ABDOMINAL, [id number] 08:57:00Abdomen limited area? Add comment if clarification [...] overlying bowel gas.Small rightkidney. Signed: Kristin Fay MDReport Verified Date/Time: 06/02/2018 08:57:16 Reading Location: [address] Ultrasound Reading Room 08: 57 AMPOCT-GLUCOSE [id number] 07:17:00 Test Item Value Reference Range Comments POC-GLUCOSE METER (BEAKER) 295 mg/dL 70-110 TESTED AT [facility] [address] [place] [address] (test emzi=0442) [facility] [address] HEMOGLOBIN AND [id number] 00:41:00 Test Item Value Reference Range Comments HEMOGLOBIN (BEAKER) (test hjoo=047) 5.8 GM/DL 13.7-17.5 HEMATOCRIT (BEAKER) (test tpex=899) 18.5 % 40.1-51.0 POCT-GLUCOSE [id number] 23:52:00 Test Item Value Reference Range Comments POC-GLUCOSE METER (BEAKER) 396 mg/dL 70-110 Notified ISAURA JONES/TESTED AT [facility] (test eusn=6099) [address] [place] [address], BRAIN, WITHOUT [id number] 21:10:00FINAL REPORT CT, BRAIN, WITHOUT CONTRAST CLINICAL [...] is recommended for further characterization. Signed: Lyndsey Hutchins MDReport Verified Date/Time: 06/01/2018 21:10:30 Reading Location: [facility] C013V Neuro Reading Room Electronically signed by: LYNDSEY HUTCHINS MD on 2018 09:10 PMHEMOGLOBIN AND [id number] 20:28:00 Test Item Value Reference Range Comments HEMOGLOBIN (BEAKER) (test vndb=286) 7.2 GM/DL 13.7-17.5 HEMATOCRIT (BEAKER) (test pjyi=183) 22.2 % 40.1-51.0 Call DIGITAL CARTOGRAPHER if less than 8 . Might need to transfer to ICU for close monitoring if H/H drop .POCT-GLUCOSE [id number] 18:14:00 Test Item Value Reference Range Comments POC-GLUCOSE METER (BEAKER) 255 mg/dL 70-110 TESTED AT [facility] [address] [facility] (test truv=1579) [facility] [address] HEMOGLOBIN [id number] 16:24:00 Test Item Value Reference Range Comments HEMOGLOBIN A1C (BEAKER) (test khec=294) 8.1 % 4.3-6.1 HEMOGLOBIN AND [id number] 15:17:00 Test Item Value Reference Range Comments HEMOGLOBIN (BEAKER) (test dlbz=477) 8.3 GM/DL 13.7-17.5 HEMATOCRIT (BEAKER) (test ibtz=046) 25.9 % 40.1-51.0 LIPID [id number] 14:03:00 Test Item Value Reference Range Comments TRIGLYCERIDES (BEAKER) (test lqrs=842) 188 mg/dL CHOLESTEROL (BEAKER) (test ayoc=558) 87 mg/dL HDL CHOLESTEROL (BEAKER) (test ootc=532) 21 mg/dL LDL CHOLESTEROL CALCULATED (BEAKER) (test 28 mg/dL qamc=216) Triglyceride Reference Range: Low Risk <150 Borderline 150- 199 High Risk 200-499 Very High Risk >=500Cholesterol Reference Range: Low Risk <200 Borderline 200-239 High Risk > 240HDL Cholesterol Reference Range: Low Risk >=60 High Risk <40LDL Cholesterol Reference Range: Optimal <100 Near Optimal 100-129 Borderline 130-159 High 160-189 Very High >=190HEMOGLOBIN AND [id number] 13:42:00 Test Item Value Reference Range Comments HEMOGLOBIN (BEAKER) (test jytm=042) 8.3 GM/DL 13.7-17.5 HEMATOCRIT (BEAKER) (test kfwi=374) 25.5 % 40.1-51.0 POCT-GLUCOSE [id number] 13:39:00 Test Item Value Reference Range Comments POC-GLUCOSE METER (BEAKER) 199 mg/dL 70-110 TESTED AT [address] (test buot=0563) [facility] [address] RAD, ABDOMEN/KUB, 1 VIEW [id number] 12:42:00Reason for exam:->evaluate placement NGTFINAL REPORT Nasogastric tube x-ray localization Clinical Diagnosis: Evaluatenasogastric tubeComparison: No comparisonViews: Two Report:Abdomen:There is a nonspecific bowel gas pattern. There is no evidence of GI tract obstruction. A nasogastric tube is seen with it' s distal tip in the stomach. Calcified granulomas are present. Signed : Kristin Fay Verified Date/Time: 06/01/2018 12:42:13 Reading Location : [address] Consult Reading Room POCT-GLUCOSE [id number] 10:13:00 Test Item Value Reference Range Comments POC-GLUCOSE METER (BEAKER) 210 mg/dL 70-110 TESTED AT [address] (test pdxg=1726) [place] [address] [id number] 05:39:00 Test Item Value Reference Range Comments HAPTOGLOBIN (BEAKER) (test whxv=183) 170 mg/dL 14-258 [id number] 05:21:00 Test Item Value Reference Range Comments FERRITIN (BEAKER) (test pjzl=180) 381 ng/mL 5-275 BASIC METABOLIC [id number] 05:04:00 Test Item Value Reference Range Comments SODIUM (BEAKER) (test 135 meq/L 136-145 cudd=305) POTASSIUM (BEAKER) (test 4.2 meq/L 3.5-5.1 eulo=688) CHLORIDE (BEAKER) (test 107 meq/L 98-107 dzoq=565) CO2 (BEAKER) (test 19 meq/L 22-29 mdoo=155) BLOOD UREA NITROGEN 96 mg/dL 7-21 (BEAKER) (test xeyx=736) CREATININE (BEAKER) (test 2.82 mg/dL 0.57-1.25 rdtj=912) GLUCOSE RANDOM (BEAKER) 207 mg/dL 70-105 (test hksl=027) CALCIUM (BEAKER) (test 7.7 mg/dL 8.4-10.2 hlhi=525) EGFR (BEAKER) (test 22 mL/min/1.73 sq m ESTIMATED GFR IS NOT ewte=7746) ACCURATE CREATININE CLEARANCE IN PREDICTING GLOMERULAR FILTRATION RATE. ESTIMATED GFR IS NOT APPLICABLE FOR DIALYSIS PATIENTS. [id number] 05:03:00 Test Item Value Reference Range Comments MAGNESIUM (BEAKER) (test mjtv=035) 1.6 mg/dL 1.6-2.6 HEPATIC FUNCTION [id number] 05:03:00 Test Item Value Reference Range Comments TOTAL PROTEIN (BEAKER) (test oejc=581) 4.5 gm/dL 6.0-8.3 ALBUMIN (BEAKER) (test gizk=1100) 2.8 g/dL 3.5-5.0 BILIRUBIN TOTAL (BEAKER) (test fnqs=081) 1.8 mg/dL 0.2-1.2 BILIRUBIN DIRECT (BEAKER) (test shji=649) 0.7 mg/dL 0.1-0.5 ALKALINE PHOSPHATASE (BEAKER) (test gywd=084) 83 U/L 40-150 AST (SGOT) (BEAKER) (test fkhf=795) 15 U/L 5-34 ALT (SGPT) (BEAKER) (test knmt=959) 97 U/L 6-55 LACTATE DEHYDROGENASE (LDH)2018-06-01 05:03:00 Test Item Value Reference Range Comments LACTATE DEHYDROGENASE (BEAKER) (test zvqt=124) 125 U/L 125-220 IRON, TIBC, % SAT. (WITHOUT FERRITIN)2018-06-01 05:01:00 Test Item Value Reference Range Comments IRON (BEAKER) (test spvs=916) 182.0 ug/dL 40.0-160.0 TOTAL IRON BINDING CAPACITY (BEAKER) (test 180 ug/dL 250-450 afbd=642) IRON % SATURATION (2) (BEAKER) (test xjyw=1759) 101 % 20-55 CBC W/PLT COUNT & AUTO [id number] 04:46:00 Test Item Value Reference Range Comments WHITE BLOOD CELL COUNT (BEAKER) (test yxpd=382) 11.9 K/ L 3.5-10.5 RED BLOOD CELL COUNT (BEAKER) (test feyj=881) 2.86 M/ L 4.63-6.08 HEMOGLOBIN (BEAKER) (test jldd=533) 8.4 GM/DL 13.7-17.5 HEMATOCRIT (BEAKER) (test bmwt=678) 25.4 % 40.1-51.0 MEAN CORPUSCULAR VOLUME (BEAKER) (test oxll=335) 88.8 fL 79.0-92.2 MEAN CORPUSCULAR HEMOGLOBIN (BEAKER) (test 29.4 pg 25.7-32.2 lese=470) MEAN CORPUSCULAR HEMOGLOBIN CONC (BEAKER) (test 33.1 GM/DL 32.3-36.5 ianh=318) RED CELL DISTRIBUTION WIDTH (BEAKER) (test 15.0 % 11.6-14.4 xtrl=934) PLATELET COUNT (BEAKER) (test qrsc=708) 216 K/CU MM 150-450 MEAN PLATELET VOLUME (BEAKER) (test alfn=083) 11.5 fL 9.4-12.4 NUCLEATED RED BLOOD CELLS (BEAKER) (test 0 /100 WBC 0-0 ycrp=220) NEUTROPHILS RELATIVE PERCENT (BEAKER) (test 83 % cyjm=500) LYMPHOCYTES RELATIVE PERCENT (BEAKER) (test 8 % kjuo=332) MONOCYTES RELATIVE PERCENT (BEAKER) (test 6 % vbba=099) EOSINOPHILS RELATIVE PERCENT (BEAKER) (test 3 % fffx=913) BASOPHILS RELATIVE PERCENT (BEAKER) (test 0 % wxmw=886) NEUTROPHILS ABSOLUTE COUNT (BEAKER) (test 9.84 K/ L 1.78-5.38 uudv=986) LYMPHOCYTES ABSOLUTE COUNT (BEAKER) (test 0.89 K/ L 1.32-3.57 jesv=823) MONOCYTES ABSOLUTE COUNT (BEAKER) (test 0.75 K/ L 0.30-0.82 fxbj=446) EOSINOPHILS ABSOLUTE COUNT (BEAKER) (test 0.35 K/ L 0.04-0.54 posa=579) BASOPHILS ABSOLUTE COUNT (BEAKER) (test 0.02 K/ L 0.01-0.08 ocos=411) IMMATURE GRANULOCYTES-RELATIVE PERCENT (BEAKER) 0 % 0-1 (test lvmq=5555) RETICULOCYTE [id number] 04:43:00 Test Item Value Reference Range Comments RETICULOCYTE COUNT PCT (BEAKER) (test eeyn=585) 2.1 % 0.5-1.8 HEMOGLOBIN AND [id number] 04:43:00 Test Item Value Reference Range Comments HEMOGLOBIN (BEAKER) (test btis=866) 8.4 GM/DL 13.7-17.5 HEMATOCRIT (BEAKER) (test mksg=586) 25.4 % 40.1-51.0 POCT-GLUCOSE [id number] 23:12:00 Test Item Value Reference Range Comments POC-GLUCOSE METER (BEAKER) 226 mg/dL 70-110 TESTED AT [address] (test gtsj=3382) [place] [address] POCT-GLUCOSE [id number] 17:36:00 Test Item Value Reference Range Comments POC-GLUCOSE METER (BEAKER) 314 mg/dL 70-110 Patient on insulin Drip/TESTED (test jumh=6174) AT [place] [address] HEMOGLOBIN AND [id number] 17:04:00 Test Item Value Reference Range Comments HEMOGLOBIN (BEAKER) (test wpxo=516) 7.5 GM/DL 13.7-17.5 HEMATOCRIT (BEAKER) (test wlck=299) 23.8 % 40.1-51.0 TROPONIN [id number] 14:24:00 Test Item Value Reference Range Comments TROPONIN I (BEAKER) (test itkp=498) 0.22 ng/mL 0.00-0.03 Troponin I (TnI) levels [...] acidosis, acute neurological disease, and persistent tachyarrhythmia.POCT-GLUCOSE [id number] 12:25:00 Test Item Value Reference Range Comments POC-GLUCOSE METER (BEAKER) 262 mg/dL 70-110 TESTED AT [address] (test cijx=7364) [place] [address] POCT-GLUCOSE [id number] 06:18:00 Test Item Value Reference Range Comments POC-GLUCOSE METER (BEAKER) 310 mg/dL 70-110 Notified ISAURA JONES/TESTED AT [facility] (test gwts=1556) [address] [place], [place] [id number] TROPONIN [id number] 05:42:00 Test Item Value Reference Range Comments TROPONIN I (BEAKER) (test ecqv=080) 0.19 ng/mL 0.00-0.03 Troponin I (TnI) levels [...] acute neurological disease, and persistent tachyarrhythmia.BASIC METABOLIC [id number] 05:41:00 Test Item Value Reference Range Comments SODIUM (BEAKER) (test 136 meq/L 136-145 drgf=899) POTASSIUM (BEAKER) (test 4.4 meq/L 3.5-5.1 yzpl=415) CHLORIDE (BEAKER) (test 107 meq/L 98-107 uqdj=309) CO2 (BEAKER) (test 20 meq/L 22-29 hnwq=938) BLOOD UREA NITROGEN 91 mg/dL 7-21 (BEAKER) (test njkp=637) CREATININE (BEAKER) (test 2.84 mg/dL 0.57-1.25 hhml=281) GLUCOSE RANDOM (BEAKER) 274 mg/dL 70-105 (test asxa=269) CALCIUM (BEAKER) (test 7.8 mg/dL 8.4-10.2 bbhr=490) EGFR (BEAKER) (test 22 mL/min/1.73 sq m ESTIMATED GFR IS NOT nllf=7817) ACCURATE CREATININE CLEARANCE IN PREDICTING GLOMERULAR FILTRATION RATE. ESTIMATED GFR IS NOT APPLICABLE FOR DIALYSIS PATIENTS. B-TYPE NATRIURETIC FACTOR (BNP)2018-05-31 05:38:00 Test Item Value Reference Range Comments B-TYPE NATRIURETIC PEPTIDE (BEAKER) (test 3179 pg/mL 0-100 zmuq=460) HEPATIC FUNCTION [id number] 05:36:00 Test Item Value Reference Range Comments TOTAL PROTEIN (BEAKER) (test rjco=256) 4.8 gm/dL 6.0-8.3 ALBUMIN (BEAKER) (test vyba=6064) 3.0 g/dL 3.5-5.0 BILIRUBIN TOTAL (BEAKER) (test lzpo=951) 0.6 mg/dL 0.2-1.2 BILIRUBIN DIRECT (BEAKER) (test rjaz=661) 0.3 mg/dL 0.1-0.5 ALKALINE PHOSPHATASE (BEAKER) (test bcbp=957) 93 U/L 40-150 AST (SGOT) (BEAKER) (test cicq=980) 15 U/L 5-34 ALT (SGPT) (BEAKER) (test hqvz=276) 139 U/L 6-55 CBC W/PLT COUNT & AUTO [id number] 05:34:00 Test Item Value Reference Range Comments WHITE BLOOD CELL COUNT (BEAKER) (test nkty=954) 10.3 K/ L 3.5-10.5 RED BLOOD CELL COUNT (BEAKER) (test klfj=859) 3.30 M/ L 4.63-6.08 HEMOGLOBIN (BEAKER) (test ocev=349) 9.1 GM/DL 13.7-17.5 HEMATOCRIT (BEAKER) (test dzsw=173) 29.8 % 40.1-51.0 MEAN CORPUSCULAR VOLUME (BEAKER) (test xymq=654) 90.3 fL 79.0-92.2 MEAN CORPUSCULAR HEMOGLOBIN (BEAKER) (test 27.6 pg 25.7-32.2 yudu=644) MEAN CORPUSCULAR HEMOGLOBIN CONC (BEAKER) (test 30.5 GM/DL 32.3-36.5 gulq=864) RED CELL DISTRIBUTION WIDTH (BEAKER) (test 15.5 % 11.6-14.4 snxf=931) PLATELET COUNT (BEAKER) (test nwqh=535) 212 K/CU MM 150-450 MEAN PLATELET VOLUME (BEAKER) (test quth=256) 11.6 fL 9.4-12.4 NUCLEATED RED BLOOD CELLS (BEAKER) (test 0 /100 WBC 0-0 alzh=009) NEUTROPHILS RELATIVE PERCENT (BEAKER) (test 93 % pukq=882) LYMPHOCYTES RELATIVE PERCENT (BEAKER) (test 4 % lfbo=443) MONOCYTES RELATIVE PERCENT (BEAKER) (test 3 % tddf=233) EOSINOPHILS RELATIVE PERCENT (BEAKER) (test 0 % dqqv=276) BASOPHILS RELATIVE PERCENT (BEAKER) (test 0 % dsjp=341) NEUTROPHILS ABSOLUTE COUNT (BEAKER) (test 9.50 K/ L 1.78-5.38 unmp=918) LYMPHOCYTES ABSOLUTE COUNT (BEAKER) (test 0.38 K/ L 1.32-3.57 gfcn=162) MONOCYTES ABSOLUTE COUNT (BEAKER) (test 0.31 K/ L 0.30-0.82 jcbl=854) EOSINOPHILS ABSOLUTE COUNT (BEAKER) (test 0.01 K/ L 0.04-0.54 iwlr=261) BASOPHILS ABSOLUTE COUNT (BEAKER) (test 0.01 K/ L 0.01-0.08 cupa=985) IMMATURE GRANULOCYTES-RELATIVE PERCENT (BEAKER) 0 % 0-1 (test vzae=4580) PROTHROMBIN [id number] 05:25:00 Test Item Value Reference Range Comments PROTIME (BEAKER) (test wftv=555) 15.1 seconds 11.7-14.7 INR (BEAKER) (test iqmt=753) 1.2 <=5.9 RECOMMENDED COUMADIN/WARFARIN INR THERAPY RANGESSTANDARD DOSE: 2.0 - 3.0 Includes: PROPHYLAXIS forvenous thrombosis, systemic embolization; TREATMENT for venous thrombosis and/or pulmonary embolus.HIGH RISK: Target INR is 2.5-3.5 for patients with mechanical heart valves.
[2018-07-02 06:57] LABS: Absolute Lymphocytes (CBC) 0.7 K/uL (0.7-4.9); Absolute Monocytes 0.5 K/uL (0.1-1.3); Absolute Neutrophil 4.2 K/uL (1.8-8.0); Basophils % 0.9 % (0-1.3); Eosinophils % 3.2 % (0-4.4); Hematocrit 28.1 % (39.6-49.0); MPV 9.3 fL (7.6-11.3); Monocytes % 8.7 % (3.3-12.3); RBC Red Blood Cell Count 3.25 M/uL (4.33-5.43)
[2018-07-02 07:15] LABS: Albumin 2.7 g/dL (3.4-5.0); Bilirubin Direct 0.1 mg/dL (0-0.2); Bilirubin Total 0.3 mg/dL (0.2-1.0); Potassium 3.7 mmol/L (3.5-5.1); Protein, Total 5.4 g/dL (6.4-8.2)
--- NOTE | 2018-07-02 08:35 | ER ---
Nurse's Notes [facility] Name: Travis Cardona Age: 73 yrs Sex: Male : 1945 Arrival Date: 07/02/2018 Time: : Bed 6 Private MD: Diagnosis: Person with feared health complaint in whom no diagnosis is made Presentation: 07/02 06:30 Presenting complaint: Patient states: for several weeks he was not been urinating much aa1 and thinks that he might need dialysis. States he is still voiding but only passes small amounts of urine at a time. Transition of care: patient was not received from another setting of care. Onset of symptoms was June 15, 2018. Risk Assessment: Do you want to hurt yourself or someone else? Patient reports no desire to harm self or others. Initial Sepsis Screen: Does the patient meet any 2 criteria? No. Patient's initial sepsis screen is negative. Does the patient have a suspected source of infection? No. Patient's initial sepsis screen is negative. Care prior to arrival: None. 06:30 Method Of Arrival: EMS: [facility] aa1 06:30 Acuity: HIMA 3 aa1 Historical: - Allergies: 06:33 No Known Allergies; aa1 - Home Meds: 06:33 atorvastatin 40 mg Oral tab 1 tab once daily [Active]; calcium vitamin D 250 mg/125 mg aa1 daily [Active]; cyanocobalamin (vitamin B-12) 1,000 mcg Oral tab daily [Active]; glipizide 5 mg Oral tab 1 tab 2 times per day [Active]; hydralazine 25 mg Oral tab 1 tab three times a day [Active]; isosorbide mononitrate 30 mg Oral Tb24 1 tab once daily [Active]; losartan 50 mg Oral tab 1 tab once daily [Active]; tamsulosin 0.4 mg Oral cp24 1 cap once daily [Active]; tramadol 50 mg Oral tab 1 tab three times a day [Active]; ProAir HFA inhalation [Active]; metoprolol tartrate 100 mg Oral tab 2 tabs 2 times per day [Active]; Advair Diskus Inhl [Active]; Novolog Sub-Q [Active]; Xanax Oral [Active]; Labetalol Oral [Active]; - PMHx: 06:33 BPH; CAD; COPD; Diabetes - NIDDM; Hyperlipidemia; Hypertension; Myocardial infarction; aa1 - PSHx: 06:33 Appendectomy; aa1 - Immunization history:: Flu vaccine is up to date. - Social history:: Smoking status: Patient uses tobacco products, smokes one pack cigarettes per day. - Ebola Screening: : No symptoms or risks identified at this time. - History obtained from: previous medication list in [facility]. Pt states he cannot remember all of his medications that he takes and that the list we have on file "should be correct." Informed pt that we can use his previous medication list on file temporarily as a reference but a current list needs to be obtained as soon as he is able to provide one so that we may ensure that his medication list is accurate. . Screenin:32 Abuse screen: Denies threats or abuse. Denies injuries from another. Nutritional aa1 screening: No deficits noted. Tuberculosis screening: No symptoms or risk factors identified. Fall Risk None identified. Assessment: 06:32 General: Appears in no apparent distress. comfortable, unkempt, Behavior is calm, aa1 cooperative, appropriate for age, Smells of cigarettes. Pain: Denies pain. Neuro: Level of Consciousness is awake, alert, obeys commands, Oriented to person, place, time, situation. Cardiovascular: Heart tones S1 S2 present Rhythm is regular. Respiratory: Airway is patent Respiratory effort is even, unlabored, Respiratory pattern is regular, symmetrical, Breath sounds are clear bilaterally. GI: Abdomen is non-distended, Abd is soft X 4 quads. : Reports oliguria Denies burning with urination, inability to void. EENT: No signs and/or symptoms were reported regarding the EENT system. Derm: Skin is intact, is healthy with good turgor, Skin is pink, warm \\T\\ dry. Musculoskeletal: Circulation, motion, and sensation intact. Capillary refill < 3 seconds. 07:26 Reassessment: Patient appears in no apparent distress at this time. Patient and/or hb family updated on plan of care and expected duration. Pain level reassessed. Patient is alert, oriented x 3, equal unlabored respirations, skin warm/dry/pink. 08:30 Reassessment: Patient appears in no apparent distress at this time. Patient and/or tw2 family updated on plan of care and expected duration. Pain level reassessed. Patient is alert, oriented x 3, equal unlabored respirations, skin warm/dry/pink. Vital Signs: 06:30 BP 147 / 74; Pulse 65; Resp 18; Temp 98.5; Pulse Ox 97% on R/A; Weight 68.04 kg; Height aa1 6 ft. 1 in. (185.42 cm); Pain 0/10; 07:25 BP 130 / 57; Pulse 57; Resp 16; Pulse Ox 97% on R/A; hb 08:05 BP 150 / 78; Pulse 68; Resp 16; Pulse Ox 100% on R/A; hb 06:30 Body Mass Index 19.79 (68.04 kg, 185.42 cm) aa1 ED Course: 06:22 Patient arrived in ED. aa1 06:25 Inserted saline lock: 20 gauge in right forearm, using aseptic technique. Blood jd3 collected. 06:26 Mega Georges NP is PHCP. pm1 06:26 Shabbir Henderson MD is Attending Physician. pm1 06:30 Arm band placed on right wrist. aa1 06:30 Bladder scan completed. jd3 06:32 Patient has correct armband on for positive identification. Placed in gown. Bed in low aa1 position. Call light in reach. Pulse ox on. NIBP on. 06:41 Triage completed. aa1 06:57 Report given to Marlyn DELAROSA. jd3 07:01 Marlyn Barnhart RN is Primary Nurse. tw2 08:49 No provider procedures requiring assistance completed. IV discontinued, intact, tw2 bleeding controlled, No redness/swelling at site. Pressure dressing applied. Administered Medications: No medications were administered Output: 08:05 Urine: 200ml (Voided); Total: 200ml. hb Outcome: 08:35 Discharge ordered by . pm1 08:49 Discharged to home ambulatory, with family. tw2 08:49 Condition: stable 08:49 Discharge instructions given to patient, family, Instructed on discharge instructions, follow up and referral plans. Demonstrated understanding of instructions, follow-up care. 08:49 Patient left the ED. tw2 Signatures: Radha Brenann RN RN aa1 Mega Georges NP [employer] pm1 Jyotsna Forbes RN RN Marlyn Barnhart RN RN tw2 Gastelum, Benedicto, RN RN jd3
--- NOTE | 2018-07-02 08:35 | EDPHYS ---
Physician Documentation [facility] Name: Travis Cardona Age: 73 yrs Sex: Male : 1945 Arrival Date: 07/02/2018 Time: : Bed 6 Private MD: ED Physician Shabbir Henderson HPI: 07/02 07:00 This 73 yrs old Male presents to ER via EMS with complaints of decreased pm1 urination. 07:00 The patient presents with urinary symptoms. pm1 07:00 Onset: The symptoms/episode began/occurred 1 month(s) ago. Modifying factors: The pm1 symptoms are alleviated by nothing, the symptoms are aggravated by nothing. Associated signs and symptoms: The patient has no apparent associated signs or symptoms, Pertinent negatives: abdominal pain, diarrhea, fever, nausea, vomiting, flank pain. Severity of symptoms: in the emergency department the symptoms are unchanged. The patient has not experienced similar symptoms in the past. The patient has not recently seen a physician. patient with complaint of decreased urination for 1 month. Patient is able to urinate without difficulty but reports that it is decreased from his normal and would like to be evaluated for the need for dialysis treatment. Historical: - Allergies: 06:33 No Known Allergies; aa1 - Home Meds: 06:33 atorvastatin 40 mg Oral tab 1 tab once daily [Active]; calcium vitamin D 250 mg/125 mg aa1 daily [Active]; cyanocobalamin (vitamin B-12) 1,000 mcg Oral tab daily [Active]; glipizide 5 mg Oral tab 1 tab 2 times per day [Active]; hydralazine 25 mg Oral tab 1 tab three times a day [Active]; isosorbide mononitrate 30 mg Oral Tb24 1 tab once daily [Active]; losartan 50 mg Oral tab 1 tab once daily [Active]; tamsulosin 0.4 mg Oral cp24 1 cap once daily [Active]; tramadol 50 mg Oral tab 1 tab three times a day [Active]; ProAir HFA inhalation [Active]; metoprolol tartrate 100 mg Oral tab 2 tabs 2 times per day [Active]; Advair Diskus Inhl [Active]; Novolog Sub-Q [Active]; Xanax Oral [Active]; Labetalol Oral [Active]; - PMHx: 06:33 BPH; CAD; COPD; Diabetes - NIDDM; Hyperlipidemia; Hypertension; Myocardial infarction; aa1 - PSHx: 06:33 Appendectomy; aa1 - Immunization history:: Flu vaccine is up to date. - Social history:: Smoking status: Patient uses tobacco products, smokes one pack cigarettes per day. - Ebola Screening: : No symptoms or risks identified at this time. - History obtained from: previous medication list in [employer]. Pt states he cannot remember all of his medications that he takes and that the list we have on file "should be correct." Informed pt that we can use his previous medication list on file temporarily as a reference but a current list needs to be obtained as soon as he is able to provide one so that we may ensure that his medication list is accurate. . ROS: 07:00 Constitutional: Negative for fever, chills, and weight loss, Eyes: Negative for injury, pm1 pain, redness, and discharge, ENT: Negative for injury, pain, and discharge, Neck: Negative for injury, pain, and swelling, Cardiovascular: Negative for chest pain, palpitations, and edema, Respiratory: Negative for shortness of breath, cough, wheezing, and pleuritic chest pain, Abdomen/GI: Negative for abdominal pain, nausea, vomiting, diarrhea, and constipation, Back: Negative for injury and pain. 07:00 MS/Extremity: Negative for injury and deformity, Skin: Negative for injury, rash, and discoloration, Neuro: Negative for headache, weakness, numbness, tingling, and seizure. 07:00 : Positive for decreased urination, Negative for urinary frequency, flank pain, burning with urination, bladder incontinence, penile discharge. Exam: 07:00 Constitutional: This is a well developed, well nourished patient who is awake, alert, pm1 and in no acute distress. Head/Face: Normocephalic, atraumatic. Eyes: Pupils equal round and reactive to light, extra-ocular motions intact. Lids and lashes normal. Conjunctiva and sclera are non-icteric and not injected. Cornea within normal limits. Periorbital areas with no swelling, redness, or edema. ENT: Nares patent. No nasal discharge, no septal abnormalities noted. Tympanic membranes are normal and external auditory canals are clear. Oropharynx with no redness, swelling, or masses, exudates, or evidence of obstruction, uvula midline. Mucous membranes moist. Neck: Trachea midline, no thyromegaly or masses palpated, and no cervical lymphadenopathy. Supple, full range of motion without nuchal rigidity, or vertebral point tenderness. No Meningismus. Chest/axilla: Normal chest wall appearance and motion. Nontender with no deformity. No lesions are appreciated. Cardiovascular: Regular rate and rhythm with a normal S1 and S2. No gallops, murmurs, or rubs. Normal PMI, no JVD. No pulse deficits. Respiratory: Lungs have equal breath sounds bilaterally, clear to auscultation and percussion. No rales, rhonchi or wheezes noted. No increased work of breathing, no retractions or nasal flaring. Abdomen/GI: Soft, non-tender, with normal bowel sounds. No distension or tympany. No guarding or rebound. No evidence of tenderness throughout. Back: No spinal tenderness. No costovertebral tenderness. Full range of motion. Skin: Warm, dry with normal turgor. Normal color with no rashes, no lesions, and no evidence of cellulitis. MS/ Extremity: Pulses equal, no cyanosis. Neurovascular intact. Full, normal range of motion. 07:00 Neuro: Orientation: is normal, Motor: is normal, moves all fours. Vital Signs: 06:30 BP 147 / 74; Pulse 65; Resp 18; Temp 98.5; Pulse Ox 97% on R/A; Weight 68.04 kg; Height aa1 6 ft. 1 in. (185.42 cm); Pain 0/10; 07:25 BP 130 / 57; Pulse 57; Resp 16; Pulse Ox 97% on R/A; hb 08:05 BP 150 / 78; Pulse 68; Resp 16; Pulse Ox 100% on R/A; hb 06:30 Body Mass Index 19.79 (68.04 kg, 185.42 cm) aa1 MDM: 06:36 Patient medically screened. pm1 08:27 Data reviewed: vital signs. Data interpreted: Pulse oximetry: on room air is 97 %. pm1 Interpretation: normal. Counseling: I had a detailed discussion with the patient and/or guardian regarding: the historical points, exam findings, and any diagnostic results supporting the discharge/admit diagnosis, lab results, the need for outpatient follow up, to return to the emergency department if symptoms worsen or persist or if there are any questions or concerns that arise at home. 07/02 06:35 Order name: Creatinine for Radiology; Complete Time: 07:21 pm07/02 06:35 Order name: Basic Metabolic Panel; Complete Time: 07:21 pm07/02 06:35 Order name: CBC with Diff; Complete Time: 07:21 pm07/02 06:35 Order name: Hepatic Function; Complete Time: 07:21 pm07/02 06:35 Order name: Lipase; Complete Time: 07:21 pm07/02 07:59 Order name: Urine Dipstick--Ancillary (enter results) kj07/02 06:35 Order name: IV Saline Lock; Complete Time: 06:45 pm07/02 06:35 Order name: Labs collected and sent; Complete Time: 06:45 pm07/02 06:35 Order name: Urine Dipstick-Ancillary (obtain specimen); Complete Time: 08:07 pm07/02 06:45 Order name: Bladder Scanner; Complete Time: 06:45 jd3 Administered Medications: No medications were administered Disposition: 07/02/18 08:35 Discharged to Home. Impression: Person with feared health complaint in whom no diagnosis is made. - Condition is Stable. - Medication Reconciliation Form, Thank You Letter, Antibiotic Education, Prescription Opioid Use form. - Follow up: Emergency Department; When: As needed; Reason: Worsening of condition. Follow up: Private Physician; When: 2 - 3 days; Reason: Recheck today's complaints, Continuance of care, Re-evaluation by your physician. - Problem is new. - Symptoms have improved. Addendum: 07/05/2018 18:58 Co-signature as Attending Physician, Shabbir Henderson MD. r n Signatures: Dispatcher [employer] Radha Oliver RN RN aa1 Shabbir Henderson MD MD rn Marinas, Patrick, UNIVERSITY ADMINISTRATIVE ASSISTANT UNIVERSITY ADMINISTRATIVE ASSISTANT pm1 Marlyn Barnhart RN RN tw2 Benedicto Gastelum RN RN jd3 Corrections: (The following items were deleted from the chart) 07/02 08:49 08:35 07/02/2018 08:35 Discharged to Home. Impression: Person with feared health tw2 complaint in whom no diagnosis is made. Condition is Stable. Forms are Medication Reconciliation Form, Thank You Letter, Antibiotic Education, Prescription Opioid Use. Follow up: Emergency Department; When: As needed; Reason: Worsening of condition. Follow up: Private Physician; When: 2 - 3 days; Reason: Recheck today's complaints, Continuance of care, Re-evaluation by your physician. Problem is new. Symptoms have improved. pm1
[2018-07-02 11:45] LABS: Urine Blood NEGATIVE (NEG); Urine Glucose TRACE (NEG); Urine Protein 3+ (NEG); Urine pH 6.5 (5.0-7.0)
== END 2018-07-02 08:49 | disposition home or self-care (01) ==
LOC: ER 06:22
DX: Z71.1 Person with feared health complaint in whom no diagnosis is made (principal); R33.9 Retention of urine, unspecified; F17.210 Nicotine dependence, cigarettes, uncomplicated; N40.0 Benign prostatic hyperplasia without lower urinary tract symptoms; I25.10 Atherosclerotic heart disease of native coronary artery without angina pectoris; I10 Essential (primary) hypertension; J44.9 Chronic obstructive pulmonary disease, unspecified; E11.9 Type 2 diabetes mellitus without complications; E78.5 Hyperlipidemia, unspecified; I25.2 Old myocardial infarction; Z79.4 Long term (current) use of insulin
CPT/HCPCS: 36415; 80048; 80076; 81003; 83690; 85025; 99284